=== PATIENT | female | born 1930 | race Caucasian/White ===

== ENCOUNTER 2018-02-10 03:33 | Inpatient (IN) | payer OTHER, MEDICARE ==
[2018-02-10] VITALS (15 sets, daily range): BP systolic 84–152; BP diastolic 40–83; PULSE 65–114; RESP 16–27; TEMP 97.6–99.3; O2SAT 96–100
[~2018-02-10] VITALS: Ht 170.2 cm; Wt 92.0 kg
[2018-02-10] MEDS ORDERED: IOHEXOL 350 MG/ML 10 ML VIAL (for RAD DIAG) IVCONTRAST ONE (03:53)
[2018-02-10 03:57] LABS: AUTOMATED NEUTROPHIL # 25.1 TH/MM3 (1.8-7.7); BASOPHIL % 0.1 % (0.0-2.0); EOSINOPHIL % 0.2 % (0.0-4.0); HEMATOCRIT 38.9 % (35.0-46.0); HEMOGLOBIN 12.9 GM/DL (11.6-15.3); LYMPH % 2.4 % (9.0-44.0); LYMPHOCYTE # 0.7 TH/MM3 (1.0-4.8); MEAN CELL VOLUME 92.6 FL (80.0-100.0); MEAN CORPUSCULAR HEMOGLOBIN 30.7 PG (27.0-34.0); MEAN CORPUSCULAR HGB CONC 33.2 % (32.0-36.0); MEAN PLATELET VOLUME 8.9 FL (7.0-11.0); MONOCYTE # 2.6 TH/MM3 (0-0.9); NEUT % 88.3 % (16.0-70.0); PLATELET COUNT 153 TH/MM3 (150-450); RED CELL DISTRIBUTION WIDTH 15.7 % (11.6-17.2); WHITE BLOOD COUNT 28.4 TH/MM3 (4.0-11.0)
--- NOTE | 2018-02-10 03:58 | PD ---
HPI Chief Complaint: Trauma alert Time Seen by Provider: 03:38 Travel History International Travel<30 days: No Contact w/Intl Traveler<30days: No History of Present Illness HPI The patient is a reportedly 87 year old female who presents to the [facility] emergency department with a history of reportedly falling on the driveway at approximately 9 PM last night. The patient was called and as a transfer from [facility] as a trauma alert to this facility. The patient was accepted in transfer by Dr. Monae. The patient according to the record had multiple right-sided rib fractures with a hemopneumothorax status post chest tube placement and 1200 mL of blood out in the chest tube. The patient's hemoglobin dropped from 11 to7. The patient was transfused 2 units of packed red blood cells. The patient was noted to have bilateral intertrochanteric fractures, a left proximal humerus fracture, and reportedly a T-spine fracture, however no documentation of this was provided when the patient was transferred to this facility. On arrival, the patient is noted to be awake and alert. The patient has no cervical collar in place. The patient denies having any complaints currently. She denies having any chest pain or shortness of breath. The patient only reports having right hip pain with any movement of the right hip. [facility] Past Medical History Narrative Medical The patient's past medical history is significant for hypothyroid disorder, osteoporosis, acid reflux, history of cataracts, history of a compression fracture of the lumbar spine, history of hypertension. Past Surgical History Narrative Surgical The patient's past surgical history is significant for hysterectomy Social History Alcohol Use: No Tobacco Use: No Substance Use: No Allergies-Medications (Allergen,Severity, Reaction): Coded Allergies: No Known Allergies (Unverified , 02/10/18) Review of Systems Except as stated in HPI: all other systems reviewed are Neg General / Constitutional: No: Fever Eyes: No: Visual changes HENT: No: Headaches, Neck Stiffness, Neck Pain Cardiovascular: No: Chest Pain or Discomfort Respiratory: No: Shortness of Breath Gastrointestinal: No: Nausea, Vomiting, Diarrhea, Abdominal Pain Genitourinary: No: Dysuria Musculoskeletal: Positive: Myalgias, Arthralgias, Pain Skin: No Rash Neurologic: No: Weakness, Focal Abnormalities, Change in Mentation, Slurred Speech, Sensory Disturbance Psychiatric: No: Depression Endocrine: No: Polydipsia Hematologic/Lymphatic: No: Easy Bruising Physical Exam Narrative General: The patient is a well-developed well-nourished female in no acute distress, arrives with a blood pressure systolic of 95. The patient is brought in on a back board in full c-spine immobilization by emergency services. Head and Neck exam: Head is normocephalic atraumatic. No facial bone tenderness or increased facial bone mobility noted on palpation. Eyes: EOMI, pupils are equal round and reactive to light. Nose: Midline septum with pink mucous membranes Mouth: Dentition unremarkable. Moist mucus membranes. Posterior oropharynx is not erythematous. No tonsillar hypertrophy. Uvula midline. Airway patent. Neck: The patient is immobilized in a cervical collar. No tracheal deviation. The trachea appears midline. Cardiovascular: Sinus tachycardia in the 1 teens without murmurs, gallops, or rubs. No pulse deficit to the extremities on simultaneous auscultation and palpation of her radial artery. Lungs: Clear to auscultation bilaterally. No wheezes, rhonchi, or rales. The patient has chest wall tenderness on palpation of the right lateral chest wall. No crepitus, step off, or flail segment noted. Abdomen: Soft, without tenderness to palpation in all 4 quadrants of the abdomen. No guarding, rebound, or rigidity. No erythema or ecchymosis noted. Extremities: No instability or pain noted on pelvic rock. No clubbing, cyanosis , or edema. 2+ pulses in all 4 extremities. No extremity tenderness or deformity noted on palpation or passive/ active range of motion, except in the area of interest, proximal left humerus and bilateral hips are tender on palpation or with any attempts at range of motion. Back: No spinous process tenderness to palpation. No stepoff or crepitus noted. No costovertebral angle tenderness to palpation. No erythema or ecchymosis. Neurologic Exam: Cranial nerves 2-12 were intact on exam. Strength is 5/5 in all 4 extremities. No sensory deficits noted. Skin Exam: No rash noted. Intact skin that is warm and dry. Data Data Last Documented VS Vital Signs Date Time Temp Pulse Resp B/P (MAP) Pulse Ox O2 Delivery O2 Flow Rate FiO2 02/10/18 03:33 100 3.00 02/10/18 03:33 Nasal Cannula Orders Orders Admit Order (Ed Use Only) (02/10/18 03:49) I-Stat Profile (02/10/18 03:49) Complete Blood Count With Diff (02/10/18 03:49) Prothrombin Time / Inr (Pt) (02/10/18 03:49) Act Partial Throm Time (Ptt) (02/10/18 03:49) Type And Screen (02/10/18 03:49) Fibrinogen (02/10/18 03:49) Red Blood Cells (Rbc) (02/10/18 03:49) Chest, Single Ap (02/10/18 03:49) Pelvis, Ap Only (Routine) (02/10/18 03:49) Ct Abd/Pel W Iv Contrast(Rout) (02/10/18 03:49) Ct Thorax/ Chest W Iv Contrast (02/10/18 03:49) Ct Thor Spine W Iv Contrast (02/10/18 03:49) Ct Lumb Spine W Iv Contrast (02/10/18 03:49) Iv Access Insert/Monitor (02/10/18 03:49) Ecg Monitoring (02/10/18 03:49) Oximetry (02/10/18 03:49) Oxygen Administration (02/10/18 03:49) Ed Poc Ultrasound (02/10/18 03:49) Labs Laboratory Tests Test 02/10/18 03:40 White Blood Count 28.4 TH/MM3 Red Blood Count 4.20 MIL/MM3 Hemoglobin 12.9 GM/DL Bedside Hemoglobin 12.2 G/DL Hematocrit 38.9 % Bedside Hematocrit 36.0 % Mean Corpuscular Volume 92.6 FL Mean Corpuscular Hemoglobin 30.7 PG Mean Corpuscular Hemoglobin Concent 33.2 % Red Cell Distribution Width 15.7 % Platelet Count 153 TH/MM3 Mean Platelet Volume 8.9 FL Neutrophils (%) (Auto) 88.3 % Lymphocytes (%) (Auto) 2.4 % Monocytes (%) (Auto) 9.0 % Eosinophils (%) (Auto) 0.2 % Basophils (%) (Auto) 0.1 % Neutrophils # (Auto) 25.1 TH/MM3 Lymphocytes # (Auto) 0.7 TH/MM3 Monocytes # (Auto) 2.6 TH/MM3 Eosinophils # (Auto) 0.0 TH/MM3 Basophils # (Auto) 0.0 TH/MM3 CBC Comment AUTO DIFF Prothrombin Time 12.5 SEC Prothromb Time International Ratio 1.2 RATIO Activated Partial Thromboplast Time 21.9 SEC Fibrinogen 165 mg/dL Bedside Sodium 135 MMOL/L Bedside Potassium 4.0 MMOL/L Bedside Chloride 101 MMOL/L Bedside Blood Urea Nitrogen 14 MG/DL Bedside Creatinine 0.7 MG/DL Bedside Glucose 274 MG/DL [facility] Medical Screen Exam Complete: Yes Emergency Medical Condition: Yes Medical Record Reviewed: Yes Interpretation(s) Last Impressions Thoracic Spine CT 02/10/18348 Signed Impressions: Service Date/Time: Saturday, February 10, 2018 03:53 - CONCLUSION: 1. Acute fracture of T11 vertebral body. No retropulsion of posterior fragments or canal stenosis. 2. Old compression deformities at T8, T12 and L1 vertebral bodies. 1. Yrn Khan MD Pelvis X-Ray 02/10/18348 Signed Impressions: Service Date/Time: Saturday, February 10, 2018 03:36 - CONCLUSION: 1. Displaced intertrochanteric fracture left proximal femur. 2. Appears to be intertrochanteric fracture of the right proximal femur as well. Yrn Khan MD Lumbar Spine CT 02/10/18348 Signed Impressions: Service Date/Time: Saturday, February 10, 2018 03:53 - CONCLUSION: 1. Multiple old compression deformities. 2. Disc bulge causes mild canal stenosis at L4-5. 3. Compression fracture at T11 Yrn Khan MD Chest X-Ray 02/10/18348 Signed Impressions: Service Date/Time: Saturday, February 10, 2018 03:36 - CONCLUSION: 1. Right-sided chest tube with side hole external to the chest. 2. Tiny right apical pneumothorax. Yrn Khan MD Chest CT 02/10/18348 Signed Impressions: Service Date/Time: Saturday, February 10, 2018 03:53 - CONCLUSION: 1. Small bilateral pleural effusions. 2. Right-sided chest tube is seen with the side hole external to the chest. Tiny right-sided pneumothorax. 3. Minimal rib fracture right lower lateral rib. 4. Fracture of thoracic vertebral bodies including what appears to be T6 and T10, likely old. Yrn Khan MD Abdomen/Pelvis CT 02/10/18348 Signed Impressions: Service Date/Time: Saturday, February 10, 2018 03:53 - CONCLUSION: 1. Intertrochanteric fractures of each proximal femur. 2. Mild loss of height of several thoracic vertebral bodies including L2-L4. L3 and L4 vertebral bodies contain kyphoplasty cement. Yrn Khan MD Differential Diagnosis T-spine trauma, versus pelvis trauma, versus recurrent pneumothorax Narrative Course During the course of the patient's emergency department visit, the patient's history, examination, and differential diagnosis were reviewed with the patient. The patient was placed on a electronic device monitor with oximetry and frequent blood pressure monitoring. The patient had IV access obtained prior to arrival in bilateral upper extremities. At 2:42 AM I did speak to Dr. Monae regarding this patient's case. He did assist with the patient's care in the trauma bay. The patient's laboratory studies were reviewed and remarkable for an i-STAT with creatinine done at this facility that reveals a creatinine of 0.7, hemoglobin 12.2. This is compared to the blood work done at the other facility which revealed a hemoglobin and that did go down to 7.4, white count of 29.8, platelets at the other facility where 170, PT 15.2, INR 1.2, PTT 27.4. Troponin T was less than 0.01. Radiology studies were reviewed at this facility as well as the other facility and revealed bilateral intertrochanteric fractures, multiple right-sided rib fractures with a chest tube that is nearly dislodged in the right side of the chest, however no obvious pneumothorax, left proximal humerus fracture. Dr. Monae accompanied the patient to CT for additional imaging. He assumed patient of the care and CT. The patient's results were discussed with the patient, including the plan of care. I explained that further testing and/ or monitoring is indicated based on the patient's history, examination, and/ or laboratory findings. Therefore, I recommended admission for additional evaluation. The patient expressed understanding and was agreeable with this plan. The patient was admitted to the hospital in guarded condition and sent to a bed under the care of the trauma service. Procedures Procedure Narrative Emergency department E-FAST was performed with patient consent. The curvilinear probe was used in the right upper quadrant/Morison's pouch, suprapubic, left upper quadrant/spleenorenal space, epigastric, parasternal long axis and anterior bilateral chest wall. There was no evidence of peritoneal free fluid, pericardial effusion, or pneumothorax. Trauma Alert - Level One Trauma Alert Level One: Full trauma team activate, Patient evaluated, Trauma surgeon summoned Time Surgeon Summoned: 02:42 Physician Communication The patient's case including history, pertinent physical examination findings, and laboratory studies were discussed with Dr. Monae. It was agreed that the patient would be admitted to the trauma service. Diagnosis Diagnosis: Primary Impression: Hemopneumothorax on right Additional Impressions: Intertrochanteric fracture of both femurs Proximal humerus fracture Qualified Codes: S42.202A - Unspecified fracture of upper end of left humerus , initial encounter for closed fracture Rib fractures Qualified Codes: S22.41XA - Multiple fractures of ribs, right side, initial encounter for closed fracture T11 vertebral fracture Qualified Codes: S22.089A - Unspecified fracture of t11-T12 vertebra, initial encounter for closed fracture Admitting Physician Requests: Admit Daniela Rodriguez MD Feb 10, 2018 03:58
[2018-02-10 04:03] LABS: INTERNATIONAL NORMALIZED RATIO 1.2 RATIO; PROTHROMBIN TIME - PATIENT 12.5 SEC (9.8-11.6)
--- NOTE | 2018-02-10 04:04 | RADRPT ---
EXAM DATE/TIME: 02/10/2018 03:36 [facility] COMPARISON: No previous studies available for comparison. INDICATIONS : Trauma alert. Transfer. MEDICAL HISTORY : None. SURGICAL HISTORY : None. ENCOUNTER: Subsequent ACUITY: 1 day PAIN SCORE: 0/10 LOCATION: Bilateral chest FINDINGS: A single view of the chest demonstrates tiny right apical pneumothorax. Right-sided chest tube with t he side hole external to the chest. Minimal bibasilar densities. Heart normal in size. The cardiomedi astinal contours are unremarkable. Osseous structures are intact. CONCLUSION: 1. Right-sided chest tube with side hole external to the chest. 2. Tiny right apical pneumothorax. Yrn Khan MD on February 10, 2018 at 4:02 Board Certified Radiologist. This report was verified electronically.
--- NOTE | 2018-02-10 04:06 | RADRPT ---
EXAM DATE/TIME: 02/10/2018 03:36 [facility] COMPARISON: No previous studies available for comparison. INDICATIONS : Trauma alert. Transfer. MEDICAL HISTORY : None. SURGICAL HISTORY : None. ENCOUNTER: Initial ACUITY: 1 day PAIN SCORE: 0/10 LOCATION: Bilateral pelvis FINDINGS: A single frontal view of the pelvis demonstrates intertrochanteric fracture left proximal femur with displacement. There also appears to be a fracture to the right intertrochanteric region right proxima l femur. There is contrast within the bladder. CONCLUSION: 1. Displaced intertrochanteric fracture left proximal femur. 2. Appears to be intertrochanteric fracture of the right proximal femur as well. Yrn Khan MD on February 10, 2018 at 4:03 Board Certified Radiologist. This report was verified electronically.
[2018-02-10] MEDS: SODIUM CHLOR 0.9% 1000 ML INJ 1,000 ML IV SCH ×4 (04:13→23:00)
[2018-02-10] MEDS ORDERED: ACETAMINOPHEN/HYDROcodone 325 MG/5 MG TAB PO PRN ×2 (04:15)
[2018-02-10] MEDS ORDERED: CHLORHEXIDINE GLUCONATE 2 % 1 PACK (2 CLOTHS) TOP PRN (04:15)
[2018-02-10] MEDS ORDERED: ENALAPRILAT 1.25 MG/ML VIAL IV PUSH PRN (04:15)
[2018-02-10] MEDS ORDERED: ONDANSETRON HCL 4 MG/2 ML VIAL IV PUSH PRN (04:15)
[2018-02-10] MEDS ORDERED: MISCELLANEOUS NURSING INFORMATION XX SCH (04:15)
[2018-02-10] MEDS ORDERED: SODIUM CHLORIDE 0.9% FLUSH 10 ML FLUSH IV FLUSH PRN (04:15)
--- NOTE | 2018-02-10 04:21 | RADRPT ---
EXAM DATE/TIME: 02/10/2018 03:53 [facility] COMPARISON: No previous studies available for comparison. INDICATIONS : Trauma alert, fall. IV CONTRAST: 50 cc Omnipaque 350 (iohexol) IV ; Cumulative dose for multiple exams. RADIATION DOSE: 19.31 CTDIvol (mGy) ; Combined studies - Thorax/Abdomen/Pelvis MEDICAL HISTORY : Non-responsive. SURGICAL HISTORY : Non-responsive. ENCOUNTER: Initial ACUITY: 1 day PAIN SCALE: Non-responsive LOCATION: chest TECHNIQUE: Volumetric scanning of the chest was performed. Using automated exposure control and adjustment of t he mA and/or kV according to patient size, radiation dose was kept as low as reasonably achievable to obtain optimal diagnostic quality images. DICOM format image data is available electronically for review and comparison. Follow-up recommendations for detected pulmonary nodules are based at a minimum on nodule size and pa tient risk factors according to Fleischner Society Guidelines. FINDINGS: LUNGS: There is a tiny right sided pneumothorax. A right-sided chest tube is seen with tip in the region of the right middle lobe. The side hole is external to the chest. There is right sided subcutaneous emph ysema. PLEURA: There are small bilateral pleural effusions. MEDIASTINUM: The heart and great vessels demonstrate no acute abnormality. There is no mediastinal or hilar lymph adenopathy. Coronary artery calcifications. AXILLAE: Within normal limits. No lymphadenopathy. SKELETAL: Fracture of a midthoracic vertebral body, likely old appears to be about T6 level and also about T10 level. Minimal fracture of the right lower lateral rib. MISCELLANEOUS: The visualized upper abdominal organs demonstrate no acute abnormality. CONCLUSION: 1. Small bilateral pleural effusions. 2. Right-sided chest tube is seen with the side hole external to the chest. Tiny right-sided pneumoth orax. 3. Minimal rib fracture right lower lateral rib. 4. Fracture of thoracic vertebral bodies including what appears to be T6 and T10, likely old. Yrn Khan MD on February 10, 2018 at 4:12 Board Certified Radiologist. This report was verified electronically.
--- NOTE | 2018-02-10 04:24 | RADRPT ---
EXAM DATE/TIME: 02/10/2018 03:53 [facility] COMPARISON: No previous studies available for comparison. INDICATIONS : Trauma alert, fall. IV CONTRAST: 50 cc Omnipaque 350 (iohexol) IV ; Cumulative dose for multiple exams. ORAL CONTRAST: No oral contrast ingested. RADIATION DOSE: 19.31 CTDIvol (mGy) ; Combined studies - Thorax/Abdomen/Pelvis MEDICAL HISTORY : Non-responsive. SURGICAL HISTORY : Non-responsive. ENCOUNTER: Initial ACUITY: 1 day PAIN SCALE: Non-responsive LOCATION: abdomen TECHNIQUE: Volumetric scanning of the abdomen and pelvis was performed. Using automated exposure control and ad justment of the mA and/or kV according to patient size, radiation dose was kept as low as reasonably achievable to obtain optimal diagnostic quality images. DICOM format image data is available electro nically for review and comparison. FINDINGS: LOWER LUNGS: Discussed on CT chest. LIVER: Homogeneous density without lesion. There is no dilation of the biliary tree. No calcified gallston es. Minimal fluid adjacent to the liver. SPLEEN: Normal size without lesion. PANCREAS: Within normal limits. KIDNEYS: Normal in size and shape. There is no mass, stone or hydronephrosis. ADRENAL GLANDS: Within normal limits. VASCULAR: There is no aortic aneurysm. BOWEL/MESENTERY: The stomach, small bowel, and colon demonstrate no acute abnormality. There is no free intraperitone al air or fluid. ABDOMINAL WALL: Within normal limits. RETROPERITONEUM: There is no lymphadenopathy. BLADDER: No wall thickening or mass. REPRODUCTIVE: Within normal limits. INGUINAL: There is no lymphadenopathy or hernia. MUSCULOSKELETAL: Intertrochanteric fractures of each proximal femur. Mild loss of height of several lumbar vertebral b odies including kyphoplasty cement within L3 and L4. Slight loss of height along the superior plate o f L2. CONCLUSION: 1. Intertrochanteric fractures of each proximal femur. 2. Mild loss of height of several thoracic vertebral bodies including L2-L4. L3 and L4 vertebral bodi es contain kyphoplasty cement. Yrn Khan MD on February 10, 2018 at 4:20 Board Certified Radiologist. This report was verified electronically.
--- NOTE | 2018-02-10 04:31 | RADRPT ---
EXAM DATE/TIME: 02/10/2018 03:53 [facility] COMPARISON: No previous studies available for comparison. INDICATIONS : Trauma alert, fall. IV CONTRAST: 50 cc Omnipaque 350 (iohexol) IV ; Cumulative dose for multiple exams. RADIATION DOSE: ; Reconstructed from previous dataset, no dose MEDICAL HISTORY : Non-responsive. SURGICAL HISTORY : Non-responsive. ENCOUNTER: Initial ACUITY: 1 day PAIN SCALE: Non-responsive LOCATION: t spine TECHNIQUE: Volumetric scanning of the thoracic spine was performed. Multiplanar reconstructions in the sagittal , coronal and oblique axial planes were performed. Using automated exposure control and adjustment o f the mA and/or kV according to patient size, radiation dose was kept as low as reasonably achievable to obtain optimal diagnostic quality images. DICOM format image data is available electronically fo r review and comparison. FINDINGS: The vertebral bodies of the thoracic spine are in normal alignment without evidence of subluxation. M oderate loss of height of T8 vertebral body, likely old. Mild loss of height of T12 and L1 vertebral bodies also likely old. There is a fracture through T11 vertebral body.. T1-T2: Normal. T2-T3: The thecal sac has a normal diameter. No evidence of disc bulge or protrusion. T3-T4: The thecal sac has a normal diameter. No evidence of disc bulge or protrusion. T4-T5: The thecal sac has a normal diameter. No evidence of disc bulge or protrusion. T5-T6: The thecal sac has a normal diameter. No evidence of disc bulge or protrusion. T6-T7: The thecal sac has a normal diameter. No evidence of disc bulge or protrusion. T7-T8: The thecal sac has a normal diameter. No evidence of disc bulge or protrusion. T8-T9: The thecal sac has a normal diameter. No evidence of disc bulge or protrusion. T9-T10: The thecal sac has a normal diameter. No evidence of disc bulge or protrusion. T10-T11: The thecal sac has a normal diameter. No evidence of disc bulge or protrusion. T11-T12: The thecal sac has a normal diameter. No evidence of disc bulge or protrusion. T12-L1: The thecal sac has a normal diameter. No evidence of disc bulge or protrusion. CONCLUSION: 1. Acute fracture of T11 vertebral body. No retropulsion of posterior fragments or canal stenosis. 2. Old compression deformities at T8, T12 and L1 vertebral bodies. 1. Yrn Khan MD on February 10, 2018 at 4:26 Board Certified Radiologist. This report was verified electronically.
--- NOTE | 2018-02-10 04:33 | RADRPT ---
EXAM DATE/TIME: 02/10/2018 03:53 [facility] COMPARISON: No previous studies available for comparison. INDICATIONS : Trauma alert, fall. IV CONTRAST: 50 cc Omnipaque 350 (iohexol) IV ; Cumulative dose for multiple exams. RADIATION DOSE: ; Reconstructed from previous dataset, no dose MEDICAL HISTORY : Non-responsive. SURGICAL HISTORY : Non-responsive. ENCOUNTER: Initial ACUITY: 1 day PAIN SCALE: Non-responsive LOCATION: l spine TECHNIQUE: Volumetric scanning of the lumbar spine was performed. Multiplanar reconstructions in the sagittal, coronal and oblique axial planes were performed. Using automated exposure control and adjustment of the mA and/or kV according to patient size, radiation dose was kept as low as reasonably achievable t o obtain optimal diagnostic quality images. DICOM format image data is available electronically for review and comparison. FINDINGS: Mild loss of height of L1, L2, L3 and L4 vertebral bodies likely old compression deformities. Kyphopl asty cement within L3 and L4. CONUS MEDULLARIS: Normal. PARASPINAL SOFT TISSUES: Normal. LUMBAR CORD: Normal. DURAL SAC: Normal. L1-L2: The disc, uncovertebral joints, central canal, foramina, and facets are normal. L2-. L3-L4: The disc, uncovertebral joints, central canal, foramina, and facets are normal. L4-L5 L5-S1: The disc, uncovertebral joints, central canal, foramina, and facets are normal. CONCLUSION: 1. Multiple old compression deformities. 2. Disc bulge causes mild canal stenosis at L4-5. 3. Compression fracture at T11 Yrn Khan MD on February 10, 2018 at 4:30 Board Certified Radiologist. This report was verified electronically.
[2018-02-10] MEDS ORDERED: HYDROmorphone HCL PF 2 MG/ML VIAL IV PRN (04:45)
[2018-02-10] MEDS: PANTOPRAZOLE SODIUM 40 MG VIAL IVP SCH (04:52)
[2018-02-10] MEDS ORDERED: EPINEPHrine HCL (1:10,000) 1 MG/10 ML SYRINGE IV ONE (05:00)
[2018-02-10] MEDS ORDERED: DOPamine 800 MG/500 ML INJ 500 ML IV ONE (05:00)
[2018-02-10] MEDS ORDERED: CALCIUM CHLORIDE 10% SOLN 1 GRAM/10 ML SYR IV ONE (05:00)
[2018-02-10] MEDS ORDERED: ETOMIDATE 40 MG/20 ML VIAL ONE (05:16)
[2018-02-10] MEDS ORDERED: MIDAZOLAM HCL 5 MG/ML VIAL (1 ML) ONE (05:17)
[2018-02-10] MEDS ORDERED: ROCURONIUM INJ 50 MG/5 ML VIAL ONE (05:17)
[2018-02-10] MEDS ORDERED: PROPOFOL 500 MG/50 ML INJ 50 ML ONE (05:25)
[2018-02-10 05:29] LABS: BANDS 18 % (0-6); LYMPHOCYTES 3 % (9-44); METAMYELOCYTES 1 % (0-1); MONOCYTES 4 % (0-8); MYELOCYTES 1 % (0-0); NEUTROPHIL # MANUAL DIFF 26.4 TH/MM3 (1.8-7.7); POLYS (SEG NEUTROPHILS) 73 % (16-70)
[2018-02-10 05:30] LABS: ACANTHOCYTES OCC (NORMAL)
[2018-02-10 05:31] LABS: TOXIC VACUOLATION PRESENT (NONE SEEN)
[2018-02-10] MEDS ORDERED: SODIUM PHOSPHATE INJ 30 MMOL in SODIUM CHLOR 0.9% 250 ML INJ 240 ML IV PRN ×2 (06:30→09:15)
[2018-02-10] MEDS ORDERED: POTASSIUM CHLOR 40 MEQ PREMIX 100 ML IV PRN ×3 (06:30→09:15)
[2018-02-10] MEDS ORDERED: MAGNESIUM SULFATE INJ 2 GM in SODIUM CHLORIDE 0.9% INJ 96 ML IV PRN ×2 (06:30→09:15)
[2018-02-10] MEDS ORDERED: MAGNESIUM SULFATE INJ 4 GM in SODIUM CHLORIDE 0.9% INJ 92 ML IV PRN ×2 (06:30→09:15)
[2018-02-10] MEDS ORDERED: POTASSIUM PHOSPHATE MONOBASIC 500 MG TAB PO PRN ×2 (06:30→09:15)
[2018-02-10] MEDS ORDERED: POTASSIUM PHOSPHATE MONOBASIC 500 MG TAB PO/TUBE PRN ×2 (06:30→09:15)
[2018-02-10] MEDS ORDERED: POTASSIUM CHLOR 20 MEQ PREMIX 100 ML IV PRN ×3 (06:30→09:15)
[2018-02-10] MEDS ORDERED: POTASSIUM PHOSPHATE INJ 30 MMOL in SODIUM CHLOR 0.9% 250 ML INJ 250 ML IV PRN ×2 (06:30→09:15)
[2018-02-10] MEDS ORDERED: POTASSIUM CHLORIDE 20 MEQ PWD PACKET PO PRN (06:30)
[2018-02-10] MEDS ORDERED: MAGNESIUM OXIDE 400 MG TAB PO PRN ×2 (06:30→09:15)
--- NOTE | 2018-02-10 06:46 | RADRPT ---
EXAM DATE/TIME: 02/10/2018 06:09 [facility] COMPARISON: CHEST SINGLE AP, February 10, 2018, 3:36. INDICATIONS : Post intubation, central line placement, and advancement of chest tube on right side. MEDICAL HISTORY : None. SURGICAL HISTORY : None. ENCOUNTER: Initial ACUITY: 1 day PAIN SCORE: 0/10 LOCATION: Bilateral chest FINDINGS: A single view of the chest demonstrates bibasilar densities. Small right apical pneumothorax. Endotra cheal tube 2 cm above the rosmery. Right subclavian central line with kink in distal catheter with tip in the SVC. Osseous structures are intact. CONCLUSION: 1. Minimal bibasilar densities. 2. Small right apical pneumothorax. 3. Kink in distal subclavian central line. Yrn Khan MD on February 10, 2018 at 6:43 Board Certified Radiologist. This report was verified electronically.
[2018-02-10] MEDS ORDERED: SODIUM BICARBONATE 8.4% INJ 50 MEQ/50 ML SYR ONE (07:05)
[2018-02-10] MEDS ORDERED: PHENYLEPHRINE HCL 10 MG/ML VIAL ONE ×3 (07:18→19:05)
--- NOTE | 2018-02-10 07:38 | PD.CONS ---
[facility] Service Critical Care Medicine Consult Requested By Dr. Monae Reason for Consult Trauma alert with: Right hemopneumothorax, right-sided rib fractures, bilateral intertrochanteric fractures on the femur, acute T11 fracture, acute left humerus fracture Severe shock Acute respiratory failure Ventricular tachycardia Anemia requiring transfusion Primary Care Physician Unknown History of Present Illness The patient is a reportedly 87 year old female who presents to the [facility] [address] emergency department as a transfer/trauma alert from [facility]. Apparently patient sustained a fall on the driveway at approximately 9 PM last night. She sustained right sided rib fractures with a hemopneumothorax status post chest tube placement at outside hospital and 1200 mL of blood out in the chest tube. Was transfused 2 units of packed red blood cells for Hb drop from 11 to 7. The patient was found to have bilateral intertrochanteric fractures, Left proximal humerus fracture, Acute T11 fracture, right-sided rib fractures, and hemopneumothorax as described above. Patient was accepted by Dr. Monae. Today am patient started becoming more hemodynamically unstable, Dr. Monae place a right subclavian central line and Levophed was started which rapidly was increased to 12 mcg/min. Due to increasing hemodynamic instability patient was intubated by Dr. Monae and placed on mechanical ventilation I was emergently called to the bedside today a.m. around 0645 AM as the patient was in severe hemodynamic compromise with rapidly dropping blood pressure. Levophed was titrated up to 30 mcg/min, rapid transfusion of 1 L normal saline started. Patient became bradycardic and further hypotensive and one ampule of epinephrine was pushed emergently. Patient also got 2 ampules of bicarb and 1 g of calcium IV push. Blood pressure started to stabilize. Patient started having frequent arrhythmias, for Levophed to be weaned, Gonzalo-Synephrine was started to support blood pressure. Stat blood work including CBC CMP lactic acid and troponin are pending at this time. Will check 2D echo. EKG did not show any evidence of ischemia. Patient this time is critically ill family was updated by myself Review of Systems ROS Limitations: Intubated, Altered Mental Status Past Family Social History Allergies: Coded Allergies: No Known Allergies (Unverified , 02/10/18) Past Medical History Hypothyroidism Osteoporosis GERD History of lumbar compression fractures Hypertension Past Surgical History Hysterectomy and cataract surgeries per ER notes Reported Medications Unable to obtain at this time Active Ordered Medications Currently on Levophed and Gonzalo-Synephrine infusions Family History Unable to obtain Social History Unable to obtain Physical Exam Vital Signs Vital Signs Date Time Temp Pulse Resp B/P (MAP) Pulse Ox O2 Delivery O2 Flow Rate FiO2 02/10/18 06:00 Mechanical Ventilator 100 02/10/18 05:42 100 02/10/18 05:40 100 100 02/10/18 04:00 97.6 114 24 152/83 (106) 96 02/10/18 03:33 100 3.00 02/10/18 03:33 100 Nasal Cannula 3.00 Physical Exam General: The patient is a well-developed well-nourished female in intubated sedated in severe shock HEENT: Pupils are equal round and reactive to light. No facial asymmetry or crepitus noted. Orotracheally intubated Neck: No tracheal deviation. The trachea appears midline. Cardiovascular: Sinus tachycardia with frequent PVCs, in profound shock on Levophed 30 mcg/min. Getting actively resuscitated Lungs: Clear to auscultation bilaterally, air entry diminished at the bases. Right-sided chest tube in place to -20 suction increased to -40. Right subclavian central line in place Abdomen: Soft, without tenderness to palpation. No guarding, rebound, or rigidity. Extremities: Patient has known proximal left humerus and bilateral intertrochanteric fractures Neurologic Exam: Neuro exam is limited by recent neuromuscular paralysis for intubation. Pupils are reactive Laboratory Laboratory Tests Test 02/10/18 03:40 02/10/18 04:30 02/10/18 07:00 White Blood Count 28.4 Red Blood Count 4.20 Hemoglobin 12.9 Bedside Hemoglobin 12.2 Hematocrit 38.9 Bedside Hematocrit 36.0 Mean Corpuscular Volume 92.6 Mean Corpuscular Hemoglobin 30.7 Mean Corpuscular Hemoglobin Concent 33.2 Red Cell Distribution Width 15.7 Platelet Count 153 Mean Platelet Volume 8.9 Neutrophils (%) (Auto) 88.3 Lymphocytes (%) (Auto) 2.4 Monocytes (%) (Auto) 9.0 Eosinophils (%) (Auto) 0.2 Basophils (%) (Auto) 0.1 Neutrophils # (Auto) 25.1 Lymphocytes # (Auto) 0.7 Monocytes # (Auto) 2.6 Eosinophils # (Auto) 0.0 Basophils # (Auto) 0.0 CBC Comment AUTO DIFF Differential Total Cells Counted 73 Neutrophils % (Manual) 73 Band Neutrophils % 18 Lymphocytes % 3 Monocytes % 4 Neutrophils # (Manual) 26.4 Metamyelocytes 1 Myelocytes 1 Differential Comment FINAL DIFF MANUAL Toxic Vacuolation PRESENT Platelet Estimate NORMAL Platelet Morphology Comment NORMAL Acanthocytes OCC Prothrombin Time 12.5 Prothromb Time International Ratio 1.2 Activated Partial Thromboplast Time 21.9 Fibrinogen 165 Bedside Sodium 135 Bedside Potassium 4.0 Bedside Chloride 101 Bedside Blood Urea Nitrogen 14 Bedside Creatinine 0.7 Bedside Glucose 274 Nasal Screen MRSA (PCR) MRSA NOT DETECTED Blood Gas Puncture Site ART LINE Blood Gas Patient Temperature 98.6 Blood Gas HCO3 30 Blood Gas Base Excess 5.9 Blood Gas Oxygen Saturation 98 Arterial Blood pH 7.44 Arterial Blood Partial Pressure CO2 45 Arterial Blood Partial Pressure O2 447 Arterial Blood Oxygen Content 13.1 Arterial Blood Carboxyhemoglobin 1.2 Arterial Blood Methemoglobin 0.8 Blood Gas Hemoglobin 8.7 Oxygen Delivery Device VENTILATOR Blood Gas Ventilator Setting PRVC/16/500/1.0/+5 Blood Gas Inspired Oxygen 100 Result Diagram: 02/10/18 0340 Imaging All imaging studies reviewed personally Septic Shock Reassessment Septic shock perfusion: reassessment completed Assessment and Plan Assessment and Plan ASSESSMENT Trauma alert with: Right hemopneumothorax right-sided rib fractures bilateral intertrochanteric fractures on the femur acute T11 fracture acute left humerus fracture Severe shock Acute respiratory failure Ventricular tachycardia Anemia requiring transfusion PLAN: NEURO: -Once clinically stable, start propofol for sedation and fentanyl for pain control -No CT of the head is done today, apparently negatuve CT head and C spine at OSH -Neurosurgery consult for acute T11 fracture -Spinal precautions RESP: -Continue PRVC mode of ventilation -Right chest tube placed at outside hospital, increase suction to -40 -Persistent small right-sided pneumothorax without tension -Monitor closely for tension pneumothorax CV: -Normal saline IV fluids 3L bolus, followed by maintenance fluid at 100 mL/h -Levophed rapidly increased to 30 mcg/min due to severe shock -Brief ACLS with epinephrine push, 2 Amps of bicarb 1 g of calcium -Due to ventricular arrhythmias, start Gonzalo-Synephrine and attempt weaning Levophed -Check 2D echo cycle cardiac enzymes -Check lactic acid and trend if high GI: -N.p.o., IV Protonix, OG to intermittent wall suction : -Monitor renal function closely. Crawford catheter. ID: -No evidence of infection at this time -Monitor closely for aspiration pneumonia HEME: -Monitor CBC, CMP, coags -Transfuse 1 unit of PRBC, received 2 units in the outside hospital ENDO: -Electrolyte replacement per protocol, sliding scale insulin if needed PROPH: -Bilateral lower extremity SCDs. No chemical DVT prophylaxis due to hemothorax -IV Protonix LINES: -Right subclavian central line, right radial art line CC time 87 min, including brief period of ACLS Code Status Full Discussed Condition With D/W Dr. Cedillo and patients family DeondreJanelle MD Feb 10, 2018 07:38
--- NOTE | 2018-02-10 07:57 | RADRPT ---
EXAM DATE/TIME: 02/10/2018 07:19 [place] COMPARISON: No previous studies available for comparison. INDICATIONS : Post ET Tube placement. MEDICAL HISTORY : None. SURGICAL HISTORY : None. ENCOUNTER: Subsequent ACUITY: 1 day PAIN SCORE: Non-responsive. LOCATION: Bilateral chest FINDINGS: Cardiomegaly. Endotracheal tube identified in the distal tip terminates 2 cm above the rosmery. A righ t subclavian line catheter is noted and the tip overlies the SVC. There is subcutaneous air right lat eral chest with a chest tube again noted on the right. There is a small right apical pneumothorax. Le ft lung demonstrates atelectatic changes at the bases. CONCLUSION: Right sided pneumothorax again seen. Central venous catheter and endotracheal tube are noted as above . Jeet Rowe MD on February 10, 2018 at 7:55 Board Certified Radiologist. This report was verified electronically.
[2018-02-10] MEDS: CHLORHEXIDINE 0.12% (ORAL KIT) 15 ML CUP MT SCH ×2 (08:00→20:00)
[2018-02-10 08:22] LABS: CALCIUM 8.4 MG/DL (8.5-10.1); PHOSPHORUS 4.7 MG/DL (2.5-4.9)
[2018-02-10 08:29] LABS: HEMATOCRIT 25.1 % (35.0-46.0); HEMOGLOBIN 8.4 GM/DL (11.6-15.3); MEAN CELL VOLUME 90.5 FL (80.0-100.0); MEAN CORPUSCULAR HEMOGLOBIN 30.4 PG (27.0-34.0); MEAN CORPUSCULAR HGB CONC 33.6 % (32.0-36.0); PLATELET COUNT 113 TH/MM3 (150-450); RED BLOOD COUNT 2.77 MIL/MM3 (4.00-5.30); RED CELL DISTRIBUTION WIDTH 15.2 % (11.6-17.2); WHITE BLOOD COUNT 19.1 TH/MM3 (4.0-11.0)
--- NOTE | 2018-02-10 08:45 | MB ---
cc: Jonathan Linares MD DATE: 02/10/2018 REASON FOR CONSULTATION: Bilateral hip fractures and a left proximal humerus fracture. CONSULTING PHYSICIAN: Ryan Monae MD. HISTORY OF PRESENT ILLNESS: Kiah is an 87-year-old female who initially had a fall. She fell at approximately 9 p.m. last night. She fell in her driveway. She was initially taken to [facility] in [place]. She was found to have right-sided rib fractures, a pneumothorax, a left proximal humerus fracture, and bilateral rib fractures. She was subsequently transferred to [facility] as a trauma alert. She is currently intubated and sedated in the Intensive Care Unit. No other history is available. PAST MEDICAL HISTORY: The patient is unable to give any history because she is intubated and sedated, chart was reviewed. ILLNESSES: Hypothyroidism, reflux, osteoporosis, hypertension. PAST SURGICAL HISTORY: Hysterectomy and cataract surgery. HOME MEDICATIONS: Unknown, please see EMR for a complete list of inpatient medications. FAMILY HISTORY: Unobtainable. REVIEW OF SYSTEMS: Unobtainable. SOCIAL HISTORY: Unobtainable. PHYSICAL EXAMINATION: GENERAL: The patient is an 87-year-old female who is intubated and sedated in the Intensive Care Unit. She appears well-developed and well-nourished. VITAL SIGNS: Temperature 97.6, pulse 114, blood pressure is 152/83, O2 saturation 96% on FIO2 100%. HEENT: The patient is normocephalic. Pupils are equal. NECK: Soft and nontender. The trachea is in the midline. ABDOMEN: Soft, nontender, nondistended. CHEST: Chest tube is in place. ABDOMEN: Soft, nontender, nondistended. EXTREMITIES: Examination of the left shoulder reveals some swelling and bruising around the shoulder. She has no obvious deformity around the elbow, wrist or hand. She has good cap refill in her fingers. Motor and sensory exams are not possible. Examination of the right arm reveals no obvious pain or deformity with shoulder, elbow and wrist motion. Skin is intact. Radial pulse is palpable. Examination of bilateral lower extremities reveals thigh and calf compartments are soft. She has no obvious pain or deformity around her knee, tibia or ankle. She has good cap refill in her feet. She does have crepitus with hip motion. Motor and sensory exams are not possible. LABORATORY DATA: Patient has a white blood cell count of 28.4, hematocrit of 38.9, platelet count of 153. INR is 1.2. BUN is 14 and creatinine 0.7. IMAGING: X-rays of bilateral hips reveal bilateral intertrochanteric rib fractures. Chest x-ray was reviewed. There appears to be a mildly displaced left proximal humerus fracture. IMPRESSIONS: 1. Multiple rib fractures with pneumothorax. 2. Respiratory distress. 3. Hypotension. 4. Left proximal humerus fracture. 5. Bilateral intertrochanteric hip fractures. PLAN: At this point, the patient is in critical condition. She is having respiratory distress and is also having significant hypotension. She is being placed on pressors at this time. She is not stable for surgery today. If the patient does stabilize, she will need surgery for bilateral hip reduction, intramedullary nail fixation. I will likely treat her left shoulder nonoperatively. I will continue to follow the patient's progress. I will attempt to contact family to give them an update and obtain consents for surgery. A mid-level provider in my office, nurse practitioner or PA, may see this patient on a follow-up basis and continue to implement the objective of this plan including: Starting or adjusting medications, injections of muscle, tendon, bursa or joints, cast application, orthotic or brace application, physical therapy, further radiographic studies including x-ray, MRI, CT, ultrasounds or bone scan, vascular studies, neurologic studies, or other specialist consultations, and proceeding with surgical management as appropriate. MD OLIVIA Sheffield/SHAN , 08:23 AM , 08:44 AM
[2018-02-10 08:48] LABS: ALBUMIN 1.6 GM/DL (3.4-5.0); ALT (GPT) 12 U/L (10-53); AST (GOT) 17 U/L (15-37); BICARBONATE 20.2 MEQ/L (21.0-32.0); BLOOD UREA NITROGEN 14 MG/DL (7-18); CHLORIDE 110 MEQ/L (98-107); CREATININE 0.99 MG/DL (0.50-1.00); GLOMERULAR FILTRATION RATE 53 ML/MIN (>89); GLUCOSE,RANDOM 227 MG/DL (74-106); MAGNESIUM 1.7 MG/DL (1.5-2.5); SODIUM (NA) 145 MEQ/L (136-145)
[2018-02-10 08:51] LABS: ALKALINE PHOSPHATASE 38 U/L (45-117); TOTAL BILIRUBIN ADULT 0.7 MG/DL (0.2-1.0); TOTAL PROTEIN 3.4 GM/DL (6.4-8.2)
--- NOTE | 2018-02-10 08:56 | PD.CONS ---
[facility] Service neurosurgery Consult Requested By Trauma surgeon Reason for Consult T11 fracture Primary Care Physician Unknown History of Present Illness This is a 87 year old female who presents to the [facility] emergency department as a transfer from [facility] as a trauma alert. Apparently patient sustained a fall on the driveway at approximately 9 PM last night. She sustained right sided rib fractures with a hemopneumothorax status post chest tube placement and 1200 mL of blood out in the chest tube. The patient's hemoglobin dropped from 11 to7, was transfused 2 units of packed red blood cells. The patient was found to have bilateral intertrochanteric fractures, Left proximal humerus fracture, Acute T11 fracture, right-sided rib fractures, and hemopneumothorax as described above. She was accepted by Dr. Monae. Towards a.m. patient started becoming more hemodynamically unstable, Dr. Monae place a right subclavian central line and Levophed was started which rapidly was increased to 12 mcg/min. Due to increasing hemodynamic instability patient was intubated by Dr. Monae and placed on mechanical ventilation Trauma workup reveled a right hemopneumothorax, right-sided rib fractures, bilateral intertrochanteric fractures on the femur, acute T11 fracture, acute left humerus fracture. Neurosurgical consultation was requested Review of Systems Unobtainable due to her condition Past Family Social History Allergies: Coded Allergies: No Known Allergies (Unverified , 02/10/18) Past Medical History Unobtainable due to her condition Past Surgical History Unobtainable due to her condition Reported Medications Unobtainable due to her condition Active Ordered Medications Current Medications Sodium Chloride 1,000 ml @ 100 mls/hr Q10H IV Last administered on 02/10/18at 04 :13; Start 02/10/18 at 04:13 Sodium Chloride (NS Flush) 2 ml UNSCH PRN IV FLUSH FLUSH AFTER USING IV ACCESS ; Start 02/10/18 at 04:15 Hydromorphone HCl (Dilaudid Pf Inj) 0.5 mg Q1H PRN IV BREAKTHROUGH PAIN; Start 02/10/18 at 04:45 Acetaminophen/ Hydrocodone Bitart (Conception 5-325 Mg) 1 tab Q4H PRN PO PAIN SCALE 1 TO 5; Start 02/10/18 at 04:15 Acetaminophen/ Hydrocodone Bitart (Conception 5-325 Mg) 2 tab Q4H PRN PO PAIN SCALE 6 TO 10 Last administered on 02/10/18at 04:52; Start 02/10/18 at 04:15 Enalaprilat (Vasotec Inj) 1.25 mg Q8H PRN IV PUSH SBP>180, DBP>95; Start at 04:15 Ondansetron HCl (Zofran Inj) 4 mg Q6H PRN IV PUSH NAUSEA OR VOMITING; Start 02/10/18 at 04:15 Pantoprazole Sodium (Protonix Inj) 40 mg Q24H IVP Last administered on at 04:52; Start 02/10/18 at 05:00 Docusate Sodium (Colace) 100 mg BID PO ; Start 02/10/18 at 09:00 Miscellaneous Information 1 [id number] Last administered on 02/10/18at 04:15; Start 02/10/18 at 04:15 Chlorhexidine Gluconate (Chlorhexidine 2% Cloth) 3 pack Taper DAILY@04 TOP ; Start 02/11/18 at 04:00; Stop 02/07/19 at 03:59 Chlorhexidine Gluconate (Chlorhexidine 2% Cloth) 3 pack UNSCH PRN TOP HYGIENIC CARE; Start 02/10/18 at 04:15 Etomidate (Amidate Inj) 40 mg STK-MED ONCE .ROUTE Last administered on at 05:16; Start 02/10/18 at 05:16; Stop 02/10/18 at 05:17; Status DC Fentanyl Citrate (fentaNYL INJ) 100 mcg STK-MED ONCE .ROUTE ; Start 02/10/18 at 05:17; Stop 02/10/18 at 05:18; Status DC Midazolam HCl (Versed Inj) 5 mg STK-MED ONCE .ROUTE Last administered on at 05:17; Start 02/10/18 at 05:17; Stop 02/10/18 at 05:18; Status DC Rocuronium Maunie (Zemuron Inj) 50 mg STK-MED ONCE .ROUTE Last administered on 02/10/18at 05:17; Start 02/10/18 at 05:17; Stop 02/10/18 at 05:18; Status DC Propofol 50 ml @ As Directed STK-MED ONCE .ROUTE ; Start 02/10/18 at 05:25; Stop 02/10/18 at 05:26; Status DC Potassium Chloride 100 ml @ 50 mls/hr Q2H PRN IV For Potassium 2.8 - 3.2 mEq/L ; Start 02/10/18 at 06:30 Potassium Chloride 100 ml @ 50 mls/hr Q2H PRN IV For Potassium 2.8 - 3.2 mEq/L ; Start 02/10/18 at 06:30 Potassium Chloride 100 ml @ 25 mls/hr UNSCH PRN IV For Potassium 3.3 - 3.5 mEq /L; Start 02/10/18 at 06:30 Potassium Chloride 100 ml @ 50 mls/hr Q2H PRN IV For Potassium 3.3 - 3.5 mEq/L ; Start 02/10/18 at 06:30 Magnesium Sulfate 4 gm/Sodium Chloride 100 ml @ 50 mls/hr UNSCH PRN IV For Magnesium 0.9 - 1.1 mg/dL; Start 02/10/18 at 06:30 Magnesium Oxide (Mag-Ox) 800 mg UNSCH PRN PO For Magnesium 1.2 - 1.6 mg/dL; Start 02/10/18 at 06:30 Magnesium Sulfate 2 gm/Sodium Chloride 100 ml @ 50 mls/hr UNSCH PRN IV For Magnesium 1.2 - 1.6 mg/dL; Start 02/10/18 at 06:30 Potassium Phosphate (K-Phos) 2,000 mg Q4H PRN PO For Phosphorus < 2.5 mg/dL; Start 02/10/18 at 06:30 Sodium Phosphate 30 mmol/Sodium Chloride 250 ml @ 42 mls/hr UNSCH PRN IV For Phosphorus < 2.5 mg/dL; Start 02/10/18 at 06:30 Potassium Phosphate (K-Phos) 2,000 mg UNSCH PRN PO/TUBE SEE LABEL COMMENTS; Start 02/10/18 at 06:30 Potassium Phosphate 30 mmol/ Sodium Chloride 260 ml @ 42 mls/hr UNSCH PRN IV SEE LABEL COMMENTS; Start 02/10/18 at 06:30 Potassium Chloride (KCl Powder) 40 meq DAILY PRN PO For Potassium 3.3 - 3.5 mEq /L; Start 02/10/18 at 06:30 Chlorhexidine Gluconate (Peridex 0.12% Liq) 15 ml BID@08,20 MT ; Start 02/10/18 at 08:00 Propofol 100 ml @ 2.172 mls/ hr TITRATE PRN IV SEDATION; Start 02/10/18 at 08: 00 Fentanyl Citrate 250 ml @ 5 mls/hr TITRATE PRN IV SEDATION; Start 02/10/18 at 08 :00 Sodium Bicarbonate (Sodium Bicarbonate 8.4% Inj) 100 meq STK-MED ONCE .ROUTE ; Start 02/10/18 at 07:05; Stop 02/10/18 at 07:06; Status DC Phenylephrine HCl (Neosynephrine Inj) 10 mg STK-MED ONCE .ROUTE ; Start 02/10/18 at 07:18; Stop 02/10/18 at 07:19; Status DC Phenylephrine HCl (Neosynephrine Inj) 30 mg STK-MED ONCE .ROUTE ; Start 02/10/18 at 07:20; Stop 02/10/18 at 07:21; Status DC Family History Unobtainable due to her condition Social History Unobtainable due to her condition Physical Exam Vital Signs Vital Signs Date Time Temp Pulse Resp B/P (MAP) Pulse Ox O2 Delivery O2 Flow Rate FiO2 02/10/18 07:37 100 100 02/10/18 06:00 Mechanical Ventilator 100 02/10/18 05:42 100 02/10/18 05:40 100 100 02/10/18 04:00 97.6 114 24 152/83 (106) 96 02/10/18 03:33 100 3.00 02/10/18 03:33 100 Nasal Cannula 3.00 Physical Exam The patient is intubated and sedated. Localizes to painful stimulii with all 4 extremities. Cranial Nerves: Pupils equal, round, reactive to light. Eyes appear conjugated. There was no nystagmus, no papilledema. Face musculature appeared symmetrical at rest. Face sensation, olfaction, visual whittington, and hearing cannot be adequately assessed due to his neurological condition. The patient has a corneal reflex. He has a gag reflex. The sternocleidomastoid and trapezius are symmetrical. Cervical Spine: His neck is soft, supple, without nuchal rigidity. Motor: His muscle tone and bulk are normal. She moves all 4 extremities symmetrically, less on left upper extremity and lower.extremities due to her orthopedic fracture Sensory: On examination there is response to painful stimuli, localizing with both upper and lower extremities. Cerebellar: Examination cannot be adequately assessed due to the patient's neurological condition. Cardiovascular: Sinus tachycardia with frequent PVCs, in profound shock on Levophed 30 mcg/min. Getting actively resuscitated Lungs: Clear to auscultation bilaterally, air entry diminished at the bases. Right-sided chest tube in place to -20 suction increased to -40. Right subclavian central line in place Abdomen: Soft, without tenderness to palpation. No guarding, rebound, Skin warm and dry Laboratory Laboratory Tests Test 02/10/18 03:40 02/10/18 04:30 02/10/18 07:00 02/10/18 07:30 White Blood Count 28.4 19.1 Red Blood Count 4.20 2.77 Hemoglobin 12.9 8.4 Bedside Hemoglobin 12.2 Hematocrit 38.9 25.1 Bedside Hematocrit 36.0 Mean Corpuscular Volume 92.6 90.5 Mean Corpuscular Hemoglobin 30.7 30.4 Mean Corpuscular Hemoglobin Concent 33.2 33.6 Red Cell Distribution Width 15.7 15.2 Platelet Count 153 113 Mean Platelet Volume 8.9 9.0 Neutrophils (%) (Auto) 88.3 Lymphocytes (%) (Auto) 2.4 Monocytes (%) (Auto) 9.0 Eosinophils (%) (Auto) 0.2 Basophils (%) (Auto) 0.1 Neutrophils # (Auto) 25.1 Lymphocytes # (Auto) 0.7 Monocytes # (Auto) 2.6 Eosinophils # (Auto) 0.0 Basophils # (Auto) 0.0 CBC Comment AUTO DIFF Differential Total Cells Counted 73 Neutrophils % (Manual) 73 Band Neutrophils % 18 Lymphocytes % 3 Monocytes % 4 Neutrophils # (Manual) 26.4 Metamyelocytes 1 Myelocytes 1 Differential Comment FINAL DIFF MANUAL Toxic Vacuolation PRESENT Platelet Estimate NORMAL Platelet Morphology Comment NORMAL Acanthocytes OCC Prothrombin Time 12.5 Prothromb Time International Ratio 1.2 Activated Partial Thromboplast Time 21.9 Fibrinogen 165 Bedside Sodium 135 Blood Urea Nitrogen 13 14 Creatinine 1.00 0.99 Random Glucose 278 227 Calcium Level 8.4 9.0 Phosphorus Level 4.7 Magnesium Level 2.0 1.7 Sodium Level 135 145 Potassium Level 4.0 3.2 Chloride Level 104 110 Carbon Dioxide Level 16.0 20.2 Bedside Potassium 4.0 Bedside Chloride 101 Anion Gap 15 15 Bedside Blood Urea Nitrogen 14 Bedside Creatinine 0.7 Estimat Glomerular Filtration Rate 53 53 Bedside Glucose 274 Nasal Screen MRSA (PCR) MRSA NOT DETECTED Blood Gas Puncture Site ART LINE Blood Gas Patient Temperature 98.6 Blood Gas HCO3 30 Blood Gas Base Excess 5.9 Blood Gas Oxygen Saturation 98 Arterial Blood pH 7.44 Arterial Blood Partial Pressure CO2 45 Arterial Blood Partial Pressure O2 447 Arterial Blood Oxygen Content 13.1 Arterial Blood Carboxyhemoglobin 1.2 Arterial Blood Methemoglobin 0.8 Blood Gas Hemoglobin 8.7 Oxygen Delivery Device VENTILATOR Blood Gas Ventilator Setting PRVC/16/500/1.0/+5 Blood Gas Inspired Oxygen 100 Total Protein 3.4 Albumin 1.6 Alkaline Phosphatase 38 Aspartate Amino Transf (AST/SGOT) 17 Alanine Aminotransferase (ALT/SGPT) 12 Total Bilirubin 0.7 Test 02/10/18 08:05 Result Diagram: 02/10/18 0730 02/10/18 0730 Imaging Last 48 hours Impressions Thoracic Spine CT 02/10/18348 Signed Impressions: Service Date/Time: Saturday, February 10, 2018 03:53 - CONCLUSION: 1. Acute fracture of T11 vertebral body. No retropulsion of posterior fragments or canal stenosis. 2. Old compression deformities at T8, T12 and L1 vertebral bodies. 1. Yrn Khan MD Pelvis X-Ray 02/10/18348 Signed Impressions: Service Date/Time: Saturday, February 10, 2018 03:36 - CONCLUSION: 1. Displaced intertrochanteric fracture left proximal femur. 2. Appears to be intertrochanteric fracture of the right proximal femur as well. Yrn Khan MD Lumbar Spine CT 02/10/18348 Signed Impressions: Service Date/Time: Saturday, February 10, 2018 03:53 - CONCLUSION: 1. Multiple old compression deformities. 2. Disc bulge causes mild canal stenosis at L4-5. 3. Compression fracture at T11 Yrn Khan MD Chest X-Ray 02/10/18348 Signed Impressions: Service Date/Time: Saturday, February 10, 2018 03:36 - CONCLUSION: 1. Right-sided chest tube with side hole external to the chest. 2. Tiny right apical pneumothorax. Yrn Khan MD Chest CT 02/10/18348 Signed Impressions: Service Date/Time: Saturday, February 10, 2018 03:53 - CONCLUSION: 1. Small bilateral pleural effusions. 2. Right-sided chest tube is seen with the side hole external to the chest. Tiny right-sided pneumothorax. 3. Minimal rib fracture right lower lateral rib. 4. Fracture of thoracic vertebral bodies including what appears to be T6 and T10, likely old. Yrn Khan MD Abdomen/Pelvis CT 02/10/18348 Signed Impressions: Service Date/Time: Saturday, February 10, 2018 03:53 - CONCLUSION: 1. Intertrochanteric fractures of each proximal femur. 2. Mild loss of height of several thoracic vertebral bodies including L2-L4. L3 and L4 vertebral bodies contain kyphoplasty cement. Yrn Khan MD Chest X-Ray 02/10/18 Signed Impressions: Service Date/Time: Saturday, February 10, 2018 07:19 - CONCLUSION: Right sided pneumothorax again seen. Central venous catheter and endotracheal tube are noted as above. Jeet Rowe MD Chest X-Ray 02/10/18 Signed Impressions: Service Date/Time: Saturday, February 10, 2018 06:09 - CONCLUSION: 1. Minimal bibasilar densities. 2. Small right apical pneumothorax. 3. Kink in distal subclavian central line. Yrn Khan MD Attending Statement I reviewed her radiological studies Thoracic Spine CT 02/10/18348 Signed Impressions: Service Date/Time: Saturday, February 10, 2018 03:53 - CONCLUSION: 1. Acute fracture of T11 vertebral body. No retropulsion of posterior fragments or canal stenosis. 2. Old compression deformities at T8, T12 and L1 vertebral bodies. 1. Yrn Khan MD Pelvis X-Ray 02/10/18348 Signed Impressions: Service Date/Time: Saturday, February 10, 2018 03:36 - CONCLUSION: 1. Displaced intertrochanteric fracture left proximal femur. 2. Appears to be intertrochanteric fracture of the right proximal femur as well. Yrn Khan MD Lumbar Spine CT 02/10/18348 Signed Impressions: Service Date/Time: Saturday, February 10, 2018 03:53 - CONCLUSION: 1. Multiple old compression deformities. 2. Disc bulge causes mild canal stenosis at L4-5. 3. Compression fracture at T11 Yrn Khan MD Chest X-Ray 02/10/18348 Signed Impressions: Service Date/Time: Saturday, February 10, 2018 03:36 - CONCLUSION: 1. Right-sided chest tube with side hole external to the chest. 2. Tiny right apical pneumothorax. Yrn Khan MD Chest CT 02/10/18348 Signed Impressions: Service Date/Time: Saturday, February 10, 2018 03:53 - CONCLUSION: 1. Small bilateral pleural effusions. 2. Right-sided chest tube is seen with the side hole external to the chest. Tiny right-sided pneumothorax. 3. Minimal rib fracture right lower lateral rib. 4. Fracture of thoracic vertebral bodies including what appears to be T6 and T10, likely old. Yrn Khan MD Abdomen/Pelvis CT 02/10/18348 Signed Impressions: Service Date/Time: Saturday, February 10, 2018 03:53 - CONCLUSION: 1. Intertrochanteric fractures of each proximal femur. 2. Mild loss of height of several thoracic vertebral bodies including L2-L4. L3 and L4 vertebral bodies contain kyphoplasty cement. Yrn Khan MD Chest X-Ray 02/10/18 0000 Signed Impressions: Service Date/Time: Saturday, February 10, 2018 07:19 - CONCLUSION: Right sided pneumothorax again seen. Central venous catheter and endotracheal tube are noted as above. Jeet Rowe MD Chest X-Ray 02/10/18 0000 Signed Impressions: Service Date/Time: Saturday, February 10, 2018 06:09 - CONCLUSION: 1. Minimal bibasilar densities. 2. Small right apical pneumothorax. 3. Kink in distal subclavian central line. Yrn Khan MD The patient is in critical condition. She is having respiratory distress and is also having significant hypotension. She is being placed on pressors at this time. She is not stable medically Continue neuro checks in a serial fashion. T11 fracture. Nonoperative treatment with bed rest for now. if her condition improves TLSO brace Bilateral hip fractures. She is not stable for any tyupe of surgery at the present. If her condition improved consult orthopedics for for bilateral hip reduction Left shoulder fracture. nonoperative treatment. Consult orthopedics Multiple rib fractures. narcotic analgesics for pain control hemopneumothorax. Status post chest tube Pulmonary. Mechanical ventilation for acute respiratory failure, aggressive pulmonary toilette, nasotracheal suction, and breathing treatments with nebulizers. PT and OT eval Renal. monitor closely urine output, BUN and creatinine Endocrine. Monitor serial Acu checks and SSI as needed in detail ID monitor for signs of infection Protonix for stress ulcer prophylaxis Farrukh hose and SCD's for DVT prophylaxis Nasir Landers MD Feb 10, 2018 08:56
[2018-02-10 08:57] LABS: TROPONIN I 0.61 NG/ML (0.02-0.05)
[2018-02-10] MEDS: DOCUSATE SODIUM 100 MG CAP PO SCH ×2 (09:00→20:15)
[2018-02-10] MEDS ORDERED: MORPHINE SULFATE 2 MG/ML SYRINGE IV PUSH PRN (09:15)
[2018-02-10] MEDS ORDERED: SODIUM CHLOR 0.9% 1000 ML INJ 1,000 ML IV ONE (09:15)
[2018-02-10] MEDS ORDERED: POTASSIUM CHLORIDE 25 MEQ EFFERVESCENT TAB PO PRN (09:15)
--- NOTE | 2018-02-10 11:28 | MB ---
cc: Fletcher Rodriguez MD DATE: 02/10/2018 REASON FOR CONSULTATION: Evaluation for arrhythmia, suspected atrial fibrillation. HISTORY OF PRESENT ILLNESS: Kiah Cruz is an 87-year-old female transferred from [facility] after trauma apparently on 02/09/2018. She fell in the driveway, sustained bilateral intertrochanteric fractures, left proximal humeral, fracture of the body of T11 and rib fractures. This morning she became hemodynamically unstable. She was rescued with pressor therapy and now has responded to volume and getting a blood transfusion. There is a mention that this patient had atrial fibrillation. There are EKGs in the chart from 02/10/2018 at 07:22 a.m. and from 02/10/2018 at 22:41. Both of these show sinus rhythm. Telemetry strips here all show sinus rhythm. I have looked at those. I cannot therefore confirm that there has been any A-fib diagnosed. Her initial troponin was 0.01 at the other hospital. I see here it is 0.61. I am going to order an EKG to follow that up further. The patient right now is not able to provide any history, is on the ventilator. PAST MEDICAL HISTORY: Includes cataract surgery, gastroesophageal reflux disease, osteoporosis, hypothyroidism, hypertension. There is no cardiac history that I am aware of. PAST SURGICAL HISTORY: Hysterectomy. SOCIAL HISTORY: It is recorded that she was a nonsmoker. FAMILY HISTORY: Unobtainable. PHYSICAL EXAMINATION: GENERAL: An elderly, white female, currently sedated on a ventilator, intubated. VITAL SIGNS: Charted. HEENT: Unremarkable. NECK: Shows no bruits. No obvious JVD. HEART: Shows S1, S2. Mildly tachycardic, regular rhythm. I do not appreciate murmurs, gallops. ABDOMEN: Soft. EXTREMITIES: Reveal strong pedal pulses, intact radial pulses. LABORATORY DATA: Notable for the elevated troponin of 0.61. She has been noted to be profoundly anemic. Yesterday her hematocrit was 23.1 following the trauma. She is being transfused currently. TELEMETRY STRIPS: I have looked at all telemetry strips that she has had since she has been here. These all show sinus rhythm, sometimes frequent PVCs including a run of bigeminy at 7:45 a.m. I do not see confirmation of atrial fibrillation IMPRESSION: This consult was generated because of suspicion that the patient had atrial fibrillation last night. There is absolutely no documentation of atrial fibrillation anywhere in the chart. All I see at this time is sinus rhythm. She does have an elevated troponin. She could have easily sustained a small non-ST elevation myocardial infarction from the stress of shock from her trauma. There were no acute ischemic T-changes on the electrocardiograms from the other hospital. All that was present was left axis deviation and left anterior fascicular block. PLAN: I am going to repeat an EKG here and repeat troponins tomorrow. MD SAMINA Adams/KAMILAH , 10:52 AM , 11:26 AM
[2018-02-10] MEDS: fentaNYL DRIP 250 ML IV PRN ×2 (12:00→18:03)
[2018-02-10] MEDS: PROPOFOL 1000 MG/100 ML INJ 100 ML IV PRN ×2 (12:00→20:16)
[2018-02-10 14:38] LABS: TROPONIN I 3.06 NG/ML (0.02-0.05)
--- NOTE | 2018-02-10 15:00 | EKG ---
Date Performed: 02/10/2018 Time Performed: 07:22:24 PTAGE: 87 years EKG: Sinus rhythm .PVC. Consider left atrial abnormality Left axis deviation Possible anterior infarct - age undetermin ed Lateral T wave changes are nonspecific Low QRS voltages in precordial leads Abnormal ECG NO PREVIOUS TRACING DOCTOR: Oracio Aquino Interpretating Date/Time 02/10/2018 15:00:26
--- NOTE | 2018-02-10 15:56 | HHI.CCPN ---
Subjective Brief History This is a 87 year old female who presents to the [facility] emergency department as a transfer from [facility] as a trauma alert. Apparently patient sustained a fall on the driveway at approximately 9 PM last night. Patient was transferred to [facility] and underwent workup and when it was finally noted that patient had severe injuries we were asked to accept the patient as trauma transfer. Patient arrives around 6 AM and according to Dr. Monae initially patient is hemodynamically stable but then continues to deteriorate including multifocal supraventricular arrhythmias. Patient undergoes repeat CT scan of the chest and abdomen and is transferred to ICU for further care. Final injuries are Right lower rib fractures with a hemopneumothorax / chest tube placement and 1200 mL of blood out in the chest tube. Bilateral intratrochanteric hip fractures Left proximal humerus fracture T11 fracture Multiple old fractures of the thoracic spine and several lumbar spine fractures with kyphoplasties Supraventricular cardiac arrhythmias ischemic cardiomyopathy Hypotensive shock Metabolic acidosis anion gap In the process patient dropped hemoglobin from 12 g/dL initially to 7 g/dL few hours later. She received several units of PRBCs and was resuscitated Required vasopressors including Levophed and Gonzalo-Synephrine 24 Hour Review/Hospital Course 02/09/2018 Patient was initially unstable but now has stabilized hemodynamically Remains intubated ventilated Medical manager six sigma help greatly appreciated Objective Vital Signs Date Time Temp Pulse Resp B/P (MAP) Pulse Ox O2 Delivery O2 Flow Rate FiO2 02/10/18 15:18 99 35 02/10/18 10:40 98.3 83 22 138/67 02/10/18 06:00 Mechanical Ventilator 02/10/18 03:33 3.00 Intake and Output 02/10/18 02/10/18 02/11/18 08:00 16:00 00:00 Intake Total 2800 ml Output Total 500 ml Balance -500 ml 2800 ml Result Diagram: 02/10/18 0730 02/10/18 0730 Other Results Laboratory Tests Test 02/10/18 07:00 Blood Gas Puncture Site ART LINE Blood Gas Patient Temperature 98.6 Blood Gas HCO3 30 mmol/L (22-26) Blood Gas Base Excess 5.9 mmol/L (-2-2) Blood Gas Oxygen Saturation 98 % (90-100) Arterial Blood pH 7.44 (7.380-7.420) Arterial Blood Partial Pressure CO2 45 mmHg (38-42) Arterial Blood Partial Pressure O2 447 mmHg (61-120) Arterial Blood Oxygen Content 13.1 Vol % (12.0-20.0) Arterial Blood Carboxyhemoglobin 1.2 % (0-4) Arterial Blood Methemoglobin 0.8 % (0-2) Blood Gas Hemoglobin 8.7 G/DL (12.0-16.0) Oxygen Delivery Device VENTILATOR Blood Gas Ventilator Setting PRVC/16/500/1.0/+5 Blood Gas Inspired Oxygen 100 % Imaging Last 24 hours Impressions Thoracic Spine CT 02/10/18348 Signed Impressions: Service Date/Time: Saturday, February 10, 2018 03:53 - CONCLUSION: 1. Acute fracture of T11 vertebral body. No retropulsion of posterior fragments or canal stenosis. 2. Old compression deformities at T8, T12 and L1 vertebral bodies. 1. Yrn Khan MD Pelvis X-Ray 02/10/18348 Signed Impressions: Service Date/Time: Saturday, February 10, 2018 03:36 - CONCLUSION: 1. Displaced intertrochanteric fracture left proximal femur. 2. Appears to be intertrochanteric fracture of the right proximal femur as well. Yrn Khan MD Lumbar Spine CT 02/10/18348 Signed Impressions: Service Date/Time: Saturday, February 10, 2018 03:53 - CONCLUSION: 1. Multiple old compression deformities. 2. Disc bulge causes mild canal stenosis at L4-5. 3. Compression fracture at T11 Yrn Khan MD Chest X-Ray 02/10/18348 Signed Impressions: Service Date/Time: Saturday, February 10, 2018 03:36 - CONCLUSION: 1. Right-sided chest tube with side hole external to the chest. 2. Tiny right apical pneumothorax. Yrn Khan MD Chest CT 02/10/18348 Signed Impressions: Service Date/Time: Saturday, February 10, 2018 03:53 - CONCLUSION: 1. Small bilateral pleural effusions. 2. Right-sided chest tube is seen with the side hole external to the chest. Tiny right-sided pneumothorax. 3. Minimal rib fracture right lower lateral rib. 4. Fracture of thoracic vertebral bodies including what appears to be T6 and T10, likely old. Yrn Khan MD Abdomen/Pelvis CT 02/10/18348 Signed Impressions: Service Date/Time: Saturday, February 10, 2018 03:53 - CONCLUSION: 1. Intertrochanteric fractures of each proximal femur. 2. Mild loss of height of several thoracic vertebral bodies including L2-L4. L3 and L4 vertebral bodies contain kyphoplasty cement. Yrn Khan MD Chest X-Ray 02/10/18 0000 Signed Impressions: Service Date/Time: Saturday, February 10, 2018 07:19 - CONCLUSION: Right sided pneumothorax again seen. Central venous catheter and endotracheal tube are noted as above. Jeet Rowe MD Chest X-Ray 02/10/18 0000 Signed Impressions: Service Date/Time: Saturday, February 10, 2018 06:09 - CONCLUSION: 1. Minimal bibasilar densities. 2. Small right apical pneumothorax. 3. Kink in distal subclavian central line. 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 Patient intubated ventilated and initially sedated with propofol but due to hemodynamic issues propofol has been stopped Patient response to verbal and tactile stimulation appropriately States does not have any pain Hemodynamic/Cardiac Hemodynamically patient is slowly stabilizing Initially had supraventricular arrhythmias which have abated since Remains on Levophed and Gonzalo-Synephrine with decreasing dose as she is being volume loaded Cardiac echo pending Enzymes somewhat elevated but I believe this is a result of the initial event hypovolemia anemia and generalized hypoxia rather than any specific cardiac occurrence Pulmonary/Respiratory Bilateral breath sounds remains ventilatory dependent on assist control ventilation with decreasing PO2 down to 40% Excellent PO2 FiO2 gradient Right chest tube repositioned in the right lung fully expanded with evacuation of hemothorax Residual bleeding minimal and patient still producing serosanguineous fluid Abdomen/GI Nutrition Abdomen soft few bowel sounds Patient will be kept n.p.o. till metabolic and hemodynamic issues resolve Renal/I&O Renal function preserved Metabolic/Acid-Base Patient initially had metabolic acidosis with base deficit consistent with hemorrhagic shock and on the resuscitation as well as cardiac rhythm issues This is slowly resolving and patient is hemodynamically stabilizing Hematologic Hemoglobin of 8.4 g/dL will transfuse another unit or 2 of PRBCs considering the patient will have continuous loss into the intertrochanteric fractures as well into the chest Assessment and Plan Attestation Patient status post fall with severe injuries including Right hemopneumothorax with 1200 cc blood loss Bilateral intertrochanteric fractures of the femurs Hemorrhagic shock and unstable hemodynamics on top of cardiac disease COPD and other issues I have discussed this with the family and this patient has very high 30 day mortality and 100% morbidity Family wants everything done and patient remains full code Critical care time 55 minutes Praveen Bennett MD Feb 10, 2018 15:56
[2018-02-10] MEDS: PHENYLEPHRINE 40 MG in D5W 500 ML IV PRN (19:00)
[2018-02-10] MEDS ORDERED: ALBUMIN 5% INJ 250 ML IV ONE (19:55)
[2018-02-10] MEDS: NOREPINEPHRINE 4 MG/D5W 250 ML IV PRN (20:16)
--- NOTE | 2018-02-10 21:27 | MH ---
cc: Ryan Monae MD DATE OF ADMISSION: 02/10/2018 [place] NAME: Sammi CHIEF COMPLAINT: Trauma, alert, status post trip and fall, transfer from [facility]. HISTORY OF PRESENT ILLNESS: The patient is an 87-year-old female who presented status post a trip and fall. The patient was reportedly walking on a steep driveway at around 9 p.m. last night and is status post a fall. She was initially evaluated at [facility] and had further workup including a CT head and C and T spines showing a T11 fracture. CT chest showing a hemopneumothorax, several rib fractures, status post chest tube. The patient with bilateral intertrochanteric femur fractures and a left shoulder proximal humerus fracture. She was also noted to be in hemodynamic shock briefly, but responded to IV fluids and 2 units of PRBCs at the outside facility. Dr. Chaudhari with [facility] called for trauma transfer for [place] for further workup and evaluation. The patient was deemed high acuity and therefore, I initiated a level 1 trauma transfer trauma alert. The patient was taken to our facility. Primary and secondary surveys were complete. The patient was given IV fluids and transferred over to the trauma bay. She was complaining of pelvic pain. She was not intubated at this time. She was intermittently answering questions; however, a somewhat poor historian. Blood pressure was relatively stable; however, there was some lability. The patient was then taken to our CT scanner. Currently, from outside facility, CT head and C-spine along with several x-rays were available for our view and review. We were unable to find full radiologic workup. We obtained a CT chest, abdomen and pelvis along with a repeat T and L-spine, confirming T11 vertebral body fracture, right rib fractures, chest tube noted to be displaced and had partially been withdrawn, tiny pneumothorax present, confirmation of bilateral intertrochanteric femur fractures and a left proximal humerus fracture. The patient was then taken directly to the ICU for again further resuscitation and management. The patient had further lability of blood pressure, systolic in the 60s. Therefore, patient was intubated, appropriate IV access obtained via central line and chest tube was advanced slightly. A-line was also obtained. PAST MEDICAL HISTORY: Per chart, hypothyroid, osteoporosis, reflux, cataract, history of lumbar spine compression fractures, hypertension. PAST SURGICAL HISTORY: Hysterectomy. MEDICATIONS: Unable to obtain. SOCIAL HISTORY: Denies smoking, ETOH or IVDA. ALLERGIES: THE PATIENT HAS NO KNOWN DRUG ALLERGIES. FAMILY HISTORY: Unable to obtain at this time. REVIEW OF SYSTEMS: GENERAL: Per chart, patient had no fever. HEENT: Denied eye pain, ear pain. CARDIOVASCULAR: Denied chest pain. RESPIRATORY: Denied shortness of breath. GASTROINTESTINAL: Denies nausea, vomiting. GENITOURINARY: No dysuria, hematuria. MUSCULOSKELETAL: Positive arthralgias and myalgias. SKIN: No rash. NEUROLOGIC: Unable to fully obtain. PSYCHIATRIC: Unable to obtain. PHYSICAL EXAMINATION: GENERAL: The patient is in moderate distress. INITIAL VITAL SIGNS: Blood pressure 110/72, pulse 123, respiratory 14, 97% saturation on 2 liters, temperature 97.1. HEENT: Pupils equal, round and reactive. NECK: Supple, trachea midline. LUNGS: Bilateral expansion, some decreased breath sounds on right. Chest tube noted with dressing. ABDOMEN: Soft, nontender, nondistended. EXTREMITIES: No pelvic instability. Painful range of motion, pelvic, lower extremities. Difficulty, range of motion with the left upper extremity. Pulses palpable. SKIN: No obvious rashes. BACK: No stepoff, nontender. LABORATORY AND DIAGNOSTIC DATA: WBC is 28.4, hemoglobin 12.9, hematocrit 38.9, platelets 153. Sodium 145, potassium 3.2, chloride is 110, CO2 is 28.2, BUN is 14, creatinine 0.9, glucose 227. CT is reviewed by myself. CT head: No evidence of acute intracranial pathology, scan from [facility]. CT C-spine, no evidence of acute fracture. Reviewed [facility] CT C-spine. CT chest, small bilateral pleural effusions, right side chest tube partially withdrawn, tiny pneumothorax on right, nondisplaced rib fracture, lower ribs, thoracic vertebral body T6, T10 old fracture. CT lumbar spine, multiple compression deformities, disk bulge, L4, 5, 3, compression fracture T11. Pelvic fracture. Displaced intertrochanteric proximal femur fractures bilaterally. Chest x-ray, right-sided chest tube, chest tube partially withdrawn. ASSESSMENT: Patient is an 87-year-old female status post trip and fall, noted to have bilateral intertrochanteric femur fractures, left proximal humerus fracture, 2 nondisplaced rib fractures, right hemopneumothorax, T11 acute vertebral body fracture, traumatic shock, initial response to blood products and fluid, advanced age. PLAN: After full clinical, radiologic and laboratory workup, patient with above main issues. The patient noted to have blood pressure lability, in traumatic shock. She initially responded to blood products; however, her blood pressure continued to trend down while in the ICU. The patient was intubated for airway protection. Appropriate IV access was obtained. Discussed with the manager home healthcare for further treatment and management. In regard to the humerus fracture and bilateral intertrochanteric femur fractures, will discuss with orthopedics for further evaluation, treatment and management. I will defer to orthopedics for further recommendations. In regard to a T11 fracture, we will keep the patient immobilized and flat and discuss with the neurosurgery for further treatment and evaluation. The patient received 2 units, again, for hemodynamic instability at the outside facility. We will type and cross the patient and have blood products available if patient further requires this. Further discussed with family, and children at bedside regarding the acuity and severity of the patient's injuries along with the significance of advanced age and critical state of patient. The patient will be n.p.o., IV fluids, pain control, appropriate vent management, and we will continue to follow closely for ongoing evidence of further injury along with close observation and resuscitation as needed. MD JER Porter/KAMILAH , 08:46 PM , 09:25 PM
[2018-02-10] MEDS: CHLORHEXIDINE GLUCONATE 2 % 1 PACK (2 CLOTHS) TOP SCH (21:36)
[2018-02-10 21:55] LABS: MAGNESIUM 1.5 MG/DL (1.5-2.5); PHOSPHORUS 2.1 MG/DL (2.5-4.9)
[2018-02-10 22:33] LABS: TROPONIN I 2.56 NG/ML (0.02-0.05)
[2018-02-10] MEDS ORDERED: SODIUM CHLORID 0.9% 500 ML INJ 500 ML IV ONE (23:00)
[2018-02-10] MEDS ORDERED: ALBUMIN 5% INJ 500 ML IV ONE (23:00)
[2018-02-11] VITALS (15 sets, daily range): BP systolic 95–135; BP diastolic 42–97; PULSE 64–79; RESP 13–18; TEMP 98.4–100; O2SAT 99–100
[2018-02-11] MEDS: PANTOPRAZOLE SODIUM 40 MG VIAL IVP SCH (03:56)
[2018-02-11] MEDS: PROPOFOL 1000 MG/100 ML INJ 100 ML IV PRN (03:56)
[2018-02-11 04:23] LABS: AUTOMATED NEUTROPHIL # 9.4 TH/MM3 (1.8-7.7); BASOPHIL % 0.1 % (0.0-2.0); HEMATOCRIT 25.3 % (35.0-46.0); HEMOGLOBIN 8.6 GM/DL (11.6-15.3); LYMPH % 10.2 % (9.0-44.0); LYMPHOCYTE # 1.2 TH/MM3 (1.0-4.8); MEAN CELL VOLUME 85.2 FL (80.0-100.0); MEAN PLATELET VOLUME 8.5 FL (7.0-11.0); MONO % 10.4 % (0.0-8.0); MONOCYTE # 1.2 TH/MM3 (0-0.9); NEUT % 79.3 % (16.0-70.0); PLATELET COUNT 78 TH/MM3 (150-450); RED BLOOD COUNT 2.97 MIL/MM3 (4.00-5.30); RED CELL DISTRIBUTION WIDTH 17.9 % (11.6-17.2); WHITE BLOOD COUNT 11.9 TH/MM3 (4.0-11.0)
[2018-02-11 04:49] LABS: BICARBONATE 20.5 MEQ/L (21.0-32.0); CALCIUM 7.5 MG/DL (8.5-10.1); CREATININE 0.39 MG/DL (0.50-1.00)
[2018-02-11 05:09] LABS: TROPONIN I 1.71 NG/ML (0.02-0.05)
[2018-02-11] MEDS: SODIUM CHLOR 0.9% 1000 ML INJ 1,000 ML IV SCH ×2 (05:15→19:00)
[2018-02-11] MEDS: PHENYLEPHRINE 40 MG in D5W 500 ML IV PRN (05:38)
--- NOTE | 2018-02-11 05:50 | RADRPT ---
EXAM DATE/TIME: 02/11/2018 04:39 [place] COMPARISON: CHEST SINGLE AP, February 10, 2018, 7:19. INDICATIONS : Follow up trauma. Short of breath. MEDICAL HISTORY : None. SURGICAL HISTORY : None. ENCOUNTER: Subsequent ACUITY: 2 days PAIN SCORE: Non-responsive. LOCATION: Bilateral chest FINDINGS: A single view of the chest demonstrates bibasilar densities. Small right apical pneumothorax. Endotra cheal tube and right subclavian central line stable in position. Right-sided chest tube. Osseous str uctures are intact. CONCLUSION: Small right apical pneumothorax. Yrn Khan MD on February 11, 2018 at 5:48 Board Certified Radiologist. This report was verified electronically.
[2018-02-11 07:16] LABS: OVALOCYTES 1+ (NORMAL)
--- NOTE | 2018-02-11 07:29 | PD.ORT.PN ---
Subjective Subjective Remarks s/p bilateral intertroch fxs s/p left proximal humerus fx intubated/sedated Objective Vitals Vital Signs Date Time Temp Pulse Resp B/P (MAP) Pulse Ox O2 Delivery O2 Flow Rate FiO2 02/11/18 05:38 68 112/50 02/11/18 04:30 100 35 02/11/18 04:00 99.2 69 16 97/53 (68) 99 02/11/18 04:00 35 02/11/18 00:25 99 35 02/11/18 00:00 35 02/11/18 00:00 100.0 72 16 131/53 (79) 100 02/10/18 23:00 68 02/10/18 20:16 75 96/52 02/10/18 20:00 99.0 85 16 132/58 (82) 99 02/10/18 20:00 35 02/10/18 19:58 98 35 02/10/18 19:10 99 Mechanical Ventilator 35 02/10/18 19:07 75 100/56 02/10/18 19:00 77 106/50 02/10/18 16:00 99.2 66 16 84/40 (55) 98 02/10/18 16:00 35 02/10/18 15:18 99 35 02/10/18 15:00 65 02/10/18 12:00 98.5 82 16 136/82 (100) 100 02/10/18 12:00 35 02/10/18 11:01 100 40 02/10/18 10:40 98.3 83 22 138/67 100 02/10/18 10:05 98.3 83 27 141/68 100 02/10/18 08:00 94 02/10/18 08:00 99.3 94 16 97/59 (72) 100 02/10/18 08:00 40 02/10/18 07:37 100 100 I/O 02/10/18 02/10/18 02/10/18 02/11/18 02/11/18 02/11/18 07:00 15:00 23:00 07:00 15:00 23:00 Intake Total 2800 ml 530 ml 1450 ml Output Total 500 ml 925 ml 650 ml Balance -500 ml 2800 ml -395 ml 800 ml Intake IV Total 1000 ml 530 ml 1450 ml Packed Cells 800 ml Blood Product IV Normal Saline Flush 1000 ml Output Urine Total 500 ml 675 ml 600 ml Chest Tube Drainage Total 250 ml 50 ml # Bowel Movements 0 0 Result Diagram: 02/11/18 0410 02/11/18 0410 Imaging Last 24 hours Impressions Chest X-Ray 02/11/18 0000 Signed Impressions: Service Date/Time: Sunday, February 11, 2018 04:39 - CONCLUSION: Small right apical pneumothorax. Ynr Khan MD Objective Remarks BLE: nvi. good cap refill. lue: bruising and swelling of arm. nvi Assessment & Plan Assessment and Plan 1) Bilateral Intertroch Fxs -possible surgery today pending medical status -consents on chart 2) Left Proximal Humerus Fx -donyop Ramo Almaraz/Taker Down SIOMARA Feb 11, 2018 07:29
--- NOTE | 2018-02-11 07:55 | EKG ---
Date Performed: 02/11/2018 Time Performed: 07:09:28 PTAGE: 87 years EKG: Baseline artifact present PROBABLE Sinus rhythm WITH OCCASIONAL VENTRICULAR PREMATURE COMPLEXES MARKED LEFT AXIS DEVIATION LOW QRS VOLTAGE IN PRECOR DIAL LEADS POSSIBLE ANTERIOR MYOCARDIAL INFARCTION , OF INDETERMINATE AGE ABNORMAL ECG No significant change from prior electrocardiogram. PREVIOUS TRACING : 02/10/2018 07.22 DOCTOR: Oracio Aquino Interpretating Date/Time 02/11/2018 07:54:44
[2018-02-11] MEDS: CHLORHEXIDINE 0.12% (ORAL KIT) 15 ML CUP MT SCH ×2 (08:00→20:00)
[2018-02-11] MEDS: DOCUSATE SODIUM 100 MG CAP PO SCH ×2 (09:00→20:54)
[2018-02-11 09:02] LABS: PHOSPHORUS 2.6 MG/DL (2.5-4.9)
--- NOTE | 2018-02-11 09:11 | MR ---
cc: Ryan Monae MD DATE: 02/10/2018 AKA: Edel [id number]. PREOPERATIVE DIAGNOSIS: Status post fall, multitrauma, multiple orthopedic injuries, airway protection. POSTOPERATIVE DIAGNOSIS: Status post fall, multitrauma, multiple orthopedic injuries, airway protection. PROCEDURE PERFORMED: Bedside endotracheal intubation. SURGEON: Ryan Monae MD RV MECHANIC: None. ANESTHESIA: 20 of etomidate, 50 of rocuronium, 1 of Versed. FINDINGS: Appropriate ET tube placement. Bilateral breath sounds. CO2 exchange. INDICATIONS FOR PROCEDURE: The patient is an 87-year-old female status post trip and fall. Patient with hypotension, trauma shock incident, multiple orthopedic injuries including bilateral intertrochanteric fractures, left proximal humerus fracture, right rib fractures, right hemopneumothorax in need of intubation. DETAILS OF PROCEDURE: The patient was approached at bedside. A brief time-out done stating correct patient, procedure, and surgical site. We were all in agreement with this. Attention was directed to the mouth oropharynx. The patient was bagged mask valved to 100% saturation with 100% FIO2. She was given appropriate sedation including etomidate, rocuronium and Versed. The jaw was extended, scissored open, a Eileen blade was used in order to identify the vallecula and down to cords. Cords were appropriately visualized. A #8 ET tube with cuff was placed and advanced through the cords. The balloon was inflated. The patient was bagged and had bilateral chest expansion. A stethoscope used to confirm clear airway and bilateral breath sounds. The patient also had appropriate oxygen and CO2 exchange and was hooked up to the ventilator. The tube was noted to be at the 22 cm milan from the incisor and again adequately placed. A chest x-ray is pending for confirmation. The patient tolerated the procedure. No complication. Tube was secured. MD JER Porter/SHAN , 08:52 AM , 09:10 AM
--- NOTE | 2018-02-11 09:28 | MP ---
cc: Ryan Monae MD DATE OF OPERATION: 02/10/2018 DATE OF PROCEDURE: 02/10/2018. PREOPERATIVE DIAGNOSIS: Need for central venous access. POSTOPERATIVE DIAGNOSES: 1. Need for central venous access. 2. Multitrauma, fall multi-orthopedic injury. PROCEDURE PERFORMED: Right subclavian vein placement of a triple lumen catheter at bedside. SURGEON: Ryan Monae MD MARINE PIPEFITTER: None. ANESTHESIA: 50 of rocuronium, 20 of etomidate, 1 of Versed in conjunction with the previous procedure. FINDINGS: Good flush, good return on blue and white ports. Red port with some resistance. Adequate nonpulsatile dark blood obtained. INDICATIONS FOR PROCEDURE: This is an 87-year-old female, status post fall. She sustained multitrauma including bilateral hip fractures, left shoulder fracture, right rib fracture, pneumothorax, status post chest tube placement. The patient in need for central venous access. DETAILS OF PROCEDURE: The patient was approached at bedside. She was prepped and draped in the usual sterile fashion. A brief timeout done stating correct patient, procedure, surgical site, and we were all in agreement with this. Attention was directed to the right subclavian/chest area. A towel roll was placed, placed in Trendelenburg placement and sterile dressings were placed as well. The landmarks were palpated. Halsted ligament was palpated and noted distal two-thirds of the clavicle on the right. The introducer needle was aspirated until successfully obtaining a dark venous blood. The syringe was removed, the wire was guided through the needle. This was done in a Seldinger technique method. The needle was removed. A small stab yaima incision was made. A dilator was placed in order to dilate the tract. The pre-flushed triple lumen catheter was then advanced over the wire and went easily. The wire was then removed. The ports were all irrigated and flushed appropriately. The red port did have some resistance. The port was then sutured at the skin with a 3-0 silk suture. Biopatch placed, Tegaderm placed and sterile dressings. The patient tolerated the procedure. No complication. A chest x-ray is pending to confirm placement. MD JER Porter/KAMILAH , 08:57 AM , 09:27 AM
[2018-02-11] MEDS ORDERED: FUROSEMIDE 20 MG/2 ML VIAL IV PUSH ONE (09:30)
[2018-02-11] MEDS ORDERED: PROPOFOL 1000 MG/100 ML INJ 100 ML IV PRN (09:45)
[2018-02-11] MEDS ORDERED: CHLORHEXIDINE GLUCONATE 2 % 1 PACK (2 CLOTHS) TOP SCH (10:00)
[2018-02-11] MEDS ORDERED: MUPIROCIN 2% OINT 1 APPLIC/GM SYR NASAL SCH (10:00)
[2018-02-11] MEDS ORDERED: VANCOMYCIN INJ 1,000 MG in SODIUM CHLOR 0.9% 250 ML INJ 250 ML IV SCH (10:00)
[2018-02-11] MEDS ORDERED: POVIDONE IODINE 5% (ANTISEPSIS KIT) 4 APPLICATIONS EACH NARE SCH (10:00)
--- NOTE | 2018-02-11 10:05 | PD.CARD.PN ---
Subjective Subjective Remarks sedated Objective Medications Current Medications Medications (Trade) Dose Ordered Sig/Mackenzie Route Start Time Stop Time Status Last Admin (NS Flush) 2 ml UNSCH PRN IV FLUSH 02/10/18 04:15 (Dilaudid Pf Inj) 0.5 mg Q1H PRN IV 02/10/18 04:45 (Bowdon 5-325 Mg) 1 tab Q4H PRN PO 02/10/18 04:15 (Bowdon 5-325 Mg) 2 tab Q4H PRN PO 02/10/18 04:15 02/10/18 04:52 (Vasotec Inj) 1.25 mg Q8H PRN IV PUSH 02/10/18 04:15 (Zofran Inj) 4 mg Q6H PRN IV PUSH 02/10/18 04:15 (Protonix Inj) 40 mg Q24H IVP 02/10/18 05:00 02/11/18 03:56 (Colace) 100 mg BID PO 02/10/18 09:00 Miscellaneous Information 1 Q361D XX 02/10/18 04:15 02/10/18 04:15 (Chlorhexidine 2% Cloth) 3 pack Taper DAILY@04 TOP 02/11/18 04:00 02/07/19 03:59 (Chlorhexidine 2% Cloth) 3 pack UNSCH PRN TOP 02/10/18 04:15 Potassium Chloride 100 ml @ 50 mls/hr Q2H PRN IV 02/10/18 06:30 Potassium Chloride 100 ml @ 50 mls/hr Q2H PRN IV 02/10/18 06:30 Potassium Chloride 100 ml @ 25 mls/hr UNSCH PRN IV 02/10/18 06:30 Potassium Chloride 100 ml @ 50 mls/hr Q2H PRN IV 02/10/18 06:30 Magnesium Sulfate 4 gm/Sodium Chloride 100 ml @ 50 mls/hr UNSCH PRN IV 02/10/18 06:30 (Mag-Ox) 800 mg UNSCH PRN PO 02/10/18 06:30 Magnesium Sulfate 2 gm/Sodium Chloride 100 ml @ 50 mls/hr UNSCH PRN IV 02/10/18 06:30 02/10/18 22:57 (K-Phos) 2,000 mg Q4H PRN PO 02/10/18 06:30 Sodium Phosphate 30 mmol/Sodium Chloride 250 ml @ 42 mls/hr UNSCH PRN IV 02/10/18 06:30 (K-Phos) 2,000 mg UNSCH PRN PO/TUBE 02/10/18 06:30 Potassium Phosphate 30 mmol/ Sodium Chloride 260 ml @ 42 mls/hr UNSCH PRN IV 02/10/18 06:30 02/10/18 22:56 (KCl Powder) 40 meq DAILY PRN PO 02/10/18 06:30 (Peridex 0.12% Liq) 15 ml BID@08,20 MT 02/10/18 08:00 02/11/18 08:00 Fentanyl Citrate 250 ml @ 5 mls/hr TITRATE PRN IV 02/10/18 08:00 02/10/18 18:03 Potassium Chloride 100 ml @ 50 mls/hr Q2H PRN IV 02/10/18 09:15 Potassium Chloride 100 ml @ 50 mls/hr Q2H PRN IV 02/10/18 09:15 (K-Lyte Cl Eff) 50 meq UNSCH PRN PO 02/10/18 09:15 Potassium Chloride 100 ml @ 25 mls/hr UNSCH PRN IV 02/10/18 09:15 Potassium Chloride 100 ml @ 50 mls/hr Q2H PRN IV 02/10/18 09:15 Magnesium Sulfate 4 gm/Sodium Chloride 100 ml @ 50 mls/hr UNSCH PRN IV 02/10/18 09:15 (Mag-Ox) 800 mg UNSCH PRN PO 02/10/18 09:15 Magnesium Sulfate 2 gm/Sodium Chloride 100 ml @ 50 mls/hr UNSCH PRN IV 02/10/18 09:15 (K-Phos) 2,000 mg Q4H PRN PO 02/10/18 09:15 Sodium Phosphate 30 mmol/Sodium Chloride 250 ml @ 42 mls/hr UNSCH PRN IV 02/10/18 09:15 (K-Phos) 2,000 mg UNSCH PRN PO/TUBE 02/10/18 09:15 Potassium Phosphate 30 mmol/ Sodium Chloride 260 ml @ 42 mls/hr UNSCH PRN IV 02/10/18 09:15 (Morphine Inj) 2 mg Q3H PRN IV PUSH 02/10/18 09:15 02/10/18 11:29 Norepinephrine Bitartrate 250 ml @ 7.5 mls/hr TITRATE PRN IV 02/10/18 19:45 02/10/18 20:16 Phenylephrine HCl 40 mg/Dextrose 500 ml @ 30 mls/hr TITRATE PRN IV 02/10/18 19:45 02/11/18 05:38 Sodium Chloride 1,000 ml @ 100 mls/hr Q10H IV 02/10/18 23:00 02/11/18 05:15 Midazolam HCl 100 ml @ 2 mls/hr TITRATE PRN IV 02/11/18 09:30 Propofol 100 ml @ 2.391 mls/ hr TITRATE PRN IV 02/11/18 09:45 Vital Signs / I&O Vital Signs Date Time Temp Pulse Resp B/P (MAP) Pulse Ox O2 Delivery O2 Flow Rate FiO2 02/11/18 07:34 99 35 02/11/18 05:38 68 112/50 02/11/18 04:30 100 35 02/11/18 04:00 99.2 69 16 97/53 (68) 99 02/11/18 04:00 35 02/11/18 00:25 99 35 02/11/18 00:00 35 02/11/18 00:00 100.0 72 16 131/53 (79) 100 02/10/18 23:00 68 02/10/18 20:16 75 96/52 02/10/18 20:00 99.0 85 16 132/58 (82) 99 02/10/18 20:00 35 02/10/18 19:58 98 35 02/10/18 19:10 99 Mechanical Ventilator 35 02/10/18 19:07 75 100/56 02/10/18 19:00 77 106/50 02/10/18 16:00 99.2 66 16 84/40 (55) 98 02/10/18 16:00 35 02/10/18 15:18 99 35 02/10/18 15:00 65 02/10/18 12:00 98.5 82 16 136/82 (100) 100 02/10/18 12:00 35 02/10/18 11:01 100 40 02/10/18 10:40 98.3 83 22 138/67 100 02/10/18 10:05 98.3 83 27 141/68 100 I/O 4/9/18 402/10/18 02/11/18 02/11/18 02/11/18 07:00 15:00 23:00 07:00 15:00 23:00 Intake Total 2800 ml 530 ml 1450 ml 50 ml Output Total 500 ml 925 ml 650 ml Balance -500 ml 2800 ml -395 ml 800 ml 50 ml Intake IV Total 1000 ml 530 ml 1450 ml 50 ml Packed Cells 800 ml Blood Product IV Normal Saline Flush 1000 ml Output Urine Total 500 ml 675 ml 600 ml Chest Tube Drainage Total 250 ml 50 ml # Bowel Movements 0 0 Physical Exam sedated Chest: no wheezes/rales CV S1S2 RRR with 1-2/6 MORELIA Abd soft No edema Tele: SR with PAC's and PVC's. Had a 3.2 second sinus pause yest héctor. 2.9 second pause this AM. Laboratory Laboratory Tests Test 02/10/18 12:38 02/10/18 13:56 02/10/18 20:35 02/11/18 00:41 Lactic Acid Level 5.4 mmol/L Total Creatine Kinase 340 U/L 237 U/L Creatine Kinase MB 20.7 NG/ML 13.1 NG/ML Creatine Kinase MB % 6.1 % 5.5 % Troponin I 3.06 NG/ML 2.56 NG/ML Phosphorus Level 2.1 MG/DL 2.6 MG/DL Magnesium Level 1.5 MG/DL 2.0 MG/DL Test 02/11/18 04:10 02/11/18 04:35 White Blood Count 11.9 TH/MM3 Red Blood Count 2.97 MIL/MM3 Hemoglobin 8.6 GM/DL Hematocrit 25.3 % Mean Corpuscular Volume 85.2 FL Mean Corpuscular Hemoglobin 29.0 PG Mean Corpuscular Hemoglobin Concent 34.0 % Red Cell Distribution Width 17.9 % Platelet Count 78 TH/MM3 Mean Platelet Volume 8.5 FL Neutrophils (%) (Auto) 79.3 % Lymphocytes (%) (Auto) 10.2 % Monocytes (%) (Auto) 10.4 % Eosinophils (%) (Auto) 0.0 % Basophils (%) (Auto) 0.1 % Neutrophils # (Auto) 9.4 TH/MM3 Lymphocytes # (Auto) 1.2 TH/MM3 Monocytes # (Auto) 1.2 TH/MM3 Eosinophils # (Auto) 0.0 TH/MM3 Basophils # (Auto) 0.0 TH/MM3 CBC Comment AUTO DIFF Differential Comment AUTO DIFF CONFIRMED Platelet Estimate LOW Platelet Morphology Comment NORMAL Ovalocytes 1+ Blood Urea Nitrogen 12 MG/DL Creatinine 0.39 MG/DL Random Glucose 122 MG/DL Calcium Level 7.5 MG/DL Sodium Level 143 MEQ/L Potassium Level 3.7 MEQ/L Chloride Level 116 MEQ/L Carbon Dioxide Level 20.5 MEQ/L Anion Gap 7 MEQ/L Estimat Glomerular Filtration Rate 156 ML/MIN Troponin I 1.71 NG/ML Blood Gas Puncture Site ART LINE Blood Gas Patient Temperature 98.6 Blood Gas HCO3 20 mmol/L Blood Gas Base Excess -3.5 mmol/L Blood Gas Oxygen Saturation 97 % Arterial Blood pH 7.47 Arterial Blood Partial Pressure CO2 28 mmHg Arterial Blood Partial Pressure O2 115 mmHg Arterial Blood Oxygen Content 11.5 Vol % Arterial Blood Carboxyhemoglobin 1.5 % Arterial Blood Methemoglobin 0.8 % Blood Gas Hemoglobin 8.3 G/DL Oxygen Delivery Device VENTILATOR Blood Gas Ventilator Setting 16/500/IT1.0/5PEEP Blood Gas Inspired Oxygen 35 % Imaging Last 24 hours Impressions Chest X-Ray 02/11/18 0000 Signed Impressions: Service Date/Time: Sunday, February 11, 2018 04:39 - CONCLUSION: Small right apical pneumothorax. Yrn Khan MD Assessment and Plan Problem List: (1) Trauma ICD Codes: T14.90XA - Injury, unspecified, initial encounter (2) Syncope ICD Codes: R55 - Syncope and collapse Plan: ? if she had syncope in her driveway. (3) Sinus pause ICD Codes: I45.5 - Other specified heart block Plan: Spoke to son, daughter, . Informed consent for DDD pacemaker tomorrow 7:30 AM. Fletcher Rodriguez MD Feb 11, 2018 10:05
--- NOTE | 2018-02-11 10:36 | ECHRPT ---
Indication: HYPOTENSION, TRAUMA CONCLUSIONS Normal left ventricular size. Wall thickness is measured at the upper limits of normal. The left ventricular systolic function is hyperdynamic with an estimated ejection fraction in the ra nge of 65- 70%. No regional wall motion abnormalities are present. Trace aortic valve regurgitation. There is mild tricuspid valve regurgitation. The estimated pulmonary arterial pressure is 65 mmHg. BP: 112 / 50 HR: 68 Rhythm: Sinus MEASUREMENTS (Male / Female) Normal Values Technical Quality:Fair 2D ECHO LVOT Diameter 2.3 cm Aortic Root Diameter 3.3 cm M-MODE AV Cusp Separation MM 1.8 cm DOPPLER AV Peak Velocity 207.0 cm/s AV Peak Gradient 17.1 mmHg AV Mean Gradient 8.0 mmHg AV Velocity Time Integral 36.3 cm LVOT Peak Velocity 97.8 cm/s LVOT Peak Gradient 3.8 mmHg LVOT Velocity Time Integral 19.9 cm AV Area Cont Eq vti 2.3 cm AV Area Cont Eq pk 2.0 cm Mitral E Point Velocity 59.7 cm/s Mitral A Point Velocity 75.5 cm/s Mitral E to A Ratio 0.8 LV E' Lateral Velocity 8.0 cm/s Mitral E to LV E' Lateral Ratio 7.5 LV E' Septal Velocity 5.6 cm/s Mitral E to LV E' Septal Ratio 10.7 TR Peak Velocity 371.0 cm/s TR Peak Gradient 55.1 mmHg Right Atrial Pressure 10.0 mmHg Pulmonary Artery Systolic Pressu 65.1 mmHg Right Ventricular Systolic Press 65.1 mmHg PV Peak Velocity 66.2 cm/s PV Peak Gradient 1.8 mmHg FINDINGS LEFT VENTRICLE Normal left ventricular size. Wall thickness is measured at the upper limits of normal. The left ventricular systolic function is hyperdynamic with an estimated ejection fraction in the ra nge of 65- 70%. No regional wall motion abnormalities are present. RIGHT VENTRICLE Normal right ventricular size and systolic function. LEFT ATRIUM The left atrial size is normal. RIGHT ATRIUM The right atrial size is normal. ATRIAL SEPTUM The interatrial septum not well visualized. AORTA The aortic root and proximal ascending aorta are not well visualized. MITRAL VALVE Trace mitral valve regurgitation. AORTIC VALVE Trileaflet aortic valve. Aortic valve sclerosis is present. Trace aortic valve regurgitation. TRICUSPID VALVE There is mild tricuspid valve regurgitation. The estimated pulmonary arterial pressure is 65 mmHg. PULMONARY VALVE Trivial pulmonary valve regurgitation. VESSELS The inferior vena cava is normal in size. PERICARDIUM A prominent epicardial fat pad is present. Waldo Crenshaw MD (Electronically Signed) Final Date:11 February 2018 10:35
[2018-02-11] MEDS ORDERED: ceFAZolin 2 GM PREMIX 50 ML IV SCH (11:00)
--- NOTE | 2018-02-11 14:01 | HHI.CCPN ---
Subjective Brief History This is a 87 year old female who presents to the [facility] emergency department as a transfer from [facility] as a trauma alert. Apparently patient sustained a fall on the driveway at approximately 9 PM last night. Patient was transferred to [facility] and underwent workup and when it was finally noted that patient had severe injuries we were asked to accept the patient as trauma transfer. Patient arrives around [address] and according to Dr. Monae initially patient is hemodynamically stable but then continues to deteriorate including multifocal supraventricular arrhythmias. Patient undergoes repeat CT scan of the chest and abdomen and is transferred to ICU for further care. Final injuries are Right lower rib fractures with a hemopneumothorax / chest tube placement and 1200 mL of blood out in the chest tube. Bilateral intratrochanteric hip fractures Left proximal humerus fracture T11 fracture Multiple old fractures of the thoracic spine and several lumbar spine fractures with kyphoplasties Supraventricular cardiac arrhythmias ischemic cardiomyopathy Hypotensive shock Metabolic acidosis anion gap In the process patient dropped hemoglobin from 12 g/dL initially to 7 g/dL few hours later. She received several units of PRBCs and was resuscitated Required vasopressors including Levophed and Gonzalo-Synephrine 24 Hour Review/Hospital Course 02/10/2018 Patient was initially unstable but now has stabilized hemodynamically Remains intubated ventilated Medical intensive care nurse help greatly appreciated 02/11/2018 Patient with a devastating traumatic injuries post fall She has been slowly stabilizing overnight with hemodynamic improvement and decreasing vasopressors Remains mildly sedated on propofol however we will switch this to Versed in face of cardio depressant effect of propofol Evaluated by cardiology for periods of bradycardia It is my opinion that patient had a myocardial infarction process as a result of combination of the trauma hypoxia on the scene anemia and hemorrhagic shock Troponins elevated Objective Vital Signs Date Time Temp Pulse Resp B/P (MAP) Pulse Ox O2 Delivery O2 Flow Rate FiO2 02/11/18 11:15 100 35 02/11/18 10:50 98.4 66 14 109/42 02/10/18 19:10 Mechanical Ventilator 02/10/18 03:33 3.00 Intake and Output 02/11/18 02/11/18 02/12/18 08:00 16:00 00:00 Intake Total 1450 ml 950 ml Output Total 650 ml Balance 800 ml 950 ml Result Diagram: 02/11/18 0410 02/11/18 0410 Other Results Laboratory Tests Test 02/11/18 04:35 Blood Gas Puncture Site ART LINE Blood Gas Patient Temperature 98.6 Blood Gas HCO3 20 mmol/L (22-26) Blood Gas Base Excess -3.5 mmol/L (-2-2) Blood Gas Oxygen Saturation 97 % (90-100) Arterial Blood pH 7.47 (7.380-7.420) Arterial Blood Partial Pressure CO2 28 mmHg (38-42) Arterial Blood Partial Pressure O2 115 mmHg (61-120) Arterial Blood Oxygen Content 11.5 Vol % (12.0-20.0) Arterial Blood Carboxyhemoglobin 1.5 % (0-4) Arterial Blood Methemoglobin 0.8 % (0-2) Blood Gas Hemoglobin 8.3 G/DL (12.0-16.0) Oxygen Delivery Device VENTILATOR Blood Gas Ventilator Setting 16/500/IT1.0/5PEEP Blood Gas Inspired Oxygen 35 % Imaging Last 24 hours Impressions Chest X-Ray 02/11/18 0000 Signed Impressions: Service Date/Time: Sunday, February 11, 2018 04:39 - CONCLUSION: Small right apical pneumothorax. Yrn Khan MD Exam HOST AND HOSTESS Patient sedated on propofol will switch to Versed in face of cardio depressant effect of the other one Neurologically patient is fully intact wakes up easily and moves all 4 extremities Hemodynamic/Cardiac Hemodynamically patient was very unstable on arrival due to hemorrhagic shock and cardiac arrhythmias Since, both have been addressed appropriately and patient is now euvolemic if not somewhat hypervolemic and cardiac function is being addressed as well Chest tube drainage has turned to serosanguineous and is minimal. Patient clearly had a myocardial infarction and several episodes of bradycardia Patient will need a pacemaker placement at this time and this is been discussed with family and project intern has also approached the same subject Still requiring vasopressors Levophed and Gonzalo-Synephrine. Will wean Gonzalo- Synephrine down first Pulmonary/Respiratory Bilateral breath sounds good PO2 FiO2 gradient Chest tube drainage decreased Patient remains on assist control ventilation and will remain so until pacemaker is placed and patient undergoes bilateral hip pinning Abdomen/GI Nutrition Abdomen soft Renal/I&O Renal function preserved with good urine output Patient is now volume loaded and actually will probably require some Lasix Hematologic Transfuse 1 unit PRBC today Assessment and Plan Attestation Critical care time 40 minutes I discussed with family at length the prospect of this patient's care and quality of life issues considering the severity of her injury. I have explained that patient will not be back where she was before the injury as far as her activity or functionality and they have to take that in account when deciding how far we want to go Family understands and will discuss all the options No palliative care consult for the time being required but we will see how it goes Praveen Bennett MD Feb 11, 2018 14:01
--- NOTE | 2018-02-11 15:43 | HHI.NSPN ---
Note Status Status: Progress Note Interval History Diagnosis politrauma Interval History This is a 87 year old female who presents to the [facility] emergency department as a transfer from [facility] as a trauma alert. Apparently patient sustained a fall on the driveway at approximately 9 PM last night. She sustained right sided rib fractures with a hemopneumothorax status post chest tube placement and 1200 mL of blood out in the chest tube. The patient's hemoglobin dropped from 11 to7, was transfused 2 units of packed red blood cells. The patient was found to have bilateral intertrochanteric fractures, Left proximal humerus fracture, Acute T11 fracture, right-sided rib fractures, and hemopneumothorax as described above. She was accepted by Dr. Monae. Towards a.m. patient started becoming more hemodynamically unstable, Dr. Monae place a right subclavian central line and Levophed was started which rapidly was increased to 12 mcg/min. Due to increasing hemodynamic instability patient was intubated by Dr. Monae and placed on mechanical ventilation Trauma workup reveled a right hemopneumothorax, right-sided rib fractures, bilateral intertrochanteric fractures on the femur, acute T11 fracture, acute left humerus fracture. Neurosurgical consultation was requested 02/11. She has been slowly stabilized overnight with hemodynamic improvement and decreased need for vasopressors. She remains mildly sedated on propofol. She has been evaluated by cardiology for periods of bradycardia. Troponins elevated. Suspected that she had a myocardial infarction on the scene anemia and hemorrhagic shock Labs, Micro, & Vital Signs Results Date Time Temp Pulse Resp B/P (MAP) Pulse Ox O2 Delivery O2 Flow Rate FiO2 02/11/18 11:15 100 35 02/11/18 10:50 98.4 66 14 109/42 100 02/11/18 10:35 99.7 76 13 123/55 99 02/11/18 07:34 99 35 02/11/18 05:38 68 112/50 02/11/18 04:30 100 35 02/11/18 04:00 99.2 69 16 97/53 (68) 99 02/11/18 04:00 35 02/11/18 00:25 99 35 02/11/18 00:00 35 02/11/18 00:00 100.0 72 16 131/53 (79) 100 02/10/18 23:00 68 02/10/18 20:16 75 96/52 02/10/18 20:00 99.0 85 16 132/58 (82) 99 02/10/18 20:00 35 02/10/18 19:58 98 35 02/10/18 19:10 99 Mechanical Ventilator 35 02/10/18 19:07 75 100/56 02/10/18 19:00 77 106/50 02/10/18 16:00 99.2 66 16 84/40 (55) 98 02/10/18 16:00 35 02/12/18 07:00 Intake Total 950 ml Balance 950 ml Constitutional Vital Signs Date Time Temp Pulse Resp B/P (MAP) Pulse Ox O2 Delivery O2 Flow Rate FiO2 02/11/18 11:15 100 35 02/11/18 10:50 98.4 66 14 109/42 100 02/11/18 10:35 99.7 76 13 123/55 99 02/11/18 07:34 99 35 02/11/18 05:38 68 112/50 02/11/18 04:30 100 35 02/11/18 04:00 99.2 69 16 97/53 (68) 99 02/11/18 04:00 35 02/11/18 00:25 99 35 02/11/18 00:00 35 02/11/18 00:00 100.0 72 16 131/53 (79) 100 02/10/18 23:00 68 02/10/18 20:16 75 96/52 02/10/18 20:00 99.0 85 16 132/58 (82) 99 02/10/18 20:00 35 02/10/18 19:58 98 35 02/10/18 19:10 99 Mechanical Ventilator 35 02/10/18 19:07 75 100/56 02/10/18 19:00 77 106/50 02/10/18 16:00 99.2 66 16 84/40 (55) 98 02/10/18 16:00 35 02/12/18 07:00 Intake Total 950 ml Balance 950 ml Review of Systems Unobtainable due to her condition Physical Exam Ms Cruz is intubated and sedated. Localizes to painful stimulii with all 4 extremities. Cranial Nerves: Pupils equal, round, reactive to light. Eyes appear conjugated. There was no nystagmus, no papilledema. Face musculature appeared symmetrical at rest. Face sensation, olfaction, visual [place], and hearing cannot be adequately assessed due to his neurological condition. The patient has a corneal reflex. He has a gag reflex. The sternocleidomastoid and trapezius are symmetrical. Cervical Spine: His neck is soft, supple, without nuchal rigidity. Motor: His muscle tone and bulk are normal. She moves all 4 extremities symmetrically, less on left upper extremity and lower.extremities due to her orthopedic fracture Sensory: On examination there is response to painful stimuli, localizing with both upper and lower extremities. Cerebellar: Examination cannot be adequately assessed due to the patient's neurological condition. Cardiovascular: Sinus tachycardia with frequent PVCs, in profound shock on Levophed 30 mcg/min. Getting actively resuscitated Lungs: Clear to auscultation bilaterally, air entry diminished at the bases. Right-sided chest tube in place to -20 suction increased to -40. Right subclavian central line in place Abdomen: Soft, without tenderness to palpation. No guarding, rebound, Skin warm and dry Medications Current Medications Current Medications Sodium Chloride 1,000 ml @ 100 mls/hr Q10H IV Last administered on 02/10/18at 20 :15; Start 02/10/18 at 04:13; Stop 02/10/18 at 22:57; Status DC Sodium Chloride (NS Flush) 2 ml UNSCH PRN IV FLUSH FLUSH AFTER USING IV ACCESS ; Start 02/10/18 at 04:15 Hydromorphone HCl (Dilaudid Pf Inj) 0.5 mg Q1H PRN IV BREAKTHROUGH PAIN; Start 02/10/18 at 04:45 Acetaminophen/ Hydrocodone Bitart (Gunpowder 5-325 Mg) 1 tab Q4H PRN PO PAIN SCALE 1 TO 5; Start 02/10/18 at 04:15 Acetaminophen/ Hydrocodone Bitart (Gunpowder 5-325 Mg) 2 tab Q4H PRN PO PAIN SCALE 6 TO 10 Last administered on 02/10/18at 04:52; Start 02/10/18 at 04:15 Enalaprilat (Vasotec Inj) 1.25 mg Q8H PRN IV PUSH SBP>180, DBP>95; Start at 04:15 Ondansetron HCl (Zofran Inj) 4 mg Q6H PRN IV PUSH NAUSEA OR VOMITING; Start 02/10/18 at 04:15 Pantoprazole Sodium (Protonix Inj) 40 mg Q24H IVP Last administered on at 03:56; Start 02/10/18 at 05:00 Docusate Sodium (Colace) 100 mg BID PO ; Start 02/10/18 at 09:00 Miscellaneous Information 1 [id number] Last administered on 02/10/18at 04:15; Start 02/10/18 at 04:15 Chlorhexidine Gluconate (Chlorhexidine 2% Cloth) 3 pack Taper DAILY@04 TOP ; Start 02/11/18 at 04:00; Stop 02/07/19 at 03:59 Chlorhexidine Gluconate (Chlorhexidine 2% Cloth) 3 pack UNSCH PRN TOP HYGIENIC CARE; Start 02/10/18 at 04:15 Etomidate (Amidate Inj) 40 mg STK-MED ONCE .ROUTE Last administered on at 05:16; Start 02/10/18 at 05:16; Stop 02/10/18 at 05:17; Status DC Fentanyl Citrate (fentaNYL INJ) 100 mcg STK-MED ONCE .ROUTE ; Start 02/10/18 at 05:17; Stop 02/10/18 at 05:18; Status DC Midazolam HCl (Versed Inj) 5 mg STK-MED ONCE .ROUTE Last administered on at 05:17; Start 02/10/18 at 05:17; Stop 02/10/18 at 05:18; Status DC Rocuronium [place] (Zemuron Inj) 50 mg STK-MED ONCE .ROUTE Last administered on 02/10/18at 05:17; Start 02/10/18 at 05:17; Stop 02/10/18 at 05:18; Status DC Propofol 50 ml @ As Directed STK-MED ONCE .ROUTE Last administered on 02/10/18at 07:30; Start 02/10/18 at 05:25; Stop 02/10/18 at 05:26; Status DC Potassium Chloride 100 ml @ 50 mls/hr Q2H PRN IV For Potassium 2.8 - 3.2 mEq/L ; Start 02/10/18 at 06:30 Potassium Chloride 100 ml @ 50 mls/hr Q2H PRN IV For Potassium 2.8 - 3.2 mEq/L ; Start 02/10/18 at 06:30 Potassium Chloride 100 ml @ 25 mls/hr UNSCH PRN IV For Potassium 3.3 - 3.5 mEq /L; Start 02/10/18 at 06:30 Potassium Chloride 100 ml @ 50 mls/hr Q2H PRN IV For Potassium 3.3 - 3.5 mEq/L ; Start 02/10/18 at 06:30 Magnesium Sulfate 4 gm/Sodium Chloride 100 ml @ 50 mls/hr UNSCH PRN IV For Magnesium 0.9 - 1.1 mg/dL; Start 02/10/18 at 06:30 Magnesium Oxide (Mag-Ox) 800 mg UNSCH PRN PO For Magnesium 1.2 - 1.6 mg/dL; Start 02/10/18 at 06:30 Magnesium Sulfate 2 gm/Sodium Chloride 100 ml @ 50 mls/hr UNSCH PRN IV For Magnesium 1.2 - 1.6 mg/dL Last administered on 02/10/18at 22:57; Start 02/10/18 at 06:30 Potassium Phosphate (K-Phos) 2,000 mg Q4H PRN PO For Phosphorus < 2.5 mg/dL; Start 02/10/18 at 06:30 Sodium Phosphate 30 mmol/Sodium Chloride 250 ml @ 42 mls/hr UNSCH PRN IV For Phosphorus < 2.5 mg/dL; Start 02/10/18 at 06:30 Potassium Phosphate (K-Phos) 2,000 mg UNSCH PRN PO/TUBE SEE LABEL COMMENTS; Start 02/10/18 at 06:30 Potassium Phosphate 30 mmol/ Sodium Chloride 260 ml @ 42 mls/hr UNSCH PRN IV SEE LABEL COMMENTS Last administered on 02/10/18at 22:56; Start 02/10/18 at 06:30 Potassium Chloride (KCl Powder) 40 meq DAILY PRN PO For Potassium 3.3 - 3.5 mEq /L; Start 02/10/18 at 06:30 Chlorhexidine Gluconate (Peridex 0.12% Liq) 15 ml BID@08,20 MT Last administered on 02/11/18at 08:00; Start 02/10/18 at 08:00 Propofol 100 ml @ 2.172 mls/ hr TITRATE PRN IV SEDATION Last administered on at 03:56; Start 02/10/18 at 08:00; Stop 02/11/18 at 09:26; Status DC Fentanyl Citrate 250 ml @ 5 mls/hr TITRATE PRN IV SEDATION Last administered on 02/10/18at 18:03; Start 02/10/18 at 08:00 Sodium Bicarbonate (Sodium Bicarbonate 8.4% Inj) 100 meq STK-MED ONCE .ROUTE Last administered on 02/10/18at 07:05; Start 02/10/18 at 07:05; Stop 02/10/18 at 07: 06; Status DC Phenylephrine HCl (Neosynephrine Inj) 10 mg STK-MED ONCE .ROUTE Last administered on 02/10/18at 07:20; Start 02/10/18 at 07:18; Stop 02/10/18 at 07:19; Status DC Phenylephrine HCl (Neosynephrine Inj) 30 mg STK-MED ONCE .ROUTE Last administered on 02/10/18at 07:20; Start 02/10/18 at 07:20; Stop 02/10/18 at 07:21; Status DC Sodium Chloride 1,000 ml @ 999 mls/hr BOLUS ONCE IV Last administered on at 09:15; Start 02/10/18 at 09:15; Stop 02/10/18 at 10:15; Status DC Potassium Chloride 100 ml @ 50 mls/hr Q2H PRN IV For Potassium 2.8 - 3.2 mEq/L ; Start 02/10/18 at 09:15 Potassium Chloride 100 ml @ 50 mls/hr Q2H PRN IV For Potassium 2.8 - 3.2 mEq/L ; Start 02/10/18 at 09:15 Potassium Bicarb/ Potassium Chloride (K-Lyte Cl Eff) 50 meq UNSCH PRN PO For Potassium 3.3 - 3.5 mEq/L; Start 02/10/18 at 09:15 Potassium Chloride 100 ml @ 25 mls/hr UNSCH PRN IV For Potassium 3.3 - 3.5 mEq /L; Start 02/10/18 at 09:15 Potassium Chloride 100 ml @ 50 mls/hr Q2H PRN IV For Potassium 3.3 - 3.5 mEq/L ; Start 02/10/18 at 09:15 Magnesium Sulfate 4 gm/Sodium Chloride 100 ml @ 50 mls/hr UNSCH PRN IV For Magnesium 0.9 - 1.1 mg/dL; Start 02/10/18 at 09:15 Magnesium Oxide (Mag-Ox) 800 mg UNSCH PRN PO For Magnesium 1.2 - 1.6 mg/dL; Start 02/10/18 at 09:15 Magnesium Sulfate 2 gm/Sodium Chloride 100 ml @ 50 mls/hr UNSCH PRN IV For Magnesium 1.2 - 1.6 mg/dL; Start 02/10/18 at 09:15 Potassium Phosphate (K-Phos) 2,000 mg Q4H PRN PO For Phosphorus < 2.5 mg/dL; Start 02/10/18 at 09:15 Sodium Phosphate 30 mmol/Sodium Chloride 250 ml @ 42 mls/hr UNSCH PRN IV For Phosphorus < 2.5 mg/dL; Start 02/10/18 at 09:15 Potassium Phosphate (K-Phos) 2,000 mg UNSCH PRN PO/TUBE SEE LABEL COMMENTS; Start 02/10/18 at 09:15 Potassium Phosphate 30 mmol/ Sodium Chloride 260 ml @ 42 mls/hr UNSCH PRN IV SEE LABEL COMMENTS; Start 02/10/18 at 09:15 Morphine Sulfate (Morphine Inj) 2 mg Q3H PRN IV PUSH Pain Last administered on 02/10/18at 11:29; Start 02/10/18 at 09:15 Phenylephrine HCl (Neosynephrine Inj) 10 mg STK-MED ONCE .ROUTE Last administered on 02/10/18at 19:07; Start 02/10/18 at 19:05; Stop 02/10/18 at 19:06; Status DC Norepinephrine Bitartrate 250 ml @ 7.5 mls/hr TITRATE PRN IV Maintain MAP > 65 mmHg Last administered on 02/10/18at 20:16; Start 02/10/18 at 19:45 Phenylephrine HCl 40 mg/Dextrose 500 ml @ 30 mls/hr TITRATE PRN IV Blood Pressure Management Last administered on 02/11/18at 05:38; Start 02/10/18 at 19:45 Albumin Human 250 ml @ As Directed STK-MED ONCE IV Last administered on at 19:56; Start 02/10/18 at 19:55; Stop 02/10/18 at 19:56; Status DC Sodium Chloride 1,000 ml @ 100 mls/hr Q10H IV Last administered on 02/11/18at 05:15; Start 02/10/18 at 23:00 Albumin Human 500 ml @ 250 mls/hr NOW ONCE IV Last administered on 02/10/18at 23:00; Start 02/10/18 at 23:00; Stop 02/11/18 at 00:59; Status DC Sodium Chloride 500 ml @ 500 mls/hr Q1H ONCE IV Last administered on 02/10/18at 23:00; Start 02/10/18 at 23:00; Stop 02/10/18 at 23:59; Status DC Midazolam HCl 100 ml @ 2 mls/hr TITRATE PRN IV SEDATION; Start 02/11/18 at 09: 30 Furosemide (Lasix Inj) 20 mg ONCE ONCE IV PUSH Last administered on 02/11/18at 09:30; Start 02/11/18 at 09:30; Stop 02/11/18 at 09:38; Status DC Propofol 100 ml @ 2.391 mls/ hr TITRATE PRN IV SEDATION; Start 02/11/18 at 09: 45 Cefazolin Sodium/ Dextrose 50 ml @ 100 mls/hr SURFACE GRINDING MACHINE HAND IV ; Start 02/11/18 at 11:00; Stop 02/11/18 at 11:00; Status DC Vancomycin HCl 1000 mg/Sodium Chloride 250 ml @ 250 mls/hr SURFACE GRINDING MACHINE HAND IV ; Start 02/11/18 at 10:00; Stop 02/15/18 at 09:59 Povidone Iodine (Betadine 5% Antisepsis Kit) 1 applic SURFACE GRINDING MACHINE HAND EACH NARE ; Start 02/11/18 at 10:00; Stop 02/15/18 at 09:59 Mupirocin (Bactroban Nasal 2% Oint) 1 applic SURFACE GRINDING MACHINE HAND NASAL ; Start 02/11/18 at 10:00; Stop 02/15/18 at 09:59 Chlorhexidine Gluconate (Chlorhexidine 2% Cloth) 3 pack SURFACE GRINDING MACHINE HAND TOP ; Start 08/21 at 10:00; Stop 02/15/18 at 09:59 Cefazolin Sodium 2000 mg/Sodium Chloride 100 ml @ 100 mls/hr SURFACE GRINDING MACHINE HAND IV ; Start 02/11/18 at 11:00; Stop 4/13/18 at 10:59 Attending Statement Ms Cruz remains in critical condition. She has been evaluated by cardiology for periods of bradycardia. Troponins elevated. Suspected that she had a myocardial infarction on the scene anemia and hemorrhagic s Continue neuro checks T11 fracture. Nonoperative treatment with bed rest for now. if her condition improves TLSO brace Bilateral hip fractures. She is not stable for any tyupe of surgery at the present. If her condition improved consult orthopedics for for bilateral hip reduction Left shoulder fracture.Continue nonoperative treatment. Consult orthopedics Multiple rib fractures. .Continuenarcotic analgesics for pain control hemopneumothorax. Status post chest tube Pulmonary. .Continue mechanical ventilation for acute respiratory failure, aggressive pulmonary toilette, nasotracheal suction, and breathing treatments with nebulizers. PT and OT eval Renal. .Continue to monitor closely urine output, BUN and creatinine Endocrine. .Continue to Monitor serial Acu checks and SSI as needed in detail ID .Continue to monitor for signs of infection .Continue Protonix for stress ulcer prophylaxis .Continue Farrukh carmelae and SCD's for DVT prophylaxis Discussed with trauma surgeon Nasir Landers MD Feb 11, 2018 15:43
[2018-02-11] MEDS: MIDAZOLAM 100 MG/100 ML INJ 100 ML IV PRN (19:00)
[2018-02-11] MEDS ORDERED: PHENYLEPHRINE HCL 10 MG/ML VIAL ONE (19:20)
[2018-02-11] MEDS ORDERED: RESP: ALBUTEROL 2.5 MG/IPRATROPIUM 0.5 MG NEB (PRN) NEB (19:45)
[2018-02-11] MEDS: MAGNESIUM HYDROXIDE SUSP 30 ML CUP PO SCH (20:54)
[2018-02-11] MEDS: RESP: ALBUTEROL 2.5 MG/IPRATROPIUM 0.5 MG NEB (SCH) NEB (21:17)
[2018-02-12] VITALS (17 sets, daily range): BP systolic 95–127; BP diastolic 45–60; PULSE 65–98; RESP 12–14; TEMP 98.3–100.4; O2SAT 96–100
[2018-02-12] MEDS: RESP: ALBUTEROL 2.5 MG/IPRATROPIUM 0.5 MG NEB (SCH) NEB ×4 (03:01→21:28)
[2018-02-12] MEDS ORDERED: AMIODARONE 150 MG/D5W 97 ML BOLUS 10 MINUTES IV ONE ×2 (03:15)
[2018-02-12 03:37] LABS: AUTOMATED NEUTROPHIL # 9.6 TH/MM3 (1.8-7.7); BASOPHIL % 0.3 % (0.0-2.0); EOSINOPHIL % 0.1 % (0.0-4.0); HEMATOCRIT 29.5 % (35.0-46.0); LYMPH % 8.7 % (9.0-44.0); MEAN CELL VOLUME 86.6 FL (80.0-100.0); MEAN CORPUSCULAR HEMOGLOBIN 29.4 PG (27.0-34.0); MEAN CORPUSCULAR HGB CONC 33.9 % (32.0-36.0); MEAN PLATELET VOLUME 8.8 FL (7.0-11.0); MONO % 8.3 % (0.0-8.0); NEUT % 82.6 % (16.0-70.0); PLATELET COUNT 69 TH/MM3 (150-450); RED BLOOD COUNT 3.41 MIL/MM3 (4.00-5.30); RED CELL DISTRIBUTION WIDTH 17.2 % (11.6-17.2); WHITE BLOOD COUNT 11.6 TH/MM3 (4.0-11.0)
[2018-02-12] MEDS: CHLORHEXIDINE GLUCONATE 2 % 1 PACK (2 CLOTHS) TOP SCH (03:42)
[2018-02-12] MEDS: fentaNYL DRIP 250 ML IV PRN ×2 (03:43→23:32)
[2018-02-12] MEDS: NOREPINEPHRINE 4 MG/D5W 250 ML IV PRN ×2 (03:44→12:59)
[2018-02-12] MEDS: AMIODARONE INJ 450 MG in SODIUM CHLOR 0.9% (EXCEL) INJ 241 ML IV PRN ×2 (03:47→10:28)
[2018-02-12 03:54] LABS: ALBUMIN 2.1 GM/DL (3.4-5.0); ALT (GPT) 15 U/L (10-53); AST (GOT) 22 U/L (15-37); BICARBONATE 23.9 MEQ/L (21.0-32.0); BLOOD UREA NITROGEN 9 MG/DL (7-18); CALCIUM 7.8 MG/DL (8.5-10.1); CHLORIDE 110 MEQ/L (98-107); CREATININE 0.28 MG/DL (0.50-1.00); GLOMERULAR FILTRATION RATE 228 ML/MIN (>89); GLUCOSE,RANDOM 126 MG/DL (74-106); MAGNESIUM 1.9 MG/DL (1.5-2.5); SODIUM (NA) 141 MEQ/L (136-145)
[2018-02-12 03:57] LABS: ALKALINE PHOSPHATASE 54 U/L (45-117); TOTAL BILIRUBIN ADULT 1.5 MG/DL (0.2-1.0); TOTAL PROTEIN 4.4 GM/DL (6.4-8.2)
[2018-02-12 04:00] LABS: INTERNATIONAL NORMALIZED RATIO 1.2 RATIO; PROTHROMBIN TIME - PATIENT 11.9 SEC (9.8-11.6)
[2018-02-12] MEDS: SODIUM CHLOR 0.9% 1000 ML INJ 1,000 ML IV SCH ×2 (04:15→14:40)
[2018-02-12] MEDS: PANTOPRAZOLE SODIUM 40 MG VIAL IVP SCH (04:15)
--- NOTE | 2018-02-12 05:27 | RADRPT ---
EXAM DATE/TIME: 02/12/2018 04:42 [facility] COMPARISON: CHEST SINGLE AP, February 11, 2018, 4:39. INDICATIONS : Shortness of breath. MEDICAL HISTORY : Non-responsive SURGICAL HISTORY : Non-responsive ENCOUNTER: Initial ACUITY: 3 days PAIN SCORE: Non-responsive. LOCATION: Bilateral chest FINDINGS: A single view of the chest demonstrates bibasilar densities. Right-sided chest tube and small right a pical pneumothorax. Cardiomegaly. Endotracheal tube and right subclavian central line in stable posit ion. Osseous structures are intact. CONCLUSION: Small right apical pneumothorax. Bibasilar densities. Yrn Khan MD on February 12, 2018 at 5:25 Board Certified Radiologist. This report was verified electronically.
[2018-02-12] MEDS: POTASSIUM CHLOR 40 MEQ PREMIX 100 ML IV PRN ×2 (05:53→06:19)
[2018-02-12] MEDS ORDERED: VANCOMYCIN 500 MG VIAL ONE (07:55)
[2018-02-12] MEDS ORDERED: LIDOCAINE HCL 1% PF 30 ML VIAL ONE (07:56)
[2018-02-12] MEDS ORDERED: ceFAZolin INJ 1,000 MG VIAL ONE (07:56)
[2018-02-12] MEDS ORDERED: VANCOMYCIN HCL 1000 MG VIAL ONE (07:56)
[2018-02-12] MEDS ORDERED: LIDOCAINE HCL 2% 50 ML VIAL ONE (08:00)
[2018-02-12] MEDS: MAGNESIUM HYDROXIDE SUSP 30 ML CUP PO SCH ×2 (09:00→20:30)
[2018-02-12] MEDS: DOCUSATE SODIUM 100 MG CAP PO SCH ×2 (09:00→20:30)
[2018-02-12] MEDS ORDERED: BACITRACIN OINT 0.9 GM PKT TOP PRN (09:30)
[2018-02-12] MEDS ORDERED: SODIUM CHLORIDE 0.9% FLUSH 10 ML FLUSH IV FLUSH PRN (09:30)
--- NOTE | 2018-02-12 09:49 | CATHPROC ---
Patient Name: MARYCARMEN LARES Study #: [id number] Initial MD: Fletcher Rodriguez Date of : 1930 Study Date: 02/12/2018 Cardiac Catheterization Report 02/12/2018 9:48:57 AM Financial #: [id number] 1 of 10 Patient Name: MARYCARMEN LARES Study #: [id number] Initial MD: Fletcher Rodriguez Date of : 1930 Study Date: 02/12/2018 Entire Case Report Patient Information Patient Name MARYCARMEN LARES Date of 1930 Age 87 years Financial # [id number] Gender F AlternateID Lab Number 6 Room Number 1301 Height (in) 67.0 Height (cm) 170.2 BSA 1.91 Weight (lbs) 175.3 Weight (kg) 79.7 Patient Address/Phone Number Home Address [facility] Home Phone Number [phone] [facility] [id number] Study Information Study Number Admission Scheduled Start Study Start [id number] Feb 10 2018 3:51AM 02/12/2018 Feb 12 2018 8:08AM [facility] Cardiac Pacer/ICD Admit Source Facility Department Emergency department [facility] - Resource Efficiency Manager Physician and Clinical Staff Initial Fletcher Hale Podiatric Surgeon Catrachita Moore,RN Podiatric Surgeon Jeannie Alcazar,ROC Recorder Debbi Valdovinos RCIS TECH2 Scrub Nubia Dillon,SKATESMAN TECH2 Procedures Performed Procedure Lead Insertion 02/12/2018 9:48:57 AM Financial #: [id number] 2 of 10 Patient Name: MARYCARMEN LARES Study #: [id number] Initial MD: Fletcher Rodriguez Date of : 1930 Study Date: 02/12/2018 Equipment Time Stockroom Associate Description Size Mfg Part Number Used/Scraped [id number] 08:16 ishBowl [employer]ES SUTURE, STRIP PLUS 1/2" * Used *[id number] 08:16 MEDLINE PACER ADHESIVE, MASTISOL 2/3CC 2/3CC 0523-48 Used 08:16 MEDLINE PACER PADRON, LIMB * 2530 *[id number] Used [id number] 08:16 MEDLINE PACER PACK, PACER CUSTOM * Used *[id number] 08:16 MEDLINE PACER PEN, SKIN DUAL W/ RULER * Used *[id number] 08:39 [employer]raft MEDICAL PACER SAFE SHEATH, FR7, 13CM FR 7 [id number] Used 08:44 [employer] MEDICAL PACER SAFE SHEATH, FR7, 13CM FR 7 CLS-1007 Used 09:04 Needle Sponge Count 2 22 Used 09:04 Needle Sponge Count 3 3 Used 09:04 Needle Sponge Count 30 1 Used [id number] *[id number] SUTURE, 2-0 VICRYL [SH] ([id number]) SUTURE, 3-0 VICRYL [SH] (VTB500P) SUTURE, 4-0 MONOCRYL [PS2] (Y496G) [id number] 08:16 [place] [facility],WARM AIR CCL * Used *[id number] [facility] PAD, ELECTROSURGICAL 08:16 * [id number] *[id number] Used SURGICAL GROUNDING ORANGE LEAD, CAPSURE FIX NOVUS, 4076-45CM 08:44 VITATRON MEDTRONIC 45CM Used 45CM *[id number] LEAD, CAPSURE FIX NOVUS, 4076-52CM 08:40 VITATRON MEDTRONIC 52CM Used 52CM *[id number] PACEMAKER, NASIR MCNULTY MRI 08:48 VITATRON MEDTRONIC OEA-DDDR A2DR01 Used SURESCAN [id number] 08:16 [employer]er MEDICAL JOVANNI. / * Used *19492 Equipment Model, Serial, Lot Number and Expiration Data Description Model Number Serial Number Lot Number Expiration Date LEAD, CAPSURE FIX NOVUS, 45CM 4076-45CM [id number] 11-23-2019 LEAD, CAPSURE FIX NOVUS, 52CM 4076-52cm [id number] 10-19-2019 PACEMAKER, NASIR MCNULTY MRI [id number] 04-17-2019 SURESCAN 02/12/2018 9:48:57 AM Financial #: [id number] Patient Name: MARYCARMEN LARES Study #: [id number] Initial MD: Fletcher Rodriguez Date of : 1930 Study Date: 02/12/2018 Insurance Information Insurance Payor Medicare, Private Health Insurance Third Libertarian Third Libertarian Number [facility] [place] [place] [facility] History: Allergies Allergy Reaction No Known Allergies History: Risk Factors Hypertension Yes History: Symptoms/Diagnosis Selection Items Syncope History: Other Disease Selection Items Gerd Labs Hgb (g/dl) Hct (%) WBC (l/cumm) Platelets (thousands) 11.60-17.00 35.00-51.00 4.00-11.00 150.00-450.00 10.0 29.5 11.6 69 Glucose (mg/dl) BUN (mg/dl) Creatinine (mg/dl) BUN:Creatinine (1:x) 74.00-106.00 7.00-18.00 0.50-1.30 10.00-20.00 126 9 0.2 45 Na (meq/l) K (meq/l) Cl (meq/l) CO2 (mmol/L) Ca (mg/dl) 136.00-145.00 3.50-5.10 98.00-107.00 21.00-32.00 8.50-10.10 141 3 110 23.9 7.8 PT (sec) PTT (sec) INR (PTT:PT) 9.80-11.60 24.30-30.10 0.90-1.10 11.9 32.3 1.2 Troponin I (ng/ml) CPK (u/l) CPK-MB (ng/ML) 0.02-0.05 26.00-308.00 0.50-3.60 1.7 237 13.1 Medication 02/12/2018 9:48:57 AM Financial #: [id number] Patient Name: MARYCARMEN LARES Study #: [id number] Initial MD: Fletcher Rodriguez Date of : 1930 Study Date: 02/13/20 18 Medication Total Dose (Bolus/Oral) Medication Total Dosage/Unit 2% XYLOCAINE 50 mL FENTANYL 25 mcg FENTANYL 325 mcg/hr VERSED 1 mg VERSED 7 mg/hr Medications (Bolus/Oral) Medication Time Given Dosage/Unit Administered By Reason FENTANYL 02/12/2018 7:54:41 AM 100 mcg/hr Patient arrived on 100 mcg/hr FENTANYL in Right shoulder via Central IV. Pump/Drip Flow = 0 ml/hr usi ng [Solution Name]. VERSED 02/12/2018 7:55:44 AM 2 mg/hr Patient arrived on 2 mg/hr VERSED in Right shoulder via Central IV. Pump/Drip Flow = 0 ml/hr using [S olution Name]. VERSED 02/12/2018 8:15:30 AM 1 mg Jeannie Alcazar 1 mg VERSED given in lab by Jeannie Alcazar RN in Right shoulder via Central IV. VERSED 02/12/2018 8:15:36 AM 3 mg/hr Jeannie Alcazar 3 mg/hr VERSED titrated in lab by Jeannie Alcazar RN in Right shoulder via Central IV. Pump/Drip Alan w = 0 ml/hr using [Solution Name]. Drip increased. FENTANYL 02/12/2018 8:16:32 AM 25 mcg Jeannie Alcazar 25 mcg FENTANYL given in lab by Jeannie Alcazar RN via Peripheral IV. FENTANYL 02/12/2018 8:16:53 AM 125 mcg/hr Jeannie Alcazar 125 mcg/hr FENTANYL titrated in lab by Jeannie Alcazar RN in Right shoulder via Central IV. Pump/Dri p Flow = 0 ml/hr using [Solution Name]. Drip increased. 2% XYLOCAINE 02/12/2018 8:24:02 AM 50 mL Fletcher Rodriguez 50 mL 2% XYLOCAINE given in lab by Fletcher Rodriguez via Subcutaneous to left upper chest. VERSED 02/12/2018 8:46:30 AM 2 mg/hr Jeannie Alcazar 2 mg/hr VERSED titrated in lab by Jeannie Alcazar RN in Right shoulder via Central IV. Pump/Drip Alan w = 0 ml/hr using [Solution Name]. Drip decreased. FENTANYL 02/12/2018 8:47:52 AM 100 mcg/hr Jeannie Alcazar 100 mcg/hr FENTANYL titrated in lab by Jeannie Alcazar RN in Right shoulder via Central IV. Pump/Dri p Flow = 0 ml/hr using [Solution Name]. Drip decreased 02/12/2018 9:48:57 AM Financial #: [id number] of 10 Patient Name: MARYCARMEN LARES Study #: [id number] Initial MD: Fletcher Rodriguez Date of : 1930 Study Date: 018 Medication (Drip) Medication Time Given Dosage/Unit Concentration/Unit Diluent (ml) Solution Amiodarone Drip 02/12/2018 7:50:59 AM 1 mg/min 450 mg 250 D5W Patient arrived on 1 mg/min Amiodarone Drip given by Jeannie Alcazar, RN in Left Hand via Peripheral IV. Pump/Drip Flow = 33.33 ml/hr using D5W with a concentration of 450 mg in 250 ml. ANCEF 02/12/2018 8:03:43 AM 2 g 2 g ANCEF given in lab by Jeannie Alcazar, ROC via Peripheral IV. Ordered by Fletcher Rodriguez. IV Solutions 02/12/2018 7:50:50 AM 0 mL (IV) 1000 LR Patient arrived on IV Solutions in Left Hand via Peripheral IV. Pump/Drip Flow = 20 ml/hr using LR. IV Solutions 02/12/2018 7:52:12 AM 0 mL (IV) 1000 NaCl .9 Patient arrived on IV Solutions in Right shoulder via Central IV. Pump/Drip Flow = 100 ml/hr using Na Cl .9. LEVOPHED 02/12/2018 7:53:16 AM 8 mcg/min 4 mg 250 D5W Patient arrived on 8 mcg/min LEVOPHED in Right shoulder via Central IV. Pump/Drip Flow = 30 ml/hr usi ng D5W with a concentration of 4 mg in 250 ml. LEVOPHED 02/12/2018 8:28:29 AM 4 mcg/min 4 mg 250 D5W 4 mcg/min LEVOPHED titrated in lab by Jeannie Alcazar, ROC in Right shoulder via Central IV. Pump/Drip Flow = 15 ml/hr using D5W with a concentration of 4 mg in 250 ml. Drip decreased. LEVOPHED 02/12/2018 8:59:43 AM 5 mcg/min 4 mg 250 D5W 5 mcg/min LEVOPHED titrated in lab by Jeannie Alcazar, ROC in Right shoulder via Central IV. Pump/Drip Flow = 18.75 ml/hr using D5W with a concentration of 4 mg in 250 ml. Drip increased POTASSIUM DRIP 02/12/2018 7:50:53 AM 20 meq/hr 40 meq 100 D5W .9 NaCl Patient arrived on 20 meq/hr POTASSIUM DRIP given by Jeannie Alcazar RN in Left Hand via Peripheral IV. Pump/Drip Flow = 50 ml/hr using D5W .9 NaCl with a concentration of 40 meq in 100 ml. POTASSIUM DRIP 02/12/2018 8:17:14 AM 20 meq/hr 40 meq 100 D5W .9 NaCl 20 meq/hr POTASSIUM DRIP given in lab by Jeannie Alcazar RN in Left Hand via Peripheral IV. Pump/Dri p Flow = 50 ml/hr using D5W .9 NaCl with a concentration of 40 meq in 100 ml. 1st infusion complete, 2nd bag hung VANCOMYCIN DRIP 02/12/2018 8:14:14 AM 1 g 1 g VANCOMYCIN DRIP given in lab by Jeannie Alcazar RN via Peripheral IV. Ordered by Fletcher Rodriguez. 02/12/2018 9:48:57 AM Financial #: [id number] Patient Name: MARYCARMEN LARES Study #: [id number] Initial MD: Fletcher Rodriguez Date of : 1930 Study Date: 02/12/2018 Initial Case Assessment Cardiovascular HR Rhythm NIBP 99 afib 155/83 Neurological State Drowsy Comment: Pt intubated Final Case Assessment Cardiovascular HR Rhythm NIBP 77 paced 96/53 Neurological State Drowsy Comment: Pt intubated on vent Respiration - General Respiration Rate SpO2 (%) (B/min) 15 100 Comment: Patient intubated on vent Respiration - Ventilator Type Intubation Type ET(oral) Chronological Log Time Study Chronological Log 7:40:50 Patient arrived via Bed. 7:40:59 Patient Name, D.O.B, / Armband Verified By R.N. 7:41:35 2% CHLORHEXIDINE GLUCONATE WASH AND NASAL SWIPE DONE PRIOR TO PROCEDURE. 7:42:34 Presedation assessment performed by Resource Efficiency Manager RN. 7:42:39 Wilmer Prominences Protected 7:44:36 Skin Breakdown-bruising noted from fall, pt arrived intubated with chest tube and vincent cat heter in place. 7:49:25 Verbal Stimulation=1 Physical Stimulation=1 Airway=2 Respiration=2 TOTAL=6. (0=absent, 1=li mited, 2=present) 7:50:11 Pre-op and post- op instructions given; patient acknowledges understanding of instructions. 7:50:49 A # 22 IV was noted in the Hand (left). Grade = PATENT 7:50:50 Patient arrived on IV Solutions in Left Hand via Peripheral IV. Pump/Drip Flow = 20 ml/hr u sing LR. Patient arrived on 20 meq/hr POTASSIUM DRIP given by Jeannie Alcazar RN in Left Hand via Perip heral IV. Pump/Drip 7:50:53 Flow = 50 ml/hr using D5W .9 NaCl with a concentration of 40 meq in 100 ml. 02/12/2018 9:48:57 AM Financial #: [id number] Patient Name: MARYCARMEN LARES Study #: [id number] Initial MD: Fletcher Rodriguez Date of : 1930 Study Date: 02/12/2018 Patient arrived on 1 mg/min Amiodarone Drip given by Jeannie Alcazar RN in Left Hand via Perip heral IV. Pump/Drip 7:50:59 Flow = 33.33 ml/hr using D5W with a concentration of 450 mg in 250 ml. 7:51:26 A Triple Lumen Central IV was noted in the Jugular Vein (right). Grade = 0 7:52:12 Patient arrived on IV Solutions in Right shoulder via Central IV. Pump/Drip Flow = 100 ml/h r using NaCl .9. Patient arrived on 8 mcg/min LEVOPHED in Right shoulder via Central IV. Pump/Drip Flow = 30 ml/ hr using D5W with a 7:53:16 concentration of 4 mg in 250 ml. Patient arrived on 100 mcg/hr FENTANYL in Right shoulder via Central IV. Pump/Drip Flow = 0 ml/ hr using [Solution 7:54:41 Name]. 7:55:44 Patient arrived on 2 mg/hr VERSED in Right shoulder via Central IV. Pump/Drip Flow = 0 ml/h r using [Solution Name]. 8:03:43 2 g ANCEF given in lab by Jeannie Alcazar, ROC via Peripheral IV. Ordered by Fletcher Rodriguez. 8:05:00 Left Upper Chest Prepped Times Two. 8:09:35 Patient has been NPO for More than 6Hrs. 8:09:38 Disposable Defibrillator Pads Placed On Patient. First Sponge And Instrument Count Done by Nubia Dillon, SKATESMAN TECH2. 8:10:55 Hypo's: 3, Sponges: 30, Bovie/scratch: 2 Sutures: 5, Blades: 2, Instruments: 26, Syveck Patches: 0 Verified by Sheree Moore RN 8:13:52 History and physical on the chart or being dictated. Assessment: Initial Case, HR=99 BPM, Rhythm=afib, DLDF=115/83 mmhg 8:13:58 Neurological: State=Drowsy, Comment=Pt intubated 8:14:14 1 g VANCOMYCIN DRIP given in lab by Jeannie Alcazar RN via Peripheral IV. Ordered by Fletcher Gonzáles. 8:15:30 1 mg VERSED given in lab by Jeannie Alcazar RN in Right shoulder via Central IV. 3 mg/hr VERSED titrated in lab by Jeannie Alcazar RN in Right shoulder via Central IV. Pump/Dr ip Flow = 0 ml/hr 8:15:36 using [Solution Name]. Drip increased. 8:16:32 25 mcg FENTANYL given in lab by Jeannie Alcazar RN via Peripheral IV. 125 mcg/hr FENTANYL titrated in lab by Jeannie Alcazar RN in Right shoulder via Central IV. Pu mp/Drip Flow = 0 ml/hr 8:16:53 using [Solution Name]. Drip increased. 20 meq/hr POTASSIUM DRIP given in lab by Jeannie Alcazar RN in Left Hand via Peripheral IV. Pu mp/Drip Flow = 50 8:17:14 ml/hr using D5W .9 NaCl with a concentration of 40 meq in 100 ml. 1st infusion complete, 2nd ba papa casarez 8:19:20 MD arrived. 8:20:17 Consent signed by the physician and the patient and verified by the Resource Efficiency Manager staff. 8:22:59 Reference ECG taken Time Out. Correct patient, procedure, procedure equipment, site and side verified with physicia n present. Time 8:23:09 concurred by MD, individual staff and APERTURE MASK ETCHER. Time Out #2 - Consents verified, patient in correct position, all results are labled and displa yed, safety precautions 8:23:12 taken, antibiotics administered. Time out concurred by MD, individual staff and APERTURE MASK ETCHER in procedu re 8:24:00 Case Start 8:24:02 50 mL 2% XYLOCAINE given in lab by Fletcher Rodriguez via Subcutaneous to left upper chest. 8:26:55 Surgical Incision Made. 8:28:03 A pocket was created at the L Upper Chest. 4 mcg/min LEVOPHED titrated in lab by Jeannie Alcazar, ROC in Right shoulder via Central IV. Pum p/Drip Flow = 15 8:28:29 ml/hr using D5W with a concentration of 4 mg in 250 ml. Drip decreased. 8:34:23 Vascular access was obtained in the Subclav. Vein (Lft. 8:34:28 Wire inserted 8:35:54 Vascular access was obtained in the Subclav. Vein (Lft. 02/12/2018 9:48:57 AM Financial #: [id number] Patient Name: MARYCARMEN LARES Study #: [id number] Initial MD: Fletcher Rodriguez Date of : 1930 Study Date: 02/12/2018 8:35:59 Wire inserted 8:38:01 A SAFE SHEATH, FR7, 13CM FR 7 was advanced into the Subclav. Vein (Lft using the Percutaneo us technique. 8:39:26 A LEAD, CAPSURE FIX NOVUS, 52CM 52CM was inserted and positioned in the RV. 8:40:27 Lead placement verified under fluoroscopy 8:40:30 The RV lead impedance and threshold being tested. 8:42:27 A SAFE SHEATH, FR7, 13CM FR 7 was advanced into the Subclav. Vein (Lft using the Percutaneo us technique. 8:43:16 A LEAD, CAPSURE FIX NOVUS, 45CM 45CM was inserted and positioned in the RA. 8:44:09 Lead placement verified under fluoroscopy 8:44:11 The Atrial lead impedance and threshold is being tested. 2 mg/hr VERSED titrated in lab by Jeannie Alcazar RN in Right shoulder via Central IV. Pump/Dr ip Flow = 0 ml/hr 8:46:30 using [Solution Name]. Drip decreased. 8:47:32 A PACEMAKER, ADVISA DR CISNEROS SURESCAN OEA-DDDR was connected. 100 mcg/hr FENTANYL titrated in lab by Jeannie Alcazar, ROC in Right shoulder via Central IV. Pu mp/Drip Flow = 0 ml/hr 8:47:52 using [Solution Name]. Drip decreased 8:48:23 The Atrial lead was sutured to the fascia. 8:49:27 The RV lead was sutured to the fascia. 5 mcg/min LEVOPHED titrated in lab by Jeannie Alcazar, ROC in Right shoulder via Central IV. Pum p/Drip Flow = 18.75 8:59:43 ml/hr using D5W with a concentration of 4 mg in 250 ml. Drip increased 9:01:04 Pocket flushed with antibiotic solution 9:02:26 The device was placed in the pocket 9:03:16 The device was sutured to the fascia 9:05:35 Closing the pocket Second Sponge And Instrument Count Done by Nubia Dillon SKATESMAN TECH2. 9:08:54 Hypo's: 3, Sponges: 30, Bovie/scratch: 2 Sutures: ~SUTURE~, Blades: 2, Instruments: ~INSTRU~, Syveck Patches: 0 Verified by Sheree Moore RN 9:17:14 The pocket was closed. 9:17:25 Case End 9:18:42 Steri-strips and a sterile dressing applied to site. The Final Sponge And Instrument Count Done by Nubia Dillon, SKATESMAN TECH2. 9:20:12 Hypo's: 3, Sponges: 30, Bovie/scratch: 2 Sutures: 5, Blades: 2, Instruments: 26, Syveck Patches: 0 Verified by Sheree Moore RN 9:30:13 Implantable Device card placed in patient's chart. Assessment: Final Case, HR=77 BPM, Rhythm=paced, NIBP=96/53 mmhg 9:30:30 Neurological: State=Drowsy, Comment=Pt intubated on vent Respiration: Resp=15 B/min, XjZ3=727 %, Type=ET(Oral), Comment=Patient intubated on vent 9:30:35 No case complications noted. 9:30:37 Cine recording checked. 9:30:42 Patient moved to bed 9:30:53 Bedside Report will be given. 9:34:57 A sling was placed on the affected arm. 9:35:[address] [facility] 9:38:13 Implant Procedure was performed. 02/12/2018 9:48:57 AM Financial #: [id number] Patient Name: MARYCARMEN LARES Study #: [id number] Initial MD: Fletcher Rodriguez Date of : 1930 Study Date: 02/12/2018 9:38:24 A PPM Implant . (Dual) End Study - Contrast Media Used In Study Contrast Total Opened (mL) Total Used (mL) Total Wasted (mL) Unspecified 0 0 0 End Study - Maximum Contrast Load Max Contrast Load (mL) 1992.0 End Study - Radiation Exposure Fluoro Time (minutes) 2.7 End Study - Patient Fluids IV Intake (mL) Total Output (mL) 750 End Study - Patient Disposition Complications Transferred To Interventional Outcome No Critical Care Bed successful 02/12/2018 9:48:57 AM Financial #: [id number]
--- NOTE | 2018-02-12 09:58 | MP ---
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 POSTOPERATIVE DIAGNOSIS: Suspected syncope due to of bradycardia with greater than 3 second pauses documented on telemetry and evidence of tachybrady syndrome with rapid atrial fibrillation. PROCEDURE PERFORMED: Insertion of dual-chamber rate responsive pacemaker via the left subclavian vein. DESCRIPTION OF PROCEDURE: The patient was brought to the cardiac catheterization lab in the fasting state. She was already intubated on a ventilator and on sedation with Versed and fentanyl drips. Using 1% lidocaine for local anesthesia, an incision was made parallel to and below the left clavicle. Using blunt and sharp dissection with Bovie for hemostasis, a pocket was fashioned above the pectoralis muscle. The left subclavian vein was easily punctured twice with 2 guidewires placed into the SVC. Over the 1st guidewire, a 7-Bruneian peel-away sheath was introduced and through this the ventricular lead was inserted and screwed into the low ventricular septum with good sensing and pacing threshold. The peel-away sheath was removed over the second guidewire. A 7-Bruneian peel-away sheath was introduced and through this the atrial lead was screwed into the right atrial appendage with good thresholds. 10 volts on both leads lead to no diaphragmatic pacing. Both leads were then secured to the underlying fascia using three 2-0 silk sutures for each Silastic cuff. The leads were then connected to the pacemaker generator, which was then positioned on the floor of the pocket with the leads behind it. The generator was secured to the floor of the pocket using a single 2-0 silk suture. The wound was irrigated with antibiotic solution and then closed in layers using interrupted 2-0 Vicryl sutures for the deep fascial layers and interrupted 3-0 Vicryl sutures for the subcutaneous layers, followed by running 4-0 Monocryl stitch and then Steri-Strips and a 4 x 4 dressing. Estimated blood loss was about 30 mL. There were no complications. FINDINGS: The pacemaker is a Medtronic A2DR01, serial number [id number]. Programmed AAIRT at a rate of 60-130. The atrial lead is a Medtronic 4076, length 45 cm, serial number [id number] with a P-wave of 1.6 millivolts, a slough of 0.3 volts per second, resistance of 552 ohms and a threshold of 0.8 volts and a current of 1.9 milliamps. The ventricular lead is a Medtronic model 4076, length 52 cm, serial number [id number] with an R-wave of 4.6 millivolts, a slough rate of 0.6 volts per second, resistance of 1114 ohms and a threshold of 0.8 volts with a current of 1.1 milliamps. A chest x-ray is pending. NOTE: The patient was in atrial fibrillation when the procedure started, but she converted on her own to sinus rhythm and now a paced rhythm at the time of completion of the procedure. MD SAMINA Adams/KAMILAH , 09:22 AM , 09:56 AM
[2018-02-12] MEDS: CHLORHEXIDINE 0.12% (ORAL KIT) 15 ML CUP MT SCH ×2 (09:59→20:30)
--- NOTE | 2018-02-12 11:01 | RADRPT ---
EXAM DATE/TIME: 02/12/2018 10:08 [place] COMPARISON: CHEST SINGLE AP, February 12, 2018, 4:42. INDICATIONS : Post pacemaker placement. MEDICAL HISTORY : Unobtainable. SURGICAL HISTORY : Unobtainable. ENCOUNTER: Subsequent ACUITY: 1 day PAIN SCORE: Non-responsive. LOCATION: Bilateral chest FINDINGS: ET tube and central venous catheter in good position. Cardiomegaly with mild interstitial edema. Mi nimal bibasilar clinical changes. Pacer on the left. Right chest tube without pneumothorax. Old fr acture left humeral head. CONCLUSION: No pneumothorax. Stable chest. Pacer in good position on the left. Cuauhtemoc Murray MD FACR on February 12, 2018 at 10:57 Board Certified Radiologist. This report was verified electronically.
--- NOTE | 2018-02-12 12:32 | HHI.CCPN ---
Subjective Brief History This is a 87 year old female who presents to the [facility] emergency department as a transfer from [facility] as a trauma alert. Apparently patient sustained a fall on the driveway at approximately 9 PM last night. Patient was transferred to [facility] and underwent workup and when it was finally noted that patient had severe injuries we were asked to accept the patient as trauma transfer. Patient arrives around [address] and according to Dr. Monae initially patient is hemodynamically stable but then continues to deteriorate including multifocal supraventricular arrhythmias. Patient undergoes repeat CT scan of the chest and abdomen and is transferred to ICU for further care. Final injuries are Right lower rib fractures with a hemopneumothorax / chest tube placement and 1200 mL of blood out in the chest tube. Bilateral intratrochanteric hip fractures Left proximal humerus fracture T11 fracture Multiple old fractures of the thoracic spine and several lumbar spine fractures with kyphoplasties Supraventricular cardiac arrhythmias ischemic cardiomyopathy Hypotensive shock Metabolic acidosis anion gap In the process patient dropped hemoglobin from 12 g/dL initially to 7 g/dL few hours later. She received several units of PRBCs and was resuscitated Required vasopressors including Levophed and Gonzalo-Synephrine 24 Hour Review/Hospital Course 02/10/2018 Patient was initially unstable but now has stabilized hemodynamically Remains intubated ventilated Medical intelligence research specialist help greatly appreciated 02/11/2018 Patient with a devastating traumatic injuries post fall She has been slowly stabilizing overnight with hemodynamic improvement and decreasing vasopressors Remains mildly sedated on propofol however we will switch this to Versed in face of cardio depressant effect of propofol Evaluated by cardiology for periods of bradycardia It is my opinion that patient had a myocardial infarction process as a result of combination of the trauma hypoxia on the scene anemia and hemorrhagic shock Troponins elevated 02/12 Patient underwent pacemaker insertion today by cardiology-she spontaneously converted to sinus rhythm the cardiac lab She is got thrombocytopenia- believe is likely related to blood loss/SIRS She remains on low-dose Levophed-I believe she is euvolemic-obtain Flowtrack for more exact measurement She had an UT versus blunt cardiac injury She has multitrauma with this overall poor prognosis secondary to her age with low reserve Objective Vital Signs Date Time Temp Pulse Resp B/P (MAP) Pulse Ox O2 Delivery O2 Flow Rate FiO2 02/12/18 10:34 100 35 02/12/18 10:28 73 113/59 4/11/18 10:00 99.0 14 02/12/18 10:00 Mechanical Ventilator 02/10/18 03:33 3.00 Intake and Output 02/12/18 02/12/18 02/13/18 08:00 16:00 00:00 Intake Total 1300 ml Output Total 570 ml Balance 730 ml Result Diagram: 02/12/18 0234 02/12/18 0234 Other Results Microbiology Date/Time Source Procedure Growth Status 02/10/18 10:45 Sputum Endotracheal Gram Stain - Final Complete 02/10/18 10:45 Sputum Culture - Final Klebsiella Pneumoniae Complete Laboratory Tests Test 02/12/18 03:31 Blood Gas Puncture Site ART LINE Blood Gas Patient Temperature 98.6 Blood Gas HCO3 21 mmol/L (22-26) Blood Gas Base Excess -3.1 mmol/L (-2-2) Blood Gas Oxygen Saturation 96 % (90-100) Arterial Blood pH 7.41 (7.380-7.420) Arterial Blood Partial Pressure CO2 34 mmHg (38-42) Arterial Blood Partial Pressure O2 106 mmHg (61-120) Arterial Blood Oxygen Content 12.6 Vol % (12.0-20.0) Arterial Blood Carboxyhemoglobin 1.6 % (0-4) Arterial Blood Methemoglobin 0.9 % (0-2) Blood Gas Hemoglobin 9.2 G/DL (12.0-16.0) Oxygen Delivery Device VENT Blood Gas Ventilator Setting SEE COMMENTS Blood Gas Inspired Oxygen 35 % Imaging Last 24 hours Impressions Chest X-Ray 02/12/18 0600 Signed Impressions: Service Date/Time: Monday, February 12, 2018 04:42 - CONCLUSION: Small right apical pneumothorax. Bibasilar densities. Yrn Khan MD Chest X-Ray 02/12/18 0000 Signed Impressions: Service Date/Time: Monday, February 12, 2018 10:08 - CONCLUSION: No pneumothorax. Stable chest. Pacer in good position on the left. Cuauhtemoc Murray MD FACR Exam FLASH WELDER GCS 5 T sedated Hemodynamic/Cardiac Stable Pulmonary/Respiratory Mechanical ventilation Abdomen/GI Nutrition Soft Urinary Catheter Assessment Urinary Catheter: Yes Vascular Central Line Catheter Vascular Central Line Catheter: Yes Assessment and Plan Plan Patient is preop by orthopedic surgery for bilateral femur IM nailing Transfuse 2 units of platelets prior to the OR Continue patient on Versed and fentanyl drip N.p.o. after midnight Follow Flowtrack measurements Opal Heard MD Feb 12, 2018 12:32
[2018-02-12] MEDS: MIDAZOLAM 100 MG/100 ML INJ 100 ML IV PRN ×2 (12:59→22:18)
--- NOTE | 2018-02-12 15:11 | PD.CONS ---
Consult Service Palliative Care Consult Requested By JUANJO Benitez Primary Care Physician Unknown Reason for Consultation a. To assist with evaluation and management of symptoms including: Dyspnea, pain b. To assist medical decision maker(s) with: better understanding of current medical conditions; weighing benefits/burdens of medical treatment options; making medical treatment decisions. HPI History of Present Illness This is an 87-year-old female who suffered a fall in her driveway from an unknown cause, syncope versus [place] is suspected, who was transported to [facility] initially for evaluation then called as a trauma alert to [facility] emergency department and admitted to Dr. Monae as a level 1 trauma. Report from the facility showed multiple right-sided rib fractures, hemopneumothorax, status post chest tube placement with return of 1200 mL of sanguinous fluid into the chest tube, bilateral intro trochanteric fractures, left proximal humerus fracture and T-spine compression fracture. After chest tube insertion hemoglobin was reported to have dropped from 11 to 7 and the patient was emergently transfused with 2 units of packed red blood cells at [facility] prior to transfer. On arrival to the emergency room she was awake and alert complaining only of right hip pain with movement. Radiology: * CT the abdomen pelvis done on admission showed bilateral intraoral trochanteric fractures, mild loss of height of several thoracic vertebral bodies including L2-L4. L3 and 4 vertebral bodies contain kyphoplasty cement. Chest CT shows small bilateral pleural effusions, right-sided chest tube with sidehole external to the chest, tiny right sided pneumothorax, minimal rib fracture right lower lateral rib, fracture of thoracic vertebral bodies including T6 and T10, likely old. CT of the lumbar spine shows multiple old compression deformities, disc bulge causing mild canal stenosis at L4-5 and compression fracture at T11. Pelvis x-ray shows displaced intertrochanteric fracture left proximal femur as well as intertrochanteric fracture of the right proximal femur. Thoracic spine shows acute fracture of T11 vertebral body with no retropulsion of posterior fragments or canal stenosis with old compression deformities at T8, T12 and L1 vertebral bodies. Laboratory: * Presenting labs show WBC 28.4, hemoglobin 12.9, hematocrit 38.9, platelets 153 , prothrombin time 12.5, INR 1.2, sodium 135, potassium 4.0, chloride 101, BUN 14, creatinine 0.7, glucose 274. She was admitted to the trauma service and critical care medicine was consulted for management. Shortly after admission she became hemodynamically unstable and was emergently transfused of 1 L of normal saline with the initiation of Levophed at 12 mcg/min but due to continued instability required up titration to 30 mcg a minute. Due to her increasing instability she required placement of a right subclavian triple-lumen central line for infusion of the Levophed and intubation by the trauma surgeon. Patient became bradycardic and progressively more hypotensive requiring 1 ampule of epinephrine pushed emergently and 2 ampules of bicarbonate and 1 g of calcium IV push. With those interventions blood pressure began to stabilize but then patient began having frequent arrhythmias. In order to be able to wean the Levophed, Gonzalo-Synephrine was initiated. Labs, EKG and 2D echo were requested. Consultations were requested from orthopedic, neurosurgery and cardiology. 2D echocardiogram showed normal left ventricular size with normal wall thickness , left ventricular systolic function hyperdynamic with an estimated EF of 65-70 % with trace aortic valve regurgitation, mild tricuspid valve regurgitation and estimated pulmonary artery pressure of 65 mmHg. Cardiology evaluation revealed a 3.2 second pause followed by a 2.9 second pause meeting criteria for the need for permanent pacemaker implantation. Dual-chamber Medtronic pacemaker was implanted today. Serial troponins showed 0.61, 3.06, 2.56, 1.71. It was opined by the trauma surgeon, Dr. Guadarrama, that she has had a myocardial infarction as a result of the combination of the trauma hypoxia, anemia and hemorrhagic shock. It was the initial opinion of the orthopedic surgeon that she was too unstable, hemodynamically, to undergo bilateral hip surgical repair. Surgical repair is planned for tomorrow morning. Her left humerus fracture will be treated nonoperatively. Neurosurgery does not plan any surgical repair of her T11 fracture, recommending treatment with bedrest for now and if clinically improving provide a TLSO brace. Palliative care has been consulted to assist the family with information dissemination and goals of care. . Function/Cognitive Trajectory Walks with a cane or a walker. Past Family Social History Coded Allergies: No Known Allergies (Unverified , 02/10/18) Past Medical History Hypothyroid Severe osteoporosis Gastroesophageal reflux Cataracts Lumbar spine compression fractures Hypertension . Past Surgical History Hysterectomy Kyphoplasty L3 and L4 Cataract surgery . Reported Medications No list available. . Current Medications Medications (Trade) Dose Ordered Sig/Mackenzie Route Start Time Stop Time Status Last Admin (NS Flush) 2 ml UNSCH PRN IV FLUSH 02/10/18 04:15 (Vasotec Inj) 1.25 mg Q8H PRN IV PUSH 02/10/18 04:15 (Zofran Inj) 4 mg Q6H PRN IV PUSH 02/10/18 04:15 (Protonix Inj) 40 mg Q24H IVP 02/10/18 05:00 02/12/18 04:15 (Colace) 100 mg BID PO 02/10/18 09:00 Miscellaneous Information 1 Q361D XX 02/10/18 04:15 02/10/18 04:15 (Chlorhexidine 2% Cloth) 3 pack Taper DAILY@04 TOP 02/11/18 04:00 02/07/19 03:59 (Chlorhexidine 2% Cloth) 3 pack UNSCH PRN TOP 02/10/18 04:15 Potassium Chloride 100 ml @ 50 mls/hr Q2H PRN IV 02/10/18 06:30 Potassium Chloride 100 ml @ 50 mls/hr Q2H PRN IV 02/10/18 06:30 Potassium Chloride 100 ml @ 25 mls/hr UNSCH PRN IV 02/10/18 06:30 Potassium Chloride 100 ml @ 50 mls/hr Q2H PRN IV 02/10/18 06:30 Magnesium Sulfate 4 gm/Sodium Chloride 100 ml @ 50 mls/hr UNSCH PRN IV 02/10/18 06:30 (Mag-Ox) 800 mg UNSCH PRN PO 02/10/18 06:30 Magnesium Sulfate 2 gm/Sodium Chloride 100 ml @ 50 mls/hr UNSCH PRN IV 02/10/18 06:30 02/10/18 22:57 (K-Phos) 2,000 mg Q4H PRN PO 02/10/18 06:30 Sodium Phosphate 30 mmol/Sodium Chloride 250 ml @ 42 mls/hr UNSCH PRN IV 02/10/18 06:30 (K-Phos) 2,000 mg UNSCH PRN PO/TUBE 02/10/18 06:30 Potassium Phosphate 30 mmol/ Sodium Chloride 260 ml @ 42 mls/hr UNSCH PRN IV 02/10/18 06:30 02/10/18 22:56 (KCl Powder) 40 meq DAILY PRN PO 02/10/18 06:30 (Peridex 0.12% Liq) 15 ml BID@08,20 MT 02/10/18 08:00 02/12/18 09:59 Fentanyl Citrate 250 ml @ 5 mls/hr TITRATE PRN IV 02/10/18 08:00 02/12/18 03:43 Potassium Chloride 100 ml @ 50 mls/hr Q2H PRN IV 02/10/18 09:15 02/12/18 06:19 Potassium Chloride 100 ml @ 50 mls/hr Q2H PRN IV 02/10/18 09:15 (K-Lyte Cl Eff) 50 meq UNSCH PRN PO 02/10/18 09:15 Potassium Chloride 100 ml @ 25 mls/hr UNSCH PRN IV 02/10/18 09:15 Potassium Chloride 100 ml @ 50 mls/hr Q2H PRN IV 02/10/18 09:15 Magnesium Sulfate 4 gm/Sodium Chloride 100 ml @ 50 mls/hr UNSCH PRN IV 02/10/18 09:15 (Mag-Ox) 800 mg UNSCH PRN PO 02/10/18 09:15 Magnesium Sulfate 2 gm/Sodium Chloride 100 ml @ 50 mls/hr UNSCH PRN IV 02/10/18 09:15 (K-Phos) 2,000 mg Q4H PRN PO 02/10/18 09:15 Sodium Phosphate 30 mmol/Sodium Chloride 250 ml @ 42 mls/hr UNSCH PRN IV 02/10/18 09:15 (K-Phos) 2,000 mg UNSCH PRN PO/TUBE 02/10/18 09:15 Potassium Phosphate 30 mmol/ Sodium Chloride 260 ml @ 42 mls/hr UNSCH PRN IV 02/10/18 09:15 Norepinephrine Bitartrate 250 ml @ 7.5 mls/hr TITRATE PRN IV 02/10/18 19:45 02/12/18 12:59 Phenylephrine HCl 40 mg/Dextrose 500 ml @ 30 mls/hr TITRATE PRN IV 02/10/18 19:45 02/11/18 05:38 Sodium Chloride 1,000 ml @ 100 mls/hr Q10H IV 02/10/18 23:00 02/12/18 04:15 Midazolam HCl 100 ml @ 2 mls/hr TITRATE PRN IV 02/11/18 09:30 02/12/18 12:59 Propofol 100 ml @ 2.391 mls/ hr TITRATE PRN IV 02/11/18 09:45 Vancomycin HCl 1000 mg/Sodium Chloride 250 ml @ 250 mls/hr CONTOUR BAND SAW OPERATOR VERTICAL IV 02/11/18 10:00 02/15/18 09:59 (Betadine 5% Antisepsis Kit) 1 applic CONTOUR BAND SAW OPERATOR VERTICAL EACH NARE 02/11/18 10:00 02/15/18 09:59 (Bactroban Nasal 2% Oint) 1 applic CONTOUR BAND SAW OPERATOR VERTICAL NASAL 02/11/18 10:00 02/15/18 09:59 (Chlorhexidine 2% Cloth) 3 pack CONTOUR BAND SAW OPERATOR VERTICAL TOP 02/11/18 10:00 02/15/18 09:59 Cefazolin Sodium 2000 mg/Sodium Chloride 100 ml @ 100 mls/hr CONTOUR BAND SAW OPERATOR VERTICAL IV 02/11/18 11:00 02/14/18 10:59 (Milk Of Magnnitish Liq) 30 ml BID PO 02/11/18 21:00 (Duoneb Neb) 1 ampule Q6HR NEB NEB 02/11/18 22:00 02/12/18 10:00 (Duoneb Neb) 1 ampule Q2HR NEB PRN NEB 02/11/18 19:45 Amiodarone HCl 450 mg/Sodium Chloride 250 ml @ 33.33 mls/ hr TITRATE PRN IV 02/12/18 03:15 02/12/18 10:28 (Bacitracin Oint Packet) 0.9 gm UNSCH PRN TOP 02/12/18 09:30 (NS Flush) 2 ml BID IV FLUSH 02/12/18 21:00 (NS Flush) 2 ml UNSCH PRN IV FLUSH 02/12/18 09:30 . Family History Grandmother at age 79 of natural causes, but did have a permanent pacemaker. Grandfather late 60s with history of heavy tobacco use and blindness. . Substance Use Tobacco: Never a smoker. Alcohol: No use of alcohol. Prescription med abuse: No prescription drug abuse. Illicits: No illicit drug use. . Psychosocial History She was born in [place] where she raised 3 children. 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 She has been to her for over 60 years. . Spiritual/Cultural Factors She would appreciate visits from the discovery guide. . Living Will: Completed, but not made available Health Care Surrogate: Completed, but not made available Durable Power of Assembly Lead Person: Never completed Health Care Surrogate(s): My discussion with her daughter, patient's is the primary healthcare surrogate followed by her 3 children serving as joint alternate surrogates. . Documented care wishes: Living will completed, not available at this time. Today's verbally stated goals: Patient intubated and unable to state her goals. . Family/friends goals: Family has been discussing goals and is concerned about the potential damage CPR could cause given her severe osteoporosis, rib fracture, pneumothorax and compression fractures. They wished to discuss that with their father prior to making a decision. . Ethical and Legal Issues None identified. . Physical Exam Vital Signs Date Time Temp Pulse Resp B/P (MAP) Pulse Ox O2 Delivery O2 Flow Rate FiO2 02/12/18 12:59 66 111/53 02/12/18 12:00 35 02/12/18 12:00 98.3 65 12 111/53 (72) 100 123/51 (75) 02/12/18 10:34 100 35 02/12/18 10:28 73 113/59 02/12/18 10:00 99.0 78 14 114/55 (74) 99 95/45 (62) 02/12/18 10:00 35 02/12/18 10:00 99 Mechanical Ventilator 35 02/12/18 10:00 78 02/12/18 09:00 100 100 02/12/18 07:51 97 35 02/12/18 04:49 99 35 02/12/18 04:00 35 02/12/18 04:00 99.4 98 12 96/45 (62) 99 02/12/18 03:47 121 84/41 02/12/18 03:44 138 92/46 02/12/18 03:42 145 85/41 02/12/18 02:16 99 35 02/12/18 01:04 76 106/48 02/12/18 00:38 81 100/40 02/12/18 00:00 99.0 73 13 113/45 (67) 99 02/12/18 00:00 35 02/11/18 23:25 99 35 02/11/18 23:00 79 02/11/18 20:35 107/45 02/11/18 20:02 100 35 02/11/18 20:00 35 02/11/18 20:00 99.0 73 18 95/58 (70) 99 02/11/18 19:50 96/60 02/11/18 19:00 99 Mechanical Ventilator 35 02/11/18 16:00 78 18 135/70 (91) 100 . Exam CONSTITUTIONAL/GENERAL: This is an adequately nourished patient, intubated, sedated in no apparent distress. TUBES/LINES/DRAINS: Right radial arterial line, left hand PIV, right ACF PIV, ET tube, right chest tube, right subclavian triple-lumen, Crawford catheter SKIN: No jaundice, rashes, or lesions. Ecchymoses on upper extremities. No wounds seen anteriorly. Skin temperature appropriate. Not diaphoretic. HEAD: Atraumatic. Normocephalic. EYES: Pupils pinpoint, equal and round and sluggishly reactive. No scleral icterus. No injection or drainage. Fundi not examined. ENT: Nose without bleeding or purulent drainage. NECK: Trachea midline. Supple without palpable thyroid enlargement or nodularity. CARDIOVASCULAR: Regular rate and rhythm without gallops, or rubs. 1/6 MORELIA. No JVD. Peripheral pulses symmetric. RESPIRATORY/CHEST: Mechanically ventilated, breath sounds coarse with scattered rhonchi, diminished right greater than left. Chest tube intact to right chest wall without air leak. Some crepitus noted. GASTROINTESTINAL: Abdomen soft, nondistended. No hepato-splenomegaly, or palpable masses. Bowel sounds present. GENITOURINARY: Without palpable bladder distension. Crawford catheter in place. MUSCULOSKELETAL: Extremities without clubbing, cyanosis. 1-2+ edema. No mottling or clubbing. LYMPHATICS: No palpable cervical or supraclavicular adenopathy. NEUROLOGICAL: Intubated, sedated. PSYCHIATRIC: Sedated. . Diagnostic Tests Laboratory Laboratory Tests Test 02/10/18 03:40 02/10/18 04:30 02/10/18 07:00 02/10/18 07:30 White Blood Count 28.4 TH/MM3 (4.0-11.0) 19.1 TH/MM3 (4.0-11.0) Red Blood Count 4.20 MIL/MM3 (4.00-5.30) 2.77 MIL/MM3 (4.00-5.30) Hemoglobin 12.9 GM/DL (11.6-15.3) 8.4 GM/DL (11.6-15.3) Bedside Hemoglobin 12.2 G/DL (11.6-15.3) Hematocrit 38.9 % (35.0-46.0) 25.1 % (35.0-46.0) Bedside Hematocrit 36.0 % (35.0-46.0) Mean Corpuscular Volume 92.6 FL (80.0-100.0) 90.5 FL (80.0-100.0) Mean Corpuscular Hemoglobin 30.7 PG (27.0-34.0) 30.4 PG (27.0-34.0) Mean Corpuscular Hemoglobin Concent 33.2 % (32.0-36.0) 33.6 % (32.0-36.0) Red Cell Distribution Width 15.7 % (11.6-17.2) 15.2 % (11.6-17.2) Platelet Count 153 TH/MM3 (150-450) 113 TH/MM3 (150-450) Mean Platelet Volume 8.9 FL (7.0-11.0) 9.0 FL (7.0-11.0) Neutrophils (%) (Auto) 88.3 % (16.0-70.0) Lymphocytes (%) (Auto) 2.4 % (9.0-44.0) Monocytes (%) (Auto) 9.0 % (0.0-8.0) Eosinophils (%) (Auto) 0.2 % (0.0-4.0) Basophils (%) (Auto) 0.1 % (0.0-2.0) Neutrophils # (Auto) 25.1 TH/MM3 (1.8-7.7) Lymphocytes # (Auto) 0.7 TH/MM3 (1.0-4.8) Monocytes # (Auto) 2.6 TH/MM3 (0-0.9) Eosinophils # (Auto) 0.0 TH/MM3 (0-0.4) Basophils # (Auto) 0.0 TH/MM3 (0-0.2) CBC Comment AUTO DIFF Differential Total Cells Counted 73 Neutrophils % (Manual) 73 % (16-70) Band Neutrophils % 18 % (0-6) Lymphocytes % 3 % (9-44) Monocytes % 4 % (0-8) Neutrophils # (Manual) 26.4 TH/MM3 (1.8-7.7) Metamyelocytes 1 % (0-1) Myelocytes 1 % (0-0) Differential Comment FINAL DIFF MANUAL Toxic Vacuolation PRESENT (NONE SEEN) Platelet Estimate NORMAL (NORMAL) Platelet Morphology Comment NORMAL (NORMAL) Acanthocytes OCC (NORMAL) Prothrombin Time 12.5 SEC (9.8-11.6) Prothromb Time International Ratio 1.2 RATIO Activated Partial Thromboplast Time 21.9 SEC (24.3-30.1) Fibrinogen 165 mg/dL (227-377) Bedside Sodium 135 MMOL/L (137-144) Blood Urea Nitrogen 13 MG/DL (7-18) 14 MG/DL (7-18) Creatinine 1.00 MG/DL (0.50-1.00) 0.99 MG/DL (0.50-1.00) Random Glucose 278 MG/DL (74-106) 227 MG/DL (74-106) Calcium Level 8.4 MG/DL (8.5-10.1) 9.0 MG/DL (8.5-10.1) Phosphorus Level 4.7 MG/DL (2.5-4.9) Magnesium Level 2.0 MG/DL (1.5-2.5) 1.7 MG/DL (1.5-2.5) Sodium Level 135 MEQ/L (136-145) 145 MEQ/L (136-145) Potassium Level 4.0 MEQ/L (3.5-5.1) 3.2 MEQ/L (3.5-5.1) Chloride Level 104 MEQ/L (98-107) 110 MEQ/L (98-107) Carbon Dioxide Level 16.0 MEQ/L (21.0-32.0) 20.2 MEQ/L (21.0-32.0) Bedside Potassium 4.0 MMOL/L (3.6-5.0) Bedside Chloride 101 MMOL/L (102-111) Anion Gap 15 MEQ/L (5-15) 15 MEQ/L (5-15) Bedside Blood Urea Nitrogen 14 MG/DL (5-21) Bedside Creatinine 0.7 MG/DL (0.6-1.3) Estimat Glomerular Filtration Rate 53 ML/MIN (>89) 53 ML/MIN (>89) Bedside Glucose 274 MG/DL (68-110) Nasal Screen MRSA (PCR) MRSA NOT DETECTED (NOT Blood Gas Puncture Site ART LINE Blood Gas Patient Temperature 98.6 Blood Gas HCO3 30 mmol/L (22-26) Blood Gas Base Excess 5.9 mmol/L (-2-2) Blood Gas Oxygen Saturation 98 % (90-100) Arterial Blood pH 7.44 (7.380-7.420) Arterial Blood Partial Pressure CO2 45 mmHg (38-42) Arterial Blood Partial Pressure O2 447 mmHg (61-120) Arterial Blood Oxygen Content 13.1 Vol % (12.0-20.0) Arterial Blood Carboxyhemoglobin 1.2 % (0-4) Arterial Blood Methemoglobin 0.8 % (0-2) Blood Gas Hemoglobin 8.7 G/DL (12.0-16.0) Oxygen Delivery Device VENTILATOR Blood Gas Ventilator Setting [facility]/16/500/1.0/+5 Blood Gas Inspired Oxygen 100 % Total Protein 3.4 GM/DL (6.4-8.2) Albumin 1.6 GM/DL (3.4-5.0) Alkaline Phosphatase 38 U/L (45-117) Aspartate Amino Transf (AST/SGOT) 17 U/L (15-37) Alanine Aminotransferase (ALT/SGPT) 12 U/L (10-53) Total Bilirubin 0.7 MG/DL (0.2-1.0) Total Creatine Kinase 195 U/L (26-192) Creatine Kinase MB 7.1 NG/ML (0.5-3.6) Creatine Kinase MB % 3.6 % (0.0-4.0) Troponin I 0.61 NG/ML (0.02-0.05) Test 02/10/18 08:05 02/10/18 12:38 02/10/18 13:56 02/10/18 20:35 Lactic Acid Level 7.6 mmol/L (0.4-2.0) 5.4 mmol/L (0.4-2.0) Total Creatine Kinase 340 U/L (26-192) 237 U/L (26-192) Creatine Kinase MB 20.7 NG/ML (0.5-3.6) 13.1 NG/ML (0.5-3.6) Creatine Kinase MB % 6.1 % (0.0-4.0) 5.5 % (0.0-4.0) Troponin I 3.06 NG/ML (0.02-0.05) 2.56 NG/ML (0.02-0.05) Phosphorus Level 2.1 MG/DL (2.5-4.9) Magnesium Level 1.5 MG/DL (1.5-2.5) Test 02/11/18 00:41 02/11/18 04:10 02/11/18 04:35 02/12/18 02:34 Phosphorus Level 2.6 MG/DL (2.5-4.9) Magnesium Level 2.0 MG/DL (1.5-2.5) 1.9 MG/DL (1.5-2.5) White Blood Count 11.9 TH/MM3 (4.0-11.0) 11.6 TH/MM3 (4.0-11.0) Red Blood Count 2.97 MIL/MM3 (4.00-5.30) 3.41 MIL/MM3 (4.00-5.30) Hemoglobin 8.6 GM/DL (11.6-15.3) 10.0 GM/DL (11.6-15.3) Hematocrit 25.3 % (35.0-46.0) 29.5 % (35.0-46.0) Mean Corpuscular Volume 85.2 FL (80.0-100.0) 86.6 FL (80.0-100.0) Mean Corpuscular Hemoglobin 29.0 PG (27.0-34.0) 29.4 PG (27.0-34.0) Mean Corpuscular Hemoglobin Concent 34.0 % (32.0-36.0) 33.9 % (32.0-36.0) Red Cell Distribution Width 17.9 % (11.6-17.2) 17.2 % (11.6-17.2) Platelet Count 78 TH/MM3 (150-450) 69 TH/MM3 (150-450) Mean Platelet Volume 8.5 FL (7.0-11.0) 8.8 FL (7.0-11.0) Neutrophils (%) (Auto) 79.3 % (16.0-70.0) 82.6 % (16.0-70.0) Lymphocytes (%) (Auto) 10.2 % (9.0-44.0) 8.7 % (9.0-44.0) Monocytes (%) (Auto) 10.4 % (0.0-8.0) 8.3 % (0.0-8.0) Eosinophils (%) (Auto) 0.0 % (0.0-4.0) 0.1 % (0.0-4.0) Basophils (%) (Auto) 0.1 % (0.0-2.0) 0.3 % (0.0-2.0) Neutrophils # (Auto) 9.4 TH/MM3 (1.8-7.7) 9.6 TH/MM3 (1.8-7.7) Lymphocytes # (Auto) 1.2 TH/MM3 (1.0-4.8) 1.0 TH/MM3 (1.0-4.8) Monocytes # (Auto) 1.2 TH/MM3 (0-0.9) 1.0 TH/MM3 (0-0.9) Eosinophils # (Auto) 0.0 TH/MM3 (0-0.4) 0.0 TH/MM3 (0-0.4) Basophils # (Auto) 0.0 TH/MM3 (0-0.2) 0.0 TH/MM3 (0-0.2) CBC Comment AUTO DIFF AUTO DIFF Differential Comment AUTO DIFF CONFIRMED AUTO DIFF CONFIRMED Platelet Estimate LOW (NORMAL) LOW (NORMAL) Platelet Morphology Comment NORMAL (NORMAL) NORMAL (NORMAL) Ovalocytes 1+ (NORMAL) Blood Urea Nitrogen 12 MG/DL (7-18) 9 MG/DL (7-18) Creatinine 0.39 MG/DL (0.50-1.00) 0.28 MG/DL (0.50-1.00) Random Glucose 122 MG/DL (74-106) 126 MG/DL (74-106) Calcium Level 7.5 MG/DL (8.5-10.1) 7.8 MG/DL (8.5-10.1) Sodium Level 143 MEQ/L (136-145) 141 MEQ/L (136-145) Potassium Level 3.7 MEQ/L (3.5-5.1) 3.0 MEQ/L (3.5-5.1) Chloride Level 116 MEQ/L (98-107) 110 MEQ/L (98-107) Carbon Dioxide Level 20.5 MEQ/L (21.0-32.0) 23.9 MEQ/L (21.0-32.0) Anion Gap 7 MEQ/L (5-15) 7 MEQ/L (5-15) Estimat Glomerular Filtration Rate 156 ML/MIN (>89) 228 ML/MIN (>89) Troponin I 1.71 NG/ML (0.02-0.05) Blood Gas Puncture Site ART LINE Blood Gas Patient Temperature 98.6 Blood Gas HCO3 20 mmol/L (22-26) Blood Gas Base Excess -3.5 mmol/L (-2-2) Blood Gas Oxygen Saturation 97 % (90-100) Arterial Blood pH 7.47 (7.380-7.420) Arterial Blood Partial Pressure CO2 28 mmHg (38-42) Arterial Blood Partial Pressure O2 115 mmHg (61-120) Arterial Blood Oxygen Content 11.5 Vol % (12.0-20.0) Arterial Blood Carboxyhemoglobin 1.5 % (0-4) Arterial Blood Methemoglobin 0.8 % (0-2) Blood Gas Hemoglobin 8.3 G/DL (12.0-16.0) Oxygen Delivery Device VENTILATOR Blood Gas Ventilator Setting 16/500/IT1.0/5PEEP Blood Gas Inspired Oxygen 35 % Total Protein 4.4 GM/DL (6.4-8.2) Albumin 2.1 GM/DL (3.4-5.0) Alkaline Phosphatase 54 U/L (45-117) Aspartate Amino Transf (AST/SGOT) 22 U/L (15-37) Alanine Aminotransferase (ALT/SGPT) 15 U/L (10-53) Total Bilirubin 1.5 MG/DL (0.2-1.0) Test 02/12/18 03:10 02/12/18 03:31 Prothrombin Time 11.9 SEC (9.8-11.6) Prothromb Time International Ratio 1.2 RATIO Activated Partial Thromboplast Time 32.3 SEC (24.3-30.1) Blood Gas Puncture Site ART LINE Blood Gas Patient Temperature 98.6 Blood Gas HCO3 21 mmol/L (22-26) Blood Gas Base Excess -3.1 mmol/L (-2-2) Blood Gas Oxygen Saturation 96 % (90-100) Arterial Blood pH 7.41 (7.380-7.420) Arterial Blood Partial Pressure CO2 34 mmHg (38-42) Arterial Blood Partial Pressure O2 106 mmHg (61-120) Arterial Blood Oxygen Content 12.6 Vol % (12.0-20.0) Arterial Blood Carboxyhemoglobin 1.6 % (0-4) Arterial Blood Methemoglobin 0.9 % (0-2) Blood Gas Hemoglobin 9.2 G/DL (12.0-16.0) Oxygen Delivery Device VENT Blood Gas Ventilator Setting SEE COMMENTS Blood Gas Inspired Oxygen 35 % . Result Diagram: 02/12/184 02/12/18233 Microbiology Microbiology Date/Time Source Procedure Growth Status 02/10/18 10:45 Sputum Endotracheal Gram Stain - Final Complete 02/10/18 10:45 Sputum Culture - Final Klebsiella Pneumoniae Complete Imaging Last Impressions Chest X-Ray 02/12/18 0600 Signed Impressions: Service Date/Time: Monday, February 12, 2018 04:42 - CONCLUSION: Small right apical pneumothorax. Bibasilar densities. Yrn Khan MD Thoracic Spine CT 02/10/18348 Signed Impressions: Service Date/Time: Saturday, February 10, 2018 03:53 - CONCLUSION: 1. Acute fracture of T11 vertebral body. No retropulsion of posterior fragments or canal stenosis. 2. Old compression deformities at T8, T12 and L1 vertebral bodies. 1. Yrn Khan MD Pelvis X-Ray 02/10/18348 Signed Impressions: Service Date/Time: Saturday, February 10, 2018 03:36 - CONCLUSION: 1. Displaced intertrochanteric fracture left proximal femur. 2. Appears to be intertrochanteric fracture of the right proximal femur as well. Yrn Khan MD Lumbar Spine CT 02/10/18348 Signed Impressions: Service Date/Time: Saturday, February 10, 2018 03:53 - CONCLUSION: 1. Multiple old compression deformities. 2. Disc bulge causes mild canal stenosis at L4-5. 3. Compression fracture at T11 Yrn Khan MD Chest CT 02/10/18 2140 Signed Impressions: Service Date/Time: Saturday, February 10, 2018 03:53 - CONCLUSION: 1. Small bilateral pleural effusions. 2. Right-sided chest tube is seen with the side hole external to the chest. Tiny right-sided pneumothorax. 3. Minimal rib fracture right lower lateral rib. 4. Fracture of thoracic vertebral bodies including what appears to be T6 and T10, likely old. Yrn Khan MD Abdomen/Pelvis CT 02/10/18 0349 Signed Impressions: Service Date/Time: Saturday, February 10, 2018 03:53 - CONCLUSION: 1. Intertrochanteric fractures of each proximal femur. 2. Mild loss of height of several thoracic vertebral bodies including L2-L4. L3 and L4 vertebral bodies contain kyphoplasty cement. Yrn Khan MD . Procedures 02/10: Right subclavian triple-lumen catheter placement 02/11: Intubation 02/12: Implantation of a dual-chamber Medtronic pacemaker . Patient/Family Conference Present at Family Conference: Spoke with daughter, Rachel Ricardo via telephone who included her brother, Silverio, in the conversation. Reviewed patient's social, psychosocial and functional history. Reviewed palliative care purpose and focus. Reviewed the below listed items and inquired as to CODE STATUS. Family is still discussing this, considering patient's fragile physical state, severe osteoporosis and current trauma. Plan for family meeting tomorrow at 10 AM to continue discussion. . Family Conference Location: Telephone Issues Discussed: * Palliative care role, purpose, approach * Additional medical, psychosocial, and spiritual history * Patients general health, functional status, and cognitive changes in the months leading up to the current hospitalization * Patient/family understanding of the current medical problems * Patient/family understanding of prognosis * Patients goals of care as best understood from advance directives and/or conversations and/or values * Current medical treatment options and benefits/burdens of those options * Likely scenarios comparing ongoing aggressive care with a transition to comfort measures only * Questions answered to the best of my ability * Palliative care contact information provided Assessment and Plan Disease Oriented Problem List: (1) Rib fractures (2) Proximal humerus fracture (3) Hemopneumothorax on right (4) T11 vertebral fracture (5) Intertrochanteric fracture of both femurs (6) Syncope (7) Sinus pause Symptom Scale: (1) Pain, generalized 0-10 Scale: Unable to quantify (Patient intubated, sedated.) (2) Dyspnea and respiratory abnormalities 0-10 Scale: Unable to quantify (Patient intubated, sedated.) Pertinent Non-Medical Issues Psychosocial:She was born in [place] where she raised 3 children. 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 She has been to her for over 60 years. Spiritual: She would appreciate discovery guide visits. Legal: No legal issues identified. Ethical issues impacting care: No ethical issues identified. . Important Contacts Spouse: Gregory Cruz Daughter: Rachel Ricardo . Prognosis Her prognosis is guarded. She has suffered a traumatic fall with subsequent rib fracture, hemopneumothorax, bilateral entero-trochanteric fractures, left humerus fracture and subsequent traumatic shock. She is currently intubated, sedated and requiring vasopressor support. She has required transfusion of 3 units of packed red blood cells and 2 units of platelets are on hold. She is pending repair of bilateral intertrochanteric fractures which will be held until her overall condition stabilizes. Complicating her hospital course was the finding of a 3.2 and subsequent 2.9 second pause which it is opined, may have been responsible for her initial fall. Given her recent chest trauma, severe osteoporosis with a number of compression fractures and previous kyphoplasty, CPR is likely to cause further damage to the thoracic cage with the potential of harm from that. Family is considering the option of no CPR and will render their decision tomorrow at the meeting. Given her fragile state she is likely to suffer further compromise, complications and decline. . Code Status: Full Code Plan PLAN: Legal decision maker: Patient's , Gregory Cruz would be the legal proxy by [place] statutes and family states that they also have possession of a healthcare surrogate naming him as the surrogate. The 3 adult children are listed jointly as the alternate surrogate. Goals: Aggressive CODE STATUS: FULL CODE pending family discussion. SYMPTOMS: * Pain: Multifactorial to include invasive lines, bedbound status, fractured ribs, bilateral hip fractures, fractured humerus, recently implanted pacemaker. She is currently on fentanyl for both sedation and pain management. As she is sedated no evaluation of patient's pain experience can be assessed at this time. * Dyspnea: Multifactorial to include right hemopneumothorax, fractured ribs and chest tube. She is currently intubated and these conditions may impair her ability to extubate, due to the difficult balance of sedation and pain control. SUMMARY This is an 87-year-old female who suffered a traumatic fall with multiple broken bones, hemopneumothorax, chest tube placement subsequent traumatic shock requiring fluid resuscitation, blood transfusion, intubation and vasopressor support. She was subsequently found to be having sinus pauses, suspected as a factor in her fall and trauma and is now status post implantation of a dual-chamber pacemaker. She is still pending surgical repair of bilateral hip fractures in is at risk for further complications and decline. Family is currently in discussion of goals of care. Palliative care will continue to follow the patient during hospital course as condition evolves, to assist patient/decision-maker with understanding of their medical conditions, weighing benefits/burdens of treatment options, for clarification of goals of treatment. Additionally will assist with any symptoms of palliative concern. . Thank you for the opportunity to participate in the care of Ms. Cruz. Attestation To help prompt me to consider important information that might be impacting today's encounter and assessment, information from prior notes written by myself or my colleagues may have been "brought forward" into today's note. My signature on this note, however, is an attestation that I personally performed the exam, history, and/or decision-making noted today, and, unless otherwise indicated, the interactions with patient, family, and staff as well as the review of records all occurred today. I also attest that the listed assessment and stated plan reflect my best clinical judgment today based on the combination of historical information, prior notes, and today's exam/ interactions. When time spent is documented, it refers only to time spent today by the signer, or if indicated, combined time spent today by collaborating physician/nurse practitioner. . Aliya Ac Feb 12, 2018 14:15
[2018-02-12] MEDS: SODIUM CHLORIDE 0.9% FLUSH 10 ML FLUSH IV FLUSH SCH (20:31)
--- NOTE | 2018-02-12 21:07 | EKG ---
Date Performed: 02/12/2018 Time Performed: 07:12:34 PTAGE: 87 years EKG: Sinus Bradycardia Possible anterior infarct - age undetermined Low QRS voltages in precordi al leads Abnormal ECG PREVIOUS TRACING : 02/12/2018 02.55 Compared to previous tracing, Afib with RVR is no longer p resent DOCTOR: Kevon Farr Interpretating Date/Time 02/12/2018 21:07:02
--- NOTE | 2018-02-12 21:17 | EKG ---
Date Performed: 02/12/2018 Time Performed: 02:55:14 PTAGE: 87 years EKG: Atrial fibrillation with uncontrolled ventricular response Left axis deviation Lateral ST-T changes are nonspecific Low QRS voltages in precordial leads Abnormal ECG PREVIOUS TRACING : 02/11/2018 07.09 Compared to previous tracing, AFIB WITH RVR IS NEW DOCTOR: Kevon Farr Interpretating Date/Time 02/12/2018 21:16:16
[2018-02-13] VITALS (24 sets, daily range): BP systolic 97–123; BP diastolic 46–82; PULSE 71–120; RESP 12–14; TEMP 98–100.4; O2SAT 94–100
[2018-02-13] MEDS: CHLORHEXIDINE GLUCONATE 2 % 1 PACK (2 CLOTHS) TOP SCH (00:12)
[2018-02-13] MEDS: SODIUM CHLOR 0.9% 1000 ML INJ 1,000 ML IV SCH ×3 (00:31→17:24)
[2018-02-13] MEDS: RESP: ALBUTEROL 2.5 MG/IPRATROPIUM 0.5 MG NEB (SCH) NEB ×4 (03:18→21:18)
[2018-02-13] MEDS: PANTOPRAZOLE SODIUM 40 MG VIAL IVP SCH (04:07)
[2018-02-13 05:31] LABS: AUTOMATED NEUTROPHIL # 4.9 TH/MM3 (1.8-7.7); BASOPHIL % 0.3 % (0.0-2.0); HEMATOCRIT 25.8 % (35.0-46.0); HEMOGLOBIN 8.9 GM/DL (11.6-15.3); LYMPH % 10.4 % (9.0-44.0); LYMPHOCYTE # 0.7 TH/MM3 (1.0-4.8); MEAN CELL VOLUME 88.2 FL (80.0-100.0); MEAN CORPUSCULAR HEMOGLOBIN 30.5 PG (27.0-34.0); MEAN CORPUSCULAR HGB CONC 34.6 % (32.0-36.0); MEAN PLATELET VOLUME 8.2 FL (7.0-11.0); MONO % 12.1 % (0.0-8.0); MONOCYTE # 0.8 TH/MM3 (0-0.9); NEUT % 77.2 % (16.0-70.0); PLATELET COUNT 76 TH/MM3 (150-450); RED BLOOD COUNT 2.92 MIL/MM3 (4.00-5.30); WHITE BLOOD COUNT 6.4 TH/MM3 (4.0-11.0)
[2018-02-13 05:59] LABS: ALBUMIN 1.9 GM/DL (3.4-5.0); AST (GOT) 20 U/L (15-37); BICARBONATE 24.8 MEQ/L (21.0-32.0); BLOOD UREA NITROGEN 7 MG/DL (7-18); CALCIUM 8.2 MG/DL (8.5-10.1); CHLORIDE 112 MEQ/L (98-107); CREATININE 0.35 MG/DL (0.50-1.00); GLOMERULAR FILTRATION RATE 177 ML/MIN (>89); GLUCOSE,RANDOM 95 MG/DL (74-106); MAGNESIUM 1.9 MG/DL (1.5-2.5); SODIUM (NA) 143 MEQ/L (136-145)
[2018-02-13 06:03] LABS: ALKALINE PHOSPHATASE 59 U/L (45-117); ALT (GPT) 12 U/L (10-53); TOTAL BILIRUBIN ADULT 1.9 MG/DL (0.2-1.0); TOTAL PROTEIN 4.4 GM/DL (6.4-8.2)
--- NOTE | 2018-02-13 06:07 | RADRPT ---
EXAM DATE/TIME: 02/13/2018 04:08 [facility] COMPARISON: CHEST SINGLE AP, February 12, 2018, 4:42. CHEST SINGLE AP, February 12, 2018, 10:08. INDICATIONS : Shortness of breath MEDICAL HISTORY : Non-responsive SURGICAL HISTORY : Non-responsive ENCOUNTER: Subsequent ACUITY: 4 - 6 days PAIN SCORE: Non-responsive. LOCATION: Bilateral chest FINDINGS: A single view of the chest demonstrates a minimal bibasilar densities. Right-sided chest tube without pneumothorax. Endotracheal tube and right subclavian central line in stable position. Appears to be nasogastric tube with tip below the inferior margin of the image. Left-sided pacemaker unchanged. Os seous structures are intact. CONCLUSION: Minimal bibasilar densities. Yrn Khan MD on February 13, 2018 at 6:04 Board Certified Radiologist. This report was verified electronically.
--- NOTE | 2018-02-13 07:28 | PD.ORT.PN ---
Subjective Subjective Remarks Patient is stable status post pacemaker placement yesterday. Objective Vitals Vital Signs Date Time Temp Pulse Resp B/P (MAP) Pulse Ox O2 Delivery O2 Flow Rate FiO2 02/13/18 06:07 72 87/42 02/13/18 06:00 85 02/13/18 05:52 83 88/45 02/13/18 04:00 35 02/13/18 04:00 100.2 81 12 117/46 (69) 98 02/13/18 04:00 85 02/13/18 03:55 79 111/58 02/13/18 03:21 100 35 02/13/18 02:16 77 86/39 02/13/18 02:00 85 02/13/18 00:51 89 89/43 02/13/18 00:00 35 02/13/18 00:00 100.4 81 14 117/46 (69) 97 02/13/18 00:00 85 02/12/18 23:31 96 35 02/12/18 21:26 82 121/40 02/12/18 20:00 35 02/12/18 20:00 100.4 81 14 117/46 (69) 97 Automatic Cuff 02/12/18 19:31 98 35 02/12/18 16:00 100.3 79 14 117/60 (79) 98 125/56 (79) 02/12/18 16:00 35 02/12/18 15:00 85 02/12/18 14:53 97 35 02/12/18 14:24 99.4 02/12/18 14:23 73 12 127/55 100 02/12/18 12:59 66 111/53 02/12/18 12:00 35 02/12/18 12:00 98.3 65 12 111/53 (72) 100 123/51 (75) 02/12/18 10:34 100 35 02/12/18 10:28 73 113/59 02/12/18 10:00 99.0 78 14 114/55 (74) 99 95/45 (62) 02/12/18 10:00 35 02/12/18 10:00 99 Mechanical Ventilator 35 02/12/18 10:00 78 02/12/18 09:00 100 100 02/12/18 07:51 97 35 I/O 4/11/18 402/12/18 02/13/18 02/13/18 02/13/18 07:00 15:00 23:00 07:00 15:00 23:00 Intake Total 1300 ml 285 ml Output Total 570 ml 700 ml 720 ml Balance 730 ml -415 ml -720 ml Intake IV Total 1300 ml Platelets 285 ml Output Urine Total 550 ml 675 ml 600 ml Gastric Drainage Total 50 ml Chest Tube Drainage Total 20 ml 25 ml 70 ml # Bowel Movements 0 0 0 Result Diagram: 02/13/18 0517 02/13/18 0517 Imaging Last 24 hours Impressions Chest X-Ray 02/11/18 0000 Signed Impressions: Service Date/Time: Sunday, February 11, 2018 04:39 - CONCLUSION: Small right apical pneumothorax. Yrn Khan MD Objective Remarks Bilateral lower extremities: No laxity of knee or ankle. Intact distal pulses. Bruising and skin is intact over bilateral hips Left upper extremity: Ecchymosis over shoulder and distally down the humerus. Skin is intact. Distally intact distal pulses and good capillary refills Assessment & Plan Assessment and Plan 1) Bilateral intertrochanteric fractures -possible surgery today pending medical and cardiac clearance -consents on chart 2) Left Proximal Humerus fracture Due to alignment of fracture we will continue to treat this nonoperatively in a sling and swath Nonweightbearing left upper extremity No range of motion Blood products are being given today due to low H&H and low platelet count Jan Otero Jr. Feb 13, 2018 07:28
[2018-02-13] MEDS: CHLORHEXIDINE 0.12% (ORAL KIT) 15 ML CUP MT SCH ×2 (07:36→20:00)
[2018-02-13] MEDS: SODIUM CHLORIDE 0.9% FLUSH 10 ML FLUSH IV FLUSH SCH ×2 (07:36→21:00)
[2018-02-13] MEDS: MAGNESIUM HYDROXIDE SUSP 30 ML CUP PO SCH ×2 (08:55→20:17)
[2018-02-13] MEDS: DOCUSATE SODIUM 100 MG CAP PO SCH ×2 (08:55→20:17)
[2018-02-13] MEDS ORDERED: fentaNYL CITRATE 250 MCG/5 ML AMP ONE (09:54)
[2018-02-13] MEDS ORDERED: ceFAZolin INJ 1,000 MG VIAL ONE (09:57)
[2018-02-13] MEDS ORDERED: GENTAMICIN SULFATE 80 MG/2 ML VIAL ONE (09:58)
--- NOTE | 2018-02-13 11:28 | HHI.NSPN ---
(Raven Ku) Note Status Status: Progress Note (Raven Ku) Interval History Interval History This is a 87 year old female who presents to the [facility] emergency department as a transfer from [facility] as a trauma alert. Apparently patient sustained a fall on the driveway at approximately 9 PM last night. She sustained right sided rib fractures with a hemopneumothorax status post chest tube placement and 1200 mL of blood out in the chest tube. The patient's hemoglobin dropped from 11 to7, was transfused 2 units of packed red blood cells. The patient was found to have bilateral intertrochanteric fractures, Left proximal humerus fracture, Acute T11 fracture, right-sided rib fractures, and hemopneumothorax as described above. She was accepted by Dr. Monae. Towards a.m. patient started becoming more hemodynamically unstable, Dr. Monae place a right subclavian central line and Levophed was started which rapidly was increased to 12 mcg/min. Due to increasing hemodynamic instability patient was intubated by Dr. Monae and placed on mechanical ventilation Trauma workup reveled a right hemopneumothorax, right-sided rib fractures, bilateral intertrochanteric fractures on the femur, acute T11 fracture, acute left humerus fracture. Neurosurgical consultation was requested 02/11. She has been slowly stabilized overnight with hemodynamic improvement and decreased need for vasopressors. She remains mildly sedated on propofol. She has been evaluated by cardiology for periods of bradycardia. Troponins elevated. Suspected that she had a myocardial infarction on the scene anemia and hemorrhagic shock 02/13: pt underwent pacemaker placement yesterday. currently intubated. ortho plans on b/l hip fixation today. (Raven Ku) Labs, Micro, & Vital Signs Results Date Time Temp Pulse Resp B/P (MAP) Pulse Ox O2 Delivery O2 Flow Rate FiO2 02/13/18 10:14 98.3 96 12 110/59 99 02/13/18 10:10 98 100 02/13/18 10:00 98 35 02/13/18 09:52 98.2 72 12 103/53 99 02/13/18 08:00 74 02/13/18 08:00 98.3 81 12 109/57 (74) 100 02/13/18 08:00 35 02/13/18 07:54 98.3 81 12 123/62 100 02/13/18 07:37 99 35 02/13/18 07:00 98.5 71 12 97/54 99 02/13/18 06:07 72 87/42 02/13/18 06:00 85 02/13/18 05:52 83 88/45 02/13/18 04:00 35 02/13/18 04:00 100.2 81 12 117/46 (69) 98 02/13/18 04:00 85 02/13/18 03:55 79 111/58 02/13/18 03:21 100 35 02/13/18 02:16 77 86/39 02/13/18 02:00 85 02/13/18 00:51 89 89/43 02/13/18 00:00 35 02/13/18 00:00 100.4 81 14 117/46 (69) 97 02/13/18 00:00 85 02/12/18 23:31 96 35 02/12/18 21:26 82 121/40 02/12/18 20:00 35 02/12/18 20:00 100.4 81 14 117/46 (69) 97 Automatic Cuff 02/12/18 19:31 98 35 02/12/18 16:00 100.3 79 14 117/60 (79) 98 125/56 (79) 02/12/18 16:00 35 02/12/18 15:00 85 02/12/18 14:53 97 35 02/12/18 14:24 99.4 02/12/18 14:23 73 12 127/55 100 02/12/18 12:59 66 111/53 02/12/18 12:00 35 02/12/18 12:00 98.3 65 12 111/53 (72) 100 123/51 (75) 02/14/18 06:59 Intake Total 1063 ml Balance 1063 ml Constitutional Vital Signs Date Time Temp Pulse Resp B/P (MAP) Pulse Ox O2 Delivery O2 Flow Rate FiO2 02/13/18 10:14 98.3 96 12 110/59 99 02/13/18 10:10 98 100 4/12/18 10:00 98 35 02/13/18 09:52 98.2 72 12 103/53 99 02/13/18 08:00 74 02/13/18 08:00 98.3 81 12 109/57 (74) 100 02/13/18 08:00 35 02/13/18 07:54 98.3 81 12 123/62 100 02/13/18 07:37 99 35 02/13/18 07:00 98.5 71 12 97/54 99 02/13/18 06:07 72 87/42 02/13/18 06:00 85 02/13/18 05:52 83 88/45 02/13/18 04:00 35 02/13/18 04:00 100.2 81 12 117/46 (69) 98 02/13/18 04:00 85 02/13/18 03:55 79 111/58 02/13/18 03:21 100 35 02/13/18 02:16 77 86/39 02/13/18 02:00 85 02/13/18 00:51 89 89/43 02/13/18 00:00 35 02/13/18 00:00 100.4 81 14 117/46 (69) 97 02/13/18 00:00 85 02/12/18 23:31 96 35 02/12/18 21:26 82 121/40 02/12/18 20:00 35 02/12/18 20:00 100.4 81 14 117/46 (69) 97 Automatic Cuff 02/12/18 19:31 98 35 02/12/18 16:00 100.3 79 14 117/60 (79) 98 125/56 (79) 02/12/18 16:00 35 02/12/18 15:00 85 02/12/18 14:53 97 35 02/12/18 14:24 99.4 02/12/18 14:23 73 12 127/55 100 02/12/18 12:59 66 111/53 02/12/18 12:00 35 02/12/18 12:00 98.3 65 12 111/53 (72) 100 123/51 (75) 02/14/18 06:59 Intake Total 1063 ml Balance 1063 ml (Raven Ku) Review of Systems ROS Limitations: Intubated (Raven Ku) Physical Exam (Raven Ku) Ms Cruz is intubated and sedated. Localizes to pain Cranial Nerves: Pupils equal, round, reactive to light. Eyes appear conjugated. There was no nystagmus, no papilledema. Face musculature appeared symmetrical at rest. Face sensation, olfaction, visual whittington, and hearing cannot be adequately assessed due to his neurological condition. The patient has a corneal reflex. He has a gag reflex. The sternocleidomastoid and trapezius are symmetrical. Cervical Spine: His neck is soft, supple, without nuchal rigidity. Motor: His muscle tone and bulk are normal. She moves all 4 extremities symmetrically, less on left upper extremity and lower.extremities due to her orthopedic fracture Sensory: On examination there is response to painful stimuli, localizing with both upper and lower extremities. Cerebellar: Examination cannot be adequately assessed due to the patient's neurological condition. Cardiovascular: Sinus tachycardia with frequent PVCs, in profound shock on Levophed 30 mcg/min. Getting actively resuscitated Lungs: Clear to auscultation bilaterally, air entry diminished at the bases. Right-sided chest tube in place to -20 suction increased to -40. Right subclavian central line in place Abdomen: Soft, without tenderness to palpation. No guarding, rebound, Skin warm and dry (Nasir Landers MD) Medications Current Medications Current Medications Medications (Trade) Dose Ordered Sig/Mackenzie Route PRN Reason Start Time Stop Time Status Last Admin Dose Admin Sodium Chloride (NS Flush) 2 ml UNSCH PRN IV FLUSH FLUSH AFTER USING IV ACCESS 02/10/18 04:15 Enalaprilat (Vasotec Inj) 1.25 mg Q8H PRN IV PUSH SBP>180, DBP>95 02/10/18 04:15 Ondansetron HCl (Zofran Inj) 4 mg Q6H PRN IV PUSH NAUSEA OR VOMITING 02/10/18 04:15 Pantoprazole Sodium (Protonix Inj) 40 mg Q24H IVP 02/10/18 05:00 02/13/18 04:07 Docusate Sodium (Colace) 100 mg BID PO 02/10/18 09:00 02/13/18 08:55 Miscellaneous Information 1 [id number] XX 02/10/18 04:15 02/10/18 04:15 Chlorhexidine Gluconate (Chlorhexidine 2% Cloth) 3 pack Taper DAILY@04 TOP 02/11/18 04:00 02/07/19 03:59 Chlorhexidine Gluconate (Chlorhexidine 2% Cloth) 3 pack UNSCH PRN TOP HYGIENIC CARE 02/10/18 04:15 Potassium Chloride 100 ml @ 50 mls/hr Q2H PRN IV For Potassium 2.8 - 3.2 mEq/L 02/10/18 06:30 Potassium Chloride 100 ml @ 50 mls/hr Q2H PRN IV For Potassium 2.8 - 3.2 mEq/L 02/10/18 06:30 Potassium Chloride 100 ml @ 25 mls/hr UNSCH PRN IV For Potassium 3.3 - 3.5 mEq/L 02/10/18 06:30 02/13/18 07:36 Potassium Chloride 100 ml @ 50 mls/hr Q2H PRN IV For Potassium 3.3 - 3.5 mEq/L 02/10/18 06:30 Magnesium Sulfate 4 gm/Sodium Chloride 100 ml @ 50 mls/hr UNSCH PRN IV For Magnesium 0.9 - 1.1 mg/dL 02/10/18 06:30 Magnesium Oxide (Mag-Ox) 800 mg UNSCH PRN PO For Magnesium 1.2 - 1.6 mg/dL 02/10/18 06:30 Magnesium Sulfate 2 gm/Sodium Chloride 100 ml @ 50 mls/hr UNSCH PRN IV For Magnesium 1.2 - 1.6 mg/dL 02/10/18 06:30 02/10/18 22:57 Potassium Phosphate (K-Phos) 2,000 mg Q4H PRN PO For Phosphorus < 2.5 mg/dL 02/10/18 06:30 Sodium Phosphate 30 mmol/Sodium Chloride 250 ml @ 42 mls/hr UNSCH PRN IV For Phosphorus < 2.5 mg/dL 02/10/18 06:30 Potassium Phosphate (K-Phos) 2,000 mg UNSCH PRN PO/TUBE SEE LABEL COMMENTS 02/10/18 06:30 Potassium Phosphate 30 mmol/ Sodium Chloride 260 ml @ 42 mls/hr UNSCH PRN IV SEE LABEL COMMENTS 02/10/18 06:30 02/10/18 22:56 Potassium Chloride (KCl Powder) 40 meq DAILY PRN PO For Potassium 3.3 - 3.5 mEq/L 02/10/18 06:30 Chlorhexidine Gluconate (Peridex 0.12% Liq) 15 ml BID@08,20 MT 02/10/18 08:00 02/13/18 07:36 Fentanyl Citrate 250 ml @ 5 mls/hr TITRATE PRN IV SEDATION 02/10/18 08:00 02/12/18 23:32 Potassium Chloride 100 ml @ 50 mls/hr Q2H PRN IV For Potassium 2.8 - 3.2 mEq/L 02/10/18 09:15 02/12/18 06:19 Potassium Chloride 100 ml @ 50 mls/hr Q2H PRN IV For Potassium 2.8 - 3.2 mEq/L 02/10/18 09:15 Potassium Bicarb/ Potassium Chloride (K-Lyte Cl Eff) 50 meq UNSCH PRN PO For Potassium 3.3 - 3.5 mEq/L 02/10/18 09:15 Potassium Chloride 100 ml @ 25 mls/hr UNSCH PRN IV For Potassium 3.3 - 3.5 mEq/L 02/10/18 09:15 Potassium Chloride 100 ml @ 50 mls/hr Q2H PRN IV For Potassium 3.3 - 3.5 mEq/L 02/10/18 09:15 Magnesium Sulfate 4 gm/Sodium Chloride 100 ml @ 50 mls/hr UNSCH PRN IV For Magnesium 0.9 - 1.1 mg/dL 02/10/18 09:15 Magnesium Oxide (Mag-Ox) 800 mg UNSCH PRN PO For Magnesium 1.2 - 1.6 mg/dL 02/10/18 09:15 Magnesium Sulfate 2 gm/Sodium Chloride 100 ml @ 50 mls/hr UNSCH PRN IV For Magnesium 1.2 - 1.6 mg/dL 02/10/18 09:15 Potassium Phosphate (K-Phos) 2,000 mg Q4H PRN PO For Phosphorus < 2.5 mg/dL 02/10/18 09:15 Sodium Phosphate 30 mmol/Sodium Chloride 250 ml @ 42 mls/hr UNSCH PRN IV For Phosphorus < 2.5 mg/dL 02/10/18 09:15 Potassium Phosphate (K-Phos) 2,000 mg UNSCH PRN PO/TUBE SEE LABEL COMMENTS 02/10/18 09:15 Potassium Phosphate 30 mmol/ Sodium Chloride 260 ml @ 42 mls/hr UNSCH PRN IV SEE LABEL COMMENTS 02/10/18 09:15 Norepinephrine Bitartrate 250 ml @ 7.5 mls/hr TITRATE PRN IV Maintain MAP > 65 mmHg 02/10/18 19:45 02/12/18 12:59 Phenylephrine HCl 40 mg/Dextrose 500 ml @ 30 mls/hr TITRATE PRN IV Blood Pressure Management 02/10/18 19:45 02/11/18 05:38 Sodium Chloride 1,000 ml @ 100 mls/hr Q10H IV 02/10/18 23:00 02/12/18 14:40 Midazolam HCl 100 ml @ 2 mls/hr TITRATE PRN IV SEDATION 02/11/18 09:30 02/12/18 22:18 Propofol 100 ml @ 2.391 mls/ hr TITRATE PRN IV SEDATION 02/11/18 09:45 Vancomycin HCl 1000 mg/Sodium Chloride 250 ml @ 250 mls/hr GEOGRAPHIC INFORMATION SYSTEMS DIRECTOR IV 02/11/18 10:00 02/15/18 09:59 02/13/18 11:07 Povidone Iodine (Betadine 5% Antisepsis Kit) 1 applic GEOGRAPHIC INFORMATION SYSTEMS DIRECTOR EACH NARE 02/11/18 10:00 02/15/18 09:59 Mupirocin (Bactroban Nasal 2% Oint) 1 applic GEOGRAPHIC INFORMATION SYSTEMS DIRECTOR NASAL 02/11/18 10:00 02/15/18 09:59 Chlorhexidine Gluconate (Chlorhexidine 2% Cloth) 3 pack GEOGRAPHIC INFORMATION SYSTEMS DIRECTOR TOP 02/11/18 10:00 02/15/18 09:59 Cefazolin Sodium 2000 mg/Sodium Chloride 100 ml @ 100 mls/hr GEOGRAPHIC INFORMATION SYSTEMS DIRECTOR IV 02/11/18 11:00 02/14/18 10:59 Magnesium Hydroxide (Milk Of Magnnitish Liq) 30 ml BID PO 02/11/18 21:00 02/13/18 08:55 Albuterol/ Ipratropium (Duoneb Neb) 1 ampule Q6HR NEB NEB 02/11/18 22:00 02/13/18 07:42 Albuterol/ Ipratropium (Duoneb Neb) 1 ampule Q2HR NEB PRN NEB wheezing 02/11/18 19:45 Amiodarone HCl 450 mg/Sodium Chloride 250 ml @ 33.33 mls/ hr TITRATE PRN IV Per Protocol 02/12/18 03:15 02/12/18 10:28 Bacitracin (Bacitracin Oint Packet) 0.9 gm UNSCH PRN TOP SEE LABEL COMMENTS 02/12/18 09:30 Sodium Chloride (NS Flush) 2 ml BID IV FLUSH 02/12/18 21:00 02/13/18 07:36 Sodium Chloride (NS Flush) 2 ml UNSCH PRN IV FLUSH FLUSH AFTER USING IV ACCESS 02/12/18 09:30 (Raven Ku) Medical Decision Making MDM Remarks 87 y/o female trauma alert, sustained a fall on the driveway acute T11 fracture right hemopneumothorax right-sided rib fractures bilateral intertrochanteric fractures on the femur acute left humerus fracture s/p pacemaker placement (Raven Ku) Plan Plan Remarks cont trauma management nonoperative treatment of thoracic fracture at this time (Raven Ku) Attending Statement Ms Cruz is status post placement of a pacemaker yesterday by 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 Nonoperative treatment with bed rest for now. if her condition improves TLSO brace Left shoulder fracture.Continue nonoperative treatment per orthopedics Multiple rib fractures. .Continue narcotic analgesics for pain control hemopneumothorax. Status post chest tube Pulmonary. .Continue mechanical ventilation for acute respiratory failure, aggressive pulmonary toilette, nasotracheal suction, and breathing treatments with nebulizers. PT and OT eval Renal. .Continue to monitor closely urine output, BUN and creatinine Endocrine. .Continue to Monitor serial Acu checks and SSI as needed in detail ID .Continue to monitor for signs of infection .Continue Protonix for stress ulcer prophylaxis Continue Farrukh hose and SCD's for DVT prophylaxisMs Cruz remains in critical condition. She has persistent periods of bradicardia. She is going today for placement of a pacemaker today by a bullet slug casting machine operator Continue neuro checks T11 fracture. Nonoperative treatment with bed rest for now. if her condition improves TLSO brace Bilateral hip fractures. She is not stable today, if her condition improves, she will undergo nail fixation for her hip fractures for bilateral hip reduction Left shoulder fracture.Continue nonoperative treatment per orthopedics Multiple rib fractures. .Continue narcotic analgesics for pain control hemopneumothorax. Status post chest tube Pulmonary. .Continue mechanical ventilation for acute respiratory failure, aggressive pulmonary toilette, nasotracheal suction, and breathing treatments with nebulizers. PT and OT eval Renal. .Continue to monitor closely urine output, BUN and creatinine Endocrine. .Continue to Monitor serial Acu checks and SSI as needed in detail ID .Continue to monitor for signs of infection .Continue Protonix for stress ulcer prophylaxis Continue Farrukh hose and SCD's for DVT prophylaxisMs Cruz remains in critical condition. She has persistent periods of bradicardia. She is going today for placement of a pacemaker today by a bullet slug casting machine operator Continue neuro checks T11 fracture. Nonoperative treatment with bed rest for now. if her condition improves TLSO brace Bilateral hip fractures. She is not stable today, if her condition improves, she will undergo nail fixation for her hip fractures for bilateral hip reduction Left shoulder fracture.Continue nonoperative treatment per orthopedics Multiple rib fractures. .Continue narcotic analgesics for pain control hemopneumothorax. Status post chest tube Pulmonary. .Continue mechanical ventilation for acute respiratory failure, aggressive pulmonary toilette, nasotracheal suction, and breathing treatments with nebulizers. PT and OT eval Renal. .Continue to monitor closely urine output, BUN and creatinine Endocrine. .Continue to Monitor serial Acu checks and SSI as needed in detail ID .Continue to monitor for signs of infection .Continue Protonix for stress ulcer prophylaxis Continue Farrukh hose and SCD's for DVT prophylaxisMs Cruz remains in critical condition. She has persistent periods of bradicardia. She is going today for placement of a pacemaker today by a bullet slug casting machine operator Continue neuro checks T11 fracture. Nonoperative treatment with bed rest for now. if her condition improves TLSO brace Bilateral hip fractures. She is not stable today, if her condition improves, she will undergo nail fixation for her hip fractures for bilateral hip reduction Left shoulder fracture.Continue nonoperative treatment per orthopedics Multiple rib fractures. .Continue narcotic analgesics for pain control hemopneumothorax. Status post chest tube Pulmonary. .Continue mechanical ventilation for acute respiratory failure, aggressive pulmonary toilette, nasotracheal suction, and breathing treatments with nebulizers. PT and OT eval Renal. .Continue to monitor closely urine output, BUN and creatinine Endocrine. .Continue to Monitor serial Acu checks and SSI as needed in detail ID .Continue to monitor for signs of infection .Continue Protonix for stress ulcer prophylaxis Continue Farrukh hose and SCD's for DVT prophylaxis The exam, history, and the medical decision-making described in the above note were completed with the assistance of the mid-level provider. I reviewed and agree with the findings presented. I attest that I had a [id number] encounter with the patient on the same day, and personally performed and documented my assessment and findings in the medical record. (Nasir Landers MD) Raven Ku Feb 13, 2018 11:28 Nasir Landers MD Feb 14, 2018 06:31
[2018-02-13 11:45] LABS: AUTOMATED NEUTROPHIL # 5.3 TH/MM3 (1.8-7.7); BASOPHIL % 0.2 % (0.0-2.0); EOSINOPHIL % 0.5 % (0.0-4.0); HEMATOCRIT 25.3 % (35.0-46.0); HEMOGLOBIN 8.7 GM/DL (11.6-15.3); LYMPH % 9.9 % (9.0-44.0); LYMPHOCYTE # 0.7 TH/MM3 (1.0-4.8); MEAN CELL VOLUME 88.2 FL (80.0-100.0); MEAN CORPUSCULAR HEMOGLOBIN 30.3 PG (27.0-34.0); MEAN CORPUSCULAR HGB CONC 34.4 % (32.0-36.0); MEAN PLATELET VOLUME 7.6 FL (7.0-11.0); MONO % 12.7 % (0.0-8.0); MONOCYTE # 0.9 TH/MM3 (0-0.9); NEUT % 76.7 % (16.0-70.0); PLATELET COUNT 137 TH/MM3 (150-450); RED BLOOD COUNT 2.87 MIL/MM3 (4.00-5.30); RED CELL DISTRIBUTION WIDTH 17.3 % (11.6-17.2); WHITE BLOOD COUNT 6.9 TH/MM3 (4.0-11.0)
[2018-02-13] MEDS ORDERED: ACETAMINOPHEN/HYDROcodone 325 MG/7.5 MG TAB PO PRN (12:00)
[2018-02-13] MEDS ORDERED: ERGOCALCIFEROL (VIT D2) 50,000 UNIT CAP PO ONE (12:00)
--- NOTE | 2018-02-13 12:04 | PD.OP ---
cc: Jonathan Juarez MD Operative Report Date of Surgery: Feb 13, 2018 Preoperative Diagnosis: Bilateral intertrochanteric hip fracture Postoperative Diagnosis: Procedure: Left hip reduction intramedullary nail fixation, right hip reduction intramedullary fixation Surgeon: Jonathan Juarez Asbestos Coverer(s): MAGDY Barnard PA-C The surgical procedure was assisted by my physician assistant coach. My P.A. presence was necessary throughout this case for the manipulation and positioning of the surgical extremity. My P.A. was assisting me throughout the duration of this procedure. The skill set of a physician assistant coach was medically necessary to complete this procedure. During the surgical case the surgical dental assistant was working at the back table and the physician assistant coach was directly assisting me. Operation and Findings: Implants used: [11 mm]mm x [360]mm Biomet troch nail x2 Plan of activity: Weight-bear as tolerated Patient was seen and evaluated preoperatively. The patient has bilateral proximal femur fractures. She has been intubated and sedated in intensive care unit for medical problems. Informed consent was obtained from patient's family after detailed discussion of the risks and benefits of surgery. The risk and benefits of surgery were discussed in depth with the patient to include bleeding , infection, nonunion, malunion, need for hip replacement, painful hardware, as well as medical competitions including blood clots, stroke, heart attack, and . Informed consent was obtained. Operative site was marked. Patient was brought to the operating room and placed on fracture table. IV sedation was administered by anesthesiologist. Timeout procedure was performed. Procedure began with the left hip. Left hip and leg were prepped with alcohol followed by DuraPrep and draped in the usual sterile fashion. IV antibiotics were given prior to incision. Procedure began with reduction of fracture. Traction was applied. The leg was manipulated to achieve reduction. Excellent reduction was achieved. Fluoroscopy was used to confirm reduction. A 2 inch incision was made proximal to the trochanter. Subcutaneous tissue was dissected bluntly. Guidepin was placed at the tip of the trochanter and advanced into the femoral canal. Fluoroscopy confirmed appropriate guidepin placement. A opening reamer was placed over the guidepin. A long ball tipped guide pin was now placed down the femoral canal into the center of the distal femur. The nail length was now measured. Fluoroscopy confirmed appropriate guidepin placement. Flexible reamers were now passed over the guidepin to ream the intramedullary canal. The nail was attached to the insertion handle. Nail was now placed over the guidepin into the femoral canal. Fluoroscopy confirmed appropriate nail placement. A second incision was made over the lateral thigh. Cannulas were placed through the insertion handle down to the femur. Guidepin was now placed through the femoral nail into the center of the femoral head. Fluoroscopy confirmed appropriate guidepin placement. Screw length was measured. Cannulated drill was placed over the guidepin. Appropriate length lag screw was now placed. Traction was released and compression was applied. The set screw was now tightened in dynamic mode. Next, using perfect [place] technique two distal interlocking screws were placed. Screw holes were predrilled and screw lengths were measured. Final fluoroscopy revealed well aligned fracture with well-placed hardware. Incision was closed with 3-0 Vicryl and tj. Sterile dressings were applied. Next attention was turned towards the right leg. Patient was repositioned. The right hip and leg were prepped with alcohol followed by DuraPrep and draped in the usual sterile fashion. IV antibiotics were given prior to incision. Procedure began with reduction of fracture. Traction was applied. The leg was manipulated to achieve reduction. Excellent reduction was achieved. Fluoroscopy was used to confirm reduction. A 2 inch incision was made proximal to the trochanter. Subcutaneous tissue was dissected bluntly. Guidepin was placed at the tip of the trochanter and advanced into the femoral canal. Fluoroscopy confirmed appropriate guidepin placement. A opening reamer was placed over the guidepin. A long ball tipped guide pin was now placed down the femoral canal into the center of the distal femur. The nail length was now measured. Fluoroscopy confirmed appropriate guidepin placement. Flexible reamers were now passed over the guidepin to ream the intramedullary canal. The nail was attached to the insertion handle. Nail was now placed over the guidepin into the femoral canal. Fluoroscopy confirmed appropriate nail placement. A second incision was made over the lateral thigh. Cannulas were placed through the insertion handle down to the femur. Guidepin was now placed through the femoral nail into the center of the femoral head. Fluoroscopy confirmed appropriate guidepin placement. Screw length was measured. Cannulated drill was placed over the guidepin. Appropriate length lag screw was now placed. Traction was released and compression was applied. The set screw was now tightened in dynamic mode. Next, using perfect [place] technique two distal interlocking screws were placed. Screw holes were predrilled and screw lengths were measured. Final fluoroscopy revealed well aligned fracture with well-placed hardware. Incision was closed with 3-0 Vicryl and tj. Sterile dressings were applied. Patient was transferred back to intensive care. Jonathan Juarez MD Feb 13, 2018 12:04
--- NOTE | 2018-02-13 12:27 | HHI.CCPN ---
Subjective Brief History This is a 87 year old female who presents to the [facility] emergency department as a transfer from [facility] as a trauma alert. Apparently patient sustained a fall on the driveway at approximately 9 PM last night. Patient was transferred to [facility] and underwent workup and when it was finally noted that patient had severe injuries we were asked to accept the patient as trauma transfer. Patient arrives around 6 AM and according to Dr. Monae initially patient is hemodynamically stable but then continues to deteriorate including multifocal supraventricular arrhythmias. Patient undergoes repeat CT scan of the chest and abdomen and is transferred to ICU for further care. Final injuries are Right lower rib fractures with a hemopneumothorax / chest tube placement and 1200 mL of blood out in the chest tube. Bilateral intratrochanteric hip fractures Left proximal humerus fracture T11 fracture Multiple old fractures of the thoracic spine and several lumbar spine fractures with kyphoplasties Supraventricular cardiac arrhythmias ischemic cardiomyopathy Hypotensive shock Metabolic acidosis anion gap In the process patient dropped hemoglobin from 12 g/dL initially to 7 g/dL few hours later. She received several units of PRBCs and was resuscitated Required vasopressors including Levophed and Gonzalo-Synephrine 24 Hour Review/Hospital Course 02/10/2018 Patient was initially unstable but now has stabilized hemodynamically Remains intubated ventilated Medical hyperion analyst help greatly appreciated 02/11/2018 Patient with a devastating traumatic injuries post fall She has been slowly stabilizing overnight with hemodynamic improvement and decreasing vasopressors Remains mildly sedated on propofol however we will switch this to Versed in face of cardio depressant effect of propofol Evaluated by cardiology for periods of bradycardia It is my opinion that patient had a myocardial infarction process as a result of combination of the trauma hypoxia on the scene anemia and hemorrhagic shock Troponins elevated 02/12 Patient underwent pacemaker insertion today by cardiology-she spontaneously converted to sinus rhythm the cardiac lab She is got thrombocytopenia- believe is likely related to blood loss/SIRS She remains on low-dose Levophed-I believe she is euvolemic-obtain Flowtrack for more exact measurement She had an NM versus blunt cardiac injury She has multitrauma with this overall poor prognosis secondary to her age with low reserve 02/13 OR today-IM nailing x2 transfuse 1U PRBC,1U plt low dose levophed off amiodarone uo adequate partial DNR as per family remains SR Objective Vital Signs Date Time Temp Pulse Resp B/P (MAP) Pulse Ox O2 Delivery O2 Flow Rate FiO2 02/13/18 10:14 98.3 96 12 110/59 99 02/13/18 10:10 100 02/12/18 10:00 Mechanical Ventilator 02/10/18 03:33 3.00 Intake and Output 02/13/18 02/13/18 02/14/18 08:00 16:00 00:00 Intake Total 285 ml 1078 ml Output Total 720 ml 350 ml Balance -435 ml 728 ml Result Diagram: 02/13/18 1118 02/13/18 0517 Other Results Laboratory Tests Test 02/13/18 03:29 Blood Gas Puncture Site ART LINE Blood Gas Patient Temperature 98.6 Blood Gas HCO3 23 mmol/L (22-26) Blood Gas Base Excess -1.0 mmol/L (-2-2) Blood Gas Oxygen Saturation 97 % (90-100) Arterial Blood pH 7.44 (7.380-7.420) Arterial Blood Partial Pressure CO2 33 mmHg (38-42) Arterial Blood Partial Pressure O2 139 mmHg (61-120) Arterial Blood Oxygen Content 10.2 Vol % (12.0-20.0) Arterial Blood Carboxyhemoglobin 1.9 % (0-4) Arterial Blood Methemoglobin 0.7 % (0-2) Blood Gas Hemoglobin 7.2 G/DL (12.0-16.0) Oxygen Delivery Device VENTILATOR Blood Gas Ventilator Setting PRVC/AC Blood Gas Inspired Oxygen 35 % Imaging Last 24 hours Impressions Chest X-Ray 02/13/18 0600 Signed Impressions: Service Date/Time: February 04:08 - CONCLUSION: Minimal bibasilar densities. Yrn Khan MD Exam SUPERVISOR PATCHING GCS 9 T Hemodynamic/Cardiac Low-dose levophed Pulmonary/Respiratory mechl ventilation Abdomen/GI Nutrition Soft Urinary Catheter Assessment Urinary Catheter: Yes Vascular Central Line Catheter Vascular Central Line Catheter: No Assessment and Plan Plan Patient overall stable Hope to wean off Levophed after transfusion of RBC and platelet Patient has been cleared by cardiology to go to the OR for IM nailing- I had a long discussion with the family today regarding patient's overall poor prognosis secondary to low reserves on trauma patient , who are elderly I doubt that patient will be weanable postop Opal Heard MD Feb 13, 2018 12:27
--- NOTE | 2018-02-13 12:42 | PD.CARD.PN ---
Subjective Subjective Remarks sedated. Note patient was rounded on 3 hours ago Objective Medications Current Medications Medications (Trade) Dose Ordered Sig/Mackenzie Route Start Time Stop Time Status Last Admin (NS Flush) 2 ml UNSCH PRN IV FLUSH 02/10/18 04:15 (Vasotec Inj) 1.25 mg Q8H PRN IV PUSH 02/10/18 04:15 (Zofran Inj) 4 mg Q6H PRN IV PUSH 02/10/18 04:15 (Protonix Inj) 40 mg Q24H IVP 02/10/18 05:00 02/13/18 04:07 (Colace) 100 mg BID PO 02/10/18 09:00 02/13/18 08:55 Miscellaneous Information 1 Q361D XX 02/10/18 04:15 02/10/18 04:15 (Chlorhexidine 2% Cloth) 3 pack Taper DAILY@04 TOP 02/11/18 04:00 02/07/19 03:59 (Chlorhexidine 2% Cloth) 3 pack UNSCH PRN TOP 02/10/18 04:15 Potassium Chloride 100 ml @ 50 mls/hr Q2H PRN IV 02/10/18 06:30 Potassium Chloride 100 ml @ 50 mls/hr Q2H PRN IV 02/10/18 06:30 Potassium Chloride 100 ml @ 25 mls/hr UNSCH PRN IV 02/10/18 06:30 02/13/18 07:36 Potassium Chloride 100 ml @ 50 mls/hr Q2H PRN IV 02/10/18 06:30 Magnesium Sulfate 4 gm/Sodium Chloride 100 ml @ 50 mls/hr UNSCH PRN IV 02/10/18 06:30 (Mag-Ox) 800 mg UNSCH PRN PO 02/10/18 06:30 Magnesium Sulfate 2 gm/Sodium Chloride 100 ml @ 50 mls/hr UNSCH PRN IV 02/10/18 06:30 02/10/18 22:57 (K-Phos) 2,000 mg Q4H PRN PO 02/10/18 06:30 Sodium Phosphate 30 mmol/Sodium Chloride 250 ml @ 42 mls/hr UNSCH PRN IV 02/10/18 06:30 (K-Phos) 2,000 mg UNSCH PRN PO/TUBE 02/10/18 06:30 Potassium Phosphate 30 mmol/ Sodium Chloride 260 ml @ 42 mls/hr UNSCH PRN IV 02/10/18 06:30 02/10/18 22:56 (KCl Powder) 40 meq DAILY PRN PO 02/10/18 06:30 (Peridex 0.12% Liq) 15 ml BID@08,20 MT 02/10/18 08:00 02/13/18 07:36 Fentanyl Citrate 250 ml @ 5 mls/hr TITRATE PRN IV 02/10/18 08:00 02/12/18 23:32 Potassium Chloride 100 ml @ 50 mls/hr Q2H PRN IV 02/10/18 09:15 02/12/18 06:19 Potassium Chloride 100 ml @ 50 mls/hr Q2H PRN IV 02/10/18 09:15 (K-Lyte Cl Eff) 50 meq UNSCH PRN PO 02/10/18 09:15 Potassium Chloride 100 ml @ 25 mls/hr UNSCH PRN IV 02/10/18 09:15 Potassium Chloride 100 ml @ 50 mls/hr Q2H PRN IV 02/10/18 09:15 Magnesium Sulfate 4 gm/Sodium Chloride 100 ml @ 50 mls/hr UNSCH PRN IV 02/10/18 09:15 (Mag-Ox) 800 mg UNSCH PRN PO 02/10/18 09:15 Magnesium Sulfate 2 gm/Sodium Chloride 100 ml @ 50 mls/hr UNSCH PRN IV 02/10/18 09:15 (K-Phos) 2,000 mg Q4H PRN PO 02/10/18 09:15 Sodium Phosphate 30 mmol/Sodium Chloride 250 ml @ 42 mls/hr UNSCH PRN IV 02/10/18 09:15 (K-Phos) 2,000 mg UNSCH PRN PO/TUBE 02/10/18 09:15 Potassium Phosphate 30 mmol/ Sodium Chloride 260 ml @ 42 mls/hr UNSCH PRN IV 02/10/18 09:15 Norepinephrine Bitartrate 250 ml @ 7.5 mls/hr TITRATE PRN IV 02/10/18 19:45 02/12/18 12:59 Phenylephrine HCl 40 mg/Dextrose 500 ml @ 30 mls/hr TITRATE PRN IV 02/10/18 19:45 02/11/18 05:38 Sodium Chloride 1,000 ml @ 100 mls/hr Q10H IV 02/10/18 23:00 02/12/18 14:40 Midazolam HCl 100 ml @ 2 mls/hr TITRATE PRN IV 02/11/18 09:30 02/12/18 22:18 Propofol 100 ml @ 2.391 mls/ hr TITRATE PRN IV 02/11/18 09:45 Vancomycin HCl 1000 mg/Sodium Chloride 250 ml @ 250 mls/hr CASTING INSPECTOR IV 02/11/18 10:00 02/15/18 09:59 02/13/18 11:07 (Betadine 5% Antisepsis Kit) 1 applic CASTING INSPECTOR EACH NARE 02/11/18 10:00 02/15/18 09:59 (Bactroban Nasal 2% Oint) 1 applic CASTING INSPECTOR NASAL 02/11/18 10:00 02/15/18 09:59 (Chlorhexidine 2% Cloth) 3 pack CASTING INSPECTOR TOP 02/11/18 10:00 02/15/18 09:59 Cefazolin Sodium 2000 mg/Sodium Chloride 100 ml @ 100 mls/hr CASTING INSPECTOR IV 02/11/18 11:00 02/14/18 10:59 (Milk Of Quinten Liq) 30 ml BID PO 02/11/18 21:00 02/13/18 08:55 (Duoneb Neb) 1 ampule Q6HR NEB NEB 02/11/18 22:00 02/13/18 07:42 (Duoneb Neb) 1 ampule Q2HR NEB PRN NEB 02/11/18 19:45 Amiodarone HCl 450 mg/Sodium Chloride 250 ml @ 33.33 mls/ hr TITRATE PRN IV 02/12/18 03:15 02/12/18 10:28 (Bacitracin Oint Packet) 0.9 gm UNSCH PRN TOP 02/12/18 09:30 (NS Flush) 2 ml BID IV FLUSH 02/12/18 21:00 02/13/18 07:36 (NS Flush) 2 ml UNSCH PRN IV FLUSH 02/12/18 09:30 (Lovenox Inj) 30 mg Q24H SQ 02/14/18 11:00 Cefazolin Sodium 1000 mg/Sodium Chloride 100 ml @ 200 mls/hr Q8H IV 02/13/18 19:00 02/14/18 11:29 ([place] 7.5-325 Mg) 1 tab Q3H PRN PO 02/13/18 12:00 (Vitamin D3) 5,000 units DAILY PO 02/14/18 09:00 Vital Signs / I&O Vital Signs Date Time Temp Pulse Resp B/P (MAP) Pulse Ox O2 Delivery O2 Flow Rate FiO2 02/13/18 10:14 98.3 96 12 110/59 99 02/13/18 10:10 98 100 02/13/18 10:00 98 35 02/13/18 09:52 98.2 72 12 103/53 99 02/13/18 08:00 74 02/13/18 08:00 98.3 81 12 109/57 (74) 100 02/13/18 08:00 35 02/13/18 07:54 98.3 81 12 123/62 100 02/13/18 07:37 99 35 02/13/18 07:00 98.5 71 12 97/54 99 02/13/18 06:07 72 87/42 02/13/18 06:00 85 02/13/18 05:52 83 88/45 02/13/18 04:00 35 02/13/18 04:00 100.2 81 12 117/46 (69) 98 02/13/18 04:00 85 02/13/18 03:55 79 111/58 02/13/18 03:21 100 35 02/13/18 02:16 77 86/39 02/13/18 02:00 85 02/13/18 00:51 89 89/43 02/13/18 00:00 35 02/13/18 00:00 100.4 81 14 117/46 (69) 97 02/13/18 00:00 85 02/12/18 23:31 96 35 02/12/18 21:26 82 121/40 02/12/18 20:00 35 02/12/18 20:00 100.4 81 14 117/46 (69) 97 Automatic Cuff 02/12/18 19:31 98 35 02/12/18 16:00 100.3 79 14 117/60 (79) 98 125/56 (79) 02/12/18 16:00 35 02/12/18 15:00 85 02/12/18 14:53 97 35 02/12/18 14:24 99.4 02/12/18 14:23 73 12 127/55 100 02/12/18 12:59 66 111/53 I/O 02/12/18 02/12/18 02/12/18 02/13/18 02/13/18 02/13/18 07:00 15:00 23:00 07:00 15:00 23:00 Intake Total 1300 ml 285 ml 1363 ml Output Total 570 ml 700 ml 720 ml 350 ml Balance 730 ml -415 ml -720 ml 1013 ml Intake IV Total 1300 ml Packed Cells 400 ml Platelets 285 ml 663 ml Other 300 ml Output Urine Total 550 ml 675 ml 600 ml 300 ml Gastric Drainage Total 50 ml Chest Tube Drainage Total 20 ml 25 ml 70 ml Estimated Blood Loss 50 ml # Bowel Movements 0 0 0 Physical Exam sedated Chest: no wheezes/rales CV S1S2 RRR with 1-2/6 MORELIA Abd soft No edema Tele: converted out of afib. Pacemaker nl function. Pacer check OK Laboratory Laboratory Tests Test 02/13/18 03:29 02/13/18 05:17 02/13/18 11:18 Blood Gas Puncture Site ART LINE Blood Gas Patient Temperature 98.6 Blood Gas HCO3 23 mmol/L Blood Gas Base Excess -1.0 mmol/L Blood Gas Oxygen Saturation 97 % Arterial Blood pH 7.44 Arterial Blood Partial Pressure CO2 33 mmHg Arterial Blood Partial Pressure O2 139 mmHg Arterial Blood Oxygen Content 10.2 Vol % Arterial Blood Carboxyhemoglobin 1.9 % Arterial Blood Methemoglobin 0.7 % Blood Gas Hemoglobin 7.2 G/DL Oxygen Delivery Device VENTILATOR Blood Gas Ventilator Setting PRVC/AC Blood Gas Inspired Oxygen 35 % White Blood Count 6.4 TH/MM3 6.9 TH/MM3 Red Blood Count 2.92 MIL/MM3 2.87 MIL/MM3 Hemoglobin 8.9 GM/DL 8.7 GM/DL Hematocrit 25.8 % 25.3 % Mean Corpuscular Volume 88.2 FL 88.2 FL Mean Corpuscular Hemoglobin 30.5 PG 30.3 PG Mean Corpuscular Hemoglobin Concent 34.6 % 34.4 % Red Cell Distribution Width 17.0 % 17.3 % Platelet Count 76 TH/MM3 137 TH/MM3 Mean Platelet Volume 8.2 FL 7.6 FL Neutrophils (%) (Auto) 77.2 % 76.7 % Lymphocytes (%) (Auto) 10.4 % 9.9 % Monocytes (%) (Auto) 12.1 % 12.7 % Eosinophils (%) (Auto) 0.0 % 0.5 % Basophils (%) (Auto) 0.3 % 0.2 % Neutrophils # (Auto) 4.9 TH/MM3 5.3 TH/MM3 Lymphocytes # (Auto) 0.7 TH/MM3 0.7 TH/MM3 Monocytes # (Auto) 0.8 TH/MM3 0.9 TH/MM3 Eosinophils # (Auto) 0.0 TH/MM3 0.0 TH/MM3 Basophils # (Auto) 0.0 TH/MM3 0.0 TH/MM3 CBC Comment AUTO DIFF DIFF FINAL Differential Comment AUTO DIFF CONFIRMED Platelet Estimate LOW Platelet Morphology Comment NORMAL Blood Urea Nitrogen 7 MG/DL Creatinine 0.35 MG/DL Random Glucose 95 MG/DL Total Protein 4.4 GM/DL Albumin 1.9 GM/DL Calcium Level 8.2 MG/DL Magnesium Level 1.9 MG/DL Alkaline Phosphatase 59 U/L Aspartate Amino Transf (AST/SGOT) 20 U/L Alanine Aminotransferase (ALT/SGPT) 12 U/L Total Bilirubin 1.9 MG/DL Sodium Level 143 MEQ/L Potassium Level 3.4 MEQ/L Chloride Level 112 MEQ/L Carbon Dioxide Level 24.8 MEQ/L Anion Gap 6 MEQ/L Estimat Glomerular Filtration Rate 177 ML/MIN Imaging Last 24 hours Impressions Chest X-Ray 02/13/18 0600 Signed Impressions: Service Date/Time: February 04:08 - CONCLUSION: Minimal bibasilar densities. Yrn Khan MD Assessment and Plan Problem List: (1) Trauma ICD Codes: T14.90XA - Injury, unspecified, initial encounter (2) Syncope ICD Codes: R55 - Syncope and collapse (3) Sinus pause ICD Codes: I45.5 - Other specified heart block (4) Pacemaker ICD Codes: Z95.0 - Presence of cardiac pacemaker Plan: Nl function (5) Elevated troponin ICD Codes: R74.8 - Abnormal levels of other serum enzymes Plan: Suspect NSTEMI - can't tell if it was before her fall or after when she required pressors Assessment and Plan Patient cleared for hip pinning - risk is high but surgery is palliative Fletcher Rodriguez MD Feb 13, 2018 12:42
--- NOTE | 2018-02-13 14:30 | HHI.HCPN ---
Reason for visit a. To assist with evaluation and management of symptoms including: Dyspnea, pain b. To assist medical decision maker(s) with: better understanding of current medical conditions; weighing benefits/burdens of medical treatment options; making medical treatment decisions. Subjective/Interval History Patient seen to follow-up on goals of care and symptom management. She underwent orthopedic surgery this morning with bilateral hip fracture reduction and intramedullary nailing. She remains on a ventilator and vasopressor support with norepinephrine. Continue weaning attempts on vasopressor and ventilator support. She received 1 unit of packed red blood cells and 2 units of platelets today prior to surgery. Laboratory values today show WBC 6.9, hemoglobin 8.7, hematocrit 25.3 and platelets 137 post transfusion. Chemistry panel shows sodium 143, potassium 3.4, BUN 7, creatinine 0.35, calcium 8.2, total bilirubin 1.9, total protein 4.4, albumin 1.9. ABG pH 7.44, PCO2 33, PaO2 139, saturation 97, HCO3 23, base excess -1.0 on PRVC/AC 12/500/5/35%. Sputum specimen is positive for pansensitive Klebsiella pneumoniae. Chest x-ray shows minimal bibasilar densities. This is an elderly frail female intubated, sedated in no acute distress. Left arm in sling, left pacemaker insertion site dressed clean dry and intact. . Family/friend interactions Met with the family at 8 AM to include her , her daughter p.m. with her and son, son Silverio, with his , and son Adryan with his . Advanced directive paperwork was brought in by the family, copied and the original returned to them. We reviewed clinical status, various scenarios and CODE STATUS. Family has determined that this time that they do not wish her to undergo chest compressions due to the fragility of her bones and the potential for further harm. They are undecided about shock but would be okay with ACLS drugs. They wish to continue to consider their options of shock so at this time that will remain part of her CODE STATUS. We briefly reviewed respiratory status to include ventilator weaning, potential for tracheostomy and PEG tube placement if she fails to wean and her performance status after surgery. They state that they were told that she will never walk again, but this is not seen in any of the orthopedic or trauma team's notes. Will continue to discuss and update as clinical course evolves. Palliative care contact information was provided to all family members. . Advance Directives Living Will: Copy in medical record Health Care Surrogate: Copy in medical record Durable Power of Field Hand: Never completed Advance Directive Specifics Health Care Surrogate(s): My discussion with her daughter, patient's is the primary healthcare surrogate followed by her 3 children serving as joint alternate surrogates. . Documented care wishes: Living will completed, not available at this time. Objective Vital Signs Date Time Temp Pulse Resp B/P (MAP) Pulse Ox O2 Delivery O2 Flow Rate FiO2 02/13/18 12:00 35 02/13/18 12:00 98.0 82 13 120/62 (81) 100 02/13/18 12:00 77 02/13/18 10:14 98.3 96 12 110/59 99 02/13/18 10:10 98 100 02/13/18 10:00 98 35 02/13/18 09:52 98.2 72 12 103/53 99 02/13/18 08:00 74 02/13/18 08:00 98.3 81 12 109/57 (74) 100 02/13/18 08:00 35 02/13/18 07:54 98.3 81 12 123/62 100 02/13/18 07:37 99 35 02/13/18 07:00 98.5 71 12 97/54 99 02/13/18 06:07 72 87/42 02/13/18 06:00 85 02/13/18 05:52 83 88/45 02/13/18 04:00 35 02/13/18 04:00 100.2 81 12 117/46 (69) 98 02/13/18 04:00 85 02/13/18 03:55 79 111/58 02/13/18 03:21 100 35 02/13/18 02:16 77 86/39 02/13/18 02:00 85 02/13/18 00:51 89 89/43 02/13/18 00:00 35 02/13/18 00:00 100.4 81 14 117/46 (69) 97 02/13/18 00:00 85 02/12/18 23:31 96 35 02/12/18 21:26 82 121/40 02/12/18 20:00 35 02/12/18 20:00 100.4 81 14 117/46 (69) 97 Automatic Cuff 02/12/18 19:31 98 35 02/12/18 16:00 100.3 79 14 117/60 (79) 98 125/56 (79) 02/12/18 16:00 35 02/12/18 15:00 85 02/12/18 14:53 97 35 02/12/18 14:24 99.4 02/12/18 14:23 73 12 127/55 100 Intake & Output 02/13/18 02/13/18 06:59 18:59 Intake Total 1363 ml Output Total 720 ml 350 ml Balance -720 ml 1013 ml Packed Cells 400 ml Platelets 663 ml Other 300 ml Output Urine Total 600 ml 300 ml Gastric Drainage Total 50 ml Chest Tube Drainage Total 70 ml Estimated Blood Loss 50 ml # Bowel Movements 0 Physical Exam CONSTITUTIONAL/GENERAL: This is an adequately nourished patient, intubated, sedated in no apparent distress. TUBES/LINES/DRAINS: Right radial arterial line, left hand PIV, right ACF PIV, ET tube, right chest tube, right subclavian triple-lumen, Crawford catheter NECK: Trachea midline. Supple without palpable thyroid enlargement or nodularity. CARDIOVASCULAR: Regular rate and rhythm without gallops, or rubs. 1/6 MORELIA. No JVD. Peripheral pulses symmetric. RESPIRATORY/CHEST: Mechanically ventilated, breath sounds coarse, diminished right greater than left. Chest tube intact to right chest wall without air leak. Some crepitus noted. GASTROINTESTINAL: Abdomen soft, nondistended. No hepato-splenomegaly, or palpable masses. Bowel sounds present. GENITOURINARY: Without palpable bladder distension. Crawford catheter in place. MUSCULOSKELETAL: Extremities without clubbing, cyanosis. 1-2+ edema. No mottling or clubbing. NEUROLOGICAL: Intubated, sedated. PSYCHIATRIC: Sedated. . Diagnostic Tests Laboratory Laboratory Tests Test 02/10/18 13:56 02/10/18 20:35 02/11/18 00:41 02/11/18 04:10 Total Creatine Kinase 340 U/L (26-192) 237 U/L (26-192) Creatine Kinase MB 20.7 NG/ML (0.5-3.6) 13.1 NG/ML (0.5-3.6) Creatine Kinase MB % 6.1 % (0.0-4.0) 5.5 % (0.0-4.0) Troponin I 3.06 NG/ML (0.02-0.05) 2.56 NG/ML (0.02-0.05) 1.71 NG/ML (0.02-0.05) Phosphorus Level 2.1 MG/DL (2.5-4.9) 2.6 MG/DL (2.5-4.9) Magnesium Level 1.5 MG/DL (1.5-2.5) 2.0 MG/DL (1.5-2.5) White Blood Count 11.9 TH/MM3 (4.0-11.0) Red Blood Count 2.97 MIL/MM3 (4.00-5.30) Hemoglobin 8.6 GM/DL (11.6-15.3) Hematocrit 25.3 % (35.0-46.0) Mean Corpuscular Volume 85.2 FL (80.0-100.0) Mean Corpuscular Hemoglobin 29.0 PG (27.0-34.0) Mean Corpuscular Hemoglobin Concent 34.0 % (32.0-36.0) Red Cell Distribution Width 17.9 % (11.6-17.2) Platelet Count 78 TH/MM3 (150-450) Mean Platelet Volume 8.5 FL (7.0-11.0) Neutrophils (%) (Auto) 79.3 % (16.0-70.0) Lymphocytes (%) (Auto) 10.2 % (9.0-44.0) Monocytes (%) (Auto) 10.4 % (0.0-8.0) Eosinophils (%) (Auto) 0.0 % (0.0-4.0) Basophils (%) (Auto) 0.1 % (0.0-2.0) Neutrophils # (Auto) 9.4 TH/MM3 (1.8-7.7) Lymphocytes # (Auto) 1.2 TH/MM3 (1.0-4.8) Monocytes # (Auto) 1.2 TH/MM3 (0-0.9) Eosinophils # (Auto) 0.0 TH/MM3 (0-0.4) Basophils # (Auto) 0.0 TH/MM3 (0-0.2) CBC Comment AUTO DIFF Differential Comment AUTO DIFF CONFIRMED Platelet Estimate LOW (NORMAL) Platelet Morphology Comment NORMAL (NORMAL) Ovalocytes 1+ (NORMAL) Blood Urea Nitrogen 12 MG/DL (7-18) Creatinine 0.39 MG/DL (0.50-1.00) Random Glucose 122 MG/DL (74-106) Calcium Level 7.5 MG/DL (8.5-10.1) Sodium Level 143 MEQ/L (136-145) Potassium Level 3.7 MEQ/L (3.5-5.1) Chloride Level 116 MEQ/L (98-107) Carbon Dioxide Level 20.5 MEQ/L (21.0-32.0) Anion Gap 7 MEQ/L (5-15) Estimat Glomerular Filtration Rate 156 ML/MIN (>89) Test 02/11/18 04:35 02/12/18 02:34 02/12/18 03:10 02/12/18 03:31 Blood Gas Puncture Site ART LINE ART LINE Blood Gas Patient Temperature 98.6 98.6 Blood Gas HCO3 20 mmol/L (22-26) 21 mmol/L (22-26) Blood Gas Base Excess -3.5 mmol/L (-2-2) -3.1 mmol/L (-2-2) Blood Gas Oxygen Saturation 97 % (90-100) 96 % (90-100) Arterial Blood pH 7.47 (7.380-7.420) 7.41 (7.380-7.420) Arterial Blood Partial Pressure CO2 28 mmHg (38-42) 34 mmHg (38-42) Arterial Blood Partial Pressure O2 115 mmHg (61-120) 106 mmHg (61-120) Arterial Blood Oxygen Content 11.5 Vol % (12.0-20.0) 12.6 Vol % (12.0-20.0) Arterial Blood Carboxyhemoglobin 1.5 % (0-4) 1.6 % (0-4) Arterial Blood Methemoglobin 0.8 % (0-2) 0.9 % (0-2) Blood Gas Hemoglobin 8.3 G/DL (12.0-16.0) 9.2 G/DL (12.0-16.0) Oxygen Delivery Device VENTILATOR VENT Blood Gas Ventilator Setting 16/500/IT1.0/5PEEP SEE COMMENTS Blood Gas Inspired Oxygen 35 % 35 % White Blood Count 11.6 TH/MM3 (4.0-11.0) Red Blood Count 3.41 MIL/MM3 (4.00-5.30) Hemoglobin 10.0 GM/DL (11.6-15.3) Hematocrit 29.5 % (35.0-46.0) Mean Corpuscular Volume 86.6 FL (80.0-100.0) Mean Corpuscular Hemoglobin 29.4 PG (27.0-34.0) Mean Corpuscular Hemoglobin Concent 33.9 % (32.0-36.0) Red Cell Distribution Width 17.2 % (11.6-17.2) Platelet Count 69 TH/MM3 (150-450) Mean Platelet Volume 8.8 FL (7.0-11.0) Neutrophils (%) (Auto) 82.6 % (16.0-70.0) Lymphocytes (%) (Auto) 8.7 % (9.0-44.0) Monocytes (%) (Auto) 8.3 % (0.0-8.0) Eosinophils (%) (Auto) 0.1 % (0.0-4.0) Basophils (%) (Auto) 0.3 % (0.0-2.0) Neutrophils # (Auto) 9.6 TH/MM3 (1.8-7.7) Lymphocytes # (Auto) 1.0 TH/MM3 (1.0-4.8) Monocytes # (Auto) 1.0 TH/MM3 (0-0.9) Eosinophils # (Auto) 0.0 TH/MM3 (0-0.4) Basophils # (Auto) 0.0 TH/MM3 (0-0.2) CBC Comment AUTO DIFF Differential Comment AUTO DIFF CONFIRMED Platelet Estimate LOW (NORMAL) Platelet Morphology Comment NORMAL (NORMAL) Blood Urea Nitrogen 9 MG/DL (7-18) Creatinine 0.28 MG/DL (0.50-1.00) Random Glucose 126 MG/DL (74-106) Total Protein 4.4 GM/DL (6.4-8.2) Albumin 2.1 GM/DL (3.4-5.0) Calcium Level 7.8 MG/DL (8.5-10.1) Magnesium Level 1.9 MG/DL (1.5-2.5) Alkaline Phosphatase 54 U/L (45-117) Aspartate Amino Transf (AST/SGOT) 22 U/L (15-37) Alanine Aminotransferase (ALT/SGPT) 15 U/L (10-53) Total Bilirubin 1.5 MG/DL (0.2-1.0) Sodium Level 141 MEQ/L (136-145) Potassium Level 3.0 MEQ/L (3.5-5.1) Chloride Level 110 MEQ/L (98-107) Carbon Dioxide Level 23.9 MEQ/L (21.0-32.0) Anion Gap 7 MEQ/L (5-15) Estimat Glomerular Filtration Rate 228 ML/MIN (>89) Prothrombin Time 11.9 SEC (9.8-11.6) Prothromb Time International Ratio 1.2 RATIO Activated Partial Thromboplast Time 32.3 SEC (24.3-30.1) Test 02/13/18 03:29 02/13/18 05:17 02/13/18 11:18 Blood Gas Puncture Site ART LINE Blood Gas Patient Temperature 98.6 Blood Gas HCO3 23 mmol/L (22-26) Blood Gas Base Excess -1.0 mmol/L (-2-2) Blood Gas Oxygen Saturation 97 % (90-100) Arterial Blood pH 7.44 (7.380-7.420) Arterial Blood Partial Pressure CO2 33 mmHg (38-42) Arterial Blood Partial Pressure O2 139 mmHg (61-120) Arterial Blood Oxygen Content 10.2 Vol % (12.0-20.0) Arterial Blood Carboxyhemoglobin 1.9 % (0-4) Arterial Blood Methemoglobin 0.7 % (0-2) Blood Gas Hemoglobin 7.2 G/DL (12.0-16.0) Oxygen Delivery Device VENTILATOR Blood Gas Ventilator Setting PRV/AC Blood Gas Inspired Oxygen 35 % White Blood Count 6.4 TH/MM3 (4.0-11.0) 6.9 TH/MM3 (4.0-11.0) Red Blood Count 2.92 MIL/MM3 (4.00-5.30) 2.87 MIL/MM3 (4.00-5.30) Hemoglobin 8.9 GM/DL (11.6-15.3) 8.7 GM/DL (11.6-15.3) Hematocrit 25.8 % (35.0-46.0) 25.3 % (35.0-46.0) Mean Corpuscular Volume 88.2 FL (80.0-100.0) 88.2 FL (80.0-100.0) Mean Corpuscular Hemoglobin 30.5 PG (27.0-34.0) 30.3 PG (27.0-34.0) Mean Corpuscular Hemoglobin Concent 34.6 % (32.0-36.0) 34.4 % (32.0-36.0) Red Cell Distribution Width 17.0 % (11.6-17.2) 17.3 % (11.6-17.2) Platelet Count 76 TH/MM3 (150-450) 137 TH/MM3 (150-450) Mean Platelet Volume 8.2 FL (7.0-11.0) 7.6 FL (7.0-11.0) Neutrophils (%) (Auto) 77.2 % (16.0-70.0) 76.7 % (16.0-70.0) Lymphocytes (%) (Auto) 10.4 % (9.0-44.0) 9.9 % (9.0-44.0) Monocytes (%) (Auto) 12.1 % (0.0-8.0) 12.7 % (0.0-8.0) Eosinophils (%) (Auto) 0.0 % (0.0-4.0) 0.5 % (0.0-4.0) Basophils (%) (Auto) 0.3 % (0.0-2.0) 0.2 % (0.0-2.0) Neutrophils # (Auto) 4.9 TH/MM3 (1.8-7.7) 5.3 TH/MM3 (1.8-7.7) Lymphocytes # (Auto) 0.7 TH/MM3 (1.0-4.8) 0.7 TH/MM3 (1.0-4.8) Monocytes # (Auto) 0.8 TH/MM3 (0-0.9) 0.9 TH/MM3 (0-0.9) Eosinophils # (Auto) 0.0 TH/MM3 (0-0.4) 0.0 TH/MM3 (0-0.4) Basophils # (Auto) 0.0 TH/MM3 (0-0.2) 0.0 TH/MM3 (0-0.2) CBC Comment AUTO DIFF DIFF FINAL Differential Comment AUTO DIFF CONFIRMED Platelet Estimate LOW (NORMAL) Platelet Morphology Comment NORMAL (NORMAL) Blood Urea Nitrogen 7 MG/DL (7-18) Creatinine 0.35 MG/DL (0.50-1.00) Random Glucose 95 MG/DL (74-106) Total Protein 4.4 GM/DL (6.4-8.2) Albumin 1.9 GM/DL (3.4-5.0) Calcium Level 8.2 MG/DL (8.5-10.1) Magnesium Level 1.9 MG/DL (1.5-2.5) Alkaline Phosphatase 59 U/L (45-117) Aspartate Amino Transf (AST/SGOT) 20 U/L (15-37) Alanine Aminotransferase (ALT/SGPT) 12 U/L (10-53) Total Bilirubin 1.9 MG/DL (0.2-1.0) Sodium Level 143 MEQ/L (136-145) Potassium Level 3.4 MEQ/L (3.5-5.1) Chloride Level 112 MEQ/L (98-107) Carbon Dioxide Level 24.8 MEQ/L (21.0-32.0) Anion Gap 6 MEQ/L (5-15) Estimat Glomerular Filtration Rate 177 ML/MIN (>89) Result Diagram: 02/13/18 1118 02/13/18 0517 Microbiology Microbiology Date/Time Source Procedure Growth Status 02/10/18 10:45 Sputum Endotracheal Gram Stain - Final Complete 02/10/18 10:45 Sputum Culture - Final Klebsiella Pneumoniae Complete . Imaging Last Impressions Chest X-Ray 02/13/18 0600 Signed Impressions: Service Date/Time: February 04:08 - CONCLUSION: Minimal bibasilar densities. Yrn Khan MD Thoracic Spine CT 02/10/18348 Signed Impressions: Service Date/Time: Saturday, February 10, 2018 03:53 - CONCLUSION: 1. Acute fracture of T11 vertebral body. No retropulsion of posterior fragments or canal stenosis. 2. Old compression deformities at T8, T12 and L1 vertebral bodies. 1. Yrn Khan MD Pelvis X-Ray 02/10/18348 Signed Impressions: Service Date/Time: Saturday, February 10, 2018 03:36 - CONCLUSION: 1. Displaced intertrochanteric fracture left proximal femur. 2. Appears to be intertrochanteric fracture of the right proximal femur as well. Yrn Khan MD Lumbar Spine CT 02/10/18348 Signed Impressions: Service Date/Time: Saturday, February 10, 2018 03:53 - CONCLUSION: 1. Multiple old compression deformities. 2. Disc bulge causes mild canal stenosis at L4-5. 3. Compression fracture at T11 Yrn Khan MD Chest CT 02/10/18348 Signed Impressions: Service Date/Time: Saturday, February 10, 2018 03:53 - CONCLUSION: 1. Small bilateral pleural effusions. 2. Right-sided chest tube is seen with the side hole external to the chest. Tiny right-sided pneumothorax. 3. Minimal rib fracture right lower lateral rib. 4. Fracture of thoracic vertebral bodies including what appears to be T6 and T10, likely old. Yrn Khan MD Abdomen/Pelvis CT 02/10/18348 Signed Impressions: Service Date/Time: Saturday, February 10, 2018 03:53 - CONCLUSION: 1. Intertrochanteric fractures of each proximal femur. 2. Mild loss of height of several thoracic vertebral bodies including L2-L4. L3 and L4 vertebral bodies contain kyphoplasty cement. Yrn Khan MD Procedures 02/10: Right subclavian triple-lumen catheter placement 02/11: Intubation 02/12: Implantation of a dual-chamber [employer] pacemaker 02/13: Bilateral hip reduction and intramedullary nailing . Assessment and Plan Disease Oriented Problem List: (1) Rib fractures (2) Proximal humerus fracture (3) Hemopneumothorax on right (4) T11 vertebral fracture (5) Intertrochanteric fracture of both femurs (6) Syncope (7) Sinus pause Symptom Scale: (1) Pain, generalized 0-10 Scale: Unable to quantify (Patient intubated, sedated.) (2) Dyspnea and respiratory abnormalities 0-10 Scale: Unable to quantify (Patient intubated, sedated.) Pertinent Non-Medical Issues Psychosocial:She was born in [place] where she raised 3 children. 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 She has been to her for over 60 years. Spiritual: She would appreciate sap abap programmer visits. Legal: No legal issues identified. Ethical issues impacting care: No ethical issues identified. . Important Contacts Spouse: Gregory Cruz Daughter: Rachel Ricardo . Prognosis Her prognosis is guarded. She has suffered a traumatic fall with subsequent rib fracture, hemopneumothorax, bilateral entero-trochanteric fractures, left humerus fracture and subsequent traumatic shock. She is currently intubated, sedated and requiring vasopressor support. She has required transfusion of 3 units of packed red blood cells and 2 units of platelets are on hold. She is pending repair of bilateral intertrochanteric fractures which will be held until her overall condition stabilizes. Complicating her hospital course was the finding of a 3.2 and subsequent 2.9 second pause which it is opined, may have been responsible for her initial fall. Given her recent chest trauma, severe osteoporosis with a number of compression fractures and previous kyphoplasty, CPR is likely to cause further damage to the thoracic cage with the potential of harm from that. Family is considering the option of no CPR and will render their decision tomorrow at the meeting. Given her fragile state she is likely to suffer further compromise, complications and decline. . Code Status: Full Code Plan PLAN: Legal decision maker: Patient's , Gregory Cruz would be the legal proxy by [place] statutes and family states that they also have possession of a healthcare surrogate naming him as the surrogate. The 3 adult children are listed jointly as the alternate surrogate. Goals: Aggressive short of chest compressions. CODE STATUS: Alternative code. No chest compressions, okay with shock and drugs. Currently on ventilator. SYMPTOMS: * Pain: Multifactorial to include invasive lines, bedbound status, fractured ribs, bilateral hip fractures, fractured humerus, recently implanted pacemaker. She is currently on fentanyl for both sedation and pain management. As she is sedated no evaluation of patient's pain experience can be assessed at this time. * Dyspnea: Multifactorial to include right hemopneumothorax, fractured ribs and chest tube. She is currently intubated and these conditions may impair her ability to extubate, due to the difficult balance of sedation and pain control. Palliative care will continue to follow the patient during hospital course as condition evolves, to assist patient/decision-maker with understanding of their medical conditions, weighing benefits/burdens of treatment options, for clarification of goals of treatment. Additionally will assist with any symptoms of palliative concern. . Time Spent Time Periods: 8: 00-8: 4 5 Total Floor Time (mins): 75 Face to Face Time (mins): 45 >50% Counseling/Coord of Care: Yes Attestation To help prompt me to consider important information that might be impacting today's encounter and assessment, information from prior notes written by myself or my colleagues may have been "brought forward" into today's note. My signature on this note, however, is an attestation that I personally performed the exam, history, and/or decision-making noted today, and, unless otherwise indicated, the interactions with patient, family, and staff as well as the review of records all occurred today. I also attest that the listed assessment and stated plan reflect my best clinical judgment today based on the combination of historical information, prior notes, and today's exam/ interactions. When time spent is documented, it refers only to time spent today by the signer, or if indicated, combined time spent today by collaborating physician/nurse practitioner. . Aliya Ac Feb 13, 2018 14:30
--- NOTE | 2018-02-13 16:21 | RADRPT ---
EXAM DATE/TIME: 02/13/2018 11:16 [facility] COMPARISON: No previous studies available for comparison. INDICATIONS : Troch nail right hip. MEDICAL HISTORY : None. SURGICAL HISTORY : None. ENCOUNTER: Subsequent ACUITY: 1 week PAIN SCORE: Non-responsive. LOCATION: Right Hip. FINDINGS: The patient is status post ORIF of right femur fracture with hardware in good position. CONCLUSION: Status post ORIF of right femur fracture with hardware in good position Bib Cooper MD on February 13, 2018 at 16:18 Board Certified Radiologist. This report was verified electronically.
--- NOTE | 2018-02-13 16:21 | RADRPT ---
EXAM DATE/TIME: 02/13/2018 11:16 [facility] COMPARISON: No previous studies available for comparison. INDICATIONS : Troch nail left hip. MEDICAL HISTORY : None. SURGICAL HISTORY : None. ENCOUNTER: Subsequent ACUITY: 1 week PAIN SCORE: Non-responsive. LOCATION: Left Hip. FINDINGS: Hardware is noted within the left femur status post ORIF. The femur is well aligned. CONCLUSION: Status post ORIF of left femur fracture which is adequately aligned. Bib Cooper MD on February 13, 2018 at 16:17 Board Certified Radiologist. This report was verified electronically.
[2018-02-13 16:55] LABS: HEMATOCRIT 26.5 % (35.0-46.0); MEAN CELL VOLUME 88.3 FL (80.0-100.0); MEAN CORPUSCULAR HEMOGLOBIN 29.9 PG (27.0-34.0); MEAN CORPUSCULAR HGB CONC 33.9 % (32.0-36.0); MEAN PLATELET VOLUME 7.9 FL (7.0-11.0); PLATELET COUNT 130 TH/MM3 (150-450); RED CELL DISTRIBUTION WIDTH 16.7 % (11.6-17.2); WHITE BLOOD COUNT 6.3 TH/MM3 (4.0-11.0)
[2018-02-13 17:23] LABS: BICARBONATE 27.9 MEQ/L (21.0-32.0); CALCIUM 8.3 MG/DL (8.5-10.1); CREATININE 0.29 MG/DL (0.50-1.00)
[2018-02-13] MEDS ORDERED: AMIODARONE HCL 150 MG/3 ML VIAL ONE (18:12)
[2018-02-13] MEDS ORDERED: LACTATED RINGER'S 1000 ML INJ 500 ML IV ONE (18:45)
[2018-02-13] MEDS: AMIODARONE INJ 450 MG in SODIUM CHLOR 0.9% (EXCEL) INJ 241 ML IV PRN (18:52)
[2018-02-13] MEDS ORDERED: AMIODARONE 150 MG/D5W 97 ML BOLUS 10 MINUTES IV ONE ×2 (19:00)
[2018-02-14] VITALS (18 sets, daily range): BP systolic 106–128; BP diastolic 55–68; PULSE 64–87; RESP 12–16; TEMP 98.1–100.7; O2SAT 97–100
[2018-02-14] MEDS: RESP: ALBUTEROL 2.5 MG/IPRATROPIUM 0.5 MG NEB (SCH) NEB ×4 (03:25→21:45)
[2018-02-14] MEDS: CHLORHEXIDINE GLUCONATE 2 % 1 PACK (2 CLOTHS) TOP SCH (04:00)
--- NOTE | 2018-02-14 04:23 | RADRPT ---
EXAM DATE/TIME: 02/14/2018 03:02 [facility] COMPARISON: CHEST SINGLE AP, February 13, 2018, 4:08. CHEST SINGLE AP, February 12, 2018, 10:08. INDICATIONS : Shortness of breath. MEDICAL HISTORY : None. SURGICAL HISTORY : None. ENCOUNTER: Initial ACUITY: 1 day PAIN SCORE: Non-responsive. LOCATION: chest FINDINGS: Endotracheal tube, nasogastric tube and right subclavian central line are stable in good position. Pa cemaker device is noted with control pack over the left chest. There has been slight interval worseni ng in aeration with increase in hazy perihilar and bilateral basilar parenchymal opacities. CONCLUSION: Slight interval worsening in aeration Deondre Barcenas MD on February 14, 2018 at 4:19 Board Certified Radiologist. This report was verified electronically.
[2018-02-14] MEDS: SODIUM CHLOR 0.9% 1000 ML INJ 1,000 ML IV SCH ×2 (04:53→17:00)
[2018-02-14] MEDS: AMIODARONE INJ 450 MG in SODIUM CHLOR 0.9% (EXCEL) INJ 241 ML IV PRN (04:54)
[2018-02-14] MEDS: PANTOPRAZOLE SODIUM 40 MG VIAL IVP SCH (05:04)
[2018-02-14] MEDS: NOREPINEPHRINE 4 MG/D5W 250 ML IV PRN ×2 (05:08→16:15)
[2018-02-14] MEDS: fentaNYL DRIP 250 ML IV PRN (05:30)
[2018-02-14 06:01] LABS: AUTOMATED NEUTROPHIL # 5.8 TH/MM3 (1.8-7.7); BASOPHIL % 0.4 % (0.0-2.0); EOSINOPHIL # 0.1 TH/MM3 (0-0.4); EOSINOPHIL % 0.9 % (0.0-4.0); HEMATOCRIT 27.6 % (35.0-46.0); HEMOGLOBIN 9.5 GM/DL (11.6-15.3); LYMPH % 7.1 % (9.0-44.0); LYMPHOCYTE # 0.6 TH/MM3 (1.0-4.8); MEAN CELL VOLUME 88.1 FL (80.0-100.0); MEAN CORPUSCULAR HEMOGLOBIN 30.4 PG (27.0-34.0); MEAN CORPUSCULAR HGB CONC 34.5 % (32.0-36.0); MEAN PLATELET VOLUME 8.1 FL (7.0-11.0); MONO % 16.4 % (0.0-8.0); MONOCYTE # 1.3 TH/MM3 (0-0.9); NEUT % 75.2 % (16.0-70.0); PLATELET COUNT 137 TH/MM3 (150-450); RED BLOOD COUNT 3.13 MIL/MM3 (4.00-5.30); RED CELL DISTRIBUTION WIDTH 16.7 % (11.6-17.2); WHITE BLOOD COUNT 7.8 TH/MM3 (4.0-11.0)
[2018-02-14 06:13] LABS: ALBUMIN 1.6 GM/DL (3.4-5.0); AST (GOT) 20 U/L (15-37); BICARBONATE 26.1 MEQ/L (21.0-32.0); BLOOD UREA NITROGEN 9 MG/DL (7-18); CALCIUM 8.2 MG/DL (8.5-10.1); CHLORIDE 112 MEQ/L (98-107); GLOMERULAR FILTRATION RATE 211 ML/MIN (>89); GLUCOSE,RANDOM 147 MG/DL (74-106); SODIUM (NA) 143 MEQ/L (136-145)
[2018-02-14 06:15] LABS: ALT (GPT) 13 U/L (10-53)
[2018-02-14 06:18] LABS: ALKALINE PHOSPHATASE 66 U/L (45-117); TOTAL BILIRUBIN ADULT 1.9 MG/DL (0.2-1.0); TOTAL PROTEIN 4.3 GM/DL (6.4-8.2)
--- NOTE | 2018-02-14 06:28 | HHI.NSPN ---
Note Status Status: Progress Note Interval History Diagnosis THIS NOTE REPRESENTS MY ENCOUNTER ON 02/12/2018 DURING ROUNDS politrauma Interval History THIS NOTE REPRESENTS MY ENCOUNTER ON 02/12/2018 DURING ROUNDS This is a 87 year old female who presents to the [facility] emergency department as a transfer from [facility] as a trauma alert. Apparently patient sustained a fall on the driveway at approximately 9 PM last night. She sustained right sided rib fractures with a hemopneumothorax status post chest tube placement and 1200 mL of blood out in the chest tube. The patient's hemoglobin dropped from 11 to7, was transfused 2 units of packed red blood cells. The patient was found to have bilateral intertrochanteric fractures, Left proximal humerus fracture, Acute T11 fracture, right-sided rib fractures, and hemopneumothorax as described above. She was accepted by Dr. Monae. Towards a.m. patient started becoming more hemodynamically unstable, Dr. Monae place a right subclavian central line and Levophed was started which rapidly was increased to 12 mcg/min. Due to increasing hemodynamic instability patient was intubated by Dr. Monae and placed on mechanical ventilation Trauma workup reveled a right hemopneumothorax, right-sided rib fractures, bilateral intertrochanteric fractures on the femur, acute T11 fracture, acute left humerus fracture. Neurosurgical consultation was requested 02/11. She has been slowly stabilized overnight with hemodynamic improvement and decreased need for vasopressors. She remains mildly sedated on propofol. She has been evaluated by cardiology for periods of bradycardia. Troponins elevated. Suspected that she had a myocardial infarction on the scene anemia and hemorrhagic shock 02/12. She is intubated and sedated. She has persistent arrythmias. She is going to the rn cardiac cath for placement of a pacemaker today Labs, Micro, & Vital Signs Results THIS NOTE REPRESENTS MY ENCOUNTER ON 02/12/2018 DURING ROUNDS Date Time Temp Pulse Resp B/P (MAP) Pulse Ox O2 Delivery O2 Flow Rate FiO2 02/14/18 06:00 64 02/14/18 05:08 71 100/53 02/14/18 04:54 69 105/52 02/14/18 04:00 35 02/14/18 04:00 68 02/14/18 04:00 98.2 80 12 112/57 (75) 99 02/14/18 03:22 98 35 02/14/18 02:00 74 02/14/18 00:08 98 35 02/14/18 00:00 99.1 78 12 125/65 (85) 98 02/14/18 00:00 77 02/14/18 00:00 35 02/13/18 22:00 72 02/13/18 20:27 97 35 02/13/18 20:00 99.6 81 12 112/82 (92) 96 02/13/18 20:00 84 02/13/18 20:00 35 02/13/18 19:38 99.6 83 12 100/51 95 02/13/18 18:52 127 135/71 02/13/18 18:45 98.4 114 12 121/70 94 02/13/18 18:31 99.6 120 12 100/52 97 02/13/18 18:00 114 02/13/18 16:39 100 35 02/13/18 16:00 89 02/13/18 16:00 35 02/13/18 16:00 98.7 107 12 115/54 (74) 98 02/13/18 14:00 78 02/13/18 12:00 35 02/13/18 12:00 98.0 82 13 120/62 (81) 100 02/13/18 12:00 77 02/13/18 10:14 98.3 96 12 110/59 99 02/13/18 10:10 98 100 02/13/18 10:00 98 35 02/13/18 09:52 98.2 72 12 103/53 99 02/13/18 08:00 74 02/13/18 08:00 98.3 81 12 109/57 (74) 100 02/13/18 08:00 35 02/13/18 07:54 98.3 81 12 123/62 100 02/13/18 07:37 99 35 02/13/18 07:00 98.5 71 12 97/54 99 Constitutional THIS NOTE REPRESENTS MY ENCOUNTER ON 02/12/2018 DURING ROUNDS Vital Signs Date Time Temp Pulse Resp B/P (MAP) Pulse Ox O2 Delivery O2 Flow Rate FiO2 4/13/18 06:00 64 02/14/18 05:08 71 100/53 02/14/18 04:54 69 105/52 02/14/18 04:00 35 02/14/18 04:00 68 02/14/18 04:00 98.2 80 12 112/57 (75) 99 02/14/18 03:22 98 35 02/14/18 02:00 74 02/14/18 00:08 98 35 02/14/18 00:00 99.1 78 12 125/65 (85) 98 02/14/18 00:00 77 02/14/18 00:00 35 02/13/18 22:00 72 02/13/18 20:27 97 35 02/13/18 20:00 99.6 81 12 112/82 (92) 96 02/13/18 20:00 84 02/13/18 20:00 35 02/13/18 19:38 99.6 83 12 100/51 95 02/13/18 18:52 127 135/71 02/13/18 18:45 98.4 114 12 121/70 94 02/13/18 18:31 99.6 120 12 100/52 97 02/13/18 18:00 114 02/13/18 16:39 100 35 02/13/18 16:00 89 02/13/18 16:00 35 02/13/18 16:00 98.7 107 12 115/54 (74) 98 02/13/18 14:00 78 02/13/18 12:00 35 02/13/18 12:00 98.0 82 13 120/62 (81) 100 02/13/18 12:00 77 02/13/18 10:14 98.3 96 12 110/59 99 02/13/18 10:10 98 100 02/13/18 10:00 98 35 02/13/18 09:52 98.2 72 12 103/53 99 02/13/18 08:00 74 02/13/18 08:00 98.3 81 12 109/57 (74) 100 02/13/18 08:00 35 02/13/18 07:54 98.3 81 12 123/62 100 02/13/18 07:37 99 35 02/13/18 07:00 98.5 71 12 97/54 99 Physical Exam THIS NOTE REPRESENTS MY ENCOUNTER ON 02/12/2018 DURING ROUNDS Ms [place] is intubated and sedated. Localizes to pain Cranial Nerves: Pupils equal, round, reactive to light. Eyes appear conjugated. There was no nystagmus, no papilledema. Face musculature appeared symmetrical at rest. Face sensation, olfaction, visual whittington, and hearing cannot be adequately assessed due to his neurological condition. The patient has a corneal reflex. He has a gag reflex. The sternocleidomastoid and trapezius are symmetrical. Cervical Spine: His neck is soft, supple, without nuchal rigidity. Motor: His muscle tone and bulk are normal. She moves all 4 extremities symmetrically, less on left upper extremity and lower.extremities due to her orthopedic fracture Sensory: On examination there is response to painful stimuli, localizing with both upper and lower extremities. Cerebellar: Examination cannot be adequately assessed due to the patient's neurological condition. Cardiovascular: Sinus tachycardia with frequent PVCs, in profound shock on Levophed 30 mcg/min. Getting actively resuscitated Lungs: Clear to auscultation bilaterally, air entry diminished at the bases. Right-sided chest tube in place to -20 suction increased to -40. Right subclavian central line in place Abdomen: Soft, without tenderness to palpation. No guarding, rebound, Skin warm and dry Ms Cruz is intubated and sedated. Localizes to pain Cranial Nerves: Pupils equal, round, reactive to light. Eyes appear conjugated. There was no nystagmus, no papilledema. Face musculature appeared symmetrical at rest. Face sensation, olfaction, visual whittington, and hearing cannot be adequately assessed due to his neurological condition. The patient has a corneal reflex. He has a gag reflex. The sternocleidomastoid and trapezius are symmetrical. Cervical Spine: His neck is soft, supple, without nuchal rigidity. Motor: His muscle tone and bulk are normal. She moves all 4 extremities symmetrically, less on left upper extremity and lower.extremities due to her orthopedic fracture Sensory: On examination there is response to painful stimuli, localizing with both upper and lower extremities. Cerebellar: Examination cannot be adequately assessed due to the patient's neurological condition. Cardiovascular: Sinus tachycardia with frequent PVCs, in profound shock on Levophed 30 mcg/min. Getting actively resuscitated Lungs: Clear to auscultation bilaterally, air entry diminished at the bases. Right-sided chest tube in place to -20 suction increased to -40. Right subclavian central line in place Abdomen: Soft, without tenderness to palpation. No guarding, rebound, Skin warm and dry Ms Cruz is intubated and sedated. Localizes to pain Cranial Nerves: Pupils equal, round, reactive to light. Eyes appear conjugated. There was no nystagmus, no papilledema. Face musculature appeared symmetrical at rest. Face sensation, olfaction, visual whittington, and hearing cannot be adequately assessed due to his neurological condition. The patient has a corneal reflex. He has a gag reflex. The sternocleidomastoid and trapezius are symmetrical. Cervical Spine: His neck is soft, supple, without nuchal rigidity. Motor: His muscle tone and bulk are normal. She moves all 4 extremities symmetrically, less on left upper extremity and lower.extremities due to her orthopedic fracture Sensory: On examination there is response to painful stimuli, localizing with both upper and lower extremities. Cerebellar: Examination cannot be adequately assessed due to the patient's neurological condition. Cardiovascular: Sinus tachycardia with frequent PVCs, in profound shock on Levophed 30 mcg/min. Getting actively resuscitated Lungs: Clear to auscultation bilaterally, air entry diminished at the bases. Right-sided chest tube in place to -20 suction increased to -40. Right subclavian central line in place Abdomen: Soft, without tenderness to palpation. No guarding, rebound, Skin warm and dry Ms Cruz is intubated and sedated. Localizes to pain Cranial Nerves: Pupils equal, round, reactive to light. Eyes appear conjugated. There was no nystagmus, no papilledema. Face musculature appeared symmetrical at rest. Face sensation, olfaction, visual whittington, and hearing cannot be adequately assessed due to his neurological condition. The patient has a corneal reflex. He has a gag reflex. The sternocleidomastoid and trapezius are symmetrical. Cervical Spine: His neck is soft, supple, without nuchal rigidity. Motor: His muscle tone and bulk are normal. She moves all 4 extremities symmetrically, less on left upper extremity and lower.extremities due to her orthopedic fracture Sensory: On examination there is response to painful stimuli, localizing with both upper and lower extremities. Cerebellar: Examination cannot be adequately assessed due to the patient's neurological condition. Cardiovascular: Sinus tachycardia with frequent PVCs, in profound shock on Levophed 30 mcg/min. Getting actively resuscitated Lungs: Clear to auscultation bilaterally, air entry diminished at the bases. Right-sided chest tube in place to -20 suction increased to -40. Right subclavian central line in place Abdomen: Soft, without tenderness to palpation. No guarding, rebound, Skin warm and dry Medications Current Medications THIS NOTE REPRESENTS MY ENCOUNTER ON 02/12/2018 DURING ROUNDS Current Medications Sodium Chloride 1,000 ml @ 100 mls/hr Q10H IV Last administered on 02/10/18at 20 :15; Start 02/10/18 at 04:13; Stop 02/10/18 at 22:57; Status DC Sodium Chloride (NS Flush) 2 ml UNSCH PRN IV FLUSH FLUSH AFTER USING IV ACCESS ; Start 02/10/18 at 04:15 Hydromorphone HCl (Dilaudid Pf Inj) 0.5 mg Q1H PRN IV BREAKTHROUGH PAIN; Start 02/10/18 at 04:45; Stop 02/11/18 at 19:37; Status DC Acetaminophen/ Hydrocodone Bitart ([place] 5-325 Mg) 1 tab Q4H PRN PO PAIN SCALE 1 TO 5; Start 02/10/18 at 04:15; Stop 02/11/18 at 19:37; Status DC Acetaminophen/ Hydrocodone Bitart ([place] 5-325 Mg) 2 tab Q4H PRN PO PAIN SCALE 6 TO 10 Last administered on 02/10/18at 04:52; Start 02/10/18 at 04:15; Stop 02/11/18 at 19:37; Status DC Enalaprilat (Vasotec Inj) 1.25 mg Q8H PRN IV PUSH SBP>180, DBP>95; Start at 04:15 Ondansetron HCl (Zofran Inj) 4 mg Q6H PRN IV PUSH NAUSEA OR VOMITING; Start 02/10/18 at 04:15 Pantoprazole Sodium (Protonix Inj) 40 mg Q24H IVP Last administered on at 05:04; Start 02/10/18 at 05:00 Docusate Sodium (Colace) 100 mg BID PO Last administered on 02/13/18at 20:17; Start 02/10/18 at 09:00 Miscellaneous Information 1 [id number] Last administered on 02/10/18at 04:15; Start 02/10/18 at 04:15 Chlorhexidine Gluconate (Chlorhexidine 2% Cloth) 3 pack Taper DAILY@04 TOP ; Start 02/11/18 at 04:00; Stop 02/07/19 at 03:59 Chlorhexidine Gluconate (Chlorhexidine 2% Cloth) 3 pack UNSCH PRN TOP HYGIENIC CARE; Start 02/10/18 at 04:15 Etomidate (Amidate Inj) 40 mg STK-MED ONCE .ROUTE Last administered on at 05:16; Start 02/10/18 at 05:16; Stop 02/10/18 at 05:17; Status DC Fentanyl Citrate (fentaNYL INJ) 100 mcg STK-MED ONCE .ROUTE ; Start 02/10/18 at 05:17; Stop 02/10/18 at 05:18; Status DC Midazolam HCl (Versed Inj) 5 mg STK-MED ONCE .ROUTE Last administered on at 05:17; Start 02/10/18 at 05:17; Stop 02/10/18 at 05:18; Status DC Rocuronium [place] (Zemuron Inj) 50 mg STK-MED ONCE .ROUTE Last administered on 02/10/18at 05:17; Start 02/10/18 at 05:17; Stop 02/10/18 at 05:18; Status DC Propofol 50 ml @ As Directed STK-MED ONCE .ROUTE Last administered on 02/10/18at 07:30; Start 02/10/18 at 05:25; Stop 02/10/18 at 05:26; Status DC Potassium Chloride 100 ml @ 50 mls/hr Q2H PRN IV For Potassium 2.8 - 3.2 mEq/L ; Start 02/10/18 at 06:30 Potassium Chloride 100 ml @ 50 mls/hr Q2H PRN IV For Potassium 2.8 - 3.2 mEq/L ; Start 02/10/18 at 06:30 Potassium Chloride 100 ml @ 25 mls/hr UNSCH PRN IV For Potassium 3.3 - 3.5 mEq /L Last administered on 02/13/18at 07:36; Start 02/10/18 at 06:30 Potassium Chloride 100 ml @ 50 mls/hr Q2H PRN IV For Potassium 3.3 - 3.5 mEq/L ; Start 02/10/18 at 06:30 Magnesium Sulfate 4 gm/Sodium Chloride 100 ml @ 50 mls/hr UNSCH PRN IV For Magnesium 0.9 - 1.1 mg/dL; Start 02/10/18 at 06:30 Magnesium Oxide (Mag-Ox) 800 mg UNSCH PRN PO For Magnesium 1.2 - 1.6 mg/dL; Start 02/10/18 at 06:30 Magnesium Sulfate 2 gm/Sodium Chloride 100 ml @ 50 mls/hr UNSCH PRN IV For Magnesium 1.2 - 1.6 mg/dL Last administered on 02/10/18at 22:57; Start 02/10/18 at 06:30 Potassium Phosphate (K-Phos) 2,000 mg Q4H PRN PO For Phosphorus < 2.5 mg/dL; Start 02/10/18 at 06:30 Sodium Phosphate 30 mmol/Sodium Chloride 250 ml @ 42 mls/hr UNSCH PRN IV For Phosphorus < 2.5 mg/dL; Start 02/10/18 at 06:30 Potassium Phosphate (K-Phos) 2,000 mg UNSCH PRN PO/TUBE SEE LABEL COMMENTS; Start 02/10/18 at 06:30 Potassium Phosphate 30 mmol/ Sodium Chloride 260 ml @ 42 mls/hr UNSCH PRN IV SEE LABEL COMMENTS Last administered on 02/10/18at 22:56; Start 02/10/18 at 06:30 Potassium Chloride (KCl Powder) 40 meq DAILY PRN PO For Potassium 3.3 - 3.5 mEq /L; Start 02/10/18 at 06:30 Chlorhexidine Gluconate (Peridex 0.12% Liq) 15 ml BID@08,20 MT Last administered on 02/13/18at 20:00; Start 02/10/18 at 08:00 Propofol 100 ml @ 2.172 mls/ hr TITRATE PRN IV SEDATION Last administered on at 03:56; Start 02/10/18 at 08:00; Stop 02/11/18 at 09:26; Status DC Fentanyl Citrate 250 ml @ 5 mls/hr TITRATE PRN IV SEDATION Last administered on 02/14/18at 05:30; Start 02/10/18 at 08:00 Sodium Bicarbonate (Sodium Bicarbonate 8.4% Inj) 100 meq STK-MED ONCE .ROUTE Last administered on 02/10/18at 07:05; Start 02/10/18 at 07:05; Stop 02/10/18 at 07: 06; Status DC Phenylephrine HCl (Neosynephrine Inj) 10 mg STK-MED ONCE .ROUTE Last administered on 02/10/18at 07:20; Start 02/10/18 at 07:18; Stop 02/10/18 at 07:19; Status DC Phenylephrine HCl (Neosynephrine Inj) 30 mg STK-MED ONCE .ROUTE Last administered on 02/10/18at 07:20; Start 02/10/18 at 07:20; Stop 02/10/18 at 07:21; Status DC Sodium Chloride 1,000 ml @ 999 mls/hr BOLUS ONCE IV Last administered on at 09:15; Start 02/10/18 at 09:15; Stop 02/10/18 at 10:15; Status DC Potassium Chloride 100 ml @ 50 mls/hr Q2H PRN IV For Potassium 2.8 - 3.2 mEq/ L Last administered on 02/12/18at 06:19; Start 02/10/18 at 09:15 Potassium Chloride 100 ml @ 50 mls/hr Q2H PRN IV For Potassium 2.8 - 3.2 mEq/L ; Start 02/10/18 at 09:15 Potassium Bicarb/ Potassium Chloride (K-Lyte Cl Eff) 50 meq UNSCH PRN PO For Potassium 3.3 - 3.5 mEq/L; Start 02/10/18 at 09:15 Potassium Chloride 100 ml @ 25 mls/hr UNSCH PRN IV For Potassium 3.3 - 3.5 mEq /L; Start 02/10/18 at 09:15 Potassium Chloride 100 ml @ 50 mls/hr Q2H PRN IV For Potassium 3.3 - 3.5 mEq/L ; Start 02/10/18 at 09:15 Magnesium Sulfate 4 gm/Sodium Chloride 100 ml @ 50 mls/hr UNSCH PRN IV For Magnesium 0.9 - 1.1 mg/dL; Start 02/10/18 at 09:15 Magnesium Oxide (Mag-Ox) 800 mg UNSCH PRN PO For Magnesium 1.2 - 1.6 mg/dL; Start 02/10/18 at 09:15 Magnesium Sulfate 2 gm/Sodium Chloride 100 ml @ 50 mls/hr UNSCH PRN IV For Magnesium 1.2 - 1.6 mg/dL; Start 02/10/18 at 09:15 Potassium Phosphate (K-Phos) 2,000 mg Q4H PRN PO For Phosphorus < 2.5 mg/dL; Start 02/10/18 at 09:15 Sodium Phosphate 30 mmol/Sodium Chloride 250 ml @ 42 mls/hr UNSCH PRN IV For Phosphorus < 2.5 mg/dL; Start 02/10/18 at 09:15 Potassium Phosphate (K-Phos) 2,000 mg UNSCH PRN PO/TUBE SEE LABEL COMMENTS; Start 02/10/18 at 09:15 Potassium Phosphate 30 mmol/ Sodium Chloride 260 ml @ 42 mls/hr UNSCH PRN IV SEE LABEL COMMENTS; Start 02/10/18 at 09:15 Morphine Sulfate (Morphine Inj) 2 mg Q3H PRN IV PUSH Pain Last administered on 02/10/18at 11:29; Start 02/10/18 at 09:15; Stop 02/11/18 at 19:37; Status DC Phenylephrine HCl (Neosynephrine Inj) 10 mg STK-MED ONCE .ROUTE Last administered on 02/10/18at 19:07; Start 02/10/18 at 19:05; Stop 02/10/18 at 19:06; Status DC Norepinephrine Bitartrate 250 ml @ 7.5 mls/hr TITRATE PRN IV Maintain MAP > 65 mmHg Last administered on 02/14/18at 05:08; Start 02/10/18 at 19:45 Phenylephrine HCl 40 mg/Dextrose 500 ml @ 30 mls/hr TITRATE PRN IV Blood Pressure Management Last administered on 02/11/18at 05:38; Start 02/10/18 at 19:45 Albumin Human 250 ml @ As Directed STK-MED ONCE IV Last administered on at 19:56; Start 02/10/18 at 19:55; Stop 02/10/18 at 19:56; Status DC Sodium Chloride 1,000 ml @ 100 mls/hr Q10H IV Last administered on 02/14/18at 04:53; Start 02/10/18 at 23:00 Albumin Human 500 ml @ 250 mls/hr NOW ONCE IV Last administered on 02/10/18at 23:00; Start 02/10/18 at 23:00; Stop 02/11/18 at 00:59; Status DC Sodium Chloride 500 ml @ 500 mls/hr Q1H ONCE IV Last administered on 02/10/18at 23:00; Start 02/10/18 at 23:00; Stop 02/10/18 at 23:59; Status DC Midazolam HCl 100 ml @ 2 mls/hr TITRATE PRN IV SEDATION Last administered on 09/21at 22:18; Start 02/11/18 at 09:30 Furosemide (Lasix Inj) 20 mg ONCE ONCE IV PUSH Last administered on 02/11/18at 09:30; Start 02/11/18 at 09:30; Stop 02/11/18 at 09:38; Status DC Propofol 100 ml @ 2.391 mls/ hr TITRATE PRN IV SEDATION; Start 02/11/18 at 09: 45 Cefazolin Sodium/ Dextrose 50 ml @ 100 mls/hr OCCUPATIONAL THERAPY AIDE IV ; Start 02/11/18 at 11:00; Stop 02/11/18 at 11:00; Status DC Vancomycin HCl 1000 mg/Sodium Chloride 250 ml @ 250 mls/hr OCCUPATIONAL THERAPY AIDE IV Last administered on 02/13/18at 11:07; Start 02/11/18 at 10:00; Stop 02/15/18 at 09:59 Povidone Iodine (Betadine 5% Antisepsis Kit) 1 applic OCCUPATIONAL THERAPY AIDE EACH NARE ; Start 02/11/18 at 10:00; Stop 02/15/18 at 09:59 Mupirocin (Bactroban Nasal 2% Oint) 1 applic OCCUPATIONAL THERAPY AIDE NASAL ; Start 02/11/18 at 10:00; Stop 02/15/18 at 09:59 Chlorhexidine Gluconate (Chlorhexidine 2% Cloth) 3 pack OCCUPATIONAL THERAPY AIDE TOP ; Start 08/21 at 10:00; Stop 02/15/18 at 09:59 Cefazolin Sodium 2000 mg/Sodium Chloride 100 ml @ 100 mls/hr OCCUPATIONAL THERAPY AIDE IV ; Start 02/11/18 at 11:00; Stop 02/14/18 at 10:59 Phenylephrine HCl (Neosynephrine Inj) 40 mg STK-MED ONCE .ROUTE ; Start at 19:20; Stop 02/11/18 at 19:21; Status DC Magnesium Hydroxide (Milk Of Magnesia Liq) 30 ml BID PO Last administered on 10/21at 20:17; Start 02/11/18 at 21:00 Albuterol/ Ipratropium (Duoneb Neb) 1 ampule Q6HR NEB NEB Last administered on 02/14/18at 03:25; Start 02/11/18 at 22:00 Albuterol/ Ipratropium (Duoneb Neb) 1 ampule Q2HR NEB PRN NEB wheezing; Start 02/11/18 at 19:45 Amiodarone HCl 150 mg/Dextrose 100 ml @ 600 mls/hr NOW ONCE IV Last administered on 02/12/18at 03:42; Start 02/12/18 at 03:15; Stop 02/12/18 at 03:24 ; Status DC Amiodarone HCl 450 mg/Sodium Chloride 250 ml @ 33.33 mls/ hr TITRATE PRN IV Per Protocol Last administered on 02/14/18at 04:54; Start 02/12/18 at 03:15 Vancomycin HCl (Vancomycin Inj) 500 mg STK-MED ONCE .ROUTE Last administered on 02/12/18at 07:55; Start 02/12/18 at 07:55; Stop 02/12/18 at 07:56; Status DC Vancomycin HCl (Vancomycin Inj) 1,000 mg STK-MED ONCE .ROUTE Last administered on 02/12/18at 08:14; Start 02/12/18 at 07:56; Stop 02/12/18 at 07:57; Status DC Lidocaine HCl (Xylocaine-Mpf 1% Inj) 30 ml STK-MED ONCE .ROUTE ; Start 02/12/18 at 07:56; Stop 02/12/18 at 07:57; Status DC Cefazolin Sodium (Ancef Inj) 2,000 mg STK-MED ONCE .ROUTE Last administered on 02/12/18at 08:03; Start 02/12/18 at 07:56; Stop 02/12/18 at 07:57; Status DC Lidocaine HCl (Xylocaine 2% Inj) 50 ml STK-MED ONCE .ROUTE Last administered on 02/12/18at 08:00; Start 02/12/18 at 08:00; Stop 02/12/18 at 08:01; Status DC Bacitracin (Bacitracin Oint Packet) 0.9 gm UNSCH PRN TOP SEE LABEL COMMENTS; Start 02/12/18 at 09:30 Sodium Chloride (NS Flush) 2 ml BID IV FLUSH Last administered on 02/13/18at 07: 36; Start 02/12/18 at 21:00 Sodium Chloride (NS Flush) 2 ml UNSCH PRN IV FLUSH FLUSH AFTER USING IV ACCESS ; Start 02/12/18 at 09:30 Iohexol (Omnipaque 350 Inj) 50 ml STK-MED ONCE IVCONTRAST Last administered on 02/10/18at 03:53; Start 02/10/18 at 03:53; Stop 02/12/18 at 13:49; Status DC Fentanyl Citrate (fentaNYL INJ) 250 mcg STK-MED ONCE .ROUTE ; Start 02/13/18 at 09:54; Stop 02/13/18 at 09:55; Status DC Cefazolin Sodium (Ancef Inj) 2,000 mg STK-MED ONCE .ROUTE Last administered on 02/13/18at 10:45; Start 02/13/18 at 09:57; Stop 02/13/18 at 09:58; Status DC Gentamicin Sulfate (Gentamicin Inj) 240 mg STK-MED ONCE .ROUTE Last administered on 02/13/18at 09:58; Start 02/13/18 at 09:58; Stop 02/13/18 at 09:59 ; Status DC Enoxaparin Sodium (Lovenox Inj) 30 mg Q24H SQ ; Start 02/14/18 at 11:00 Cefazolin Sodium 1000 mg/Sodium Chloride 100 ml @ 200 mls/hr Q8H IV Last administered on 02/14/18at 02:30; Start 02/13/18 at 19:00; Stop 02/14/18 at 11:29 Acetaminophen/ Hydrocodone Bitart ([place] 7.5-325 Mg) 1 tab Q3H PRN PO pain 3< 10; Start 02/13/18 at 12:00 Cholecalciferol (Vitamin D3) 5,000 units DAILY PO ; Start 02/14/18 at 09:00 Ergocalciferol (Drisdol) 50,000 units ONCE ONCE PO Last administered on at 16:01; Start 02/13/18 at 12:00; Stop 02/13/18 at 12:10; Status DC Amiodarone HCl (Cordarone Inj) 150 mg STK-MED ONCE .ROUTE ; Start 02/13/18 at 18 :12; Stop 02/13/18 at 18:13; Status DC Amiodarone HCl 150 mg/Dextrose 100 ml @ 600 mls/hr NOW ONCE IV ; Start at 19:00; Stop 02/13/18 at 19:09; Status DC Lactated Ringer's 500 ml @ 0 mls/hr BOLUS ONCE IV ; Start 02/13/18 at 18:45; Stop 02/13/18 at 18:46; Status DC Attending Statement THIS NOTE REPRESENTS MY ENCOUNTER ON 02/12/2018 DURING ROUNDS Ms Cruz remains in critical condition. She has persistent periods of bradicardia. 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 Nonoperative treatment with bed rest for now. if her condition improves TLSO brace Bilateral hip fractures. She is not stable today, if her condition improves, she will undergo nail fixation for her hip fractures for bilateral hip reduction Left shoulder fracture.Continue nonoperative treatment per orthopedics Multiple rib fractures. .Continue narcotic analgesics for pain control hemopneumothorax. Status post chest tube Pulmonary. .Continue mechanical ventilation for acute respiratory failure, aggressive pulmonary toilette, nasotracheal suction, and breathing treatments with nebulizers. PT and OT eval Renal. .Continue to monitor closely urine output, BUN and creatinine Endocrine. .Continue to Monitor serial Acu checks and SSI as needed in detail ID .Continue to monitor for signs of infection .Continue Protonix for stress ulcer prophylaxis Continue Farrukh torrez and SCD's for DVT prophylaxis Nasir Landers MD Feb 14, 2018 06:28
[2018-02-14] MEDS: POTASSIUM CHLOR 20 MEQ PREMIX 100 ML IV PRN ×2 (06:30→09:30)
[2018-02-14 06:52] LABS: BANDS 18 % (0-6); LYMPHOCYTES 6 % (9-44); MONOCYTES 9 % (0-8); NEUTROPHIL # MANUAL DIFF 6.3 TH/MM3 (1.8-7.7); POLYS (SEG NEUTROPHILS) 63 % (16-70)
[2018-02-14 07:05] LABS: DOHLE BODIES PRESENT (NONE SEEN)
--- NOTE | 2018-02-14 07:44 | PD.ORT.PN ---
Subjective Subjective Remarks POD 1 s/p bilateral troch nails s/p left proximal humerus fx intubated/sedated. no changes Objective Vitals Vital Signs Date Time Temp Pulse Resp B/P (MAP) Pulse Ox O2 Delivery O2 Flow Rate FiO2 02/14/18 06:00 64 02/14/18 05:08 71 100/53 02/14/18 04:54 69 105/52 02/14/18 04:00 35 02/14/18 04:00 68 02/14/18 04:00 98.2 80 12 112/57 (75) 99 02/14/18 03:22 98 35 02/14/18 02:00 74 02/14/18 00:08 98 35 02/14/18 00:00 99.1 78 12 125/65 (85) 98 02/14/18 00:00 77 02/14/18 00:00 35 02/13/18 22:00 72 02/13/18 20:27 97 35 02/13/18 20:00 99.6 81 12 112/82 (92) 96 02/13/18 20:00 84 02/13/18 20:00 35 02/13/18 19:38 99.6 83 12 100/51 95 02/13/18 18:52 127 135/71 02/13/18 18:45 98.4 114 12 121/70 94 02/13/18 18:31 99.6 120 12 100/52 97 02/13/18 18:00 114 02/13/18 16:39 100 35 02/13/18 16:00 89 02/13/18 16:00 35 02/13/18 16:00 98.7 107 12 115/54 (74) 98 02/13/18 14:00 78 02/13/18 12:00 35 02/13/18 12:00 98.0 82 13 120/62 (81) 100 02/13/18 12:00 77 02/13/18 10:14 98.3 96 12 110/59 99 02/13/18 10:10 98 100 02/13/18 10:00 98 35 02/13/18 09:52 98.2 72 12 103/53 99 02/13/18 08:00 74 02/13/18 08:00 98.3 81 12 109/57 (74) 100 02/13/18 08:00 35 02/13/18 07:54 98.3 81 12 123/62 100 I/O 02/13/18 02/13/18 02/13/18 02/14/18 02/14/18 02/14/18 07:00 15:00 23:00 07:00 15:00 23:00 Intake Total 1363 ml 456 ml 2130 ml Output Total 720 ml 350 ml 875 ml 800 ml Balance -720 ml 1013 ml -419 ml 1330 ml Intake IV Total 1750 ml Tube Feeding 56 ml 320 ml Packed Cells 400 ml 400 ml Platelets 663 ml Tube Irrigant 60 ml Other 300 ml Output Urine Total 600 ml 300 ml 725 ml 650 ml Gastric Drainage Total 50 ml Chest Tube Drainage Total 70 ml 150 ml 150 ml Estimated Blood Loss 50 ml # Bowel Movements 0 0 0 Result Diagram: 02/14/18 0536 02/14/18 0536 Imaging Last 24 hours Impressions Chest X-Ray 02/11/18 0000 Signed Impressions: Service Date/Time: Sunday, February 11, 2018 04:39 - CONCLUSION: Small right apical pneumothorax. Yrn Khan MD Objective Remarks BLE: dressings clean and dry .intact. +cap refill distally LUE: +bruising of shoulder. +sling. good cap refill Assessment & Plan Assessment and Plan 1) Bilateral intertrochanteric fractures s/p IMN - POD 1 -WBAT -daily dressing changes POD 2 2) Left Proximal Humerus fracture - nonop Due to alignment of fracture we will continue to treat this nonoperatively in a sling and swath Nonweightbearing left upper extremity No range of motion -ortho surgeries complete at this time -continue medical mgmt Ramo Almaraz/Roller Staker SIOMARA Feb 14, 2018 07:44
[2018-02-14] MEDS: CHLORHEXIDINE 0.12% (ORAL KIT) 15 ML CUP MT SCH ×2 (08:00→20:19)
[2018-02-14] MEDS: LACTULOSE SYRUP 20 GM/30 ML CUP PO SCH (09:00)
[2018-02-14] MEDS: SODIUM CHLORIDE 0.9% FLUSH 10 ML FLUSH IV FLUSH SCH ×2 (09:00→20:20)
[2018-02-14] MEDS: MAGNESIUM HYDROXIDE SUSP 30 ML CUP PO SCH ×2 (09:30→20:20)
[2018-02-14] MEDS: DOCUSATE SODIUM 100 MG CAP PO SCH ×2 (09:30→20:20)
[2018-02-14] MEDS: CHOLECALCIFEROL (VIT D3) 5000 UNIT CAP PO SCH (09:30)
--- NOTE | 2018-02-14 09:43 | HHI.NSPN ---
(Raven Ku) Note Status Status: Progress Note (Raven Ku) Interval History Interval History This is a 87 year old female who presents to the [facility] emergency department as a transfer from [facility] as a trauma alert. Apparently patient sustained a fall on the driveway at approximately 9 PM last night. She sustained right sided rib fractures with a hemopneumothorax status post chest tube placement and 1200 mL of blood out in the chest tube. The patient's hemoglobin dropped from 11 to7, was transfused 2 units of packed red blood cells. The patient was found to have bilateral intertrochanteric fractures, Left proximal humerus fracture, Acute T11 fracture, right-sided rib fractures, and hemopneumothorax as described above. She was accepted by Dr. Monae. Towards a.m. patient started becoming more hemodynamically unstable, Dr. Monae place a right subclavian central line and Levophed was started which rapidly was increased to 12 mcg/min. Due to increasing hemodynamic instability patient was intubated by Dr. Monae and placed on mechanical ventilation Trauma workup reveled a right hemopneumothorax, right-sided rib fractures, bilateral intertrochanteric fractures on the femur, acute T11 fracture, acute left humerus fracture. Neurosurgical consultation was requested 02/11. She has been slowly stabilized overnight with hemodynamic improvement and decreased need for vasopressors. She remains mildly sedated on propofol. She has been evaluated by cardiology for periods of bradycardia. Troponins elevated. Suspected that she had a myocardial infarction on the scene anemia and hemorrhagic shock 02/13: pt underwent pacemaker placement yesterday. currently intubated. ortho plans on b/l hip fixation today. 02/14: intubated, does not open eyes. (Raven Ku) Labs, Micro, & Vital Signs Results Date Time Temp Pulse Resp B/P (MAP) Pulse Ox O2 Delivery O2 Flow Rate FiO2 02/14/18 08:02 98 35 02/14/18 08:00 84 02/14/18 08:00 35 02/14/18 08:00 98.1 79 12 106/55 (72) 98 02/14/18 06:00 64 4/13/18 05:08 71 100/53 02/14/18 04:54 69 105/52 02/14/18 04:00 35 02/14/18 04:00 68 02/14/18 04:00 98.2 80 12 112/57 (75) 99 02/14/18 03:22 98 35 02/14/18 02:00 74 02/14/18 00:08 98 35 02/14/18 00:00 99.1 78 12 125/65 (85) 98 02/14/18 00:00 77 02/14/18 00:00 35 02/13/18 22:00 72 02/13/18 20:27 97 35 02/13/18 20:00 99.6 81 12 112/82 (92) 96 02/13/18 20:00 84 02/13/18 20:00 35 02/13/18 19:38 99.6 83 12 100/51 95 02/13/18 18:52 127 135/71 02/13/18 18:45 98.4 114 12 121/70 94 02/13/18 18:31 99.6 120 12 100/52 97 02/13/18 18:25 92 94/57 02/13/18 18:00 114 02/13/18 16:39 100 35 02/13/18 16:00 89 02/13/18 16:00 35 02/13/18 16:00 98.7 107 12 115/54 (74) 98 02/13/18 14:00 78 02/13/18 12:00 35 02/13/18 12:00 98.0 82 13 120/62 (81) 100 02/13/18 12:00 77 02/13/18 10:14 98.3 96 12 110/59 99 02/13/18 10:10 98 100 02/13/18 10:00 98 35 02/13/18 09:52 98.2 72 12 103/53 99 Constitutional Vital Signs Date Time Temp Pulse Resp B/P (MAP) Pulse Ox O2 Delivery O2 Flow Rate FiO2 02/14/18 08:02 98 35 02/14/18 08:00 84 02/14/18 08:00 35 02/14/18 08:00 98.1 79 12 106/55 (72) 98 02/14/18 06:00 64 4/13/18 05:08 71 100/53 02/14/18 04:54 69 105/52 02/14/18 04:00 35 02/14/18 04:00 68 02/14/18 04:00 98.2 80 12 112/57 (75) 99 02/14/18 03:22 98 35 02/14/18 02:00 74 02/14/18 00:08 98 35 02/14/18 00:00 99.1 78 12 125/65 (85) 98 02/14/18 00:00 77 02/14/18 00:00 35 02/13/18 22:00 72 02/13/18 20:27 97 35 02/13/18 20:00 99.6 81 12 112/82 (92) 96 02/13/18 20:00 84 02/13/18 20:00 35 02/13/18 19:38 99.6 83 12 100/51 95 02/13/18 18:52 127 135/71 02/13/18 18:45 98.4 114 12 121/70 94 02/13/18 18:31 99.6 120 12 100/52 97 02/13/18 18:25 92 94/57 02/13/18 18:00 114 02/13/18 16:39 100 35 02/13/18 16:00 89 02/13/18 16:00 35 02/13/18 16:00 98.7 107 12 115/54 (74) 98 02/13/18 14:00 78 02/13/18 12:00 35 02/13/18 12:00 98.0 82 13 120/62 (81) 100 02/13/18 12:00 77 02/13/18 10:14 98.3 96 12 110/59 99 02/13/18 10:10 98 100 02/13/18 10:00 98 35 02/13/18 09:52 98.2 72 12 103/53 99 (Raven Ku) Review of Systems ROS Limitations: Intubated (Raven Ku) Physical Exam General: elderly female in no acute distress, intubated and sedated. HEENT: normocephalic, nonicteric sclera Neuro: sedated, does not open eyes or follow commands. Cranial Nerves: Pupils 2 -3 mm equal. Eyes appear conjugated. Otherwise exam limited due to clinical condition. Minimal response to pain to lower extremities. Plantars equivocal b /l Cervical Spine: soft, supple Cerebellar: cannot assess Heart: regular rate rhythm Lungs: clear Skin warm and dry Abdomen: soft (Raven Ku) General: elderly female in no acute distress, intubated and sedated. HEENT: normocephalic, nonicteric sclera Neuro: sedated, does not open eyes or follow commands. Cranial Nerves: Pupils 2 -3 mm equal. Eyes appear conjugated. Otherwise exam limited due to clinical condition. Minimal response to pain to lower extremities. Plantars equivocal b /l Cervical Spine: soft, supple Cerebellar: cannot assess Heart: regular rate rhythm Lungs: clear Skin warm and dry Abdomen: soft Skin warm and dry (Nasir Landers MD) Medications Current Medications Current Medications Medications (Trade) Dose Ordered Sig/Mackenzie Route PRN Reason Start Time Stop Time Status Last Admin Dose Admin Sodium Chloride (NS Flush) 2 ml UNSCH PRN IV FLUSH FLUSH AFTER USING IV ACCESS 02/10/18 04:15 Enalaprilat (Vasotec Inj) 1.25 mg Q8H PRN IV PUSH SBP>180, DBP>95 02/10/18 04:15 Ondansetron HCl (Zofran Inj) 4 mg Q6H PRN IV PUSH NAUSEA OR VOMITING 02/10/18 04:15 Pantoprazole Sodium (Protonix Inj) 40 mg Q24H IVP 02/10/18 05:00 02/14/18 05:04 Docusate Sodium (Colace) 100 mg BID PO 02/10/18 09:00 02/14/18 09:30 Miscellaneous Information 1 Q361D XX 02/10/18 04:15 02/10/18 04:15 Chlorhexidine Gluconate (Chlorhexidine 2% Cloth) 3 pack Taper DAILY@04 TOP 02/11/18 04:00 02/07/19 03:59 Chlorhexidine Gluconate (Chlorhexidine 2% Cloth) 3 pack UNSCH PRN TOP HYGIENIC CARE 02/10/18 04:15 Potassium Chloride 100 ml @ 50 mls/hr Q2H PRN IV For Potassium 2.8 - 3.2 mEq/L 02/10/18 06:30 Potassium Chloride 100 ml @ 50 mls/hr Q2H PRN IV For Potassium 2.8 - 3.2 mEq/L 02/10/18 06:30 02/14/18 09:30 Potassium Chloride 100 ml @ 25 mls/hr UNSCH PRN IV For Potassium 3.3 - 3.5 mEq/L 02/10/18 06:30 02/13/18 07:36 Potassium Chloride 100 ml @ 50 mls/hr Q2H PRN IV For Potassium 3.3 - 3.5 mEq/L 02/10/18 06:30 Magnesium Sulfate 4 gm/Sodium Chloride 100 ml @ 50 mls/hr UNSCH PRN IV For Magnesium 0.9 - 1.1 mg/dL 02/10/18 06:30 Magnesium Oxide (Mag-Ox) 800 mg UNSCH PRN PO For Magnesium 1.2 - 1.6 mg/dL 02/10/18 06:30 Magnesium Sulfate 2 gm/Sodium Chloride 100 ml @ 50 mls/hr UNSCH PRN IV For Magnesium 1.2 - 1.6 mg/dL 02/10/18 06:30 02/10/18 22:57 Potassium Phosphate (K-Phos) 2,000 mg Q4H PRN PO For Phosphorus < 2.5 mg/dL 02/10/18 06:30 Sodium Phosphate 30 mmol/Sodium Chloride 250 ml @ 42 mls/hr UNSCH PRN IV For Phosphorus < 2.5 mg/dL 02/10/18 06:30 Potassium Phosphate (K-Phos) 2,000 mg UNSCH PRN PO/TUBE SEE LABEL COMMENTS 02/10/18 06:30 Potassium Phosphate 30 mmol/ Sodium Chloride 260 ml @ 42 mls/hr UNSCH PRN IV SEE LABEL COMMENTS 02/10/18 06:30 02/10/18 22:56 Potassium Chloride (KCl Powder) 40 meq DAILY PRN PO For Potassium 3.3 - 3.5 mEq/L 02/10/18 06:30 Chlorhexidine Gluconate (Peridex 0.12% Liq) 15 ml BID@08,20 MT 02/10/18 08:00 02/14/18 08:00 Fentanyl Citrate 250 ml @ 5 mls/hr TITRATE PRN IV SEDATION 02/10/18 08:00 02/14/18 05:30 Potassium Chloride 100 ml @ 50 mls/hr Q2H PRN IV For Potassium 2.8 - 3.2 mEq/L 02/10/18 09:15 02/12/18 06:19 Potassium Chloride 100 ml @ 50 mls/hr Q2H PRN IV For Potassium 2.8 - 3.2 mEq/L 02/10/18 09:15 Potassium Bicarb/ Potassium Chloride (K-Lyte Cl Eff) 50 meq UNSCH PRN PO For Potassium 3.3 - 3.5 mEq/L 02/10/18 09:15 Potassium Chloride 100 ml @ 25 mls/hr UNSCH PRN IV For Potassium 3.3 - 3.5 mEq/L 02/10/18 09:15 Potassium Chloride 100 ml @ 50 mls/hr Q2H PRN IV For Potassium 3.3 - 3.5 mEq/L 02/10/18 09:15 Magnesium Sulfate 4 gm/Sodium Chloride 100 ml @ 50 mls/hr UNSCH PRN IV For Magnesium 0.9 - 1.1 mg/dL 02/10/18 09:15 Magnesium Oxide (Mag-Ox) 800 mg UNSCH PRN PO For Magnesium 1.2 - 1.6 mg/dL 02/10/18 09:15 Magnesium Sulfate 2 gm/Sodium Chloride 100 ml @ 50 mls/hr UNSCH PRN IV For Magnesium 1.2 - 1.6 mg/dL 02/10/18 09:15 Potassium Phosphate (K-Phos) 2,000 mg Q4H PRN PO For Phosphorus < 2.5 mg/dL 02/10/18 09:15 Sodium Phosphate 30 mmol/Sodium Chloride 250 ml @ 42 mls/hr UNSCH PRN IV For Phosphorus < 2.5 mg/dL 02/10/18 09:15 Potassium Phosphate (K-Phos) 2,000 mg UNSCH PRN PO/TUBE SEE LABEL COMMENTS 02/10/18 09:15 Potassium Phosphate 30 mmol/ Sodium Chloride 260 ml @ 42 mls/hr UNSCH PRN IV SEE LABEL COMMENTS 02/10/18 09:15 Norepinephrine Bitartrate 250 ml @ 7.5 mls/hr TITRATE PRN IV Maintain MAP > 65 mmHg 02/10/18 19:45 02/14/18 05:08 Phenylephrine HCl 40 mg/Dextrose 500 ml @ 30 mls/hr TITRATE PRN IV Blood Pressure Management 02/10/18 19:45 02/11/18 05:38 Sodium Chloride 1,000 ml @ 100 mls/hr Q10H IV 02/10/18 23:00 02/14/18 04:53 Midazolam HCl 100 ml @ 2 mls/hr TITRATE PRN IV SEDATION 02/11/18 09:30 02/12/18 22:18 Propofol 100 ml @ 2.391 mls/ hr TITRATE PRN IV SEDATION 02/11/18 09:45 Vancomycin HCl 1000 mg/Sodium Chloride 250 ml @ 250 mls/hr [employer] IV 02/11/18 10:00 02/15/18 09:59 02/13/18 11:07 Povidone Iodine (Betadine 5% Antisepsis Kit) 1 applic [employer] EACH NARE 02/11/18 10:00 02/15/18 09:59 Mupirocin (Bactroban Nasal 2% Oint) 1 applic [employer] NASAL 02/11/18 10:00 02/15/18 09:59 Chlorhexidine Gluconate (Chlorhexidine 2% Cloth) 3 pack [employer] TOP 02/11/18 10:00 02/15/18 09:59 Cefazolin Sodium 2000 mg/Sodium Chloride 100 ml @ 100 mls/hr [employer] IV 02/11/18 11:00 02/14/18 10:59 Magnesium Hydroxide (Milk Of Magnnitish Liq) 30 ml BID PO 02/11/18 21:00 02/14/18 09:30 Albuterol/ Ipratropium (Duoneb Neb) 1 ampule Q6HR NEB NEB 02/11/18 22:00 02/14/18 08:01 Albuterol/ Ipratropium (Duoneb Neb) 1 ampule Q2HR NEB PRN NEB wheezing 02/11/18 19:45 Amiodarone HCl 450 mg/Sodium Chloride 250 ml @ 33.33 mls/ hr TITRATE PRN IV Per Protocol 02/12/18 03:15 02/14/18 04:54 Bacitracin (Bacitracin Oint Packet) 0.9 gm UNSCH PRN TOP SEE LABEL COMMENTS 02/12/18 09:30 Sodium Chloride (NS Flush) 2 ml BID IV FLUSH 02/12/18 21:00 02/13/18 07:36 Sodium Chloride (NS Flush) 2 ml UNSCH PRN IV FLUSH FLUSH AFTER USING IV ACCESS 02/12/18 09:30 Enoxaparin Sodium (Lovenox Inj) 30 mg Q24H SQ 02/14/18 11:00 Cefazolin Sodium 1000 mg/Sodium Chloride 100 ml @ 200 mls/hr Q8H IV 02/13/18 19:00 02/14/18 11:29 02/14/18 02:30 Acetaminophen/ Hydrocodone Bitart ([place] 7.5-325 Mg) 1 tab Q3H PRN PO pain 3<10 02/13/18 12:00 Cholecalciferol (Vitamin D3) 5,000 units DAILY PO 02/14/18 09:00 02/14/18 09:30 Lactulose (Lactulose Liq) 30 ml DAILY PO 02/14/18 09:00 (Raven Ku) Current Medications Current Medications Sodium Chloride 1,000 ml @ 100 mls/hr Q10H IV Last administered on 02/10/18at 20 :15; Start 02/10/18 at 04:13; Stop 02/10/18 at 22:57; Status DC Sodium Chloride (NS Flush) 2 ml UNSCH PRN IV FLUSH FLUSH AFTER USING IV ACCESS ; Start 02/10/18 at 04:15 Hydromorphone HCl (Dilaudid Pf Inj) 0.5 mg Q1H PRN IV BREAKTHROUGH PAIN; Start 02/10/18 at 04:45; Stop 02/11/18 at 19:37; Status DC Acetaminophen/ Hydrocodone Bitart (Sebec 5-325 Mg) 1 tab Q4H PRN PO PAIN SCALE 1 TO 5; Start 02/10/18 at 04:15; Stop 02/11/18 at 19:37; Status DC Acetaminophen/ Hydrocodone Bitart (Sebec 5-325 Mg) 2 tab Q4H PRN PO PAIN SCALE 6 TO 10 Last administered on 02/10/18at 04:52; Start 02/10/18 at 04:15; Stop 02/11/18 at 19:37; Status DC Enalaprilat (Vasotec Inj) 1.25 mg Q8H PRN IV PUSH SBP>180, DBP>95; Start at 04:15 Ondansetron HCl (Zofran Inj) 4 mg Q6H PRN IV PUSH NAUSEA OR VOMITING; Start 02/10/18 at 04:15 Pantoprazole Sodium (Protonix Inj) 40 mg Q24H IVP Last administered on at 03:09; Start 02/10/18 at 05:00 Docusate Sodium (Colace) 100 mg BID PO Last administered on 02/14/18at 20:20; Start 02/10/18 at 09:00 Miscellaneous Information 1 Q361D XX Last administered on 02/10/18at 04:15; Start 02/10/18 at 04:15 Chlorhexidine Gluconate (Chlorhexidine 2% Cloth) 3 pack Taper DAILY@04 TOP ; Start 02/11/18 at 04:00; Stop 02/07/19 at 03:59 Chlorhexidine Gluconate (Chlorhexidine 2% Cloth) 3 pack UNSCH PRN TOP HYGIENIC CARE; Start 02/10/18 at 04:15 Etomidate (Amidate Inj) 40 mg STK-MED ONCE .ROUTE Last administered on at 05:16; Start 02/10/18 at 05:16; Stop 02/10/18 at 05:17; Status DC Fentanyl Citrate (fentaNYL INJ) 100 mcg STK-MED ONCE .ROUTE ; Start 02/10/18 at 05:17; Stop 02/10/18 at 05:18; Status DC Midazolam HCl (Versed Inj) 5 mg STK-MED ONCE .ROUTE Last administered on at 05:17; Start 02/10/18 at 05:17; Stop 02/10/18 at 05:18; Status DC Rocuronium [place] (Zemuron Inj) 50 mg STK-MED ONCE .ROUTE Last administered on 02/10/18at 05:17; Start 02/10/18 at 05:17; Stop 02/10/18 at 05:18; Status DC Propofol 50 ml @ As Directed STK-MED ONCE .ROUTE Last administered on 02/10/18at 07:30; Start 02/10/18 at 05:25; Stop 02/10/18 at 05:26; Status DC Potassium Chloride 100 ml @ 50 mls/hr Q2H PRN IV For Potassium 2.8 - 3.2 mEq/ L Last administered on 02/14/18at 11:40; Start 02/10/18 at 06:30 Potassium Chloride 100 ml @ 50 mls/hr Q2H PRN IV For Potassium 2.8 - 3.2 mEq/ L Last administered on 02/14/18at 09:30; Start 02/10/18 at 06:30 Potassium Chloride 100 ml @ 25 mls/hr UNSCH PRN IV For Potassium 3.3 - 3.5 mEq /L Last administered on 02/13/18at 07:36; Start 02/10/18 at 06:30 Potassium Chloride 100 ml @ 50 mls/hr Q2H PRN IV For Potassium 3.3 - 3.5 mEq/L ; Start 02/10/18 at 06:30 Magnesium Sulfate 4 gm/Sodium Chloride 100 ml @ 50 mls/hr UNSCH PRN IV For Magnesium 0.9 - 1.1 mg/dL; Start 02/10/18 at 06:30 Magnesium Oxide (Mag-Ox) 800 mg UNSCH PRN PO For Magnesium 1.2 - 1.6 mg/dL; Start 02/10/18 at 06:30 Magnesium Sulfate 2 gm/Sodium Chloride 100 ml @ 50 mls/hr UNSCH PRN IV For Magnesium 1.2 - 1.6 mg/dL Last administered on 02/10/18at 22:57; Start 02/10/18 at 06:30 Potassium Phosphate (K-Phos) 2,000 mg Q4H PRN PO For Phosphorus < 2.5 mg/dL; Start 02/10/18 at 06:30 Sodium Phosphate 30 mmol/Sodium Chloride 250 ml @ 42 mls/hr UNSCH PRN IV For Phosphorus < 2.5 mg/dL; Start 02/10/18 at 06:30 Potassium Phosphate (K-Phos) 2,000 mg UNSCH PRN PO/TUBE SEE LABEL COMMENTS; Start 02/10/18 at 06:30 Potassium Phosphate 30 mmol/ Sodium Chloride 260 ml @ 42 mls/hr UNSCH PRN IV SEE LABEL COMMENTS Last administered on 02/10/18at 22:56; Start 02/10/18 at 06:30 Potassium Chloride (KCl Powder) 40 meq DAILY PRN PO For Potassium 3.3 - 3.5 mEq /L; Start 02/10/18 at 06:30 Chlorhexidine Gluconate (Peridex 0.12% Liq) 15 ml BID@08,20 MT Last administered on 02/15/18at 08:15; Start 02/10/18 at 08:00 Propofol 100 ml @ 2.172 mls/ hr TITRATE PRN IV SEDATION Last administered on at 03:56; Start 02/10/18 at 08:00; Stop 02/11/18 at 09:26; Status DC Fentanyl Citrate 250 ml @ 5 mls/hr TITRATE PRN IV SEDATION Last administered on 02/14/18at 05:30; Start 02/10/18 at 08:00 Sodium Bicarbonate (Sodium Bicarbonate 8.4% Inj) 100 meq STK-MED ONCE .ROUTE Last administered on 02/10/18at 07:05; Start 02/10/18 at 07:05; Stop 02/10/18 at 07: 06; Status DC Phenylephrine HCl (Neosynephrine Inj) 10 mg STK-MED ONCE .ROUTE Last administered on 02/10/18at 07:20; Start 02/10/18 at 07:18; Stop 02/10/18 at 07:19; Status DC Phenylephrine HCl (Neosynephrine Inj) 30 mg STK-MED ONCE .ROUTE Last administered on 02/10/18at 07:20; Start 02/10/18 at 07:20; Stop 02/10/18 at 07:21; Status DC Sodium Chloride 1,000 ml @ 999 mls/hr BOLUS ONCE IV Last administered on at 09:15; Start 02/10/18 at 09:15; Stop 02/10/18 at 10:15; Status DC Potassium Chloride 100 ml @ 50 mls/hr Q2H PRN IV For Potassium 2.8 - 3.2 mEq/ L Last administered on 02/12/18at 06:19; Start 02/10/18 at 09:15 Potassium Chloride 100 ml @ 50 mls/hr Q2H PRN IV For Potassium 2.8 - 3.2 mEq/L ; Start 02/10/18 at 09:15 Potassium Bicarb/ Potassium Chloride (K-Lyte Cl Eff) 50 meq UNSCH PRN PO For Potassium 3.3 - 3.5 mEq/L; Start 02/10/18 at 09:15 Potassium Chloride 100 ml @ 25 mls/hr UNSCH PRN IV For Potassium 3.3 - 3.5 mEq /L; Start 02/10/18 at 09:15 Potassium Chloride 100 ml @ 50 mls/hr Q2H PRN IV For Potassium 3.3 - 3.5 mEq/L ; Start 02/10/18 at 09:15 Magnesium Sulfate 4 gm/Sodium Chloride 100 ml @ 50 mls/hr UNSCH PRN IV For Magnesium 0.9 - 1.1 mg/dL; Start 02/10/18 at 09:15 Magnesium Oxide (Mag-Ox) 800 mg UNSCH PRN PO For Magnesium 1.2 - 1.6 mg/dL; Start 02/10/18 at 09:15 Magnesium Sulfate 2 gm/Sodium Chloride 100 ml @ 50 mls/hr UNSCH PRN IV For Magnesium 1.2 - 1.6 mg/dL; Start 02/10/18 at 09:15 Potassium Phosphate (K-Phos) 2,000 mg Q4H PRN PO For Phosphorus < 2.5 mg/dL; Start 02/10/18 at 09:15 Sodium Phosphate 30 mmol/Sodium Chloride 250 ml @ 42 mls/hr UNSCH PRN IV For Phosphorus < 2.5 mg/dL; Start 02/10/18 at 09:15 Potassium Phosphate (K-Phos) 2,000 mg UNSCH PRN PO/TUBE SEE LABEL COMMENTS; Start 02/10/18 at 09:15 Potassium Phosphate 30 mmol/ Sodium Chloride 260 ml @ 42 mls/hr UNSCH PRN IV SEE LABEL COMMENTS; Start 02/10/18 at 09:15 Morphine Sulfate (Morphine Inj) 2 mg Q3H PRN IV PUSH Pain Last administered on 02/10/18at 11:29; Start 02/10/18 at 09:15; Stop 02/11/18 at 19:37; Status DC Phenylephrine HCl (Neosynephrine Inj) 10 mg STK-MED ONCE .ROUTE Last administered on 02/10/18at 19:07; Start 02/10/18 at 19:05; Stop 02/10/18 at 19:06; Status DC Norepinephrine Bitartrate 250 ml @ 7.5 mls/hr TITRATE PRN IV Maintain MAP > 65 mmHg Last administered on 02/15/18at 01:12; Start 02/10/18 at 19:45 Phenylephrine HCl 40 mg/Dextrose 500 ml @ 30 mls/hr TITRATE PRN IV Blood Pressure Management Last administered on 02/11/18at 05:38; Start 02/10/18 at 19:45 Albumin Human 250 ml @ As Directed STK-MED ONCE IV Last administered on at 19:56; Start 02/10/18 at 19:55; Stop 02/10/18 at 19:56; Status DC Sodium Chloride 1,000 ml @ 100 mls/hr Q10H IV Last administered on 02/15/18at 03:09; Start 02/10/18 at 23:00 Albumin Human 500 ml @ 250 mls/hr NOW ONCE IV Last administered on 02/10/18at 23:00; Start 02/10/18 at 23:00; Stop 02/11/18 at 00:59; Status DC Sodium Chloride 500 ml @ 500 mls/hr Q1H ONCE IV Last administered on 02/10/18at 23:00; Start 02/10/18 at 23:00; Stop 02/10/18 at 23:59; Status DC Midazolam HCl 100 ml @ 2 mls/hr TITRATE PRN IV SEDATION Last administered on 09/21at 22:18; Start 02/11/18 at 09:30 Furosemide (Lasix Inj) 20 mg ONCE ONCE IV PUSH Last administered on 02/11/18at 09:30; Start 02/11/18 at 09:30; Stop 02/11/18 at 09:38; Status DC Propofol 100 ml @ 2.391 mls/ hr TITRATE PRN IV SEDATION; Start 02/11/18 at 09: 45 Cefazolin Sodium/ Dextrose 50 ml @ 100 mls/hr [employer] IV ; Start 02/11/18 at 11:00; Stop 02/11/18 at 11:00; Status DC Vancomycin HCl 1000 mg/Sodium Chloride 250 ml @ 250 mls/hr [employer] IV Last administered on 02/13/18at 11:07; Start 02/11/18 at 10:00; Stop 02/15/18 at 09:59 ; Status DC Povidone Iodine (Betadine 5% Antisepsis Kit) 1 applic [employer] EACH NARE ; Start 02/11/18 at 10:00; Stop 02/15/18 at 09:59; Status DC Mupirocin (Bactroban Nasal 2% Oint) 1 applic [employer] NASAL ; Start 02/11/18 at 10:00; Stop 02/15/18 at 09:59; Status DC Chlorhexidine Gluconate (Chlorhexidine 2% Cloth) 3 pack [employer] TOP ; Start 08/21 at 10:00; Stop 02/15/18 at 09:59; Status DC Cefazolin Sodium 2000 mg/Sodium Chloride 100 ml @ 100 mls/hr [employer] IV ; Start 02/11/18 at 11:00; Stop 02/14/18 at 10:59; Status DC Phenylephrine HCl (Neosynephrine Inj) 40 mg STK-MED ONCE .ROUTE ; Start at 19:20; Stop 02/11/18 at 19:21; Status DC Magnesium Hydroxide (Milk Of Magnesia Liq) 30 ml BID PO Last administered on at 08:16; Start 02/11/18 at 21:00 Albuterol/ Ipratropium (Duoneb Neb) 1 ampule Q6HR NEB NEB Last administered on 02/15/18at 09:08; Start 02/11/18 at 22:00 Albuterol/ Ipratropium (Duoneb Neb) 1 ampule Q2HR NEB PRN NEB wheezing; Start 02/11/18 at 19:45 Amiodarone HCl 150 mg/Dextrose 100 ml @ 600 mls/hr NOW ONCE IV Last administered on 02/12/18at 03:42; Start 02/12/18 at 03:15; Stop 02/12/18 at 03:24 ; Status DC Amiodarone HCl 450 mg/Sodium Chloride 250 ml @ 33.33 mls/ hr TITRATE PRN IV Per Protocol Last administered on 02/14/18at 04:54; Start 02/12/18 at 03:15 Vancomycin HCl (Vancomycin Inj) 500 mg STK-MED ONCE .ROUTE Last administered on 02/12/18at 07:55; Start 02/12/18 at 07:55; Stop 02/12/18 at 07:56; Status DC Vancomycin HCl (Vancomycin Inj) 1,000 mg STK-MED ONCE .ROUTE Last administered on 02/12/18at 08:14; Start 02/12/18 at 07:56; Stop 02/12/18 at 07:57; Status DC Lidocaine HCl (Xylocaine-Mpf 1% Inj) 30 ml STK-MED ONCE .ROUTE ; Start 02/12/18 at 07:56; Stop 02/12/18 at 07:57; Status DC Cefazolin Sodium (Ancef Inj) 2,000 mg STK-MED ONCE .ROUTE Last administered on 02/12/18at 08:03; Start 02/12/18 at 07:56; Stop 02/12/18 at 07:57; Status DC Lidocaine HCl (Xylocaine 2% Inj) 50 ml STK-MED ONCE .ROUTE Last administered on 02/12/18at 08:00; Start 02/12/18 at 08:00; Stop 02/12/18 at 08:01; Status DC Bacitracin (Bacitracin Oint Packet) 0.9 gm UNSCH PRN TOP SEE LABEL COMMENTS; Start 02/12/18 at 09:30 Sodium Chloride (NS Flush) 2 ml BID IV FLUSH Last administered on 02/15/18at 08: 15; Start 02/12/18 at 21:00 Sodium Chloride (NS Flush) 2 ml UNSCH PRN IV FLUSH FLUSH AFTER USING IV ACCESS ; Start 02/12/18 at 09:30 Iohexol (Omnipaque 350 Inj) 50 ml STK-MED ONCE IVCONTRAST Last administered on 02/10/18at 03:53; Start 02/10/18 at 03:53; Stop 02/12/18 at 13:49; Status DC Fentanyl Citrate (fentaNYL INJ) 250 mcg STK-MED ONCE .ROUTE ; Start 02/13/18 at 09:54; Stop 02/13/18 at 09:55; Status DC Cefazolin Sodium (Ancef Inj) 2,000 mg STK-MED ONCE .ROUTE Last administered on 02/13/18at 10:45; Start 02/13/18 at 09:57; Stop 02/13/18 at 09:58; Status DC Gentamicin Sulfate (Gentamicin Inj) 240 mg STK-MED ONCE .ROUTE Last administered on 02/13/18at 09:58; Start 02/13/18 at 09:58; Stop 02/13/18 at 09:59 ; Status DC Enoxaparin Sodium (Lovenox Inj) 30 mg Q24H SQ Last administered on 02/15/18at 10 :08; Start 02/14/18 at 11:00 Cefazolin Sodium 1000 mg/Sodium Chloride 100 ml @ 200 mls/hr Q8H IV Last administered on 02/14/18at 10:34; Start 02/13/18 at 19:00; Stop 02/14/18 at 11:29 ; Status DC Acetaminophen/ Hydrocodone Bitart ([place] 7.5-325 Mg) 1 tab Q3H PRN PO pain 3< 10; Start 02/13/18 at 12:00 Cholecalciferol (Vitamin D3) 5,000 units DAILY PO Last administered on at 08:16; Start 02/14/18 at 09:00 Ergocalciferol (Drisdol) 50,000 units ONCE ONCE PO Last administered on at 16:01; Start 02/13/18 at 12:00; Stop 02/13/18 at 12:10; Status DC Amiodarone HCl (Cordarone Inj) 150 mg STK-MED ONCE .ROUTE ; Start 02/13/18 at 18 :12; Stop 02/13/18 at 18:13; Status DC Amiodarone HCl 150 mg/Dextrose 100 ml @ 600 mls/hr NOW ONCE IV Last administered on 02/13/18at 18:25; Start 02/13/18 at 19:00; Stop 02/13/18 at 19:09 ; Status DC Lactated Ringer's 500 ml @ 0 mls/hr BOLUS ONCE IV Last administered on at 18:45; Start 02/13/18 at 18:45; Stop 02/13/18 at 18:46; Status DC Lactulose (Lactulose Liq) 30 ml DAILY PO Last administered on 02/15/18at 08:16; Start 02/14/18 at 09:00 Amiodarone HCl (Cordarone) 400 mg Q12HR PO Last administered on 02/15/18at 08:16 ; Start 02/14/18 at 13:30 Furosemide (Lasix Inj) 20 mg DAILY IV PUSH Last administered on 02/15/18at 10:08 ; Start 02/15/18 at 09:15; Stop 02/20/18 at 08:59 (Nasir Landers MD) Medical Decision Making MDM Remarks 87 y/o female trauma alert, sustained a fall on the driveway acute T11 fracture right hemopneumothorax right-sided rib fractures bilateral intertrochanteric fractures on the femur acute left humerus fracture s/p pacemaker placement s/p fixation of b/l intertrochanteric fractures (Raven Ku) Plan Plan Remarks cont trauma management nonoperative treatment of thoracic fracture at this time (Raven Ku) Attending Statement Ms Cruz is status post placement of a pacemaker today by a bowling ball patcher Continue neuro checks T11 fracture. Nonoperative treatment with bed rest for now. if her condition improves TLSO brace Bilateral hip fractures. Status post nail internal fixation Left shoulder fracture.Continue nonoperative treatment per orthopedics Multiple rib fractures. .Continue narcotic analgesics for pain control hemopneumothorax. Status post chest tube Pulmonary. .Continue mechanical ventilation for acute respiratory failure, aggressive pulmonary toilette, nasotracheal suction, and breathing treatments with nebulizers. PT and OT eval Renal. .Continue to monitor closely urine output, BUN and creatinine Endocrine. .Continue to Monitor serial Acu checks and SSI as needed in detail ID .Continue to monitor for signs of infection .Continue Protonix for stress ulcer prophylaxis Continue Farrukh hose and SCD's for DVT prophylaxis The exam, history, and the medical decision-making described in the above note were completed with the assistance of the mid-level provider. I reviewed and agree with the findings presented. I attest that I had a [id number] encounter with the patient on the same day, and personally performed and documented my assessment and findings in the medical record. (Nasir Landers MD) Raven Ku Feb 14, 2018 09:43 Nasir Landers MD Feb 14, 2018 16:37
[2018-02-14] MEDS: ENOXAPARIN SODIUM 30 MG/0.3 ML SYRINGE SQ SCH (10:34)
--- NOTE | 2018-02-14 12:52 | PD.CARD.PN ---
Subjective Subjective Remarks Sedated Objective Medications Current Medications Medications (Trade) Dose Ordered Sig/Mackenzie Route Start Time Stop Time Status Last Admin (NS Flush) 2 ml UNSCH PRN IV FLUSH 02/10/18 04:15 (Vasotec Inj) 1.25 mg Q8H PRN IV PUSH 02/10/18 04:15 (Zofran Inj) 4 mg Q6H PRN IV PUSH 02/10/18 04:15 (Protonix Inj) 40 mg Q24H IVP 02/10/18 05:00 02/14/18 05:04 (Colace) 100 mg BID PO 02/10/18 09:00 02/14/18 09:30 Miscellaneous Information 1 Q361D XX 02/10/18 04:15 02/10/18 04:15 (Chlorhexidine 2% Cloth) 3 pack Taper DAILY@04 TOP 02/11/18 04:00 02/07/19 03:59 (Chlorhexidine 2% Cloth) 3 pack UNSCH PRN TOP 02/10/18 04:15 Potassium Chloride 100 ml @ 50 mls/hr Q2H PRN IV 02/10/18 06:30 Potassium Chloride 100 ml @ 50 mls/hr Q2H PRN IV 02/10/18 06:30 02/14/18 09:30 Potassium Chloride 100 ml @ 25 mls/hr UNSCH PRN IV 02/10/18 06:30 02/13/18 07:36 Potassium Chloride 100 ml @ 50 mls/hr Q2H PRN IV 02/10/18 06:30 Magnesium Sulfate 4 gm/Sodium Chloride 100 ml @ 50 mls/hr UNSCH PRN IV 02/10/18 06:30 (Mag-Ox) 800 mg UNSCH PRN PO 02/10/18 06:30 Magnesium Sulfate 2 gm/Sodium Chloride 100 ml @ 50 mls/hr UNSCH PRN IV 02/10/18 06:30 02/10/18 22:57 (K-Phos) 2,000 mg Q4H PRN PO 02/10/18 06:30 Sodium Phosphate 30 mmol/Sodium Chloride 250 ml @ 42 mls/hr UNSCH PRN IV 02/10/18 06:30 (K-Phos) 2,000 mg UNSCH PRN PO/TUBE 02/10/18 06:30 Potassium Phosphate 30 mmol/ Sodium Chloride 260 ml @ 42 mls/hr UNSCH PRN IV 02/10/18 06:30 02/10/18 22:56 (KCl Powder) 40 meq DAILY PRN PO 02/10/18 06:30 (Peridex 0.12% Liq) 15 ml BID@08,20 MT 02/10/18 08:00 02/14/18 08:00 Fentanyl Citrate 250 ml @ 5 mls/hr TITRATE PRN IV 02/10/18 08:00 02/14/18 05:30 Potassium Chloride 100 ml @ 50 mls/hr Q2H PRN IV 02/10/18 09:15 02/12/18 06:19 Potassium Chloride 100 ml @ 50 mls/hr Q2H PRN IV 02/10/18 09:15 (K-Lyte Cl Eff) 50 meq UNSCH PRN PO 02/10/18 09:15 Potassium Chloride 100 ml @ 25 mls/hr UNSCH PRN IV 02/10/18 09:15 Potassium Chloride 100 ml @ 50 mls/hr Q2H PRN IV 02/10/18 09:15 Magnesium Sulfate 4 gm/Sodium Chloride 100 ml @ 50 mls/hr UNSCH PRN IV 02/10/18 09:15 (Mag-Ox) 800 mg UNSCH PRN PO 02/10/18 09:15 Magnesium Sulfate 2 gm/Sodium Chloride 100 ml @ 50 mls/hr UNSCH PRN IV 02/10/18 09:15 (K-Phos) 2,000 mg Q4H PRN PO 02/10/18 09:15 Sodium Phosphate 30 mmol/Sodium Chloride 250 ml @ 42 mls/hr UNSCH PRN IV 02/10/18 09:15 (K-Phos) 2,000 mg UNSCH PRN PO/TUBE 02/10/18 09:15 Potassium Phosphate 30 mmol/ Sodium Chloride 260 ml @ 42 mls/hr UNSCH PRN IV 02/10/18 09:15 Norepinephrine Bitartrate 250 ml @ 7.5 mls/hr TITRATE PRN IV 02/10/18 19:45 02/14/18 05:08 Phenylephrine HCl 40 mg/Dextrose 500 ml @ 30 mls/hr TITRATE PRN IV 02/10/18 19:45 02/11/18 05:38 Sodium Chloride 1,000 ml @ 100 mls/hr Q10H IV 02/10/18 23:00 02/14/18 04:53 Midazolam HCl 100 ml @ 2 mls/hr TITRATE PRN IV 02/11/18 09:30 02/12/18 22:18 Propofol 100 ml @ 2.391 mls/ hr TITRATE PRN IV 02/11/18 09:45 Vancomycin HCl 1000 mg/Sodium Chloride 250 ml @ 250 mls/hr AIRPLANE PILOT CROP DUSTING IV 02/11/18 10:00 02/15/18 09:59 02/13/18 11:07 (Betadine 5% Antisepsis Kit) 1 applic AIRPLANE PILOT CROP DUSTING EACH NARE 02/11/18 10:00 02/15/18 09:59 (Bactroban Nasal 2% Oint) 1 applic AIRPLANE PILOT CROP DUSTING NASAL 02/11/18 10:00 02/15/18 09:59 (Chlorhexidine 2% Cloth) 3 pack AIRPLANE PILOT CROP DUSTING TOP 02/11/18 10:00 02/15/18 09:59 (Milk Of Magnesia Liq) 30 ml BID PO 02/11/18 21:00 02/14/18 09:30 (Duoneb Neb) 1 ampule Q6HR NEB NEB 02/11/18 22:00 02/14/18 08:01 (Duoneb Neb) 1 ampule Q2HR NEB PRN NEB 02/11/18 19:45 Amiodarone HCl 450 mg/Sodium Chloride 250 ml @ 33.33 mls/ hr TITRATE PRN IV 02/12/18 03:15 02/14/18 04:54 (Bacitracin Oint Packet) 0.9 gm UNSCH PRN TOP 02/12/18 09:30 (NS Flush) 2 ml BID IV FLUSH 02/12/18 21:00 02/13/18 07:36 (NS Flush) 2 ml UNSCH PRN IV FLUSH 02/12/18 09:30 (Lovenox Inj) 30 mg Q24H SQ 02/14/18 11:00 02/14/18 10:34 ([place] 7.5-325 Mg) 1 tab Q3H PRN PO 02/13/18 12:00 (Vitamin D3) 5,000 units DAILY PO 02/14/18 09:00 02/14/18 09:30 (Lactulose Liq) 30 ml DAILY PO 02/14/18 09:00 02/14/18 09:00 Vital Signs / I&O Vital Signs Date Time Temp Pulse Resp B/P (MAP) Pulse Ox O2 Delivery O2 Flow Rate FiO2 02/14/18 12:00 79 02/14/18 12:00 99.2 75 12 111/58 (75) 98 02/14/18 12:00 35 02/14/18 11:16 98 35 02/14/18 10:00 71 02/14/18 08:02 98 35 02/14/18 08:00 84 02/14/18 08:00 35 02/14/18 08:00 98.1 79 12 106/55 (72) 98 02/14/18 06:00 64 02/14/18 05:08 71 100/53 02/14/18 04:54 69 105/52 02/14/18 04:00 35 02/14/18 04:00 68 02/14/18 04:00 98.2 80 12 112/57 (75) 99 02/14/18 03:22 98 35 02/14/18 02:00 74 02/14/18 00:08 98 35 02/14/18 00:00 99.1 78 12 125/65 (85) 98 02/14/18 00:00 77 02/14/18 00:00 35 02/13/18 22:00 72 02/13/18 20:27 97 35 02/13/18 20:00 99.6 81 12 112/82 (92) 96 02/13/18 20:00 84 02/13/18 20:00 35 02/13/18 19:38 99.6 83 12 100/51 95 02/13/18 18:52 127 135/71 02/13/18 18:45 98.4 114 12 121/70 94 02/13/18 18:31 99.6 120 12 100/52 97 02/13/18 18:25 92 94/57 02/13/18 18:00 114 02/13/18 16:39 100 35 02/13/18 16:00 89 02/13/18 16:00 35 02/13/18 16:00 98.7 107 12 115/54 (74) 98 02/13/18 14:00 78 I/O 02/13/18 02/13/18 02/13/18 02/14/1818 4/13/18 07:00 15:00 23:00 07:00 15:00 23:00 Intake Total 1363 ml 456 ml 2130 ml Output Total 720 ml 350 ml 875 ml 800 ml Balance -720 ml 1013 ml -419 ml 1330 ml Intake IV Total 1750 ml Tube Feeding 56 ml 320 ml Packed Cells 400 ml 400 ml Platelets 663 ml Tube Irrigant 60 ml Other 300 ml Output Urine Total 600 ml 300 ml 725 ml 650 ml Gastric Drainage Total 50 ml Chest Tube Drainage Total 70 ml 150 ml 150 ml Estimated Blood Loss 50 ml # Bowel Movements 0 0 0 Physical Exam sedated Chest: no wheezes/rales CV S1S2 RRR with 1-2/6 MORELIA Abd soft No edema Tele: converted out of afib Troponin down Laboratory Laboratory Tests Test 02/13/18 16:30 02/14/18 03:28 02/14/18 05:36 White Blood Count 6.3 TH/MM3 7.8 TH/MM3 Red Blood Count 3.00 MIL/MM3 3.13 MIL/MM3 Hemoglobin 9.0 GM/DL 9.5 GM/DL Hematocrit 26.5 % 27.6 % Mean Corpuscular Volume 88.3 FL 88.1 FL Mean Corpuscular Hemoglobin 29.9 PG 30.4 PG Mean Corpuscular Hemoglobin Concent 33.9 % 34.5 % Red Cell Distribution Width 16.7 % 16.7 % Platelet Count 130 TH/MM3 137 TH/MM3 Mean Platelet Volume 7.9 FL 8.1 FL Blood Urea Nitrogen 8 MG/DL 9 MG/DL Creatinine 0.29 MG/DL 0.30 MG/DL Random Glucose 95 MG/DL 147 MG/DL Calcium Level 8.3 MG/DL 8.2 MG/DL Sodium Level 143 MEQ/L 143 MEQ/L Potassium Level 3.6 MEQ/L 3.2 MEQ/L Chloride Level 112 MEQ/L 112 MEQ/L Carbon Dioxide Level 27.9 MEQ/L 26.1 MEQ/L Anion Gap 3 MEQ/L 5 MEQ/L Estimat Glomerular Filtration Rate 219 ML/MIN 211 ML/MIN Blood Gas Puncture Site ART LINE Blood Gas Patient Temperature 98.6 Blood Gas HCO3 24 mmol/L Blood Gas Base Excess 0.4 mmol/L Blood Gas Oxygen Saturation 96 % Arterial Blood pH 7.42 Arterial Blood Partial Pressure CO2 38 mmHg Arterial Blood Partial Pressure O2 119 mmHg Arterial Blood Oxygen Content 12.5 Vol % Arterial Blood Carboxyhemoglobin 2.3 % Arterial Blood Methemoglobin 0.9 % Blood Gas Hemoglobin 9.1 G/DL Oxygen Delivery Device VENTILATOR Blood Gas Ventilator Setting PRVC/AC Blood Gas Inspired Oxygen 35 % Neutrophils (%) (Auto) 75.2 % Lymphocytes (%) (Auto) 7.1 % Monocytes (%) (Auto) 16.4 % Eosinophils (%) (Auto) 0.9 % Basophils (%) (Auto) 0.4 % Neutrophils # (Auto) 5.8 TH/MM3 Lymphocytes # (Auto) 0.6 TH/MM3 Monocytes # (Auto) 1.3 TH/MM3 Eosinophils # (Auto) 0.1 TH/MM3 Basophils # (Auto) 0.0 TH/MM3 CBC Comment AUTO DIFF Differential Total Cells Counted 100 Neutrophils % (Manual) 63 % Band Neutrophils % 18 % Lymphocytes % 6 % Monocytes % 9 % Eosinophils % 4 % Neutrophils # (Manual) 6.3 TH/MM3 Differential Comment FINAL DIFF MANUAL Dohle Bodies PRESENT Platelet Estimate NORMAL Platelet Morphology Comment NORMAL Polychromasia 2.0 % Total Protein 4.3 GM/DL Albumin 1.6 GM/DL Magnesium Level 2.0 MG/DL Alkaline Phosphatase 66 U/L Aspartate Amino Transf (AST/SGOT) 20 U/L Alanine Aminotransferase (ALT/SGPT) 13 U/L Total Bilirubin 1.9 MG/DL Troponin I 0.20 NG/ML Imaging Last 24 hours Impressions Chest X-Ray 02/14/18 0600 Signed Impressions: Service Date/Time: Wednesday, February 14, 2018 03:02 - CONCLUSION: Slight interval worsening in aeration Deondre Barcenas MD Assessment and Plan Problem List: (1) Trauma ICD Codes: T14.90XA - Injury, unspecified, initial encounter (2) Syncope ICD Codes: R55 - Syncope and collapse (3) Sinus pause ICD Codes: I45.5 - Other specified heart block (4) Pacemaker ICD Codes: Z95.0 - Presence of cardiac pacemaker (5) Elevated troponin ICD Codes: R74.8 - Abnormal levels of other serum enzymes (6) Paroxysmal atrial fibrillation ICD Codes: I48.0 - Paroxysmal atrial fibrillation Plan: Fletcher Pelayo MD Feb 14, 2018 12:52
--- NOTE | 2018-02-14 13:02 | HHI.CCPN ---
Subjective Brief History This is a 87 year old female who presents to the [facility] emergency department as a transfer from [facility] as a trauma alert. Apparently patient sustained a fall on the driveway at approximately 9 PM last night. Patient was transferred to [facility] and underwent workup and when it was finally noted that patient had severe injuries we were asked to accept the patient as trauma transfer. Patient arrives around 6 AM and according to Dr. oMnae initially patient is hemodynamically stable but then continues to deteriorate including multifocal supraventricular arrhythmias. Patient undergoes repeat CT scan of the chest and abdomen and is transferred to ICU for further care. Final injuries are Right lower rib fractures with a hemopneumothorax / chest tube placement and 1200 mL of blood out in the chest tube. Bilateral intratrochanteric hip fractures Left proximal humerus fracture T11 fracture Multiple old fractures of the thoracic spine and several lumbar spine fractures with kyphoplasties Supraventricular cardiac arrhythmias ischemic cardiomyopathy Hypotensive shock Metabolic acidosis anion gap In the process patient dropped hemoglobin from 12 g/dL initially to 7 g/dL few hours later. She received several units of PRBCs and was resuscitated Required vasopressors including Levophed and Gonzalo-Synephrine 24 Hour Review/Hospital Course 02/10/2018 Patient was initially unstable but now has stabilized hemodynamically Remains intubated ventilated Medical range master help greatly appreciated 02/11/2018 Patient with a devastating traumatic injuries post fall She has been slowly stabilizing overnight with hemodynamic improvement and decreasing vasopressors Remains mildly sedated on propofol however we will switch this to Versed in face of cardio depressant effect of propofol Evaluated by cardiology for periods of bradycardia It is my opinion that patient had a myocardial infarction process as a result of combination of the trauma hypoxia on the scene anemia and hemorrhagic shock Troponins elevated 02/12 Patient underwent pacemaker insertion today by cardiology-she spontaneously converted to sinus rhythm the cardiac lab She is got thrombocytopenia- believe is likely related to blood loss/SIRS She remains on low-dose Levophed-I believe she is euvolemic-obtain Flowtrack for more exact measurement She had an NV versus blunt cardiac injury She has multitrauma with this overall poor prognosis secondary to her age with low reserve 02/13 OR today-IM nailing x2 transfuse 1U PRBC,1U plt low dose levophed off amiodarone uo adequate partial DNR as per family remains SR 02/14/2018 Patient remains intubated and ventilated Successful bilateral intratrochanteric fracture nailing yesterday Patient sedated on fentanyl Versed but minimal amounts with very low Rishi Coma Scale Hemodynamically stable although requiring small dose Levophed Pacemaker maintaining paced rhythm but patient developed A. fib on top of it so amiodarone has been restarted Gradually switch antiarrhythmics to p.o. form Aamir - cardiac output remains around 4-5 L which is quite admirable and SVR around 1100 Bilateral breath signs remains ventilatory dependent in face of pulmonary contusion and a severe chest trauma not ready to come off the respirator Abdomen soft Renal function preserved Extensive discussions with family and it is clear that this patient will be here long-term and will be difficult to extubate Hopefully she will not require tracheostomy however patient at this point does not have either the lung function or the level of consciousness sufficient to extubate In the face of age and extensive injuries prognosis remains very poor and 30 day mortality is extremely high Objective Vital Signs Date Time Temp Pulse Resp B/P (MAP) Pulse Ox O2 Delivery O2 Flow Rate FiO2 02/14/18 12:00 79 02/14/18 12:00 99.2 12 111/58 (75) 98 02/14/18 12:00 35 02/12/18 10:00 Mechanical Ventilator Intake and Output 02/14/18 02/14/18 02/15/18 08:00 16:00 00:00 Intake Total 2130 ml Output Total 800 ml Balance 1330 ml Result Diagram: 02/14/18 0536 02/14/18 0536 Other Results Laboratory Tests Test 02/14/18 03:28 Blood Gas Puncture Site ART LINE Blood Gas Patient Temperature 98.6 Blood Gas HCO3 24 mmol/L (22-26) Blood Gas Base Excess 0.4 mmol/L (-2-2) Blood Gas Oxygen Saturation 96 % (90-100) Arterial Blood pH 7.42 (7.380-7.420) Arterial Blood Partial Pressure CO2 38 mmHg (38-42) Arterial Blood Partial Pressure O2 119 mmHg (61-120) Arterial Blood Oxygen Content 12.5 Vol % (12.0-20.0) Arterial Blood Carboxyhemoglobin 2.3 % (0-4) Arterial Blood Methemoglobin 0.9 % (0-2) Blood Gas Hemoglobin 9.1 G/DL (12.0-16.0) Oxygen Delivery Device VENTILATOR Blood Gas Ventilator Setting PRVC/AC Blood Gas Inspired Oxygen 35 % Imaging Last 24 hours Impressions Chest X-Ray 02/14/18 0600 Signed Impressions: Service Date/Time: Wednesday, February 14, 2018 03:02 - CONCLUSION: Slight interval worsening in aeration Deondre Barcenas MD Exam [employer] Patient remains intubated and ventilated Successful bilateral intratrochanteric fracture nailing yesterday Patient sedated on fentanyl Versed but minimal amounts with very low Rishi Coma Scale Hemodynamic/Cardiac Hemodynamically stable although requiring small dose Levophed Pacemaker maintaining paced rhythm but patient developed A. fib on top of it so amiodarone has been restarted Gradually switch antiarrhythmics to p.o. form Aamir - cardiac output remains around 4-5 L which is quite admirable and SVR around 1100 Pulmonary/Respiratory Bilateral breath signs remains ventilatory dependent in face of pulmonary contusion and a severe chest trauma not ready to come off the respirator Chest tube drainage decreased and serous in nature Remains on assist control ventilation 35% FiO2 with good PO2 FiO2 gradient Abdomen/GI Nutrition Abdomen soft Renal/I&O Patient isRenal function preserved Assessment and Plan Plan Patient overall stable Hope to wean off Levophed after transfusion of RBC and platelet Patient has been cleared by cardiology to go to the OR for IM nailing- I had a long discussion with the family today regarding patient's overall poor prognosis secondary to low reserves on trauma patient , who are elderly I doubt that patient will be weanable postop Attestation Extensive discussions with family and it is clear that this patient will be here long-term and will be difficult to extubate Hopefully she will not require tracheostomy however patient at this point does not have either the lung function or the level of consciousness sufficient to extubate In the face of age and extensive injuries prognosis remains very poor and 30 day mortality is extremely high Critical care time 32 minutes Praveen Bennett MD Feb 14, 2018 13:02
[2018-02-14] MEDS: AMIODARONE 200 MG TAB PO SCH ×2 (13:44→20:20)
--- NOTE | 2018-02-14 17:10 | HHI.HCPN ---
Reason for visit a. To assist with evaluation and management of symptoms including: Dyspnea, pain b. To assist medical decision maker(s) with: better understanding of current medical conditions; weighing benefits/burdens of medical treatment options; making medical treatment decisions. Subjective/Interval History Patient seen to follow-up on goals of care and symptom management. Patient seen and surgical ICU. She remains endotracheally intubated on mechanical ventilation. Sedation has been discontinued, currently on fentanyl for pain management. Patient status 1 day post bilateral hip reduction and intramedullary nailing. Clinical course complicated by atrial fibrillation with RVR, she was placed on amiodarone drip. Remains on levo fed for hypertension. Currently 35% FiO2, chest x-ray today revealing slight interval worsening in aeration. Plan is to start CPAP trials tomorrow as tolerated by patient. Laboratory workup revealing WBC 7.8, Hgb stable at 9.5 status post transfusion of 1 PRBC, platelet 137 status post transfusion of 2 packs. Case discussed with bedside RN. . Family/friend interactions Met with patient's Gregory and sons Silverio and Adryan and daughter Rachel. Medical update provided. Family would a very good understanding of patient's clinical condition, current clinical management and plan. Family reports that they had a very good conversation with Dr. Pascual earlier today. Family verbalized understanding that patient's clinical course will be long, likely difficult to medically extubate. Reviewed that patient remains at a very high risk for further complications, continued decline and . Family wishing to revise code status to exclude defibrillation and chest compressions. Overall prognosis remains very poor. . Advance Directives Living Will: Copy in medical record Health Care Surrogate: Copy in medical record Durable Power of Executive Coordinator: Never completed Advance Directive Specifics Health Care Surrogate(s): My discussion with her daughter, patient's is the primary healthcare surrogate followed by her 3 children serving as joint alternate surrogates. . Documented care wishes: Living will completed, not available at this time. Significant change in goals: Aggressive management short of no chest compressions and defibrillation. . Objective Vital Signs Date Time Temp Pulse Resp B/P (MAP) Pulse Ox O2 Delivery O2 Flow Rate FiO2 02/14/18 16:23 99 35 02/14/18 16:15 77 108/53 02/14/18 16:00 79 02/14/18 14:00 78 02/14/18 12:00 79 02/14/18 12:00 99.2 75 12 111/58 (75) 98 02/14/18 12:00 35 02/14/18 11:16 98 35 02/14/18 10:00 71 02/14/18 08:02 98 35 02/14/18 08:00 84 02/14/18 08:00 35 02/14/18 08:00 98.1 79 12 106/55 (72) 98 02/14/18 06:00 64 02/14/18 05:08 71 100/53 02/14/18 04:54 69 105/52 02/14/18 04:00 35 02/14/18 04:00 68 02/14/18 04:00 98.2 80 12 112/57 (75) 99 02/14/18 03:22 98 35 02/14/18 02:00 74 02/14/18 00:08 98 35 02/14/18 00:00 99.1 78 12 125/65 (85) 98 02/14/18 00:00 77 02/14/18 00:00 35 02/13/18 22:00 72 02/13/18 20:27 97 35 02/13/18 20:00 99.6 81 12 112/82 (92) 96 02/13/18 20:00 84 02/13/18 20:00 35 02/13/18 19:38 99.6 83 12 100/51 95 02/13/18 18:52 127 135/71 02/13/18 18:45 98.4 114 12 121/70 94 02/13/18 18:31 99.6 120 12 100/52 97 02/13/18 18:25 92 94/57 02/13/18 18:00 114 Intake & Output 02/14/18 02/14/18 06:59 18:59 Intake Total 2530 ml Output Total 800 ml Balance 1730 ml Intake IV Total 1750 ml Tube Feeding 320 ml Packed Cells 400 ml Tube Irrigant 60 ml Output Urine Total 650 ml Chest Tube Drainage Total 150 ml # Bowel Movements 0 Physical Exam CONSTITUTIONAL/GENERAL: This is an adequately nourished patient, intubated, sedated in no apparent distress. TUBES/LINES/DRAINS: Right radial arterial line, left hand PIV, right ACF PIV, ET tube, right chest tube, right subclavian triple-lumen, Crawford catheter NECK: Trachea midline. Supple without palpable thyroid enlargement or nodularity. CARDIOVASCULAR: Regular rate and rhythm without gallops, or rubs. 1/6 MORELIA. No JVD. Peripheral pulses symmetric. RESPIRATORY/CHEST: Mechanically ventilated, breath sounds coarse, diminished right greater than left. Chest tube intact to right chest wall without air leak. Some crepitus noted. GASTROINTESTINAL: Abdomen soft, nondistended. Bowel sounds present. GENITOURINARY: Without palpable bladder distension. Crawford catheter in place. MUSCULOSKELETAL: Extremities without clubbing, cyanosis. 1-2+ edema. No mottling or clubbing. NEUROLOGICAL: Intubated, sedated. PSYCHIATRIC: Sedated. . Diagnostic Tests Laboratory Laboratory Tests Test 02/12/18 02:34 02/12/18 03:10 02/12/18 03:31 02/13/18 03:29 White Blood Count 11.6 TH/MM3 (4.0-11.0) Red Blood Count 3.41 MIL/MM3 (4.00-5.30) Hemoglobin 10.0 GM/DL (11.6-15.3) Hematocrit 29.5 % (35.0-46.0) Mean Corpuscular Volume 86.6 FL (80.0-100.0) Mean Corpuscular Hemoglobin 29.4 PG (27.0-34.0) Mean Corpuscular Hemoglobin Concent 33.9 % (32.0-36.0) Red Cell Distribution Width 17.2 % (11.6-17.2) Platelet Count 69 TH/MM3 (150-450) Mean Platelet Volume 8.8 FL (7.0-11.0) Neutrophils (%) (Auto) 82.6 % (16.0-70.0) Lymphocytes (%) (Auto) 8.7 % (9.0-44.0) Monocytes (%) (Auto) 8.3 % (0.0-8.0) Eosinophils (%) (Auto) 0.1 % (0.0-4.0) Basophils (%) (Auto) 0.3 % (0.0-2.0) Neutrophils # (Auto) 9.6 TH/MM3 (1.8-7.7) Lymphocytes # (Auto) 1.0 TH/MM3 (1.0-4.8) Monocytes # (Auto) 1.0 TH/MM3 (0-0.9) Eosinophils # (Auto) 0.0 TH/MM3 (0-0.4) Basophils # (Auto) 0.0 TH/MM3 (0-0.2) CBC Comment AUTO DIFF Differential Comment AUTO DIFF CONFIRMED Platelet Estimate LOW (NORMAL) Platelet Morphology Comment NORMAL (NORMAL) Blood Urea Nitrogen 9 MG/DL (7-18) Creatinine 0.28 MG/DL (0.50-1.00) Random Glucose 126 MG/DL (74-106) Total Protein 4.4 GM/DL (6.4-8.2) Albumin 2.1 GM/DL (3.4-5.0) Calcium Level 7.8 MG/DL (8.5-10.1) Magnesium Level 1.9 MG/DL (1.5-2.5) Alkaline Phosphatase 54 U/L (45-117) Aspartate Amino Transf (AST/SGOT) 22 U/L (15-37) Alanine Aminotransferase (ALT/SGPT) 15 U/L (10-53) Total Bilirubin 1.5 MG/DL (0.2-1.0) Sodium Level 141 MEQ/L (136-145) Potassium Level 3.0 MEQ/L (3.5-5.1) Chloride Level 110 MEQ/L (98-107) Carbon Dioxide Level 23.9 MEQ/L (21.0-32.0) Anion Gap 7 MEQ/L (5-15) Estimat Glomerular Filtration Rate 228 ML/MIN (>89) Prothrombin Time 11.9 SEC (9.8-11.6) Prothromb Time International Ratio 1.2 RATIO Activated Partial Thromboplast Time 32.3 SEC (24.3-30.1) Blood Gas Puncture Site ART LINE ART LINE Blood Gas Patient Temperature 98.6 98.6 Blood Gas HCO3 21 mmol/L (22-26) 23 mmol/L (22-26) Blood Gas Base Excess -3.1 mmol/L (-2-2) -1.0 mmol/L (-2-2) Blood Gas Oxygen Saturation 96 % (90-100) 97 % (90-100) Arterial Blood pH 7.41 (7.380-7.420) 7.44 (7.380-7.420) Arterial Blood Partial Pressure CO2 34 mmHg (38-42) 33 mmHg (38-42) Arterial Blood Partial Pressure O2 106 mmHg (61-120) 139 mmHg (61-120) Arterial Blood Oxygen Content 12.6 Vol % (12.0-20.0) 10.2 Vol % (12.0-20.0) Arterial Blood Carboxyhemoglobin 1.6 % (0-4) 1.9 % (0-4) Arterial Blood Methemoglobin 0.9 % (0-2) 0.7 % (0-2) Blood Gas Hemoglobin 9.2 G/DL (12.0-16.0) 7.2 G/DL (12.0-16.0) Oxygen Delivery Device VENT VENTILATOR Blood Gas Ventilator Setting SEE COMMENTS PRVC/AC Blood Gas Inspired Oxygen 35 % 35 % Test 02/13/18 05:17 02/13/18 11:18 02/13/18 16:30 02/14/18 03:28 White Blood Count 6.4 TH/MM3 (4.0-11.0) 6.9 TH/MM3 (4.0-11.0) 6.3 TH/MM3 (4.0-11.0) Red Blood Count 2.92 MIL/MM3 (4.00-5.30) 2.87 MIL/MM3 (4.00-5.30) 3.00 MIL/MM3 (4.00-5.30) Hemoglobin 8.9 GM/DL (11.6-15.3) 8.7 GM/DL (11.6-15.3) 9.0 GM/DL (11.6-15.3) Hematocrit 25.8 % (35.0-46.0) 25.3 % (35.0-46.0) 26.5 % (35.0-46.0) Mean Corpuscular Volume 88.2 FL (80.0-100.0) 88.2 FL (80.0-100.0) 88.3 FL (80.0-100.0) Mean Corpuscular Hemoglobin 30.5 PG (27.0-34.0) 30.3 PG (27.0-34.0) 29.9 PG (27.0-34.0) Mean Corpuscular Hemoglobin Concent 34.6 % (32.0-36.0) 34.4 % (32.0-36.0) 33.9 % (32.0-36.0) Red Cell Distribution Width 17.0 % (11.6-17.2) 17.3 % (11.6-17.2) 16.7 % (11.6-17.2) Platelet Count 76 TH/MM3 (150-450) 137 TH/MM3 (150-450) 130 TH/MM3 (150-450) Mean Platelet Volume 8.2 FL (7.0-11.0) 7.6 FL (7.0-11.0) 7.9 FL (7.0-11.0) Neutrophils (%) (Auto) 77.2 % (16.0-70.0) 76.7 % (16.0-70.0) Lymphocytes (%) (Auto) 10.4 % (9.0-44.0) 9.9 % (9.0-44.0) Monocytes (%) (Auto) 12.1 % (0.0-8.0) 12.7 % (0.0-8.0) Eosinophils (%) (Auto) 0.0 % (0.0-4.0) 0.5 % (0.0-4.0) Basophils (%) (Auto) 0.3 % (0.0-2.0) 0.2 % (0.0-2.0) Neutrophils # (Auto) 4.9 TH/MM3 (1.8-7.7) 5.3 TH/MM3 (1.8-7.7) Lymphocytes # (Auto) 0.7 TH/MM3 (1.0-4.8) 0.7 TH/MM3 (1.0-4.8) Monocytes # (Auto) 0.8 TH/MM3 (0-0.9) 0.9 TH/MM3 (0-0.9) Eosinophils # (Auto) 0.0 TH/MM3 (0-0.4) 0.0 TH/MM3 (0-0.4) Basophils # (Auto) 0.0 TH/MM3 (0-0.2) 0.0 TH/MM3 (0-0.2) CBC Comment AUTO DIFF DIFF FINAL Differential Comment AUTO DIFF CONFIRMED Platelet Estimate LOW (NORMAL) Platelet Morphology Comment NORMAL (NORMAL) Blood Urea Nitrogen 7 MG/DL (7-18) 8 MG/DL (7-18) Creatinine 0.35 MG/DL (0.50-1.00) 0.29 MG/DL (0.50-1.00) Random Glucose 95 MG/DL (74-106) 95 MG/DL (74-106) Total Protein 4.4 GM/DL (6.4-8.2) Albumin 1.9 GM/DL (3.4-5.0) Calcium Level 8.2 MG/DL (8.5-10.1) 8.3 MG/DL (8.5-10.1) Magnesium Level 1.9 MG/DL (1.5-2.5) Alkaline Phosphatase 59 U/L (45-117) Aspartate Amino Transf (AST/SGOT) 20 U/L (15-37) Alanine Aminotransferase (ALT/SGPT) 12 U/L (10-53) Total Bilirubin 1.9 MG/DL (0.2-1.0) Sodium Level 143 MEQ/L (136-145) 143 MEQ/L (136-145) Potassium Level 3.4 MEQ/L (3.5-5.1) 3.6 MEQ/L (3.5-5.1) Chloride Level 112 MEQ/L (98-107) 112 MEQ/L (98-107) Carbon Dioxide Level 24.8 MEQ/L (21.0-32.0) 27.9 MEQ/L (21.0-32.0) Anion Gap 6 MEQ/L (5-15) 3 MEQ/L (5-15) Estimat Glomerular Filtration Rate 177 ML/MIN (>89) 219 ML/MIN (>89) 25-Hydroxy Vitamin D Total 27.3 ng/ML (30-100) Blood Gas Puncture Site ART LINE Blood Gas Patient Temperature 98.6 Blood Gas HCO3 24 mmol/L (22-26) Blood Gas Base Excess 0.4 mmol/L (-2-2) Blood Gas Oxygen Saturation 96 % (90-100) Arterial Blood pH 7.42 (7.380-7.420) Arterial Blood Partial Pressure CO2 38 mmHg (38-42) Arterial Blood Partial Pressure O2 119 mmHg (61-120) Arterial Blood Oxygen Content 12.5 Vol % (12.0-20.0) Arterial Blood Carboxyhemoglobin 2.3 % (0-4) Arterial Blood Methemoglobin 0.9 % (0-2) Blood Gas Hemoglobin 9.1 G/DL (12.0-16.0) Oxygen Delivery Device VENTILATOR Blood Gas Ventilator Setting [facility]/AC Blood Gas Inspired Oxygen 35 % Test 02/14/18 05:36 White Blood Count 7.8 TH/MM3 (4.0-11.0) Red Blood Count 3.13 MIL/MM3 (4.00-5.30) Hemoglobin 9.5 GM/DL (11.6-15.3) Hematocrit 27.6 % (35.0-46.0) Mean Corpuscular Volume 88.1 FL (80.0-100.0) Mean Corpuscular Hemoglobin 30.4 PG (27.0-34.0) Mean Corpuscular Hemoglobin Concent 34.5 % (32.0-36.0) Red Cell Distribution Width 16.7 % (11.6-17.2) Platelet Count 137 TH/MM3 (150-450) Mean Platelet Volume 8.1 FL (7.0-11.0) Neutrophils (%) (Auto) 75.2 % (16.0-70.0) Lymphocytes (%) (Auto) 7.1 % (9.0-44.0) Monocytes (%) (Auto) 16.4 % (0.0-8.0) Eosinophils (%) (Auto) 0.9 % (0.0-4.0) Basophils (%) (Auto) 0.4 % (0.0-2.0) Neutrophils # (Auto) 5.8 TH/MM3 (1.8-7.7) Lymphocytes # (Auto) 0.6 TH/MM3 (1.0-4.8) Monocytes # (Auto) 1.3 TH/MM3 (0-0.9) Eosinophils # (Auto) 0.1 TH/MM3 (0-0.4) Basophils # (Auto) 0.0 TH/MM3 (0-0.2) CBC Comment AUTO DIFF Differential Total Cells Counted 100 Neutrophils % (Manual) 63 % (16-70) Band Neutrophils % 18 % (0-6) Lymphocytes % 6 % (9-44) Monocytes % 9 % (0-8) Eosinophils % 4 % (0-4) Neutrophils # (Manual) 6.3 TH/MM3 (1.8-7.7) Differential Comment FINAL DIFF MANUAL Dohle Bodies PRESENT (NONE SEEN) Platelet Estimate NORMAL (NORMAL) Platelet Morphology Comment NORMAL (NORMAL) Polychromasia 2.0 % (0.0-1.9) Blood Urea Nitrogen 9 MG/DL (7-18) Creatinine 0.30 MG/DL (0.50-1.00) Random Glucose 147 MG/DL (74-106) Total Protein 4.3 GM/DL (6.4-8.2) Albumin 1.6 GM/DL (3.4-5.0) Calcium Level 8.2 MG/DL (8.5-10.1) Magnesium Level 2.0 MG/DL (1.5-2.5) Alkaline Phosphatase 66 U/L (45-117) Aspartate Amino Transf (AST/SGOT) 20 U/L (15-37) Alanine Aminotransferase (ALT/SGPT) 13 U/L (10-53) Total Bilirubin 1.9 MG/DL (0.2-1.0) Sodium Level 143 MEQ/L (136-145) Potassium Level 3.2 MEQ/L (3.5-5.1) Chloride Level 112 MEQ/L (98-107) Carbon Dioxide Level 26.1 MEQ/L (21.0-32.0) Anion Gap 5 MEQ/L (5-15) Estimat Glomerular Filtration Rate 211 ML/MIN (>89) Troponin I 0.20 NG/ML (0.02-0.05) Result Diagram: 02/14/18 0536 02/14/18 0536 Imaging Last 24 hours Impressions Chest X-Ray 02/14/18 0600 Signed Impressions: Service Date/Time: Wednesday, February 14, 2018 03:02 - CONCLUSION: Slight interval worsening in aeration Deondre Barcenas MD Procedures 02/10: Right subclavian triple-lumen catheter placement 02/11: Intubation 02/12: Implantation of a dual-chamber [employer] pacemaker 02/13: Bilateral hip reduction and intramedullary nailing . Assessment and Plan Disease Oriented Problem List: (1) Rib fractures (2) Proximal humerus fracture (3) Hemopneumothorax on right (4) T11 vertebral fracture (5) Intertrochanteric fracture of both femurs (6) Syncope (7) Sinus pause Symptom Scale: (1) Pain, generalized 0-10 Scale: Unable to quantify (Patient intubated, sedated.) (2) Dyspnea and respiratory abnormalities 0-10 Scale: Unable to quantify (Patient intubated, sedated.) Pertinent Non-Medical Issues Psychosocial:She was born in [place] where she raised 3 children. 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 She has been to her for over 60 years. Spiritual: She would appreciate special forces officer visits. Legal: No legal issues identified. Ethical issues impacting care: No ethical issues identified. . Important Contacts Spouse: Gregory Cruz Daughter: Rachel Ricardo . Prognosis Her prognosis is guarded. She has suffered a traumatic fall with subsequent rib fracture, hemopneumothorax, bilateral entero-trochanteric fractures, left humerus fracture and subsequent traumatic shock. She is currently intubated, sedated and requiring vasopressor support. She has required transfusion of 3 units of packed red blood cells and 2 units of platelets are on hold. She is pending repair of bilateral intertrochanteric fractures which will be held until her overall condition stabilizes. Complicating her hospital course was the finding of a 3.2 and subsequent 2.9 second pause which it is opined, may have been responsible for her initial fall. Given her recent chest trauma, severe osteoporosis with a number of compression fractures and previous kyphoplasty, CPR is likely to cause further damage to the thoracic cage with the potential of harm from that. Family is considering the option of no CPR and will render their decision tomorrow at the meeting. Given her fragile state she is likely to suffer further compromise, complications and decline. . Code Status: Alternative Code Plan PLAN: * CODE STATUS: Alternate code/intubation and ACLS drugs only. NO CHEST COMPRESSIONS, NO DEFIBRILLATION. * HEALTHCARE DECISION-MAKING: Patient unable to participating medical decision making secondary to critical illness. Currently intubated on mechanical ventilation. Family reports that advance directives have been completed naming patient's Gregory Cruz as healthcare surrogate decision maker. Family also reports that all 3 children are listed jointly as alternate healthcare surrogate. Patient's Gregory has fully accepted this role and is fully supported by their 3 children. * GOALS OF CARE: As per family goals of therapy remain aggressive short of no chest compressions or defibrillation. Immediate goal is to attempt medical extubation as tolerated by patient. Family reports that they had a very good conversation with Dr. Pascual earlier today. Family verbalized understanding that patient's clinical course will be long if she is to survive acute phase, likely difficult to medically extubate. Reviewed that patient remains at a very high risk for further complications, continued decline and . Overall prognosis remains very poor. Family receptive to palliative care follow-ups. * SYMPTOMS: * Pain: Multifactorial to include invasive lines, bedbound status, fractured ribs, bilateral hip fractures, fractured humerus, recently implanted pacemaker. She is currently on fentanyl for both sedation and pain management. Patient appears comfortable with current management. * Dyspnea: Multifactorial to include right hemopneumothorax, fractured ribs and chest tube. She is currently intubated and these conditions may impair her ability to extubate, due to the difficult balance of sedation and pain control. Palliative care will continue to follow the patient during hospital course as condition evolves, to assist patient/decision-maker with understanding of their medical conditions, weighing benefits/burdens of treatment options, for clarification of goals of treatment. Additionally will assist with any symptoms of palliative concern. . Time Spent Total Floor Time (mins): 27 (Total time to include review medical records, physical exam, goals of care conversation with patient's family, case discussion with bedside RN.) >50% Counseling/Coord of Care: Yes Attestation To help prompt me to consider important information that might be impacting today's encounter and assessment, information from prior notes written by myself or my colleagues may have been "brought forward" into today's note. My signature on this note, however, is an attestation that I personally performed the exam, history, and/or decision-making noted today, and, unless otherwise indicated, the interactions with patient, family, and staff as well as the review of records all occurred today. I also attest that the listed assessment and stated plan reflect my best clinical judgment today based on the combination of historical information, prior notes, and today's exam/ interactions. When time spent is documented, it refers only to time spent today by the signer, or if indicated, combined time spent today by collaborating physician/nurse practitioner. Amaya Kingsley Feb 14, 2018 17:09
[2018-02-15] VITALS (18 sets, daily range): BP systolic 83–130; BP diastolic 48–58; PULSE 72–134; RESP 14–20; TEMP 98.4–100.9; O2SAT 92–100
[2018-02-15] MEDS: NOREPINEPHRINE 4 MG/D5W 250 ML IV PRN ×2 (01:12→22:46)
[2018-02-15] MEDS: CHLORHEXIDINE GLUCONATE 2 % 1 PACK (2 CLOTHS) TOP SCH (03:09)
[2018-02-15] MEDS: SODIUM CHLOR 0.9% 1000 ML INJ 1,000 ML IV SCH ×3 (03:09→22:51)
[2018-02-15] MEDS: PANTOPRAZOLE SODIUM 40 MG VIAL IVP SCH (03:09)
[2018-02-15] MEDS: RESP: ALBUTEROL 2.5 MG/IPRATROPIUM 0.5 MG NEB (SCH) NEB ×4 (03:21→20:34)
--- NOTE | 2018-02-15 04:14 | RADRPT ---
EXAM DATE/TIME: 02/15/2018 03:21 [facility] COMPARISON: CHEST SINGLE AP, February 14, 2018, 3:02. INDICATIONS : Shortness of breath MEDICAL HISTORY : None. SURGICAL HISTORY : None. ENCOUNTER: Subsequent ACUITY: 1 week PAIN SCORE: Non-responsive. LOCATION: Bilateral chest FINDINGS: The cardiac silhouette is enlarged in transverse diameter. Support lines and tubes are in satisfactor y position. There is no evidence of pneumothorax. There are findings of congestive heart failure wit h interstitial and alveolar opacity bilaterally. CONCLUSION: 1. Cardiomegaly and findings of congestive heart failure. There has been no significant change when c ompared to the prior exam. Isaias Van MD on February 15, 2018 at 4:12 Board Certified Radiologist. This report was verified electronically.
[2018-02-15 05:21] LABS: AUTOMATED NEUTROPHIL # 7.2 TH/MM3 (1.8-7.7); BASOPHIL % 0.3 % (0.0-2.0); EOSINOPHIL # 0.1 TH/MM3 (0-0.4); EOSINOPHIL % 1.6 % (0.0-4.0); HEMOGLOBIN 8.4 GM/DL (11.6-15.3); LYMPH % 7.4 % (9.0-44.0); LYMPHOCYTE # 0.7 TH/MM3 (1.0-4.8); MEAN CELL VOLUME 88.5 FL (80.0-100.0); MEAN CORPUSCULAR HEMOGLOBIN 31.1 PG (27.0-34.0); MEAN CORPUSCULAR HGB CONC 35.1 % (32.0-36.0); MEAN PLATELET VOLUME 8.6 FL (7.0-11.0); MONOCYTE # 1.3 TH/MM3 (0-0.9); NEUT % 76.7 % (16.0-70.0); PLATELET COUNT 121 TH/MM3 (150-450); RED BLOOD COUNT 2.71 MIL/MM3 (4.00-5.30); RED CELL DISTRIBUTION WIDTH 16.7 % (11.6-17.2); WHITE BLOOD COUNT 9.3 TH/MM3 (4.0-11.0)
[2018-02-15 05:54] LABS: ALBUMIN 1.4 GM/DL (3.4-5.0); ALT (GPT) 11 U/L (10-53); AST (GOT) 17 U/L (15-37); BICARBONATE 27.6 MEQ/L (21.0-32.0); BLOOD UREA NITROGEN 10 MG/DL (7-18); CHLORIDE 113 MEQ/L (98-107); CREATININE 0.34 MG/DL (0.50-1.00); GLOMERULAR FILTRATION RATE 183 ML/MIN (>89); GLUCOSE,RANDOM 148 MG/DL (74-106); SODIUM (NA) 146 MEQ/L (136-145)
[2018-02-15 05:56] LABS: ALKALINE PHOSPHATASE 67 U/L (45-117); TOTAL BILIRUBIN ADULT 1.5 MG/DL (0.2-1.0); TOTAL PROTEIN 3.9 GM/DL (6.4-8.2)
[2018-02-15] MEDS: SODIUM CHLORIDE 0.9% FLUSH 10 ML FLUSH IV FLUSH SCH ×2 (08:15→20:20)
[2018-02-15] MEDS: DOCUSATE SODIUM 100 MG CAP PO SCH ×2 (08:15→20:19)
[2018-02-15] MEDS: CHLORHEXIDINE 0.12% (ORAL KIT) 15 ML CUP MT SCH ×2 (08:15→20:21)
[2018-02-15] MEDS: AMIODARONE 200 MG TAB PO SCH ×2 (08:16→20:20)
[2018-02-15] MEDS: LACTULOSE SYRUP 20 GM/30 ML CUP PO SCH (08:16)
[2018-02-15] MEDS: MAGNESIUM HYDROXIDE SUSP 30 ML CUP PO SCH ×2 (08:16→20:19)
[2018-02-15] MEDS: CHOLECALCIFEROL (VIT D3) 5000 UNIT CAP PO SCH (08:16)
[2018-02-15] MEDS: FUROSEMIDE 20 MG/2 ML VIAL IV PUSH SCH (10:08)
[2018-02-15] MEDS: ENOXAPARIN SODIUM 30 MG/0.3 ML SYRINGE SQ SCH (10:08)
--- NOTE | 2018-02-15 11:42 | HHI.NSPN ---
(Raven Ku) Note Status Status: Progress Note (Raven Ku) Interval History Interval History This is a 87 year old female who presents to the [facility] emergency department as a transfer from [facility] as a trauma alert. Apparently patient sustained a fall on the driveway at approximately 9 PM last night. She sustained right sided rib fractures with a hemopneumothorax status post chest tube placement and 1200 mL of blood out in the chest tube. The patient's hemoglobin dropped from 11 to7, was transfused 2 units of packed red blood cells. The patient was found to have bilateral intertrochanteric fractures, Left proximal humerus fracture, Acute T11 fracture, right-sided rib fractures, and hemopneumothorax as described above. She was accepted by Dr. Monae. Towards a.m. patient started becoming more hemodynamically unstable, Dr. Monae place a right subclavian central line and Levophed was started which rapidly was increased to 12 mcg/min. Due to increasing hemodynamic instability patient was intubated by Dr. Monae and placed on mechanical ventilation Trauma workup reveled a right hemopneumothorax, right-sided rib fractures, bilateral intertrochanteric fractures on the femur, acute T11 fracture, acute left humerus fracture. Neurosurgical consultation was requested 02/11. She has been slowly stabilized overnight with hemodynamic improvement and decreased need for vasopressors. She remains mildly sedated on propofol. She has been evaluated by cardiology for periods of bradycardia. Troponins elevated. Suspected that she had a myocardial infarction on the scene anemia and hemorrhagic shock 02/13: pt underwent pacemaker placement yesterday. currently intubated. ortho plans on b/l hip fixation today. 02/14: intubated, does not open eyes. 02/15: remains intubated (Raven Ku) Labs, Micro, & Vital Signs Results Date Time Temp Pulse Resp B/P (MAP) Pulse Ox O2 Delivery O2 Flow Rate FiO2 02/15/18 10:30 92 134/63 02/15/18 10:00 92 02/15/18 09:30 96 109/50 02/15/18 09:00 97 35 02/15/18 08:00 35 02/15/18 08:00 100.1 80 14 116/50 (72) 98 02/15/18 08:00 80 02/15/18 07:00 80 112/52 02/15/18 06:00 90 02/15/18 04:00 35 02/15/18 04:00 99.0 90 14 130/58 (82) 100 02/15/18 04:00 90 02/15/18 03:18 98 35 02/15/18 02:00 89 02/15/18 01:12 80 115/51 02/15/18 01:11 99 35 02/15/18 00:00 100.7 80 15 102/48 (66) 98 02/15/18 00:00 80 02/15/18 00:00 35 02/14/18 22:00 86 02/14/18 21:45 98 35 02/14/18 20:00 35 02/14/18 20:00 100.3 84 16 128/64 (85) 97 02/14/18 20:00 84 02/14/18 18:00 87 02/14/18 16:23 99 35 02/14/18 16:15 77 108/53 02/14/18 16:00 79 02/14/18 16:00 35 02/14/18 16:00 100.7 84 12 113/68 (83) 100 02/14/18 14:00 78 02/14/18 12:00 79 02/14/18 12:00 99.2 75 12 111/58 (75) 98 02/14/18 12:00 35 Constitutional Vital Signs Date Time Temp Pulse Resp B/P (MAP) Pulse Ox O2 Delivery O2 Flow Rate FiO2 02/15/18 10:30 92 134/63 02/15/18 10:00 92 02/15/18 09:30 96 109/50 02/15/18 09:00 97 35 02/15/18 08:00 35 02/15/18 08:00 100.1 80 14 116/50 (72) 98 02/15/18 08:00 80 02/15/18 07:00 80 112/52 02/15/18 06:00 90 02/15/18 04:00 35 02/15/18 04:00 99.0 90 14 130/58 (82) 100 02/15/18 04:00 90 02/15/18 03:18 98 35 02/15/18 02:00 89 02/15/18 01:12 80 115/51 02/15/18 01:11 99 35 02/15/18 00:00 100.7 80 15 102/48 (66) 98 02/15/18 00:00 80 02/15/18 00:00 35 02/14/18 22:00 86 02/14/18 21:45 98 35 02/14/18 20:00 35 02/14/18 20:00 100.3 84 16 128/64 (85) 97 02/14/18 20:00 84 02/14/18 18:00 87 02/14/18 16:23 99 35 02/14/18 16:15 77 108/53 02/14/18 16:00 79 02/14/18 16:00 35 02/14/18 16:00 100.7 84 12 113/68 (83) 100 02/14/18 14:00 78 02/14/18 12:00 79 02/14/18 12:00 99.2 75 12 111/58 (75) 98 02/14/18 12:00 35 (Raven Ku) Physical Exam General: elderly female in no acute distress, intubated and sedated. HEENT: normocephalic, nonicteric sclera Neuro: sedated, does not open eyes or follow commands. Cranial Nerves: Pupils 2 -3 mm equal. Eyes appear conjugated. Otherwise exam limited due to clinical condition. Minimal response to pain to lower extremities. Plantars equivocal b /l Cervical Spine: soft, supple Cerebellar: cannot assess Heart: regular rate rhythm Lungs: clear Skin warm and dry Abdomen: soft Skin warm and dry (Raven Ku) Elderly female in no acute distress, intubated and sedated. HEENT: normocephalic, nonicteric sclera Neuro: sedated, does not open eyes or follow commands. Cranial Nerves: Pupils 2 -3 mm equal. Eyes appear conjugated. Otherwise exam limited due to clinical condition. Minimal response to pain to lower extremities. Plantars equivocal b /l Cervical Spine: soft, supple Cerebellar: cannot assess Heart: regular rate rhythm Lungs: clear Skin warm and dry Abdomen: soft Skin warm and dry (Nasir Landers MD) Medications Current Medications Current Medications Medications (Trade) Dose Ordered Sig/Mackenzie Route PRN Reason Start Time Stop Time Status Last Admin Dose Admin Sodium Chloride (NS Flush) 2 ml UNSCH PRN IV FLUSH FLUSH AFTER USING IV ACCESS 02/10/18 04:15 Enalaprilat (Vasotec Inj) 1.25 mg Q8H PRN IV PUSH SBP>180, DBP>95 02/10/18 04:15 Ondansetron HCl (Zofran Inj) 4 mg Q6H PRN IV PUSH NAUSEA OR VOMITING 02/10/18 04:15 Pantoprazole Sodium (Protonix Inj) 40 mg Q24H IVP 02/10/18 05:00 02/15/18 03:09 Docusate Sodium (Colace) 100 mg BID PO 02/10/18 09:00 02/14/18 20:20 Miscellaneous Information 1 Q361D XX 02/10/18 04:15 02/10/18 04:15 Chlorhexidine Gluconate (Chlorhexidine 2% Cloth) 3 pack Taper DAILY@04 TOP 02/11/18 04:00 02/07/19 03:59 Chlorhexidine Gluconate (Chlorhexidine 2% Cloth) 3 pack UNSCH PRN TOP HYGIENIC CARE 02/10/18 04:15 Potassium Chloride 100 ml @ 50 mls/hr Q2H PRN IV For Potassium 2.8 - 3.2 mEq/L 02/10/18 06:30 02/14/18 11:40 Potassium Chloride 100 ml @ 50 mls/hr Q2H PRN IV For Potassium 2.8 - 3.2 mEq/L 02/10/18 06:30 02/14/18 09:30 Potassium Chloride 100 ml @ 25 mls/hr UNSCH PRN IV For Potassium 3.3 - 3.5 mEq/L 02/10/18 06:30 02/13/18 07:36 Potassium Chloride 100 ml @ 50 mls/hr Q2H PRN IV For Potassium 3.3 - 3.5 mEq/L 02/10/18 06:30 Magnesium Sulfate 4 gm/Sodium Chloride 100 ml @ 50 mls/hr UNSCH PRN IV For Magnesium 0.9 - 1.1 mg/dL 02/10/18 06:30 Magnesium Oxide (Mag-Ox) 800 mg UNSCH PRN PO For Magnesium 1.2 - 1.6 mg/dL 02/10/18 06:30 Magnesium Sulfate 2 gm/Sodium Chloride 100 ml @ 50 mls/hr UNSCH PRN IV For Magnesium 1.2 - 1.6 mg/dL 02/10/18 06:30 02/10/18 22:57 Potassium Phosphate (K-Phos) 2,000 mg Q4H PRN PO For Phosphorus < 2.5 mg/dL 02/10/18 06:30 Sodium Phosphate 30 mmol/Sodium Chloride 250 ml @ 42 mls/hr UNSCH PRN IV For Phosphorus < 2.5 mg/dL 02/10/18 06:30 Potassium Phosphate (K-Phos) 2,000 mg UNSCH PRN PO/TUBE SEE LABEL COMMENTS 02/10/18 06:30 Potassium Phosphate 30 mmol/ Sodium Chloride 260 ml @ 42 mls/hr UNSCH PRN IV SEE LABEL COMMENTS 02/10/18 06:30 02/10/18 22:56 Potassium Chloride (KCl Powder) 40 meq DAILY PRN PO For Potassium 3.3 - 3.5 mEq/L 02/10/18 06:30 Chlorhexidine Gluconate (Peridex 0.12% Liq) 15 ml BID@08,20 MT 02/10/18 08:00 02/15/18 08:15 Fentanyl Citrate 250 ml @ 5 mls/hr TITRATE PRN IV SEDATION 02/10/18 08:00 02/14/18 05:30 Potassium Chloride 100 ml @ 50 mls/hr Q2H PRN IV For Potassium 2.8 - 3.2 mEq/L 02/10/18 09:15 02/12/18 06:19 Potassium Chloride 100 ml @ 50 mls/hr Q2H PRN IV For Potassium 2.8 - 3.2 mEq/L 02/10/18 09:15 Potassium Bicarb/ Potassium Chloride (K-Lyte Cl Eff) 50 meq UNSCH PRN PO For Potassium 3.3 - 3.5 mEq/L 02/10/18 09:15 Potassium Chloride 100 ml @ 25 mls/hr UNSCH PRN IV For Potassium 3.3 - 3.5 mEq/L 02/10/18 09:15 Potassium Chloride 100 ml @ 50 mls/hr Q2H PRN IV For Potassium 3.3 - 3.5 mEq/L 02/10/18 09:15 Magnesium Sulfate 4 gm/Sodium Chloride 100 ml @ 50 mls/hr UNSCH PRN IV For Magnesium 0.9 - 1.1 mg/dL 02/10/18 09:15 Magnesium Oxide (Mag-Ox) 800 mg UNSCH PRN PO For Magnesium 1.2 - 1.6 mg/dL 02/10/18 09:15 Magnesium Sulfate 2 gm/Sodium Chloride 100 ml @ 50 mls/hr UNSCH PRN IV For Magnesium 1.2 - 1.6 mg/dL 02/10/18 09:15 Potassium Phosphate (K-Phos) 2,000 mg Q4H PRN PO For Phosphorus < 2.5 mg/dL 02/10/18 09:15 Sodium Phosphate 30 mmol/Sodium Chloride 250 ml @ 42 mls/hr UNSCH PRN IV For Phosphorus < 2.5 mg/dL 02/10/18 09:15 Potassium Phosphate (K-Phos) 2,000 mg UNSCH PRN PO/TUBE SEE LABEL COMMENTS 02/10/18 09:15 Potassium Phosphate 30 mmol/ Sodium Chloride 260 ml @ 42 mls/hr UNSCH PRN IV SEE LABEL COMMENTS 02/10/18 09:15 Norepinephrine Bitartrate 250 ml @ 7.5 mls/hr TITRATE PRN IV Maintain MAP > 65 mmHg 02/10/18 19:45 02/15/18 01:12 Phenylephrine HCl 40 mg/Dextrose 500 ml @ 30 mls/hr TITRATE PRN IV Blood Pressure Management 02/10/18 19:45 02/11/18 05:38 Sodium Chloride 1,000 ml @ 100 mls/hr Q10H IV 02/10/18 23:00 02/15/18 03:09 Midazolam HCl 100 ml @ 2 mls/hr TITRATE PRN IV SEDATION 02/11/18 09:30 02/12/18 22:18 Propofol 100 ml @ 2.391 mls/ hr TITRATE PRN IV SEDATION 02/11/18 09:45 Magnesium Hydroxide (Milk Of Magnesia Liq) 30 ml BID PO 02/11/18 21:00 02/15/18 08:16 Albuterol/ Ipratropium (Duoneb Neb) 1 ampule Q6HR NEB NEB 02/11/18 22:00 02/15/18 09:08 Albuterol/ Ipratropium (Duoneb Neb) 1 ampule Q2HR NEB PRN NEB wheezing 02/11/18 19:45 Amiodarone HCl 450 mg/Sodium Chloride 250 ml @ 33.33 mls/ hr TITRATE PRN IV Per Protocol 02/12/18 03:15 02/14/18 04:54 Bacitracin (Bacitracin Oint Packet) 0.9 gm UNSCH PRN TOP SEE LABEL COMMENTS 02/12/18 09:30 Sodium Chloride (NS Flush) 2 ml BID IV FLUSH 02/12/18 21:00 02/15/18 08:15 Sodium Chloride (NS Flush) 2 ml UNSCH PRN IV FLUSH FLUSH AFTER USING IV ACCESS 02/12/18 09:30 Enoxaparin Sodium (Lovenox Inj) 30 mg Q24H SQ 02/14/18 11:00 02/15/18 10:08 Acetaminophen/ Hydrocodone Bitart ([place] 7.5-325 Mg) 1 tab Q3H PRN PO pain 3<10 02/13/18 12:00 Cholecalciferol (Vitamin D3) 5,000 units DAILY PO 02/14/18 09:00 02/15/18 08:16 Lactulose (Lactulose Liq) 30 ml DAILY PO 02/14/18 09:00 02/15/18 08:16 Amiodarone HCl (Cordarone) 400 mg Q12HR PO 02/14/18 13:30 02/15/18 08:16 Furosemide (Lasix Inj) 20 mg DAILY IV PUSH 02/15/18 09:15 02/20/18 08:59 02/15/18 10:08 (Raven Ku) Current Medications Current Medications Sodium Chloride 1,000 ml @ 100 mls/hr Q10H IV Last administered on 02/10/18at 20 :15; Start 02/10/18 at 04:13; Stop 02/10/18 at 22:57; Status DC Sodium Chloride (NS Flush) 2 ml UNSCH PRN IV FLUSH FLUSH AFTER USING IV ACCESS ; Start 02/10/18 at 04:15 Hydromorphone HCl (Dilaudid Pf Inj) 0.5 mg Q1H PRN IV BREAKTHROUGH PAIN; Start 02/10/18 at 04:45; Stop 02/11/18 at 19:37; Status DC Acetaminophen/ Hydrocodone Bitart (Ald[place] 5-325 Mg) 1 tab Q4H PRN PO PAIN SCALE 1 TO 5; Start 02/10/18 at 04:15; Stop 02/11/18 at 19:37; Status DC Acetaminophen/ Hydrocodone Bitart ([place] 5-325 Mg) 2 tab Q4H PRN PO PAIN SCALE 6 TO 10 Last administered on 02/10/18at 04:52; Start 02/10/18 at 04:15; Stop 02/11/18 at 19:37; Status DC Enalaprilat (Vasotec Inj) 1.25 mg Q8H PRN IV PUSH SBP>180, DBP>95; Start at 04:15 Ondansetron HCl (Zofran Inj) 4 mg Q6H PRN IV PUSH NAUSEA OR VOMITING; Start 02/10/18 at 04:15 Pantoprazole Sodium (Protonix Inj) 40 mg Q24H IVP Last administered on at 03:09; Start 02/10/18 at 05:00 Docusate Sodium (Colace) 100 mg BID PO Last administered on 02/14/18at 20:20; Start 02/10/18 at 09:00 Miscellaneous Information 1 Q361D XX Last administered on 02/10/18at 04:15; Start 02/10/18 at 04:15 Chlorhexidine Gluconate (Chlorhexidine 2% Cloth) 3 pack Taper DAILY@04 TOP ; Start 02/11/18 at 04:00; Stop 02/07/19 at 03:59 Chlorhexidine Gluconate (Chlorhexidine 2% Cloth) 3 pack UNSCH PRN TOP HYGIENIC CARE; Start 02/10/18 at 04:15 Etomidate (Amidate Inj) 40 mg STK-MED ONCE .ROUTE Last administered on at 05:16; Start 02/10/18 at 05:16; Stop 02/10/18 at 05:17; Status DC Fentanyl Citrate (fentaNYL INJ) 100 mcg STK-MED ONCE .ROUTE ; Start 02/10/18 at 05:17; Stop 02/10/18 at 05:18; Status DC Midazolam HCl (Versed Inj) 5 mg STK-MED ONCE .ROUTE Last administered on at 05:17; Start 02/10/18 at 05:17; Stop 02/10/18 at 05:18; Status DC Rocuronium [place] (Zemuron Inj) 50 mg STK-MED ONCE .ROUTE Last administered on 02/10/18at 05:17; Start 02/10/18 at 05:17; Stop 02/10/18 at 05:18; Status DC Propofol 50 ml @ As Directed STK-MED ONCE .ROUTE Last administered on 02/10/18at 07:30; Start 02/10/18 at 05:25; Stop 02/10/18 at 05:26; Status DC Potassium Chloride 100 ml @ 50 mls/hr Q2H PRN IV For Potassium 2.8 - 3.2 mEq/ L Last administered on 02/14/18at 11:40; Start 02/10/18 at 06:30 Potassium Chloride 100 ml @ 50 mls/hr Q2H PRN IV For Potassium 2.8 - 3.2 mEq/ L Last administered on 02/14/18at 09:30; Start 02/10/18 at 06:30 Potassium Chloride 100 ml @ 25 mls/hr UNSCH PRN IV For Potassium 3.3 - 3.5 mEq /L Last administered on 02/13/18at 07:36; Start 02/10/18 at 06:30 Potassium Chloride 100 ml @ 50 mls/hr Q2H PRN IV For Potassium 3.3 - 3.5 mEq/L ; Start 02/10/18 at 06:30 Magnesium Sulfate 4 gm/Sodium Chloride 100 ml @ 50 mls/hr UNSCH PRN IV For Magnesium 0.9 - 1.1 mg/dL; Start 02/10/18 at 06:30 Magnesium Oxide (Mag-Ox) 800 mg UNSCH PRN PO For Magnesium 1.2 - 1.6 mg/dL; Start 02/10/18 at 06:30 Magnesium Sulfate 2 gm/Sodium Chloride 100 ml @ 50 mls/hr UNSCH PRN IV For Magnesium 1.2 - 1.6 mg/dL Last administered on 02/10/18at 22:57; Start 02/10/18 at 06:30 Potassium Phosphate (K-Phos) 2,000 mg Q4H PRN PO For Phosphorus < 2.5 mg/dL; Start 02/10/18 at 06:30 Sodium Phosphate 30 mmol/Sodium Chloride 250 ml @ 42 mls/hr UNSCH PRN IV For Phosphorus < 2.5 mg/dL; Start 02/10/18 at 06:30 Potassium Phosphate (K-Phos) 2,000 mg UNSCH PRN PO/TUBE SEE LABEL COMMENTS; Start 02/10/18 at 06:30 Potassium Phosphate 30 mmol/ Sodium Chloride 260 ml @ 42 mls/hr UNSCH PRN IV SEE LABEL COMMENTS Last administered on 02/10/18at 22:56; Start 02/10/18 at 06:30 Potassium Chloride (KCl Powder) 40 meq DAILY PRN PO For Potassium 3.3 - 3.5 mEq /L; Start 02/10/18 at 06:30 Chlorhexidine Gluconate (Peridex 0.12% Liq) 15 ml BID@08,20 MT Last administered on 02/15/18at 08:15; Start 02/10/18 at 08:00 Propofol 100 ml @ 2.172 mls/ hr TITRATE PRN IV SEDATION Last administered on at 03:56; Start 02/10/18 at 08:00; Stop 02/11/18 at 09:26; Status DC Fentanyl Citrate 250 ml @ 5 mls/hr TITRATE PRN IV SEDATION Last administered on 02/14/18at 05:30; Start 02/10/18 at 08:00 Sodium Bicarbonate (Sodium Bicarbonate 8.4% Inj) 100 meq STK-MED ONCE .ROUTE Last administered on 02/10/18at 07:05; Start 02/10/18 at 07:05; Stop 02/10/18 at 07: 06; Status DC Phenylephrine HCl (Neosynephrine Inj) 10 mg STK-MED ONCE .ROUTE Last administered on 02/10/18at 07:20; Start 02/10/18 at 07:18; Stop 02/10/18 at 07:19; Status DC Phenylephrine HCl (Neosynephrine Inj) 30 mg STK-MED ONCE .ROUTE Last administered on 02/10/18at 07:20; Start 02/10/18 at 07:20; Stop 02/10/18 at 07:21; Status DC Sodium Chloride 1,000 ml @ 999 mls/hr BOLUS ONCE IV Last administered on at 09:15; Start 02/10/18 at 09:15; Stop 02/10/18 at 10:15; Status DC Potassium Chloride 100 ml @ 50 mls/hr Q2H PRN IV For Potassium 2.8 - 3.2 mEq/ L Last administered on 02/12/18at 06:19; Start 02/10/18 at 09:15 Potassium Chloride 100 ml @ 50 mls/hr Q2H PRN IV For Potassium 2.8 - 3.2 mEq/L ; Start 02/10/18 at 09:15 Potassium Bicarb/ Potassium Chloride (K-Lyte Cl Eff) 50 meq UNSCH PRN PO For Potassium 3.3 - 3.5 mEq/L; Start 02/10/18 at 09:15 Potassium Chloride 100 ml @ 25 mls/hr UNSCH PRN IV For Potassium 3.3 - 3.5 mEq /L; Start 02/10/18 at 09:15 Potassium Chloride 100 ml @ 50 mls/hr Q2H PRN IV For Potassium 3.3 - 3.5 mEq/L ; Start 02/10/18 at 09:15 Magnesium Sulfate 4 gm/Sodium Chloride 100 ml @ 50 mls/hr UNSCH PRN IV For Magnesium 0.9 - 1.1 mg/dL; Start 02/10/18 at 09:15 Magnesium Oxide (Mag-Ox) 800 mg UNSCH PRN PO For Magnesium 1.2 - 1.6 mg/dL; Start 02/10/18 at 09:15 Magnesium Sulfate 2 gm/Sodium Chloride 100 ml @ 50 mls/hr UNSCH PRN IV For Magnesium 1.2 - 1.6 mg/dL; Start 02/10/18 at 09:15 Potassium Phosphate (K-Phos) 2,000 mg Q4H PRN PO For Phosphorus < 2.5 mg/dL; Start 02/10/18 at 09:15 Sodium Phosphate 30 mmol/Sodium Chloride 250 ml @ 42 mls/hr UNSCH PRN IV For Phosphorus < 2.5 mg/dL; Start 02/10/18 at 09:15 Potassium Phosphate (K-Phos) 2,000 mg UNSCH PRN PO/TUBE SEE LABEL COMMENTS; Start 02/10/18 at 09:15 Potassium Phosphate 30 mmol/ Sodium Chloride 260 ml @ 42 mls/hr UNSCH PRN IV SEE LABEL COMMENTS; Start 02/10/18 at 09:15 Morphine Sulfate (Morphine Inj) 2 mg Q3H PRN IV PUSH Pain Last administered on 02/10/18at 11:29; Start 02/10/18 at 09:15; Stop 02/11/18 at 19:37; Status DC Phenylephrine HCl (Neosynephrine Inj) 10 mg STK-MED ONCE .ROUTE Last administered on 02/10/18at 19:07; Start 02/10/18 at 19:05; Stop 02/10/18 at 19:06; Status DC Norepinephrine Bitartrate 250 ml @ 7.5 mls/hr TITRATE PRN IV Maintain MAP > 65 mmHg Last administered on 02/15/18at 01:12; Start 02/10/18 at 19:45 Phenylephrine HCl 40 mg/Dextrose 500 ml @ 30 mls/hr TITRATE PRN IV Blood Pressure Management Last administered on 02/11/18at 05:38; Start 02/10/18 at 19:45 Albumin Human 250 ml @ As Directed STK-MED ONCE IV Last administered on at 19:56; Start 02/10/18 at 19:55; Stop 02/10/18 at 19:56; Status DC Sodium Chloride 1,000 ml @ 100 mls/hr Q10H IV Last administered on 02/15/18at 03:09; Start 02/10/18 at 23:00 Albumin Human 500 ml @ 250 mls/hr NOW ONCE IV Last administered on 02/10/18at 23:00; Start 02/10/18 at 23:00; Stop 02/11/18 at 00:59; Status DC Sodium Chloride 500 ml @ 500 mls/hr Q1H ONCE IV Last administered on 02/10/18at 23:00; Start 02/10/18 at 23:00; Stop 02/10/18 at 23:59; Status DC Midazolam HCl 100 ml @ 2 mls/hr TITRATE PRN IV SEDATION Last administered on 09/21at 22:18; Start 02/11/18 at 09:30 Furosemide (Lasix Inj) 20 mg ONCE ONCE IV PUSH Last administered on 02/11/18at 09:30; Start 02/11/18 at 09:30; Stop 02/11/18 at 09:38; Status DC Propofol 100 ml @ 2.391 mls/ hr TITRATE PRN IV SEDATION; Start 02/11/18 at 09: 45 Cefazolin Sodium/ Dextrose 50 ml @ 100 mls/hr MIXER TENDER IV ; Start 02/11/18 at 11:00; Stop 02/11/18 at 11:00; Status DC Vancomycin HCl 1000 mg/Sodium Chloride 250 ml @ 250 mls/hr MIXER TENDER IV Last administered on 02/13/18at 11:07; Start 02/11/18 at 10:00; Stop 02/15/18 at 09:59 ; Status DC Povidone Iodine (Betadine 5% Antisepsis Kit) 1 applic MIXER TENDER EACH NARE ; Start 02/11/18 at 10:00; Stop 02/15/18 at 09:59; Status DC Mupirocin (Bactroban Nasal 2% Oint) 1 applic MIXER TENDER NASAL ; Start 02/11/18 at 10:00; Stop 02/15/18 at 09:59; Status DC Chlorhexidine Gluconate (Chlorhexidine 2% Cloth) 3 pack MIXER TENDER TOP ; Start 08/21 at 10:00; Stop 02/15/18 at 09:59; Status DC Cefazolin Sodium 2000 mg/Sodium Chloride 100 ml @ 100 mls/hr MIXER TENDER IV ; Start 02/11/18 at 11:00; Stop 02/14/18 at 10:59; Status DC Phenylephrine HCl (Neosynephrine Inj) 40 mg STK-MED ONCE .ROUTE ; Start at 19:20; Stop 02/11/18 at 19:21; Status DC Magnesium Hydroxide (Milk Of Magnesia Liq) 30 ml BID PO Last administered on at 08:16; Start 02/11/18 at 21:00 Albuterol/ Ipratropium (Duoneb Neb) 1 ampule Q6HR NEB NEB Last administered on 02/15/18at 09:08; Start 02/11/18 at 22:00 Albuterol/ Ipratropium (Duoneb Neb) 1 ampule Q2HR NEB PRN NEB wheezing; Start 02/11/18 at 19:45 Amiodarone HCl 150 mg/Dextrose 100 ml @ 600 mls/hr NOW ONCE IV Last administered on 02/12/18at 03:42; Start 02/12/18 at 03:15; Stop 02/12/18 at 03:24 ; Status DC Amiodarone HCl 450 mg/Sodium Chloride 250 ml @ 33.33 mls/ hr TITRATE PRN IV Per Protocol Last administered on 02/14/18at 04:54; Start 02/12/18 at 03:15 Vancomycin HCl (Vancomycin Inj) 500 mg STK-MED ONCE .ROUTE Last administered on 02/12/18at 07:55; Start 02/12/18 at 07:55; Stop 02/12/18 at 07:56; Status DC Vancomycin HCl (Vancomycin Inj) 1,000 mg STK-MED ONCE .ROUTE Last administered on 02/12/18at 08:14; Start 02/12/18 at 07:56; Stop 02/12/18 at 07:57; Status DC Lidocaine HCl (Xylocaine-Mpf 1% Inj) 30 ml STK-MED ONCE .ROUTE ; Start 02/12/18 at 07:56; Stop 02/12/18 at 07:57; Status DC Cefazolin Sodium (Ancef Inj) 2,000 mg STK-MED ONCE .ROUTE Last administered on 02/12/18at 08:03; Start 02/12/18 at 07:56; Stop 02/12/18 at 07:57; Status DC Lidocaine HCl (Xylocaine 2% Inj) 50 ml STK-MED ONCE .ROUTE Last administered on 02/12/18at 08:00; Start 02/12/18 at 08:00; Stop 02/12/18 at 08:01; Status DC Bacitracin (Bacitracin Oint Packet) 0.9 gm UNSCH PRN TOP SEE LABEL COMMENTS; Start 02/12/18 at 09:30 Sodium Chloride (NS Flush) 2 ml BID IV FLUSH Last administered on 02/15/18at 08: 15; Start 02/12/18 at 21:00 Sodium Chloride (NS Flush) 2 ml UNSCH PRN IV FLUSH FLUSH AFTER USING IV ACCESS ; Start 02/12/18 at 09:30 Iohexol (Omnipaque 350 Inj) 50 ml STK-MED ONCE IVCONTRAST Last administered on 02/10/18at 03:53; Start 02/10/18 at 03:53; Stop 02/12/18 at 13:49; Status DC Fentanyl Citrate (fentaNYL INJ) 250 mcg STK-MED ONCE .ROUTE ; Start 02/13/18 at 09:54; Stop 02/13/18 at 09:55; Status DC Cefazolin Sodium (Ancef Inj) 2,000 mg STK-MED ONCE .ROUTE Last administered on 02/13/18 10:45; Start 02/13/18 at 09:57; Stop 02/13/18 at 09:58; Status DC Gentamicin Sulfate (Gentamicin Inj) 240 mg STK-MED ONCE .ROUTE Last administered on 02/13/18 09:58; Start 02/13/18 at 09:58; Stop 02/13/18 at 09:59 ; Status DC Enoxaparin Sodium (Lovenox Inj) 30 mg Q24H SQ Last administered on 02/15/18at 10 :08; Start 02/14/18 at 11:00 Cefazolin Sodium 1000 mg/Sodium Chloride 100 ml @ 200 mls/hr Q8H IV Last administered on 02/14/18 10:34; Start 02/13/18 at 19:00; Stop 02/14/18 at 11:29 ; Status DC Acetaminophen/ Hydrocodone Bitart ([place] 7.5-325 Mg) 1 tab Q3H PRN PO pain 3< 10; Start 02/13/18 at 12:00 Cholecalciferol (Vitamin D3) 5,000 units DAILY PO Last administered on at 08:16; Start 02/14/18 at 09:00 Ergocalciferol (Drisdol) 50,000 units ONCE ONCE PO Last administered on 16:01; Start 02/13/18 at 12:00; Stop 02/13/18 at 12:10; Status DC Amiodarone HCl (Cordarone Inj) 150 mg STK-MED ONCE .ROUTE ; Start 02/13/18 at 18 :12; Stop 02/13/18 at 18:13; Status DC Amiodarone HCl 150 mg/Dextrose 100 ml @ 600 mls/hr NOW ONCE IV Last administered on 02/13/18 18:25; Start 02/13/18 at 19:00; Stop 02/13/18 at 19:09 ; Status DC Lactated Ringer's 500 ml @ 0 mls/hr BOLUS ONCE IV Last administered on at 18:45; Start 02/13/18 at 18:45; Stop 02/13/18 at 18:46; Status DC Lactulose (Lactulose Liq) 30 ml DAILY PO Last administered on 02/15/18at 08:16; Start 02/14/18 at 09:00 Amiodarone HCl (Cordarone) 400 mg Q12HR PO Last administered on 02/15/18at 08:16 ; Start 02/14/18 at 13:30 Furosemide (Lasix Inj) 20 mg DAILY IV PUSH Last administered on 02/15/18at 10:08 ; Start 02/15/18 at 09:15; Stop 02/20/18 at 08:59 (Nasir Landers MD) Medical Decision Making MDM Remarks 87 y/o female trauma alert, sustained a fall on the driveway acute T11 fracture right hemopneumothorax right-sided rib fractures bilateral intertrochanteric fractures on the femur acute left humerus fracture s/p pacemaker placement s/p fixation of b/l intertrochanteric fractures (Raven Ku) Plan Plan Remarks cont trauma management nonoperative treatment of thoracic fracture at this time (Raven Ku) Attending Statement Ms Cruz is status post placement of a pacemaker today by a welt edge rounder Continue neuro checks T11 fracture. Nonoperative treatment with bed rest for now. if her condition improves TLSO brace Bilateral hip fractures. Status post nail internal fixation Left shoulder fracture.Continue nonoperative treatment per orthopedics Multiple rib fractures. .Continue narcotic analgesics for pain control hemopneumothorax. Status post chest tube Pulmonary. .Continue mechanical ventilation for acute respiratory failure, aggressive pulmonary toilette, nasotracheal suction, and breathing treatments with nebulizers. PT and OT eval Renal. .Continue to monitor closely urine output, BUN and creatinine Endocrine. .Continue to Monitor serial Acu checks and SSI as needed in detail ID .Continue to monitor for signs of infection .Continue Protonix for stress ulcer prophylaxis Continue Farrukh hose and SCD's for DVT prophylaxis The exam, history, and the medical decision-making described in the above note were completed with the assistance of the mid-level provider. I reviewed and agree with the findings presented. I attest that I had a [id number] encounter with the patient on the same day, and personally performed and documented my assessment and findings in the medical record. (Nasir Landers MD) Raven Ku Feb 15, 2018 11:42 Nasir Landers MD Feb 15, 2018 13:39
--- NOTE | 2018-02-15 11:58 | HHI.CCPN ---
Subjective Brief History This is a 87 year old female who presents to the [facility] emergency department as a transfer from [facility] as a trauma alert. Apparently patient sustained a fall on the driveway at approximately 9 PM last night. Patient was transferred to [facility] and underwent workup and when it was finally noted that patient had severe injuries we were asked to accept the patient as trauma transfer. Patient arrives around 6 AM and according to Dr. Monae initially patient is hemodynamically stable but then continues to deteriorate including multifocal supraventricular arrhythmias. Patient undergoes repeat CT scan of the chest and abdomen and is transferred to ICU for further care. Final injuries are Right lower rib fractures with a hemopneumothorax / chest tube placement and 1200 mL of blood out in the chest tube. Bilateral intratrochanteric hip fractures Left proximal humerus fracture T11 fracture Multiple old fractures of the thoracic spine and several lumbar spine fractures with kyphoplasties Supraventricular cardiac arrhythmias ischemic cardiomyopathy Hypotensive shock Metabolic acidosis anion gap In the process patient dropped hemoglobin from 12 g/dL initially to 7 g/dL few hours later. She received several units of PRBCs and was resuscitated Required vasopressors including Levophed and Gonzalo-Synephrine 24 Hour Review/Hospital Course 02/10/2018 Patient was initially unstable but now has stabilized hemodynamically Remains intubated ventilated Medical contact center associate help greatly appreciated 02/11/2018 Patient with a devastating traumatic injuries post fall She has been slowly stabilizing overnight with hemodynamic improvement and decreasing vasopressors Remains mildly sedated on propofol however we will switch this to Versed in face of cardio depressant effect of propofol Evaluated by cardiology for periods of bradycardia It is my opinion that patient had a myocardial infarction process as a result of combination of the trauma hypoxia on the scene anemia and hemorrhagic shock Troponins elevated 02/12 Patient underwent pacemaker insertion today by cardiology-she spontaneously converted to sinus rhythm the cardiac lab She is got thrombocytopenia- believe is likely related to blood loss/SIRS She remains on low-dose Levophed-I believe she is euvolemic-obtain Flowtrack for more exact measurement She had an NC versus blunt cardiac injury She has multitrauma with this overall poor prognosis secondary to her age with low reserve 02/13 OR today-IM nailing x2 transfuse 1U PRBC,1U plt low dose levophed off amiodarone uo adequate partial DNR as per family remains SR 02/14/2018 Patient remains intubated and ventilated Successful bilateral intratrochanteric fracture nailing yesterday Patient sedated on fentanyl Versed but minimal amounts with very low Rishi Coma Scale Hemodynamically stable although requiring small dose Levophed Pacemaker maintaining paced rhythm but patient developed A. fib on top of it so amiodarone has been restarted Gradually switch antiarrhythmics to p.o. form Aamir - cardiac output remains around 4-5 L which is quite admirable and SVR around 1100 Bilateral breath signs remains ventilatory dependent in face of pulmonary contusion and a severe chest trauma not ready to come off the respirator Abdomen soft Renal function preserved Extensive discussions with family and it is clear that this patient will be here long-term and will be difficult to extubate Hopefully she will not require tracheostomy however patient at this point does not have either the lung function or the level of consciousness sufficient to extubate In the face of age and extensive injuries prognosis remains very poor and 30 day mortality is extremely high 02/15/2018 Patient has stabilized hemodynamically Remains on small dose fentanyl about 50 mcg and will decrease that gradually and give patient some p.o. analgesia Hemodynamically stable very tiny dose of Levophed Cardiac arrhythmias have resolved patient is on p.o. amiodarone with paced rhythm Bilateral breath sounds with reasonable PO2 FiO2 gradient Patient is somewhat fluid overloaded as noted below and some pulmonary edema is present CPAP trial tolerated for about 2 hours today and then patient became tachypneic We will try tomorrow and see how patient does Abdomen soft enteral feeds tolerated Renal function preserved with normal BUN/creatinine Patient is definitely fluid overloaded at this point and was slowly diuresing patient with gentle Lasix administration Objective Vital Signs Date Time Temp Pulse Resp B/P (MAP) Pulse Ox O2 Delivery O2 Flow Rate FiO2 02/15/18 10:30 92 134/63 02/15/18 09:00 97 35 02/15/18 08:00 100.1 14 02/12/18 10:00 Mechanical Ventilator Intake and Output 02/15/18 02/15/18 02/16/18 08:00 16:00 00:00 Intake Total 1916 ml Output Total 720 ml Balance 1196 ml Result Diagram: 02/15/18 0505 02/15/18 0505 Other Results Laboratory Tests Test 02/15/18 03:56 Blood Gas Puncture Site ART LINE Blood Gas Patient Temperature 98.6 Blood Gas HCO3 25 mmol/L (22-26) Blood Gas Base Excess 1.3 mmol/L (-2-2) Blood Gas Oxygen Saturation 96 % (90-100) Arterial Blood pH 7.44 (7.380-7.420) Arterial Blood Partial Pressure CO2 38 mmHg (38-42) Arterial Blood Partial Pressure O2 132 mmHg (61-120) Arterial Blood Oxygen Content 12.5 Vol % (12.0-20.0) Arterial Blood Carboxyhemoglobin 2.3 % (0-4) Arterial Blood Methemoglobin 0.9 % (0-2) Blood Gas Hemoglobin 9.0 G/DL (12.0-16.0) Oxygen Delivery Device VENTILATOR Blood Gas Ventilator Setting SEE COMMENTS Blood Gas Inspired Oxygen 35 % Imaging Last 24 hours Impressions Chest X-Ray 02/15/18 0600 Signed Impressions: Service Date/Time: Saturday, February 15, 2018 03:21 - CONCLUSION: 1. Cardiomegaly and findings of congestive heart failure. There has been no significant change when compared to the prior exam. Isaias Van MD Exam CHICKEN DRESSER Patient has stabilized hemodynamically Remains on small dose fentanyl about 50 mcg and will decrease that gradually and give patient some p.o. analgesia Hemodynamic/Cardiac Hemodynamically stable very tiny dose of Levophed Cardiac arrhythmias have resolved patient is on p.o. amiodarone with paced rhythm DC Flowtrack for patient's cardiac function is fairly fixed with cardiac output around 4.5 L and SVR around 1100 Pulmonary/Respiratory Bilateral breath sounds with reasonable PO2 FiO2 gradient Patient is somewhat fluid overloaded as noted below and some pulmonary edema is present CPAP trial tolerated for about 2 hours today and then patient became tachypneic We will try tomorrow and see how patient does Abdomen/GI Nutrition Abdomen soft enteral feeds tolerated Renal/I&O Renal function preserved with normal BUN/creatinine Patient is definitely fluid overloaded at this point and was slowly diuresing patient with gentle Lasix administration Assessment and Plan Plan Patient overall stable Hope to wean off Levophed after transfusion of RBC and platelet Patient has been cleared by cardiology to go to the OR for IM nailing- I had a long discussion with the family today regarding patient's overall poor prognosis secondary to low reserves on trauma patient , who are elderly I doubt that patient will be weanable postop Attestation Critical care 35 minutes Praveen Bennett MD Feb 15, 2018 11:58
[2018-02-15] MEDS ORDERED: SODIUM CHLORID 0.9% 500 ML INJ 500 ML IV SCH (19:15)
[2018-02-15] MEDS: fentaNYL DRIP 250 ML IV PRN (22:51)
[2018-02-16] VITALS (15 sets, daily range): BP systolic 100–147; BP diastolic 50–67; PULSE 80–103; RESP 16–20; TEMP 99.1–100.6; O2SAT 91–99
[2018-02-16] MEDS: CHLORHEXIDINE GLUCONATE 2 % 1 PACK (2 CLOTHS) TOP SCH (04:00)
[2018-02-16] MEDS: PANTOPRAZOLE SODIUM 40 MG VIAL IVP SCH (04:40)
--- NOTE | 2018-02-16 05:17 | RADRPT ---
EXAM DATE/TIME: 02/16/2018 04:24 [place] COMPARISON: CHEST SINGLE AP, February 15, 2018, 3:21. INDICATIONS : Shortness of breath. MEDICAL HISTORY : None. SURGICAL HISTORY : None. ENCOUNTER: Subsequent ACUITY: 1 day PAIN SCORE: Non-responsive. LOCATION: Bilateral chest FINDINGS: The cardiac silhouette is enlarged in transverse diameter. Support lines and tubes are in satisfactor y position. There is patchy alveolar disease bilaterally compatible with edema or pneumonia. Small bi lateral pleural effusions are identified. CONCLUSION: 1. Patchy alveolar disease characteristic of edema or pneumonia. There has been no significant marie e when compared to the prior exam. Isaias Van MD on February 16, 2018 at 5:15 Board Certified Radiologist. This report was verified electronically.
--- NOTE | 2018-02-16 05:27 | HHI.CCPN ---
Subjective Brief History This is a 87 year old female who presents to the [facility] emergency department as a transfer from [facility] as a trauma alert. Apparently patient sustained a fall on the driveway at approximately 9 PM last night. Patient was transferred to [facility] and underwent workup and when it was finally noted that patient had severe injuries we were asked to accept the patient as trauma transfer. Patient arrives around 6 AM and according to Dr. Monae initially patient is hemodynamically stable but then continues to deteriorate including multifocal supraventricular arrhythmias. Patient undergoes repeat CT scan of the chest and abdomen and is transferred to ICU for further care. Final injuries are Right lower rib fractures with a hemopneumothorax / chest tube placement and 1200 mL of blood out in the chest tube. Bilateral intratrochanteric hip fractures Left proximal humerus fracture T11 fracture Multiple old fractures of the thoracic spine and several lumbar spine fractures with kyphoplasties Supraventricular cardiac arrhythmias ischemic cardiomyopathy Hypotensive shock Metabolic acidosis anion gap In the process patient dropped hemoglobin from 12 g/dL initially to 7 g/dL few hours later. She received several units of PRBCs and was resuscitated Required vasopressors including Levophed and Gonzalo-Synephrine 24 Hour Review/Hospital Course 02/10/2018 Patient was initially unstable but now has stabilized hemodynamically Remains intubated ventilated Medical feather edger help greatly appreciated 02/11/2018 Patient with a devastating traumatic injuries post fall She has been slowly stabilizing overnight with hemodynamic improvement and decreasing vasopressors Remains mildly sedated on propofol however we will switch this to Versed in face of cardio depressant effect of propofol Evaluated by cardiology for periods of bradycardia It is my opinion that patient had a myocardial infarction process as a result of combination of the trauma hypoxia on the scene anemia and hemorrhagic shock Troponins elevated 02/12 Patient underwent pacemaker insertion today by cardiology-she spontaneously converted to sinus rhythm the cardiac lab She is got thrombocytopenia- believe is likely related to blood loss/SIRS She remains on low-dose Levophed-I believe she is euvolemic-obtain Flowtrack for more exact measurement She had an CO versus blunt cardiac injury She has multitrauma with this overall poor prognosis secondary to her age with low reserve 02/13 OR today-IM nailing x2 transfuse 1U PRBC,1U plt low dose levophed off amiodarone uo adequate partial DNR as per family remains SR 02/14/2018 Patient remains intubated and ventilated Successful bilateral intratrochanteric fracture nailing yesterday Patient sedated on fentanyl Versed but minimal amounts with very low Rishi Coma Scale Hemodynamically stable although requiring small dose Levophed Pacemaker maintaining paced rhythm but patient developed A. fib on top of it so amiodarone has been restarted Gradually switch antiarrhythmics to p.o. form Aamir - cardiac output remains around 4-5 L which is quite admirable and SVR around 1100 Bilateral breath signs remains ventilatory dependent in face of pulmonary contusion and a severe chest trauma not ready to come off the respirator Abdomen soft Renal function preserved Extensive discussions with family and it is clear that this patient will be here long-term and will be difficult to extubate Hopefully she will not require tracheostomy however patient at this point does not have either the lung function or the level of consciousness sufficient to extubate In the face of age and extensive injuries prognosis remains very poor and 30 day mortality is extremely high 02/15/2018 Patient has stabilized hemodynamically Remains on small dose fentanyl about 50 mcg and will decrease that gradually and give patient some p.o. analgesia Hemodynamically stable very tiny dose of Levophed Cardiac arrhythmias have resolved patient is on p.o. amiodarone with paced rhythm Bilateral breath sounds with reasonable PO2 FiO2 gradient Patient is somewhat fluid overloaded as noted below and some pulmonary edema is present CPAP trial tolerated for about 2 hours today and then patient became tachypneic We will try tomorrow and see how patient does Abdomen soft enteral feeds tolerated Renal function preserved with normal BUN/creatinine Patient is definitely fluid overloaded at this point and was slowly diuresing patient with gentle Lasix administration 02/16/2018 Patient remains sedated with very small dose of medication Does not open eyes does not follow commands moves all 4 extremities We will give sedation medication Hemodynamically stable Had a period of sustained sinus tachycardia which resolved spontaneously Tolerated CPAP intermittently and then is switched to AC ventilation 35% FiO2 with bilateral patchy infiltrates in the lungs but no pneumonia and This is more consistent with ARDS Abdomen soft diet tolerated We will start working patient towards extubation with daily CPAP periods daily sedation vacations and will see how it goes Objective Vital Signs Date Time Temp Pulse Resp B/P (MAP) Pulse Ox O2 Delivery O2 Flow Rate FiO2 02/16/18 04:00 96 02/16/18 04:00 35 02/16/18 04:00 100.6 18 147/67 (93) 93 4/11/18 10:00 Mechanical Ventilator Result Diagram: 02/15/18 0505 02/15/18 0505 Other Results Laboratory Tests Test 02/16/18 03:58 Blood Gas Puncture Site RT RADIAL Blood Gas Patient Temperature 98.6 Blood Gas HCO3 28 mmol/L (22-26) Blood Gas Base Excess 4.2 mmol/L (-2-2) Blood Gas Oxygen Saturation 93 % (90-100) Arterial Blood pH 7.45 (7.380-7.420) Arterial Blood Partial Pressure CO2 42 mmHg (38-42) Arterial Blood Partial Pressure O2 65 mmHg (61-120) Arterial Blood Oxygen Content 11.1 Vol % (12.0-20.0) Arterial Blood Carboxyhemoglobin 2.5 % (0-4) Arterial Blood Methemoglobin 0.5 % (0-2) Blood Gas Hemoglobin 8.4 G/DL (12.0-16.0) Oxygen Delivery Device VENTILATOR Blood Gas Ventilator Setting SEE COMMENTS Blood Gas Inspired Oxygen 35 % Imaging Last 24 hours Impressions Chest X-Ray 02/15/18 0600 Signed Impressions: Service Date/Time: Saturday, February 15, 2018 03:21 - CONCLUSION: 1. Cardiomegaly and findings of congestive heart failure. There has been no significant change when compared to the prior exam. Isaias Van MD Exam CLINIC OFFICE COORDINATOR Patient remains sedated with very small dose of medication Does not open eyes does not follow commands moves all 4 extremities We will give sedation medication Hemodynamic/Cardiac Hemodynamically stable Had a period of sustained sinus tachycardia which resolved spontaneously Pulmonary/Respiratory Tolerated CPAP intermittently and then is switched to AC ventilation 35% FiO2 with bilateral patchy infiltrates in the lungs but no pneumonia and This is more consistent with ARDS We will start working patient towards extubation with daily CPAP periods daily sedation vacations and will see how it goes Abdomen/GI Nutrition Abdomen soft diet tolerated Assessment and Plan Plan Patient overall stable Hope to wean off Levophed after transfusion of RBC and platelet Patient has been cleared by cardiology to go to the OR for IM nailing- I had a long discussion with the family today regarding patient's overall poor prognosis secondary to low reserves on trauma patient , who are elderly I doubt that patient will be weanable postop Attestation Patient with severe trauma systemic injuries will gradually wean toward extubation but in the face of poor lung function severe lung contusions and symptoms of ARDS this may take a while Critical care 32 min Praveen Bennett MD Feb 16, 2018 05:27
[2018-02-16 05:51] LABS: AUTOMATED NEUTROPHIL # 9.1 TH/MM3 (1.8-7.7); BASOPHIL % 0.3 % (0.0-2.0); EOSINOPHIL # 0.1 TH/MM3 (0-0.4); EOSINOPHIL % 0.7 % (0.0-4.0); HEMATOCRIT 23.5 % (35.0-46.0); LYMPH % 7.6 % (9.0-44.0); LYMPHOCYTE # 0.9 TH/MM3 (1.0-4.8); MEAN CELL VOLUME 89.5 FL (80.0-100.0); MEAN CORPUSCULAR HEMOGLOBIN 30.4 PG (27.0-34.0); MEAN PLATELET VOLUME 8.5 FL (7.0-11.0); MONO % 11.3 % (0.0-8.0); MONOCYTE # 1.3 TH/MM3 (0-0.9); NEUT % 80.1 % (16.0-70.0); PLATELET COUNT 98 TH/MM3 (150-450); RED BLOOD COUNT 2.62 MIL/MM3 (4.00-5.30); RED CELL DISTRIBUTION WIDTH 16.9 % (11.6-17.2); WHITE BLOOD COUNT 11.4 TH/MM3 (4.0-11.0)
[2018-02-16 06:14] LABS: ALBUMIN 1.2 GM/DL (3.4-5.0); ALT (GPT) 18 U/L (10-53); AST (GOT) 32 U/L (15-37); BICARBONATE 29.7 MEQ/L (21.0-32.0); BLOOD UREA NITROGEN 13 MG/DL (7-18); CALCIUM 7.9 MG/DL (8.5-10.1); CHLORIDE 109 MEQ/L (98-107); CREATININE 0.36 MG/DL (0.50-1.00); GLOMERULAR FILTRATION RATE 171 ML/MIN (>89); GLUCOSE,RANDOM 133 MG/DL (74-106); SODIUM (NA) 143 MEQ/L (136-145)
[2018-02-16 06:17] LABS: ALKALINE PHOSPHATASE 89 U/L (45-117); TOTAL BILIRUBIN ADULT 1.8 MG/DL (0.2-1.0)
[2018-02-16 08:32] LABS: BANDS 15 % (0-6); LYMPHOCYTES 2 % (9-44); METAMYELOCYTES 5 % (0-1); MONOCYTES 6 % (0-8); MYELOCYTES 1 % (0-0); NEUTROPHIL # MANUAL DIFF 10.3 TH/MM3 (1.8-7.7); POLYS (SEG NEUTROPHILS) 69 % (16-70)
[2018-02-16 08:34] LABS: DOHLE BODIES PRESENT (NONE SEEN); TOXIC GRANULATION 1+ (NORMAL)
[2018-02-16] MEDS: CHLORHEXIDINE 0.12% (ORAL KIT) 15 ML CUP MT SCH ×2 (08:34→20:57)
[2018-02-16] MEDS: MAGNESIUM HYDROXIDE SUSP 30 ML CUP PO SCH ×2 (08:35→20:58)
[2018-02-16] MEDS: LACTULOSE SYRUP 20 GM/30 ML CUP PO SCH (08:35)
[2018-02-16] MEDS: SODIUM CHLOR 0.9% 1000 ML INJ 1,000 ML IV SCH ×2 (08:35→18:07)
[2018-02-16] MEDS: FUROSEMIDE 20 MG/2 ML VIAL IV PUSH SCH (08:36)
[2018-02-16] MEDS: DOCUSATE SODIUM 100 MG CAP PO SCH ×2 (08:36→20:57)
[2018-02-16] MEDS: SODIUM CHLORIDE 0.9% FLUSH 10 ML FLUSH IV FLUSH SCH ×2 (08:36→20:57)
[2018-02-16] MEDS: CHOLECALCIFEROL (VIT D3) 5000 UNIT CAP PO SCH (08:36)
[2018-02-16] MEDS: AMIODARONE 200 MG TAB PO SCH ×2 (08:36→20:56)
[2018-02-16] MEDS: ENOXAPARIN SODIUM 30 MG/0.3 ML SYRINGE SQ SCH (10:38)
--- NOTE | 2018-02-16 10:41 | HHI.NSPN ---
(Raven Ku) Note Status Status: Progress Note (Raven Ku) Interval History Interval History This is a 87 year old female who presents to the [facility] emergency department as a transfer from [facility] as a trauma alert. Apparently patient sustained a fall on the driveway at approximately 9 PM last night. She sustained right sided rib fractures with a hemopneumothorax status post chest tube placement and 1200 mL of blood out in the chest tube. The patient's hemoglobin dropped from 11 to7, was transfused 2 units of packed red blood cells. The patient was found to have bilateral intertrochanteric fractures, Left proximal humerus fracture, Acute T11 fracture, right-sided rib fractures, and hemopneumothorax as described above. She was accepted by Dr. Monae. Towards a.m. patient started becoming more hemodynamically unstable, Dr. Moane place a right subclavian central line and Levophed was started which rapidly was increased to 12 mcg/min. Due to increasing hemodynamic instability patient was intubated by Dr. Monae and placed on mechanical ventilation Trauma workup reveled a right hemopneumothorax, right-sided rib fractures, bilateral intertrochanteric fractures on the femur, acute T11 fracture, acute left humerus fracture. Neurosurgical consultation was requested 02/11. She has been slowly stabilized overnight with hemodynamic improvement and decreased need for vasopressors. She remains mildly sedated on propofol. She has been evaluated by cardiology for periods of bradycardia. Troponins elevated. Suspected that she had a myocardial infarction on the scene anemia and hemorrhagic shock 02/13: pt underwent pacemaker placement yesterday. currently intubated. ortho plans on b/l hip fixation today. 02/14: intubated, does not open eyes. 02/15: remains intubated 02/16: intubated, and sedated on drips. grimaces and minimally withdraws in LE's (Raven Ku) Labs, Micro, & Vital Signs Results Date Time Temp Pulse Resp B/P (MAP) Pulse Ox O2 Delivery O2 Flow Rate FiO2 02/16/18 08:33 93 35 02/16/18 08:00 96 02/16/18 08:00 35 02/16/18 08:00 100.0 96 18 143/64 (90) 94 02/16/18 07:00 92 123/58 02/16/18 06:00 90 02/16/18 04:00 96 02/16/18 04:00 35 02/16/18 04:00 100.6 96 18 147/67 (93) 93 02/16/18 02:00 96 02/16/18 01:45 92 35 02/16/18 00:00 82 02/16/18 00:00 35 02/16/18 00:00 99.1 82 16 100/50 (67) 99 02/15/18 22:46 95/50 02/15/18 22:00 82 02/15/18 20:35 96 35 02/15/18 20:15 87/52 02/15/18 20:00 100.9 134 20 83/50 (61) 94 02/15/18 20:00 134 83/50 02/15/18 20:00 134 02/15/18 20:00 35 02/15/18 18:00 112 02/15/18 16:13 92 35 02/15/18 16:00 35 02/15/18 16:00 98.5 108 20 125/56 (79) 93 02/15/18 16:00 108 02/15/18 14:00 98 02/15/18 12:00 98.4 98 17 102/53 (69) 94 02/15/18 12:00 35 02/15/18 12:00 98 02/15/18 11:55 92 35 02/17/18 07:00 Intake Total 1000 ml Balance 1000 ml Constitutional Vital Signs Date Time Temp Pulse Resp B/P (MAP) Pulse Ox O2 Delivery O2 Flow Rate FiO2 02/16/18 08:33 93 35 02/16/18 08:00 96 02/16/18 08:00 35 02/16/18 08:00 100.0 96 18 143/64 (90) 94 02/16/18 07:00 92 123/58 02/16/18 06:00 90 02/16/18 04:00 96 02/16/18 04:00 35 02/16/18 04:00 100.6 96 18 147/67 (93) 93 02/16/18 02:00 96 02/16/18 01:45 92 35 02/16/18 00:00 82 02/16/18 00:00 35 02/16/18 00:00 99.1 82 16 100/50 (67) 99 02/15/18 22:46 95/50 02/15/18 22:00 82 02/15/18 20:35 96 35 02/15/18 20:15 87/52 02/15/18 20:00 100.9 134 20 83/50 (61) 94 02/15/18 20:00 134 83/50 02/15/18 20:00 134 02/15/18 20:00 35 02/15/18 18:00 112 02/15/18 16:13 92 35 02/15/18 16:00 35 02/15/18 16:00 98.5 108 20 125/56 (79) 93 02/15/18 16:00 108 02/15/18 14:00 98 02/15/18 12:00 98.4 98 17 102/53 (69) 94 02/15/18 12:00 35 02/15/18 12:00 98 02/15/18 11:55 92 35 02/17/18 07:00 Intake Total 1000 ml Balance 1000 ml (Raven Ku) Review of Systems ROS Limitations: Clinical Condition (Raven Ku) Physical Exam Elderly female in no acute distress, intubated and sedated. HEENT: normocephalic, nonicteric sclera Neuro: sedated, does not open eyes or follow commands. Grimaced to noxious stimuli. Cranial Nerves: Pupils 2-3 mm equal. Eyes appear conjugated. Otherwise exam limited due to clinical condition. Minimal response to pain to lower extremities. Plantars equivocal b/l Cervical Spine: soft, supple Cerebellar: cannot assess Heart: regular rate rhythm Lungs: clear Skin warm and dry Abdomen: soft Skin warm and dry (Raven Ku) no acute distress, intubated and sedated. HEENT: normocephalic, nonicteric sclera Neuro: sedated, does not open eyes or follow commands. Grimaced to noxious stimuli. Cranial Nerves: Pupils 2-3 mm equal. Eyes appear conjugated. Otherwise exam limited due to clinical condition. Minimal response to pain to lower extremities. Plantars equivocal b/l Cervical Spine: soft, supple Cerebellar: cannot assess Heart: regular rate rhythm Lungs: clear Skin warm and dry Abdomen: soft Skin warm and dry (Nasir Landers MD) Medications Current Medications Current Medications Medications (Trade) Dose Ordered Sig/Mackenzie Route PRN Reason Start Time Stop Time Status Last Admin Dose Admin Enalaprilat (Vasotec Inj) 1.25 mg Q8H PRN IV PUSH SBP>180, DBP>95 02/10/18 04:15 Ondansetron HCl (Zofran Inj) 4 mg Q6H PRN IV PUSH NAUSEA OR VOMITING 02/10/18 04:15 Pantoprazole Sodium (Protonix Inj) 40 mg Q24H IVP 02/10/18 05:00 02/16/18 04:40 Docusate Sodium (Colace) 100 mg BID PO 02/10/18 09:00 02/15/18 20:19 Miscellaneous Information 1 Q361D XX 02/10/18 04:15 02/10/18 04:15 Chlorhexidine Gluconate (Chlorhexidine 2% Cloth) Taper DAILY@04 TOP 02/11/18 04:00 02/07/19 03:59 Chlorhexidine Gluconate (Chlorhexidine 2% Cloth) 3 pack UNSCH PRN TOP HYGIENIC CARE 02/10/18 04:15 Potassium Chloride (KCl Powder) 40 meq DAILY PRN PO For Potassium 3.3 - 3.5 mEq/L 02/10/18 06:30 Chlorhexidine Gluconate (Peridex 0.12% Liq) 15 ml BID@08,20 MT 02/10/18 08:00 02/16/18 08:34 Fentanyl Citrate 250 ml @ 5 mls/hr TITRATE PRN IV SEDATION 02/10/18 08:00 02/15/18 22:51 Potassium Chloride 100 ml @ 50 mls/hr Q2H PRN IV For Potassium 2.8 - 3.2 mEq/L 02/10/18 09:15 02/12/18 06:19 Potassium Chloride 100 ml @ 50 mls/hr Q2H PRN IV For Potassium 2.8 - 3.2 mEq/L 02/10/18 09:15 Potassium Bicarb/ Potassium Chloride (K-Lyte Cl Eff) 50 meq UNSCH PRN PO For Potassium 3.3 - 3.5 mEq/L 02/10/18 09:15 Potassium Chloride 100 ml @ 25 mls/hr UNSCH PRN IV For Potassium 3.3 - 3.5 mEq/L 02/10/18 09:15 Potassium Chloride 100 ml @ 50 mls/hr Q2H PRN IV For Potassium 3.3 - 3.5 mEq/L 02/10/18 09:15 Magnesium Sulfate 4 gm/Sodium Chloride 100 ml @ 50 mls/hr UNSCH PRN IV For Magnesium 0.9 - 1.1 mg/dL 02/10/18 09:15 Magnesium Oxide (Mag-Ox) 800 mg UNSCH PRN PO For Magnesium 1.2 - 1.6 mg/dL 02/10/18 09:15 Magnesium Sulfate 2 gm/Sodium Chloride 100 ml @ 50 mls/hr UNSCH PRN IV For Magnesium 1.2 - 1.6 mg/dL 02/10/18 09:15 Potassium Phosphate (K-Phos) 2,000 mg Q4H PRN PO For Phosphorus < 2.5 mg/dL 02/10/18 09:15 Sodium Phosphate 30 mmol/Sodium Chloride 250 ml @ 42 mls/hr UNSCH PRN IV For Phosphorus < 2.5 mg/dL 02/10/18 09:15 Potassium Phosphate (K-Phos) 2,000 mg UNSCH PRN PO/TUBE SEE LABEL COMMENTS 02/10/18 09:15 Potassium Phosphate 30 mmol/ Sodium Chloride 260 ml @ 42 mls/hr UNSCH PRN IV SEE LABEL COMMENTS 02/10/18 09:15 Norepinephrine Bitartrate 250 ml @ 7.5 mls/hr TITRATE PRN IV Maintain MAP > 65 mmHg 02/10/18 19:45 02/15/18 22:46 Phenylephrine HCl 40 mg/Dextrose 500 ml @ 30 mls/hr TITRATE PRN IV Blood Pressure Management 02/10/18 19:45 02/11/18 05:38 Sodium Chloride 1,000 ml @ 100 mls/hr Q10H IV 02/10/18 23:00 02/16/18 08:35 Midazolam HCl 100 ml @ 2 mls/hr TITRATE PRN IV SEDATION 02/11/18 09:30 02/12/18 22:18 Propofol 100 ml @ 2.391 mls/ hr TITRATE PRN IV SEDATION 02/11/18 09:45 Magnesium Hydroxide (Milk Of Magnesia Liq) 30 ml BID PO 02/11/18 21:00 02/16/18 08:35 Albuterol/ Ipratropium (Duoneb Neb) 1 ampule Q2HR NEB PRN NEB wheezing 02/11/18 19:45 Bacitracin (Bacitracin Oint Packet) 0.9 gm UNSCH PRN TOP SEE LABEL COMMENTS 02/12/18 09:30 Sodium Chloride (NS Flush) 2 ml BID IV FLUSH 02/12/18 21:00 02/15/18 20:20 Sodium Chloride (NS Flush) 2 ml UNSCH PRN IV FLUSH FLUSH AFTER USING IV ACCESS 02/12/18 09:30 Enoxaparin Sodium (Lovenox Inj) 30 mg Q24H SQ 02/14/18 11:00 02/15/18 10:08 Acetaminophen/ Hydrocodone Bitart ([place] 7.5-325 Mg) 1 tab Q3H PRN PO pain 3<10 02/13/18 12:00 Cholecalciferol (Vitamin D3) 5,000 units DAILY PO 02/14/18 09:00 02/16/18 08:36 Lactulose (Lactulose Liq) 30 ml DAILY PO 02/14/18 09:00 02/16/18 08:35 Amiodarone HCl (Cordarone) 400 mg Q12HR PO 02/14/18 13:30 02/16/18 08:36 Furosemide (Lasix Inj) 20 mg DAILY IV PUSH 02/15/18 09:15 02/20/18 08:59 02/16/18 08:36 (Raven Ku) Current Medications Current Medications Sodium Chloride 1,000 ml @ 100 mls/hr Q10H IV Last administered on 02/10/18at 20 :15; Start 02/10/18 at 04:13; Stop 02/10/18 at 22:57; Status DC Sodium Chloride (NS Flush) 2 ml UNSCH PRN IV FLUSH FLUSH AFTER USING IV ACCESS ; Start 02/10/18 at 04:15; Stop 02/15/18 at 14:27; Status DC Hydromorphone HCl (Dilaudid Pf Inj) 0.5 mg Q1H PRN IV BREAKTHROUGH PAIN; Start 02/10/18 at 04:45; Stop 02/11/18 at 19:37; Status DC Acetaminophen/ Hydrocodone Bitart ([place] 5-325 Mg) 1 tab Q4H PRN PO PAIN SCALE 1 TO 5; Start 02/10/18 at 04:15; Stop 02/11/18 at 19:37; Status DC Acetaminophen/ Hydrocodone Bitart ([place] 5-325 Mg) 2 tab Q4H PRN PO PAIN SCALE 6 TO 10 Last administered on 02/10/18at 04:52; Start 02/10/18 at 04:15; Stop 02/11/18 at 19:37; Status DC Enalaprilat (Vasotec Inj) 1.25 mg Q8H PRN IV PUSH SBP>180, DBP>95; Start at 04:15 Ondansetron HCl (Zofran Inj) 4 mg Q6H PRN IV PUSH NAUSEA OR VOMITING; Start 02/10/18 at 04:15 Pantoprazole Sodium (Protonix Inj) 40 mg Q24H IVP Last administered on at 05:17; Start 02/10/18 at 05:00 Docusate Sodium (Colace) 100 mg BID PO Last administered on 02/15/18at 20:19; Start 02/10/18 at 09:00; Stop 02/16/18 at 22:59; Status DC Miscellaneous Information 1 Q361D XX Last administered on 02/10/18at 04:15; Start 02/10/18 at 04:15 Chlorhexidine Gluconate (Chlorhexidine 2% Cloth) Taper DAILY@04 TOP ; Start 08/21 at 04:00; Stop 02/07/19 at 03:59 Chlorhexidine Gluconate (Chlorhexidine 2% Cloth) 3 pack UNSCH PRN TOP HYGIENIC CARE; Start 02/10/18 at 04:15 Etomidate (Amidate Inj) 40 mg STK-MED ONCE .ROUTE Last administered on at 05:16; Start 02/10/18 at 05:16; Stop 02/10/18 at 05:17; Status DC Fentanyl Citrate (fentaNYL INJ) 100 mcg STK-MED ONCE .ROUTE ; Start 02/10/18 at 05:17; Stop 02/10/18 at 05:18; Status DC Midazolam HCl (Versed Inj) 5 mg STK-MED ONCE .ROUTE Last administered on at 05:17; Start 02/10/18 at 05:17; Stop 02/10/18 at 05:18; Status DC Rocuronium [place] (Zemuron Inj) 50 mg STK-MED ONCE .ROUTE Last administered on 02/10/18at 05:17; Start 02/10/18 at 05:17; Stop 02/10/18 at 05:18; Status DC Propofol 50 ml @ As Directed STK-MED ONCE .ROUTE Last administered on 02/10/18at 07:30; Start 02/10/18 at 05:25; Stop 02/10/18 at 05:26; Status DC Potassium Chloride 100 ml @ 50 mls/hr Q2H PRN IV For Potassium 2.8 - 3.2 mEq/ L Last administered on 02/14/18at 11:40; Start 02/10/18 at 06:30; Stop 02/15/18 at 14:30; Status DC Potassium Chloride 100 ml @ 50 mls/hr Q2H PRN IV For Potassium 2.8 - 3.2 mEq/ L Last administered on 02/14/18at 09:30; Start 02/10/18 at 06:30; Stop 02/15/18 at 14:30; Status DC Potassium Chloride 100 ml @ 25 mls/hr UNSCH PRN IV For Potassium 3.3 - 3.5 mEq /L Last administered on 02/13/18at 07:36; Start 02/10/18 at 06:30; Stop 02/15/18 at 14:30; Status DC Potassium Chloride 100 ml @ 50 mls/hr Q2H PRN IV For Potassium 3.3 - 3.5 mEq/L ; Start 02/10/18 at 06:30; Stop 02/15/18 at 14:30; Status DC Magnesium Sulfate 4 gm/Sodium Chloride 100 ml @ 50 mls/hr UNSCH PRN IV For Magnesium 0.9 - 1.1 mg/dL; Start 02/10/18 at 06:30; Stop 02/15/18 at 14:30; Status DC Magnesium Oxide (Mag-Ox) 800 mg UNSCH PRN PO For Magnesium 1.2 - 1.6 mg/dL; Start 02/10/18 at 06:30; Stop 02/15/18 at 14:30; Status DC Magnesium Sulfate 2 gm/Sodium Chloride 100 ml @ 50 mls/hr UNSCH PRN IV For Magnesium 1.2 - 1.6 mg/dL Last administered on 02/10/18at 22:57; Start 02/10/18 at 06:30; Stop 02/15/18 at 14:30; Status DC Potassium Phosphate (K-Phos) 2,000 mg Q4H PRN PO For Phosphorus < 2.5 mg/dL; Start 02/10/18 at 06:30; Stop 02/15/18 at 14:30; Status DC Sodium Phosphate 30 mmol/Sodium Chloride 250 ml @ 42 mls/hr UNSCH PRN IV For Phosphorus < 2.5 mg/dL; Start 02/10/18 at 06:30; Stop 02/15/18 at 14:30; Status DC Potassium Phosphate (K-Phos) 2,000 mg UNSCH PRN PO/TUBE SEE LABEL COMMENTS; Start 02/10/18 at 06:30; Stop 02/15/18 at 14:30; Status DC Potassium Phosphate 30 mmol/ Sodium Chloride 260 ml @ 42 mls/hr UNSCH PRN IV SEE LABEL COMMENTS Last administered on 02/10/18at 22:56; Start 02/10/18 at 06:30; Stop 02/15/18 at 14:30; Status DC Potassium Chloride (KCl Powder) 40 meq DAILY PRN PO For Potassium 3.3 - 3.5 mEq /L; Start 02/10/18 at 06:30 Chlorhexidine Gluconate (Peridex 0.12% Liq) 15 ml BID@08,20 MT Last administered on 02/18/18at 08:31; Start 02/10/18 at 08:00 Propofol 100 ml @ 2.172 mls/ hr TITRATE PRN IV SEDATION Last administered on at 03:56; Start 02/10/18 at 08:00; Stop 02/11/18 at 09:26; Status DC Fentanyl Citrate 250 ml @ 5 mls/hr TITRATE PRN IV SEDATION Last administered on 02/15/18at 22:51; Start 02/10/18 at 08:00 Sodium Bicarbonate (Sodium Bicarbonate 8.4% Inj) 100 meq STK-MED ONCE .ROUTE Last administered on 02/10/18at 07:05; Start 02/10/18 at 07:05; Stop 02/10/18 at 07: 06; Status DC Phenylephrine HCl (Neosynephrine Inj) 10 mg STK-MED ONCE .ROUTE Last administered on 02/10/18at 07:20; Start 02/10/18 at 07:18; Stop 02/10/18 at 07:19; Status DC Phenylephrine HCl (Neosynephrine Inj) 30 mg STK-MED ONCE .ROUTE Last administered on 02/10/18at 07:20; Start 02/10/18 at 07:20; Stop 02/10/18 at 07:21; Status DC Sodium Chloride 1,000 ml @ 999 mls/hr BOLUS ONCE IV Last administered on at 09:15; Start 02/10/18 at 09:15; Stop 02/10/18 at 10:15; Status DC Potassium Chloride 100 ml @ 50 mls/hr Q2H PRN IV For Potassium 2.8 - 3.2 mEq/ L Last administered on 02/12/18at 06:19; Start 02/10/18 at 09:15 Potassium Chloride 100 ml @ 50 mls/hr Q2H PRN IV For Potassium 2.8 - 3.2 mEq/L ; Start 02/10/18 at 09:15 Potassium Bicarb/ Potassium Chloride (K-Lyte Cl Eff) 50 meq UNSCH PRN PO For Potassium 3.3 - 3.5 mEq/L; Start 02/10/18 at 09:15 Potassium Chloride 100 ml @ 25 mls/hr UNSCH PRN IV For Potassium 3.3 - 3.5 mEq /L; Start 02/10/18 at 09:15 Potassium Chloride 100 ml @ 50 mls/hr Q2H PRN IV For Potassium 3.3 - 3.5 mEq/L ; Start 02/10/18 at 09:15 Magnesium Sulfate 4 gm/Sodium Chloride 100 ml @ 50 mls/hr UNSCH PRN IV For Magnesium 0.9 - 1.1 mg/dL; Start 02/10/18 at 09:15 Magnesium Oxide (Mag-Ox) 800 mg UNSCH PRN PO For Magnesium 1.2 - 1.6 mg/dL; Start 02/10/18 at 09:15 Magnesium Sulfate 2 gm/Sodium Chloride 100 ml @ 50 mls/hr UNSCH PRN IV For Magnesium 1.2 - 1.6 mg/dL; Start 02/10/18 at 09:15 Potassium Phosphate (K-Phos) 2,000 mg Q4H PRN PO For Phosphorus < 2.5 mg/dL; Start 02/10/18 at 09:15 Sodium Phosphate 30 mmol/Sodium Chloride 250 ml @ 42 mls/hr UNSCH PRN IV For Phosphorus < 2.5 mg/dL; Start 02/10/18 at 09:15 Potassium Phosphate (K-Phos) 2,000 mg UNSCH PRN PO/TUBE SEE LABEL COMMENTS; Start 02/10/18 at 09:15 Potassium Phosphate 30 mmol/ Sodium Chloride 260 ml @ 42 mls/hr UNSCH PRN IV SEE LABEL COMMENTS; Start 02/10/18 at 09:15 Morphine Sulfate (Morphine Inj) 2 mg Q3H PRN IV PUSH Pain Last administered on 02/10/18at 11:29; Start 02/10/18 at 09:15; Stop 02/11/18 at 19:37; Status DC Phenylephrine HCl (Neosynephrine Inj) 10 mg STK-MED ONCE .ROUTE Last administered on 02/10/18at 19:07; Start 02/10/18 at 19:05; Stop 02/10/18 at 19:06; Status DC Norepinephrine Bitartrate 250 ml @ 7.5 mls/hr TITRATE PRN IV Maintain MAP > 65 mmHg Last administered on 02/15/18at 22:46; Start 02/10/18 at 19:45; Stop 02/18 at 09:10; Status DC Phenylephrine HCl 40 mg/Dextrose 500 ml @ 30 mls/hr TITRATE PRN IV Blood Pressure Management Last administered on 02/11/18at 05:38; Start 02/10/18 at 19:45 ; Stop 02/18/18 at 09:10; Status DC Albumin Human 250 ml @ As Directed STK-MED ONCE IV Last administered on at 19:56; Start 02/10/18 at 19:55; Stop 02/10/18 at 19:56; Status DC Sodium Chloride 1,000 ml @ 10 mls/hr Q24H IV Last administered on 02/18/18at 00 :11; Start 02/10/18 at 23:00 Albumin Human 500 ml @ 250 mls/hr NOW ONCE IV Last administered on 02/10/18at 23:00; Start 02/10/18 at 23:00; Stop 02/11/18 at 00:59; Status DC Sodium Chloride 500 ml @ 500 mls/hr Q1H ONCE IV Last administered on 02/10/18at 23:00; Start 02/10/18 at 23:00; Stop 02/10/18 at 23:59; Status DC Midazolam HCl 100 ml @ 2 mls/hr TITRATE PRN IV SEDATION Last administered on 09/21at 22:18; Start 02/11/18 at 09:30; Stop 02/18/18 at 09:10; Status DC Furosemide (Lasix Inj) 20 mg ONCE ONCE IV PUSH Last administered on 02/11/18at 09:30; Start 02/11/18 at 09:30; Stop 02/11/18 at 09:38; Status DC Propofol 100 ml @ 2.391 mls/ hr TITRATE PRN IV SEDATION; Start 02/11/18 at 09: 45; Stop 02/18/18 at 09:10; Status DC Cefazolin Sodium/ Dextrose 50 ml @ 100 mls/hr [employer]CTION [employer]JECT [employer]NAGER IV ; Start 02/11/18 at 11:00; Stop 02/11/18 at 11:00; Status DC Vancomycin HCl 1000 mg/Sodium Chloride 250 ml @ 250 mls/hr [employer]STRU[employer] PROJECT MANAGER IV Last administered on 02/13/18at 11:07; Start 02/11/18 at 10:00; Stop 02/15/18 at 09:59 ; Status DC Povidone Iodine (Betadine 5% Antisepsis Kit) 1 applic CONSTRUCTION PROJECT MANAGER EACH NARE ; Start 02/11/18 at 10:00; Stop 02/15/18 at 09:59; Status DC Mupirocin (Bactroban Nasal 2% Oint) 1 applic [employer]STRUCTION PROJECT MANAGER NASAL ; Start 02/11/18 at 10:00; Stop 02/15/18 at 09:59; Status DC Chlorhexidine Gluconate (Chlorhexidine 2% Cloth) 3 pack [employer]STRUCTION PROJECT MANAGER TOP ; Start 08/21 at 10:00; Stop 02/15/18 at 09:59; Status DC Cefazolin Sodium 2000 mg/Sodium Chloride 100 ml @ 100 mls/hr CONSTRUCTION PROJECT MANAGER IV ; Start 02/11/18 at 11:00; Stop 02/14/18 at 10:59; Status DC Phenylephrine HCl (Neosynephrine Inj) 40 mg STK-MED ONCE .ROUTE ; Start at 19:20; Stop 02/11/18 at 19:21; Status DC Magnesium Hydroxide (Milk Of Magnnitish Liq) 30 ml BID PO Last administered on at 20:06; Start 02/11/18 at 21:00 Albuterol/ Ipratropium (Duoneb Neb) 1 ampule Q6HR NEB NEB Last administered on 02/15/18at 20:34; Start 02/11/18 at 22:00; Stop 02/15/18 at 21:59; Status DC Albuterol/ Ipratropium (Duoneb Neb) 1 ampule Q2HR NEB PRN NEB wheezing; Start 02/11/18 at 19:45 Amiodarone HCl 150 mg/Dextrose 100 ml @ 600 mls/hr NOW ONCE IV Last administered on 02/12/18at 03:42; Start 02/12/18 at 03:15; Stop 02/12/18 at 03:24 ; Status DC Amiodarone HCl 450 mg/Sodium Chloride 250 ml @ 33.33 mls/ hr TITRATE PRN IV Per Protocol Last administered on 02/14/18at 04:54; Start 02/12/18 at 03:15; Stop 02/15/18 at 14:43; Status DC Vancomycin HCl (Vancomycin Inj) 500 mg STK-MED ONCE .ROUTE Last administered on 02/12/18at 07:55; Start 02/12/18 at 07:55; Stop 02/12/18 at 07:56; Status DC Vancomycin HCl (Vancomycin Inj) 1,000 mg STK-MED ONCE .ROUTE Last administered on 02/12/18at 08:14; Start 02/12/18 at 07:56; Stop 02/12/18 at 07:57; Status DC Lidocaine HCl (Xylocaine-Mpf 1% Inj) 30 ml STK-MED ONCE .ROUTE ; Start 02/12/18 at 07:56; Stop 02/12/18 at 07:57; Status DC Cefazolin Sodium (Ancef Inj) 2,000 mg STK-MED ONCE .ROUTE Last administered on 02/12/18at 08:03; Start 02/12/18 at 07:56; Stop 02/12/18 at 07:57; Status DC Lidocaine HCl (Xylocaine 2% Inj) 50 ml STK-MED ONCE .ROUTE Last administered on 02/12/18at 08:00; Start 02/12/18 at 08:00; Stop 02/12/18 at 08:01; Status DC Bacitracin (Bacitracin Oint Packet) 0.9 gm UNSCH PRN TOP SEE LABEL COMMENTS; Start 02/12/18 at 09:30 Sodium Chloride (NS Flush) 2 ml BID IV FLUSH Last administered on 02/18/18at 08: 25; Start 02/12/18 at 21:00 Sodium Chloride (NS Flush) 2 ml UNSCH PRN IV FLUSH FLUSH AFTER USING IV ACCESS ; Start 02/12/18 at 09:30 Iohexol (Omnipaque 350 Inj) 50 ml STK-MED ONCE IVCONTRAST Last administered on 02/10/18at 03:53; Start 02/10/18 at 03:53; Stop 02/12/18 at 13:49; Status DC Fentanyl Citrate (fentaNYL INJ) 250 mcg STK-MED ONCE .ROUTE ; Start 02/13/18 at 09:54; Stop 02/13/18 at 09:55; Status DC Cefazolin Sodium (Ancef Inj) 2,000 mg STK-MED ONCE .ROUTE Last administered on 02/13/18at 10:45; Start 02/13/18 at 09:57; Stop 02/13/18 at 09:58; Status DC Gentamicin Sulfate (Gentamicin Inj) 240 mg STK-MED ONCE .ROUTE Last administered on 02/13/18at 09:58; Start 02/13/18 at 09:58; Stop 02/13/18 at 09:59 ; Status DC Enoxaparin Sodium (Lovenox Inj) 30 mg Q24H SQ Last administered on 02/17/18at 09 :45; Start 02/14/18 at 11:00 Cefazolin Sodium 1000 mg/Sodium Chloride 100 ml @ 200 mls/hr Q8H IV Last administered on 02/14/18at 10:34; Start 02/13/18 at 19:00; Stop 02/14/18 at 11:29 ; Status DC Acetaminophen/ Hydrocodone Bitart ([place] 7.5-325 Mg) 1 tab Q3H PRN PO pain 3< 10 Last administered on 02/18/18at 08:22; Start 02/13/18 at 12:00; Stop 02/18/18 at 09:09; Status DC Cholecalciferol (Vitamin D3) 5,000 units DAILY PO Last administered on at 08:19; Start 02/14/18 at 09:00 Ergocalciferol (Drisdol) 50,000 units ONCE ONCE PO Last administered on at 16:01; Start 02/13/18 at 12:00; Stop 02/13/18 at 12:10; Status DC Amiodarone HCl (Cordarone Inj) 150 mg STK-MED ONCE .ROUTE ; Start 02/13/18 at 18 :12; Stop 02/13/18 at 18:13; Status DC Amiodarone HCl 150 mg/Dextrose 100 ml @ 600 mls/hr NOW ONCE IV Last administered on 02/13/18at 18:25; Start 02/13/18 at 19:00; Stop 02/13/18 at 19:09 ; Status DC Lactated Ringer's 500 ml @ 0 mls/hr BOLUS ONCE IV Last administered on at 18:45; Start 02/13/18 at 18:45; Stop 02/13/18 at 18:46; Status DC Lactulose (Lactulose Liq) 30 ml DAILY PO Last administered on 02/16/18at 08:35; Start 02/14/18 at 09:00 Amiodarone HCl (Cordarone) 400 mg Q12HR PO Last administered on 02/18/18at 08:20 ; Start 02/14/18 at 13:30 Furosemide (Lasix Inj) 20 mg DAILY IV PUSH Last administered on 02/18/18at 08:23 ; Start 02/15/18 at 09:15; Stop 02/20/18 at 08:59 Sodium Chloride 500 ml @ 999 mls/hr Q31M IV Last administered on 02/15/18at 19: 00; Start 02/15/18 at 19:15; Stop 02/15/18 at 19:45; Status DC Midazolam HCl (Versed Inj) 10 mg STK-MED ONCE .ROUTE ; Start 02/16/18 at 14:54; Stop 02/16/18 at 14:55; Status DC Docusate Sodium (Colace Liq) 100 mg BID PO Last administered on 02/17/18at 20:06 ; Start 02/17/18 at 09:00 Metoprolol Tartrate (Lopressor Inj) 5 mg STK-MED ONCE .ROUTE ; Start 02/17/18 at 13:04; Stop 02/17/18 at 13:05; Status DC Diltiazem HCl (Cardizem) 60 mg Q6H PO Last administered on 02/18/18at 14:06; Start 02/17/18 at 14:00 Metoprolol Tartrate (Lopressor Inj) 5 mg NOW ONCE IV Last administered on 02/17at 13:30; Start 02/17/18 at 13:45; Stop 02/17/18 at 13:46; Status DC Oxycodone HCl (Roxicodone Intensol Liq) 5 mg Q4H PO Last administered on at 14:07; Start 02/18/18 at 10:00 Acetaminophen (Tylenol 650 Mg/ 20 ml Liq) 650 mg Q6H PRN PO Temp > 101.5; Start 02/18/18 at 09:30 (Nasir Landers MD) Medical Decision Making MDM Remarks 87 y/o female trauma alert, sustained a fall on the driveway acute T11 fracture right hemopneumothorax right-sided rib fractures bilateral intertrochanteric fractures on the femur acute left humerus fracture s/p pacemaker placement s/p fixation of b/l intertrochanteric fractures (Raven Ku) Plan Plan Remarks cont trauma management cont nonoperative treatment of thoracic fracture at this time cont neuro checks, vent and sedation weaning as tolerated per primary f/u exam (Raven Ku) Attending Statement Continue neuro checks T11 fracture. Nonoperative treatment with bed rest for now. if her condition improves TLSO brace Bilateral hip fractures. Status post nail internal fixation Left shoulder fracture.Continue nonoperative treatment per orthopedics Multiple rib fractures. .Continue narcotic analgesics for pain control hemopneumothorax. Status post chest tube Pulmonary. .Continue mechanical ventilation for acute respiratory failure, aggressive pulmonary toilette, nasotracheal suction, and breathing treatments with nebulizers. PT and OT eval Renal. .Continue to monitor closely urine output, BUN and creatinine Endocrine. .Continue to Monitor serial Acu checks and SSI as needed in detail ID .Continue to monitor for signs of infection .Continue Protonix for stress ulcer prophylaxis Continue Farrukh hose and SCD's for DVT prophylaxis The exam, history, and the medical decision-making described in the above note were completed with the assistance of the mid-level provider. I reviewed and agree with the findings presented. I attest that I had a [id number]-ga-[id number] encounter with the patient on the same day, and personally performed and documented my assessment and findings in the medical record. (Nasir Landers MD) Raven Ku Feb 16, 2018 10:41 Nasir Landers MD Feb 18, 2018 17:58
[2018-02-16] MEDS ORDERED: MIDAZOLAM HCL 5 MG/ML VIAL (1 ML) ONE (14:54)
--- NOTE | 2018-02-16 15:39 | EKG ---
Date Performed: 02/15/2018 Time Performed: 19:04:28 PTAGE: 87 years EKG: Atrial fibrillation with rapid ventricular rate. Nonspecific ST-T wave changes Compared to previous tracing, the patient now appears to be in atrial fibrillation. Abnormal ECG PREVIOUS TRACING : 02/12/2018 07.12 DOCTOR: Flory Mcnamara Interpretating Date/Time 02/16/2018 15:38:29
[2018-02-17] VITALS (17 sets, daily range): BP systolic 115–171; BP diastolic 57–82; PULSE 80–140; RESP 12–22; TEMP 99.5–100.6; O2SAT 91–97
[2018-02-17] MEDS: CHLORHEXIDINE GLUCONATE 2 % 1 PACK (2 CLOTHS) TOP SCH (04:00)
[2018-02-17] MEDS: SODIUM CHLOR 0.9% 1000 ML INJ 1,000 ML IV SCH ×2 (04:19→13:50)
[2018-02-17] MEDS: PANTOPRAZOLE SODIUM 40 MG VIAL IVP SCH (04:21)
[2018-02-17 05:07] LABS: AUTOMATED NEUTROPHIL # 13.6 TH/MM3 (1.8-7.7); BASOPHIL # 0.1 TH/MM3 (0-0.2); BASOPHIL % 0.3 % (0.0-2.0); EOSINOPHIL # 0.2 TH/MM3 (0-0.4); EOSINOPHIL % 0.9 % (0.0-4.0); HEMATOCRIT 25.7 % (35.0-46.0); HEMOGLOBIN 8.6 GM/DL (11.6-15.3); LYMPH % 7.5 % (9.0-44.0); LYMPHOCYTE # 1.3 TH/MM3 (1.0-4.8); MEAN CELL VOLUME 89.8 FL (80.0-100.0); MEAN CORPUSCULAR HEMOGLOBIN 30.1 PG (27.0-34.0); MEAN CORPUSCULAR HGB CONC 33.5 % (32.0-36.0); MEAN PLATELET VOLUME 8.8 FL (7.0-11.0); MONO % 10.8 % (0.0-8.0); MONOCYTE # 1.8 TH/MM3 (0-0.9); NEUT % 80.5 % (16.0-70.0); PLATELET COUNT 126 TH/MM3 (150-450); RED BLOOD COUNT 2.86 MIL/MM3 (4.00-5.30); RED CELL DISTRIBUTION WIDTH 16.5 % (11.6-17.2); WHITE BLOOD COUNT 16.9 TH/MM3 (4.0-11.0)
[2018-02-17 05:19] LABS: ALBUMIN 1.3 GM/DL (3.4-5.0); AST (GOT) 56 U/L (15-37); BICARBONATE 30.1 MEQ/L (21.0-32.0); BLOOD UREA NITROGEN 16 MG/DL (7-18); CALCIUM 8.4 MG/DL (8.5-10.1); CHLORIDE 108 MEQ/L (98-107); CREATININE 0.33 MG/DL (0.50-1.00); GLOMERULAR FILTRATION RATE 189 ML/MIN (>89); GLUCOSE,RANDOM 107 MG/DL (74-106); SODIUM (NA) 142 MEQ/L (136-145)
[2018-02-17 05:23] LABS: ALKALINE PHOSPHATASE 121 U/L (45-117); ALT (GPT) 28 U/L (10-53); TOTAL PROTEIN 4.5 GM/DL (6.4-8.2)
--- NOTE | 2018-02-17 05:47 | RADRPT ---
EXAM DATE/TIME: 02/17/2018 05:13 [facility] COMPARISON: CHEST SINGLE AP, February 16, 2018, 4:24. INDICATIONS : Short of breath. MEDICAL HISTORY : None. SURGICAL HISTORY : Pacemaker. ENCOUNTER: Subsequent ACUITY: 1 week PAIN SCORE: 0/10 LOCATION: Bilateral chest FINDINGS: Diffuse airspace opacities persist, not significantly changed. No large effusion demonstrated. No pne umothorax. Mild cardiomegaly is stable. Cardiac pacer again seen. Endotracheal tube tip is 3.5 cm above the rosmery. Nasogastric tube courses into the stomach. There is a right subclavian central venous catheter with tip in the superior vena cava. CONCLUSION: No significant change bilateral parenchymal opacities. Deondre Costello MD on February 17, 2018 at 5:44 Board Certified Radiologist. This report was verified electronically.
[2018-02-17 07:39] LABS: BANDS 6 % (0-6); LYMPHOCYTES 3 % (9-44); METAMYELOCYTES 6 % (0-1); MONOCYTES 5 % (0-8); MYELOCYTES 4 % (0-0); NEUTROPHIL # MANUAL DIFF 15.4 TH/MM3 (1.8-7.7); POLYS (SEG NEUTROPHILS) 74 % (16-70); PROMYELOCYTES 1 % (0-0)
[2018-02-17] MEDS: CHLORHEXIDINE 0.12% (ORAL KIT) 15 ML CUP MT SCH ×2 (08:00→20:06)
[2018-02-17] MEDS: LACTULOSE SYRUP 20 GM/30 ML CUP PO SCH (09:00)
[2018-02-17] MEDS: DOCUSATE SODIUM 100 MG/10 ML UDC PO SCH ×2 (09:44→20:06)
[2018-02-17] MEDS: MAGNESIUM HYDROXIDE SUSP 30 ML CUP PO SCH ×2 (09:44→20:06)
[2018-02-17] MEDS: AMIODARONE 200 MG TAB PO SCH ×2 (09:44→20:07)
[2018-02-17] MEDS: SODIUM CHLORIDE 0.9% FLUSH 10 ML FLUSH IV FLUSH SCH ×2 (09:45→20:09)
[2018-02-17] MEDS: FUROSEMIDE 20 MG/2 ML VIAL IV PUSH SCH (09:45)
[2018-02-17] MEDS: CHOLECALCIFEROL (VIT D3) 5000 UNIT CAP PO SCH (09:45)
[2018-02-17] MEDS: ENOXAPARIN SODIUM 30 MG/0.3 ML SYRINGE SQ SCH (09:45)
--- NOTE | 2018-02-17 09:55 | HHI.NSPN ---
(Raven Ku) Note Status Status: Progress Note (Raven Ku) Interval History Interval History This is a 87 year old female who presents to the [facility] emergency department as a transfer from [facility] as a trauma alert. Apparently patient sustained a fall on the driveway at approximately 9 PM last night. She sustained right sided rib fractures with a hemopneumothorax status post chest tube placement and 1200 mL of blood out in the chest tube. The patient's hemoglobin dropped from 11 to7, was transfused 2 units of packed red blood cells. The patient was found to have bilateral intertrochanteric fractures, Left proximal humerus fracture, Acute T11 fracture, right-sided rib fractures, and hemopneumothorax as described above. She was accepted by Dr. Monae. Towards a.m. patient started becoming more hemodynamically unstable, Dr. Monae place a right subclavian central line and Levophed was started which rapidly was increased to 12 mcg/min. Due to increasing hemodynamic instability patient was intubated by Dr. Monae and placed on mechanical ventilation Trauma workup reveled a right hemopneumothorax, right-sided rib fractures, bilateral intertrochanteric fractures on the femur, acute T11 fracture, acute left humerus fracture. Neurosurgical consultation was requested 02/11. She has been slowly stabilized overnight with hemodynamic improvement and decreased need for vasopressors. She remains mildly sedated on propofol. She has been evaluated by cardiology for periods of bradycardia. Troponins elevated. Suspected that she had a myocardial infarction on the scene anemia and hemorrhagic shock 02/13: pt underwent pacemaker placement yesterday. currently intubated. ortho plans on b/l hip fixation today. 02/14: intubated, does not open eyes. 02/15: remains intubated 02/16: intubated, and sedated on drips. grimaces and minimally withdraws in LE's 02/17: remains intubated, sedated, grimaces with slight intermittent head movement. minimal withdrawals in lower extremities. (Raven Ku) Labs, Micro, & Vital Signs Results Date Time Temp Pulse Resp B/P (MAP) Pulse Ox O2 Delivery O2 Flow Rate FiO2 02/17/18 07:54 95 45 02/17/18 06:30 45 02/17/18 06:00 95 02/17/18 04:00 116 02/17/18 04:00 99.5 116 22 142/76 (98) 91 02/17/18 04:00 35 02/17/18 02:00 88 02/17/18 01:24 94 35 02/17/18 00:00 87 02/17/18 00:00 35 02/17/18 00:00 100.4 90 22 147/64 (91) 93 02/16/18 22:00 92 02/16/18 20:55 94 35 02/16/18 20:00 100.2 86 16 122/55 (77) 94 02/16/18 20:00 35 02/16/18 20:00 86 02/16/18 18:00 88 02/16/18 16:00 100.4 92 17 104/52 (69) 94 02/16/18 16:00 92 02/16/18 16:00 35 02/16/18 14:00 80 02/16/18 12:00 100.5 103 20 140/65 (90) 91 02/16/18 12:00 35 02/16/18 12:00 103 02/16/18 10:40 40 02/16/18 10:00 94 Constitutional Vital Signs Date Time Temp Pulse Resp B/P (MAP) Pulse Ox O2 Delivery O2 Flow Rate FiO2 02/17/18 07:54 95 45 02/17/18 06:30 45 02/17/18 06:00 95 02/17/18 04:00 116 02/17/18 04:00 99.5 116 22 142/76 (98) 91 02/17/18 04:00 35 02/17/18 02:00 88 02/17/18 01:24 94 35 02/17/18 00:00 87 02/17/18 00:00 35 02/17/18 00:00 100.4 90 22 147/64 (91) 93 02/16/18 22:00 92 02/16/18 20:55 94 35 02/16/18 20:00 100.2 86 16 122/55 (77) 94 02/16/18 20:00 35 02/16/18 20:00 86 02/16/18 18:00 88 02/16/18 16:00 100.4 92 17 104/52 (69) 94 02/16/18 16:00 92 02/16/18 16:00 35 02/16/18 14:00 80 02/16/18 12:00 100.5 103 20 140/65 (90) 91 02/16/18 12:00 35 02/16/18 12:00 103 02/16/18 10:40 40 02/16/18 10:00 94 (Raven Ku) Physical Exam Elderly female in no acute distress, intubated and sedated. HEENT: normocephalic, nonicteric sclera Neuro: sedated, does not open eyes or follow commands. Grimaced to noxious stimuli. Cranial Nerves: Pupils 2-3 mm equal. Eyes appear conjugated. Otherwise exam limited due to clinical condition. Minimal response to pain to lower extremities. Plantars equivocal b/l Cervical Spine: soft, supple Cerebellar: cannot assess Heart: regular rate rhythm Lungs: clear Skin warm and dry Abdomen: soft Skin warm and dry (Raven Ku) Elderly female in no acute distress, intubated and sedated. HEENT: normocephalic, nonicteric sclera Neuro: sedated, does not open eyes or follow commands. Grimaced to noxious stimuli. Cranial Nerves: Pupils 2-3 mm equal. Eyes appear conjugated. Otherwise exam limited due to clinical condition. Minimal response to pain to lower extremities. Plantars equivocal b/l Cervical Spine: soft, supple Cerebellar: cannot assess Heart: regular rate rhythm Lungs: clear Skin warm and dry Abdomen: soft Skin warm and dry (Nasir Landers MD) Medications Current Medications Current Medications Medications (Trade) Dose Ordered Sig/Mackenzie Route PRN Reason Start Time Stop Time Status Last Admin Dose Admin Enalaprilat (Vasotec Inj) 1.25 mg Q8H PRN IV PUSH SBP>180, DBP>95 02/10/18 04:15 Ondansetron HCl (Zofran Inj) 4 mg Q6H PRN IV PUSH NAUSEA OR VOMITING 02/10/18 04:15 Pantoprazole Sodium (Protonix Inj) 40 mg Q24H IVP 02/10/18 05:00 02/17/18 04:21 Miscellaneous Information 1 Q361D XX 02/10/18 04:15 02/10/18 04:15 Chlorhexidine Gluconate (Chlorhexidine 2% Cloth) Taper DAILY@04 TOP 02/11/18 04:00 02/07/19 03:59 Chlorhexidine Gluconate (Chlorhexidine 2% Cloth) 3 pack UNSCH PRN TOP HYGIENIC CARE 02/10/18 04:15 Potassium Chloride (KCl Powder) 40 meq DAILY PRN PO For Potassium 3.3 - 3.5 mEq/L 02/10/18 06:30 Chlorhexidine Gluconate (Peridex 0.12% Liq) 15 ml BID@08,20 MT 02/10/18 08:00 02/17/18 08:00 Fentanyl Citrate 250 ml @ 5 mls/hr TITRATE PRN IV SEDATION 02/10/18 08:00 02/15/18 22:51 Potassium Chloride 100 ml @ 50 mls/hr Q2H PRN IV For Potassium 2.8 - 3.2 mEq/L 02/10/18 09:15 02/12/18 06:19 Potassium Chloride 100 ml @ 50 mls/hr Q2H PRN IV For Potassium 2.8 - 3.2 mEq/L 02/10/18 09:15 Potassium Bicarb/ Potassium Chloride (K-Lyte Cl Eff) 50 meq UNSCH PRN PO For Potassium 3.3 - 3.5 mEq/L 02/10/18 09:15 Potassium Chloride 100 ml @ 25 mls/hr UNSCH PRN IV For Potassium 3.3 - 3.5 mEq/L 02/10/18 09:15 Potassium Chloride 100 ml @ 50 mls/hr Q2H PRN IV For Potassium 3.3 - 3.5 mEq/L 02/10/18 09:15 Magnesium Sulfate 4 gm/Sodium Chloride 100 ml @ 50 mls/hr UNSCH PRN IV For Magnesium 0.9 - 1.1 mg/dL 02/10/18 09:15 Magnesium Oxide (Mag-Ox) 800 mg UNSCH PRN PO For Magnesium 1.2 - 1.6 mg/dL 02/10/18 09:15 Magnesium Sulfate 2 gm/Sodium Chloride 100 ml @ 50 mls/hr UNSCH PRN IV For Magnesium 1.2 - 1.6 mg/dL 02/10/18 09:15 Potassium Phosphate (K-Phos) 2,000 mg Q4H PRN PO For Phosphorus < 2.5 mg/dL 02/10/18 09:15 Sodium Phosphate 30 mmol/Sodium Chloride 250 ml @ 42 mls/hr UNSCH PRN IV For Phosphorus < 2.5 mg/dL 02/10/18 09:15 Potassium Phosphate (K-Phos) 2,000 mg UNSCH PRN PO/TUBE SEE LABEL COMMENTS 02/10/18 09:15 Potassium Phosphate 30 mmol/ Sodium Chloride 260 ml @ 42 mls/hr UNSCH PRN IV SEE LABEL COMMENTS 02/10/18 09:15 Norepinephrine Bitartrate 250 ml @ 7.5 mls/hr TITRATE PRN IV Maintain MAP > 65 mmHg 02/10/18 19:45 02/15/18 22:46 Phenylephrine HCl 40 mg/Dextrose 500 ml @ 30 mls/hr TITRATE PRN IV Blood Pressure Management 02/10/18 19:45 02/11/18 05:38 Sodium Chloride 1,000 ml @ 100 mls/hr Q10H IV 02/10/18 23:00 02/17/18 04:19 Midazolam HCl 100 ml @ 2 mls/hr TITRATE PRN IV SEDATION 02/11/18 09:30 02/12/18 22:18 Propofol 100 ml @ 2.391 mls/ hr TITRATE PRN IV SEDATION 02/11/18 09:45 Magnesium Hydroxide (Milk Of Quinten Byers) 30 ml BID PO 02/11/18 21:00 02/17/18 09:44 Albuterol/ Ipratropium (Duoneb Neb) 1 ampule Q2HR NEB PRN NEB wheezing 02/11/18 19:45 Bacitracin (Bacitracin Oint Packet) 0.9 gm UNSCH PRN TOP SEE LABEL COMMENTS 02/12/18 09:30 Sodium Chloride (NS Flush) 2 ml BID IV FLUSH 02/12/18 21:00 02/17/18 09:45 Sodium Chloride (NS Flush) 2 ml UNSCH PRN IV FLUSH FLUSH AFTER USING IV ACCESS 02/12/18 09:30 Enoxaparin Sodium (Lovenox Inj) 30 mg Q24H SQ 02/14/18 11:00 02/17/18 09:45 Acetaminophen/ Hydrocodone Bitart ([place] 7.5-325 Mg) 1 tab Q3H PRN PO pain 3<10 02/13/18 12:00 Cholecalciferol (Vitamin D3) 5,000 units DAILY PO 02/14/18 09:00 02/17/18 09:45 Lactulose (Lactulose Liq) 30 ml DAILY PO 02/14/18 09:00 02/16/18 08:35 Amiodarone HCl (Cordarone) 400 mg Q12HR PO 02/14/18 13:30 02/17/18 09:44 Furosemide (Lasix Inj) 20 mg DAILY IV PUSH 02/15/18 09:15 02/20/18 08:59 02/17/18 09:45 Docusate Sodium (Colace Liq) 100 mg BID PO 02/17/18 09:00 02/17/18 09:44 (Raven Ku) Current Medications Current Medications Sodium Chloride 1,000 ml @ 100 mls/hr Q10H IV Last administered on 02/10/18at 20 :15; Start 02/10/18 at 04:13; Stop 02/10/18 at 22:57; Status DC Sodium Chloride (NS Flush) 2 ml UNSCH PRN IV FLUSH FLUSH AFTER USING IV ACCESS ; Start 02/10/18 at 04:15; Stop 02/15/18 at 14:27; Status DC Hydromorphone HCl (Dilaudid Pf Inj) 0.5 mg Q1H PRN IV BREAKTHROUGH PAIN; Start 02/10/18 at 04:45; Stop 02/11/18 at 19:37; Status DC Acetaminophen/ Hydrocodone Bitart ([place] 5-325 Mg) 1 tab Q4H PRN PO PAIN SCALE 1 TO 5; Start 02/10/18 at 04:15; Stop 02/11/18 at 19:37; Status DC Acetaminophen/ Hydrocodone Bitart ([place] 5-325 Mg) 2 tab Q4H PRN PO PAIN SCALE 6 TO 10 Last administered on 02/10/18at 04:52; Start 02/10/18 at 04:15; Stop 02/11/18 at 19:37; Status DC Enalaprilat (Vasotec Inj) 1.25 mg Q8H PRN IV PUSH SBP>180, DBP>95; Start at 04:15 Ondansetron HCl (Zofran Inj) 4 mg Q6H PRN IV PUSH NAUSEA OR VOMITING; Start 02/10/18 at 04:15 Pantoprazole Sodium (Protonix Inj) 40 mg Q24H IVP Last administered on at 05:17; Start 02/10/18 at 05:00 Docusate Sodium (Colace) 100 mg BID PO Last administered on 02/15/18at 20:19; Start 02/10/18 at 09:00; Stop 02/16/18 at 22:59; Status DC Miscellaneous Information 1 Q361D XX Last administered on 02/10/18at 04:15; Start 02/10/18 at 04:15 Chlorhexidine Gluconate (Chlorhexidine 2% Cloth) Taper DAILY@04 TOP ; Start 08/21 at 04:00; Stop 02/07/19 at 03:59 Chlorhexidine Gluconate (Chlorhexidine 2% Cloth) 3 pack UNSCH PRN TOP HYGIENIC CARE; Start 02/10/18 at 04:15 Etomidate (Amidate Inj) 40 mg STK-MED ONCE .ROUTE Last administered on at 05:16; Start 02/10/18 at 05:16; Stop 02/10/18 at 05:17; Status DC Fentanyl Citrate (fentaNYL INJ) 100 mcg STK-MED ONCE .ROUTE ; Start 02/10/18 at 05:17; Stop 02/10/18 at 05:18; Status DC Midazolam HCl (Versed Inj) 5 mg STK-MED ONCE .ROUTE Last administered on at 05:17; Start 02/10/18 at 05:17; Stop 02/10/18 at 05:18; Status DC Rocuronium Picacho (Zemuron Inj) 50 mg STK-MED ONCE .ROUTE Last administered on 02/10/18at 05:17; Start 02/10/18 at 05:17; Stop 02/10/18 at 05:18; Status DC Propofol 50 ml @ As Directed STK-MED ONCE .ROUTE Last administered on 02/10/18at 07:30; Start 02/10/18 at 05:25; Stop 02/10/18 at 05:26; Status DC Potassium Chloride 100 ml @ 50 mls/hr Q2H PRN IV For Potassium 2.8 - 3.2 mEq/ L Last administered on 02/14/18at 11:40; Start 02/10/18 at 06:30; Stop 02/15/18 at 14:30; Status DC Potassium Chloride 100 ml @ 50 mls/hr Q2H PRN IV For Potassium 2.8 - 3.2 mEq/ L Last administered on 02/14/18at 09:30; Start 02/10/18 at 06:30; Stop 02/15/18 at 14:30; Status DC Potassium Chloride 100 ml @ 25 mls/hr UNSCH PRN IV For Potassium 3.3 - 3.5 mEq /L Last administered on 02/13/18at 07:36; Start 02/10/18 at 06:30; Stop 02/15/18 at 14:30; Status DC Potassium Chloride 100 ml @ 50 mls/hr Q2H PRN IV For Potassium 3.3 - 3.5 mEq/L ; Start 02/10/18 at 06:30; Stop 02/15/18 at 14:30; Status DC Magnesium Sulfate 4 gm/Sodium Chloride 100 ml @ 50 mls/hr UNSCH PRN IV For Magnesium 0.9 - 1.1 mg/dL; Start 02/10/18 at 06:30; Stop 02/15/18 at 14:30; Status DC Magnesium Oxide (Mag-Ox) 800 mg UNSCH PRN PO For Magnesium 1.2 - 1.6 mg/dL; Start 02/10/18 at 06:30; Stop 02/15/18 at 14:30; Status DC Magnesium Sulfate 2 gm/Sodium Chloride 100 ml @ 50 mls/hr UNSCH PRN IV For Magnesium 1.2 - 1.6 mg/dL Last administered on 02/10/18at 22:57; Start 02/10/18 at 06:30; Stop 02/15/18 at 14:30; Status DC Potassium Phosphate (K-Phos) 2,000 mg Q4H PRN PO For Phosphorus < 2.5 mg/dL; Start 02/10/18 at 06:30; Stop 02/15/18 at 14:30; Status DC Sodium Phosphate 30 mmol/Sodium Chloride 250 ml @ 42 mls/hr UNSCH PRN IV For Phosphorus < 2.5 mg/dL; Start 02/10/18 at 06:30; Stop 02/15/18 at 14:30; Status DC Potassium Phosphate (K-Phos) 2,000 mg UNSCH PRN PO/TUBE SEE LABEL COMMENTS; Start 02/10/18 at 06:30; Stop 02/15/18 at 14:30; Status DC Potassium Phosphate 30 mmol/ Sodium Chloride 260 ml @ 42 mls/hr UNSCH PRN IV SEE LABEL COMMENTS Last administered on 02/10/18at 22:56; Start 02/10/18 at 06:30; Stop 02/15/18 at 14:30; Status DC Potassium Chloride (KCl Powder) 40 meq DAILY PRN PO For Potassium 3.3 - 3.5 mEq /L; Start 02/10/18 at 06:30 Chlorhexidine Gluconate (Peridex 0.12% Liq) 15 ml BID@08,20 MT Last administered on 02/18/18at 08:31; Start 02/10/18 at 08:00 Propofol 100 ml @ 2.172 mls/ hr TITRATE PRN IV SEDATION Last administered on at 03:56; Start 02/10/18 at 08:00; Stop 02/11/18 at 09:26; Status DC Fentanyl Citrate 250 ml @ 5 mls/hr TITRATE PRN IV SEDATION Last administered on 02/15/18at 22:51; Start 02/10/18 at 08:00 Sodium Bicarbonate (Sodium Bicarbonate 8.4% Inj) 100 meq STK-MED ONCE .ROUTE Last administered on 02/10/18 07:05; Start 02/10/18 at 07:05; Stop 02/10/18 at 07: 06; Status DC Phenylephrine HCl (Neosynephrine Inj) 10 mg STK-MED ONCE .ROUTE Last administered on 02/10/18 07:20; Start 02/10/18 at 07:18; Stop 02/10/18 at 07:19; Status DC Phenylephrine HCl (Neosynephrine Inj) 30 mg STK-MED ONCE .ROUTE Last administered on 02/10/18 07:20; Start 02/10/18 at 07:20; Stop 02/10/18 at 07:21; Status DC Sodium Chloride 1,000 ml @ 999 mls/hr BOLUS ONCE IV Last administered on 09:15; Start 02/10/18 at 09:15; Stop 02/10/18 at 10:15; Status DC Potassium Chloride 100 ml @ 50 mls/hr Q2H PRN IV For Potassium 2.8 - 3.2 mEq/ L Last administered on 02/12/18at 06:19; Start 02/10/18 at 09:15 Potassium Chloride 100 ml @ 50 mls/hr Q2H PRN IV For Potassium 2.8 - 3.2 mEq/L ; Start 02/10/18 at 09:15 Potassium Bicarb/ Potassium Chloride (K-Lyte Cl Eff) 50 meq UNSCH PRN PO For Potassium 3.3 - 3.5 mEq/L; Start 02/10/18 at 09:15 Potassium Chloride 100 ml @ 25 mls/hr UNSCH PRN IV For Potassium 3.3 - 3.5 mEq /L; Start 02/10/18 at 09:15 Potassium Chloride 100 ml @ 50 mls/hr Q2H PRN IV For Potassium 3.3 - 3.5 mEq/L ; Start 02/10/18 at 09:15 Magnesium Sulfate 4 gm/Sodium Chloride 100 ml @ 50 mls/hr UNSCH PRN IV For Magnesium 0.9 - 1.1 mg/dL; Start 02/10/18 at 09:15 Magnesium Oxide (Mag-Ox) 800 mg UNSCH PRN PO For Magnesium 1.2 - 1.6 mg/dL; Start 02/10/18 at 09:15 Magnesium Sulfate 2 gm/Sodium Chloride 100 ml @ 50 mls/hr UNSCH PRN IV For Magnesium 1.2 - 1.6 mg/dL; Start 02/10/18 at 09:15 Potassium Phosphate (K-Phos) 2,000 mg Q4H PRN PO For Phosphorus < 2.5 mg/dL; Start 02/10/18 at 09:15 Sodium Phosphate 30 mmol/Sodium Chloride 250 ml @ 42 mls/hr UNSCH PRN IV For Phosphorus < 2.5 mg/dL; Start 02/10/18 at 09:15 Potassium Phosphate (K-Phos) 2,000 mg UNSCH PRN PO/TUBE SEE LABEL COMMENTS; Start 02/10/18 at 09:15 Potassium Phosphate 30 mmol/ Sodium Chloride 260 ml @ 42 mls/hr UNSCH PRN IV SEE LABEL COMMENTS; Start 02/10/18 at 09:15 Morphine Sulfate (Morphine Inj) 2 mg Q3H PRN IV PUSH Pain Last administered on 02/10/18at 11:29; Start 02/10/18 at 09:15; Stop 02/11/18 at 19:37; Status DC Phenylephrine HCl (Neosynephrine Inj) 10 mg STK-MED ONCE .ROUTE Last administered on 02/10/18 19:07; Start 02/10/18 at 19:05; Stop 02/10/18 at 19:06; Status DC Norepinephrine Bitartrate 250 ml @ 7.5 mls/hr TITRATE PRN IV Maintain MAP > 65 mmHg Last administered on 02/15/18at 22:46; Start 02/10/18 at 19:45; Stop 02/18 at 09:10; Status DC Phenylephrine HCl 40 mg/Dextrose 500 ml @ 30 mls/hr TITRATE PRN IV Blood Pressure Management Last administered on 02/11/18 05:38; Start 02/10/18 at 19:45 ; Stop 02/18/18 at 09:10; Status DC Albumin Human 250 ml @ As Directed STK-MED ONCE IV Last administered on at 19:56; Start 02/10/18 at 19:55; Stop 02/10/18 at 19:56; Status DC Sodium Chloride 1,000 ml @ 10 mls/hr Q24H IV Last administered on 02/18/18at 00 :11; Start 02/10/18 at 23:00 Albumin Human 500 ml @ 250 mls/hr NOW ONCE IV Last administered on 02/10/18 23:00; Start 02/10/18 at 23:00; Stop 02/11/18 at 00:59; Status DC Sodium Chloride 500 ml @ 500 mls/hr Q1H ONCE IV Last administered on 02/10/18 23:00; Start 02/10/18 at 23:00; Stop 02/10/18 at 23:59; Status DC Midazolam HCl 100 ml @ 2 mls/hr TITRATE PRN IV SEDATION Last administered on 22:18; Start 02/11/18 at 09:30; Stop 02/18/18 at 09:10; Status DC Furosemide (Lasix Inj) 20 mg ONCE ONCE IV PUSH Last administered on 02/11/18 09:30; Start 02/11/18 at 09:30; Stop 02/11/18 at 09:38; Status DC Propofol 100 ml @ 2.391 mls/ hr TITRATE PRN IV SEDATION; Start 02/11/18 at 09: 45; Stop 02/18/18 at 09:10; Status DC Cefazolin Sodium/ Dextrose 50 ml @ 100 mls/hr JAILKEEPER IV ; Start 02/11/18 at 11:00; Stop 02/11/18 at 11:00; Status DC Vancomycin HCl 1000 mg/Sodium Chloride 250 ml @ 250 mls/hr JAILKEEPER IV Last administered on 02/13/18at 11:07; Start 02/11/18 at 10:00; Stop 02/15/18 at 09:59 ; Status DC Povidone Iodine (Betadine 5% Antisepsis Kit) 1 applic JAILKEEPER EACH NARE ; Start 02/11/18 at 10:00; Stop 02/15/18 at 09:59; Status DC Mupirocin (Bactroban Nasal 2% Oint) 1 applic JAILKEEPER NASAL ; Start 02/11/18 at 10:00; Stop 02/15/18 at 09:59; Status DC Chlorhexidine Gluconate (Chlorhexidine 2% Cloth) 3 pack JAILKEEPER TOP ; Start 08/21 at 10:00; Stop 02/15/18 at 09:59; Status DC Cefazolin Sodium 2000 mg/Sodium Chloride 100 ml @ 100 mls/hr JAILKEEPER IV ; Start 02/11/18 at 11:00; Stop 02/14/18 at 10:59; Status DC Phenylephrine HCl (Neosynephrine Inj) 40 mg STK-MED ONCE .ROUTE ; Start at 19:20; Stop 02/11/18 at 19:21; Status DC Magnesium Hydroxide (Milk Of Magnesia Liq) 30 ml BID PO Last administered on at 20:06; Start 02/11/18 at 21:00 Albuterol/ Ipratropium (Duoneb Neb) 1 ampule Q6HR NEB NEB Last administered on 02/15/18at 20:34; Start 02/11/18 at 22:00; Stop 02/15/18 at 21:59; Status DC Albuterol/ Ipratropium (Duoneb Neb) 1 ampule Q2HR NEB PRN NEB wheezing; Start 02/11/18 at 19:45 Amiodarone HCl 150 mg/Dextrose 100 ml @ 600 mls/hr NOW ONCE IV Last administered on 02/12/18at 03:42; Start 02/12/18 at 03:15; Stop 02/12/18 at 03:24 ; Status DC Amiodarone HCl 450 mg/Sodium Chloride 250 ml @ 33.33 mls/ hr TITRATE PRN IV Per Protocol Last administered on 02/14/18at 04:54; Start 02/12/18 at 03:15; Stop 02/15/18 at 14:43; Status DC Vancomycin HCl (Vancomycin Inj) 500 mg STK-MED ONCE .ROUTE Last administered on 02/12/18at 07:55; Start 02/12/18 at 07:55; Stop 02/12/18 at 07:56; Status DC Vancomycin HCl (Vancomycin Inj) 1,000 mg STK-MED ONCE .ROUTE Last administered on 02/12/18at 08:14; Start 02/12/18 at 07:56; Stop 02/12/18 at 07:57; Status DC Lidocaine HCl (Xylocaine-Mpf 1% Inj) 30 ml STK-MED ONCE .ROUTE ; Start 02/12/18 at 07:56; Stop 02/12/18 at 07:57; Status DC Cefazolin Sodium (Ancef Inj) 2,000 mg STK-MED ONCE .ROUTE Last administered on 02/12/18at 08:03; Start 02/12/18 at 07:56; Stop 02/12/18 at 07:57; Status DC Lidocaine HCl (Xylocaine 2% Inj) 50 ml STK-MED ONCE .ROUTE Last administered on 02/12/18at 08:00; Start 02/12/18 at 08:00; Stop 02/12/18 at 08:01; Status DC Bacitracin (Bacitracin Oint Packet) 0.9 gm UNSCH PRN TOP SEE LABEL COMMENTS; Start 02/12/18 at 09:30 Sodium Chloride (NS Flush) 2 ml BID IV FLUSH Last administered on 02/18/18at 08: 25; Start 02/12/18 at 21:00 Sodium Chloride (NS Flush) 2 ml UNSCH PRN IV FLUSH FLUSH AFTER USING IV ACCESS ; Start 02/12/18 at 09:30 Iohexol (Omnipaque 350 Inj) 50 ml STK-MED ONCE IVCONTRAST Last administered on 02/10/18 03:53; Start 02/10/18 at 03:53; Stop 02/12/18 at 13:49; Status DC Fentanyl Citrate (fentaNYL INJ) 250 mcg STK-MED ONCE .ROUTE ; Start 02/13/18 at 09:54; Stop 02/13/18 at 09:55; Status DC Cefazolin Sodium (Ancef Inj) 2,000 mg STK-MED ONCE .ROUTE Last administered on 02/13/18at 10:45; Start 02/13/18 at 09:57; Stop 02/13/18 at 09:58; Status DC Gentamicin Sulfate (Gentamicin Inj) 240 mg STK-MED ONCE .ROUTE Last administered on 02/13/18 09:58; Start 02/13/18 at 09:58; Stop 02/13/18 at 09:59 ; Status DC Enoxaparin Sodium (Lovenox Inj) 30 mg Q24H SQ Last administered on 02/17/18at 09 :45; Start 02/14/18 at 11:00 Cefazolin Sodium 1000 mg/Sodium Chloride 100 ml @ 200 mls/hr Q8H IV Last administered on 02/14/18at 10:34; Start 02/13/18 at 19:00; Stop 02/14/18 at 11:29 ; Status DC Acetaminophen/ Hydrocodone Bitart ([place] 7.5-325 Mg) 1 tab Q3H PRN PO pain 3< 10 Last administered on 02/18/18at 08:22; Start 02/13/18 at 12:00; Stop 02/18/18 at 09:09; Status DC Cholecalciferol (Vitamin D3) 5,000 units DAILY PO Last administered on at 08:19; Start 02/14/18 at 09:00 Ergocalciferol (Drisdol) 50,000 units ONCE ONCE PO Last administered on at 16:01; Start 02/13/18 at 12:00; Stop 02/13/18 at 12:10; Status DC Amiodarone HCl (Cordarone Inj) 150 mg STK-MED ONCE .ROUTE ; Start 02/13/18 at 18 :12; Stop 02/13/18 at 18:13; Status DC Amiodarone HCl 150 mg/Dextrose 100 ml @ 600 mls/hr NOW ONCE IV Last administered on 02/13/18 18:25; Start 02/13/18 at 19:00; Stop 02/13/18 at 19:09 ; Status DC Lactated Ringer's 500 ml @ 0 mls/hr BOLUS ONCE IV Last administered on at 18:45; Start 02/13/18 at 18:45; Stop 02/13/18 at 18:46; Status DC Lactulose (Lactulose Liq) 30 ml DAILY PO Last administered on 02/16/18at 08:35; Start 02/14/18 at 09:00 Amiodarone HCl (Cordarone) 400 mg Q12HR PO Last administered on 02/18/18at 08:20 ; Start 02/14/18 at 13:30 Furosemide (Lasix Inj) 20 mg DAILY IV PUSH Last administered on 02/18/18at 08:23 ; Start 02/15/18 at 09:15; Stop 02/20/18 at 08:59 Sodium Chloride 500 ml @ 999 mls/hr Q31M IV Last administered on 02/15/18at 19: 00; Start 02/15/18 at 19:15; Stop 02/15/18 at 19:45; Status DC Midazolam HCl (Versed Inj) 10 mg STK-MED ONCE .ROUTE ; Start 02/16/18 at 14:54; Stop 02/16/18 at 14:55; Status DC Docusate Sodium (Colace Liq) 100 mg BID PO Last administered on 02/17/18at 20:06 ; Start 02/17/18 at 09:00 Metoprolol Tartrate (Lopressor Inj) 5 mg STK-MED ONCE .ROUTE ; Start 02/17/18 at 13:04; Stop 02/17/18 at 13:05; Status DC Diltiazem HCl (Cardizem) 60 mg Q6H PO Last administered on 02/18/18at 14:06; Start 02/17/18 at 14:00 Metoprolol Tartrate (Lopressor Inj) 5 mg NOW ONCE IV Last administered on 02/17at 13:30; Start 02/17/18 at 13:45; Stop 02/17/18 at 13:46; Status DC Oxycodone HCl (Roxicodone Intensol Liq) 5 mg Q4H PO Last administered on at 14:07; Start 02/18/18 at 10:00 Acetaminophen (Tylenol 650 Mg/ 20 ml Liq) 650 mg Q6H PRN PO Temp > 101.5; Start 02/18/18 at 09:30 (Nasir Landers MD) Medical Decision Making MDM Remarks 87 y/o female trauma alert, sustained a fall on the driveway acute T11 fracture right hemopneumothorax right-sided rib fractures bilateral intertrochanteric fractures on the femur acute left humerus fracture s/p pacemaker placement s/p fixation of b/l intertrochanteric fractures (Raven Ku) Plan Plan Remarks cont trauma management cont nonoperative treatment of thoracic fracture at this time cont neuro checks and follow up neuro exam vent and sedation weaning as tolerated per primary (Raven Ku) Attending Statement Continue neuro checks T11 fracture. Nonoperative treatment with bed rest for now. if her condition improves TLSO brace Bilateral hip fractures. Status post nail internal fixation Left shoulder fracture.Continue nonoperative treatment per orthopedics Multiple rib fractures. .Continue narcotic analgesics for pain control hemopneumothorax. Status post chest tube Pulmonary. .Continue mechanical ventilation for acute respiratory failure, aggressive pulmonary toilette, nasotracheal suction, and breathing treatments with nebulizers. PT and OT eval Renal. .Continue to monitor closely urine output, BUN and creatinine Endocrine. .Continue to Monitor serial Acu checks and SSI as needed in detail ID .Continue to monitor for signs of infection .Continue Protonix for stress ulcer prophylaxis Continue Farrukh hose and SCD's for DVT prophylaxis The exam, history, and the medical decision-making described in the above note were completed with the assistance of the mid-level provider. I reviewed and agree with the findings presented. I attest that I had a [id number] encounter with the patient on the same day, and personally performed and documented my assessment and findings in the medical record. (Nasir Landers MD) Raven Ku Feb 17, 2018 09:55 Nasir Landers MD Feb 18, 2018 18:04
--- NOTE | 2018-02-17 12:51 | HHI.CCPN ---
Subjective Brief History This is a 87 year old female who presents to the [facility] emergency department as a transfer from [facility] as a trauma alert. Apparently patient sustained a fall on the driveway at approximately 9 PM last night. Patient was transferred to [facility] and underwent workup and when it was finally noted that patient had severe injuries we were asked to accept the patient as trauma transfer. Patient arrives around 6 AM and according to Dr. Monae initially patient is hemodynamically stable but then continues to deteriorate including multifocal supraventricular arrhythmias. Patient undergoes repeat CT scan of the chest and abdomen and is transferred to ICU for further care. Final injuries are Right lower rib fractures with a hemopneumothorax / chest tube placement and 1200 mL of blood out in the chest tube. Bilateral intratrochanteric hip fractures Left proximal humerus fracture T11 fracture Multiple old fractures of the thoracic spine and several lumbar spine fractures with kyphoplasties Supraventricular cardiac arrhythmias ischemic cardiomyopathy Hypotensive shock Metabolic acidosis anion gap In the process patient dropped hemoglobin from 12 g/dL initially to 7 g/dL few hours later. 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 02/11/2018 Patient with a devastating traumatic injuries post fall She has been slowly stabilizing overnight with hemodynamic improvement and decreasing vasopressors Remains mildly sedated on propofol however we will switch this to Versed in face of cardio depressant effect of propofol Evaluated by cardiology for periods of bradycardia It is my opinion that patient had a myocardial infarction process as a result of combination of the trauma hypoxia on the scene anemia and hemorrhagic shock Troponins elevated 02/12 Patient underwent pacemaker insertion today by cardiology-she spontaneously converted to sinus rhythm the cardiac lab She is got thrombocytopenia- believe is likely related to blood loss/SIRS She remains on low-dose Levophed-I believe she is euvolemic-obtain Flowtrack for more exact measurement She had an AL versus blunt cardiac injury She has multitrauma with this overall poor prognosis secondary to her age with low reserve 02/13 OR today-IM nailing x2 transfuse 1U PRBC,1U plt low dose levophed off amiodarone uo adequate partial DNR as per family remains SR 02/14/2018 Patient remains intubated and ventilated Successful bilateral intratrochanteric fracture nailing yesterday Patient sedated on fentanyl Versed but minimal amounts with very low Rishi Coma Scale Hemodynamically stable although requiring small dose Levophed Pacemaker maintaining paced rhythm but patient developed A. fib on top of it so amiodarone has been restarted Gradually switch antiarrhythmics to p.o. form Aamir - cardiac output remains around 4-5 L which is quite admirable and SVR around 1100 Bilateral breath signs remains ventilatory dependent in face of pulmonary contusion and a severe chest trauma not ready to come off the respirator Abdomen soft Renal function preserved Extensive discussions with family and it is clear that this patient will be here long-term and will be difficult to extubate Hopefully she will not require tracheostomy however patient at this point does not have either the lung function or the level of consciousness sufficient to extubate In the face of age and extensive injuries prognosis remains very poor and 30 day mortality is extremely high 02/15/2018 Patient has stabilized hemodynamically Remains on small dose fentanyl about 50 mcg and will decrease that gradually and give patient some p.o. analgesia Hemodynamically stable very tiny dose of Levophed Cardiac arrhythmias have resolved patient is on p.o. amiodarone with paced rhythm Bilateral breath sounds with reasonable PO2 FiO2 gradient Patient is somewhat fluid overloaded as noted below and some pulmonary edema is present CPAP trial tolerated for about 2 hours today and then patient became tachypneic We will try tomorrow and see how patient does Abdomen soft enteral feeds tolerated Renal function preserved with normal BUN/creatinine Patient is definitely fluid overloaded at this point and was slowly diuresing patient with gentle Lasix administration 02/16/2018 Patient remains sedated with very small dose of medication Does not open eyes does not follow commands moves all 4 extremities We will give sedation medication Hemodynamically stable Had a period of sustained sinus tachycardia which resolved spontaneously Tolerated CPAP intermittently and then is switched to AC ventilation 35% FiO2 with bilateral patchy infiltrates in the lungs but no pneumonia and This is more consistent with ARDS Abdomen soft diet tolerated We will start working patient towards extubation with daily CPAP periods daily sedation vacations and will see how it goes 02/17 slow to open eyes and follow commands P/F ration 170 CXR patchy infiltrates b/l low dose levophed tolerating tube feeds Objective Vital Signs Date Time Temp Pulse Resp B/P (MAP) Pulse Ox O2 Delivery O2 Flow Rate FiO2 02/17/18 12:00 100.6 140 20 129/69 (89) 95 02/17/18 12:00 35 Intake and Output 02/17/18 02/17/18 02/18/18 08:00 16:00 00:00 Intake Total 602 ml Output Total 675 ml Balance -73 ml Result Diagram: 02/17/18 0438 02/17/18 0438 Other Results Laboratory Tests Test 02/17/18 06:00 Blood Gas Puncture Site LT RADIAL Blood Gas Patient Temperature 98.6 Blood Gas HCO3 29 mmol/L (22-26) Blood Gas Base Excess 4.7 mmol/L (-2-2) Blood Gas Oxygen Saturation 91 % (90-100) Arterial Blood pH 7.45 (7.380-7.420) Arterial Blood Partial Pressure CO2 42 mmHg (38-42) Arterial Blood Partial Pressure O2 60 mmHg (61-120) Arterial Blood Oxygen Content 11.1 Vol % (12.0-20.0) Arterial Blood Carboxyhemoglobin 2.8 % (0-4) Arterial Blood Methemoglobin 0.7 % (0-2) Blood Gas Hemoglobin 8.6 G/DL (12.0-16.0) Oxygen Delivery Device VENTILATOR Blood Gas Ventilator Setting PRVC/AC Blood Gas Inspired Oxygen 35 % Imaging Last 24 hours Impressions Chest X-Ray 02/17/18 0600 Signed Impressions: Service Date/Time: Saturday, February 17, 2018 05:13 - CONCLUSION: No significant change bilateral parenchymal opacities. 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
[2018-02-17] MEDS ORDERED: METOPROLOL TARTRATE 5 MG/5 ML VIAL ONE (13:04)
[2018-02-17] MEDS: DILTIAZEM HCL 60 MG TAB PO SCH ×2 (13:35→20:06)
[2018-02-17] MEDS ORDERED: METOPROLOL TARTRATE 5 MG/5 ML VIAL IV ONE (13:45)
--- NOTE | 2018-02-17 17:02 | HHI.HCPN ---
Reason for visit a. To assist with evaluation and management of symptoms including: Dyspnea, pain b. To assist medical decision maker(s) with: better understanding of current medical conditions; weighing benefits/burdens of medical treatment options; making medical treatment decisions. Subjective/Interval History Patient seen to follow-up on goals of care and symptom management. Patient seen and surgical ICU. She remains endotracheally intubated on mechanical ventilation. She is currently on a sedation vacation. She is breathing slightly over the ventilator. She is now opening her eyes and responding to commands slowly. Her family is at bedside. They are aware of her guarded prognosis, likely extended hospital course and possible failure to wean. They continue to discuss options as her hospital course unfolds. She continues to have a low-grade fever with T-MAX 100.6, blood pressure 129/69. She is now off vasopressors. She is on 35% FiO2 via ventilator saturating at 95%. WBC remained elevated at 16.9, hemoglobin 8.6, hematocrit 25.1, platelets 126, sodium 142, potassium 4.0, BUN 16, creatinine 0.33, calcium 8.4, total bilirubin 2.0, AST 56, ALT 28, alkaline phosphatase 121, total protein 4.5, albumin 1.3. Chest x-ray shows no significant change in bilateral parenchymal opacities. . Family/friend interactions Patient's and daughter p.m. were at bedside. Discussed upcoming decisions and clinical course thus far. Family continues to be supportive but realistic about her potential decline. . Advance Directives Living Will: Copy in medical record Health Care Surrogate: Copy in medical record Durable Power of Dry Ice Machine Operator: Never completed Advance Directive Specifics Health Care Surrogate(s): My discussion with her daughter, patient's is the primary healthcare surrogate followed by her 3 children serving as joint alternate surrogates. . Documented care wishes: Living will completed, not available at this time. Objective Vital Signs Date Time Temp Pulse Resp B/P (MAP) Pulse Ox O2 Delivery O2 Flow Rate FiO2 02/17/18 14:00 86 02/17/18 12:00 100.6 140 20 129/69 (89) 95 02/17/18 12:00 140 02/17/18 12:00 35 02/17/18 10:00 87 02/17/18 10:00 35 02/17/18 08:00 100.0 105 19 171/72 (105) 93 Arterial Line 02/17/18 08:00 105 02/17/18 08:00 35 02/17/18 07:54 95 45 02/17/18 06:30 45 02/17/18 06:00 95 02/17/18 04:00 116 02/17/18 04:00 99.5 116 22 142/76 (98) 91 02/17/18 04:00 35 02/17/18 02:00 88 02/17/18 01:24 94 35 02/17/18 00:00 87 02/17/18 00:00 35 02/17/18 00:00 100.4 90 22 147/64 (91) 93 02/16/18 22:00 92 02/16/18 20:55 94 35 02/16/18 20:00 100.2 86 16 122/55 (77) 94 02/16/18 20:00 35 02/16/18 20:00 86 02/16/18 18:00 88 Intake & Output 02/17/18 02/17/18 07:00 19:00 Intake Total 602 ml Output Total 675 ml 875 ml Balance -73 ml -875 ml Tube Feeding 602 ml Output Urine Total 625 ml 875 ml Chest Tube Drainage Total 50 ml # Bowel Movements 0 Physical Exam CONSTITUTIONAL/GENERAL: This is an adequately nourished patient, intubated, on sedation vacation, in no apparent distress. TUBES/LINES/DRAINS: ET tube, right chest tube, right subclavian triple-lumen, Crawford catheter NECK: Trachea midline. Supple without palpable thyroid enlargement or nodularity. CARDIOVASCULAR: Irregular rhythm, controlled rate no gallop or rub, 1/6 MORELIA. No JVD. Peripheral pulses symmetric. RESPIRATORY/CHEST: Mechanically ventilated, breath sounds clear. Chest tube intact to right chest wall without air leak. Some crepitus noted. GASTROINTESTINAL: Abdomen soft, nondistended. Bowel sounds present. GENITOURINARY: Without palpable bladder distension. Crawford catheter in place. MUSCULOSKELETAL: Extremities without clubbing, cyanosis. 1-2+ edema. No mottling or clubbing. NEUROLOGICAL: Intubated PSYCHIATRIC: Lethargic . Diagnostic Tests Laboratory Laboratory Tests Test 02/15/18 03:56 02/15/18 05:05 02/16/18 03:58 02/16/18 05:30 Blood Gas Puncture Site ART LINE RT RADIAL Blood Gas Patient Temperature 98.6 98.6 Blood Gas HCO3 25 mmol/L (22-26) 28 mmol/L (22-26) Blood Gas Base Excess 1.3 mmol/L (-2-2) 4.2 mmol/L (-2-2) Blood Gas Oxygen Saturation 96 % (90-100) 93 % (90-100) Arterial Blood pH 7.44 (7.380-7.420) 7.45 (7.380-7.420) Arterial Blood Partial Pressure CO2 38 mmHg (38-42) 42 mmHg (38-42) Arterial Blood Partial Pressure O2 132 mmHg (61-120) 65 mmHg (61-120) Arterial Blood Oxygen Content 12.5 Vol % (12.0-20.0) 11.1 Vol % (12.0-20.0) Arterial Blood Carboxyhemoglobin 2.3 % (0-4) 2.5 % (0-4) Arterial Blood Methemoglobin 0.9 % (0-2) 0.5 % (0-2) Blood Gas Hemoglobin 9.0 G/DL (12.0-16.0) 8.4 G/DL (12.0-16.0) Oxygen Delivery Device VENTILATOR VENTILATOR Blood Gas Ventilator Setting SEE COMMENTS SEE COMMENTS Blood Gas Inspired Oxygen 35 % 35 % White Blood Count 9.3 TH/MM3 (4.0-11.0) 11.4 TH/MM3 (4.0-11.0) Red Blood Count 2.71 MIL/MM3 (4.00-5.30) 2.62 MIL/MM3 (4.00-5.30) Hemoglobin 8.4 GM/DL (11.6-15.3) 8.0 GM/DL (11.6-15.3) Hematocrit 24.0 % (35.0-46.0) 23.5 % (35.0-46.0) Mean Corpuscular Volume 88.5 FL (80.0-100.0) 89.5 FL (80.0-100.0) Mean Corpuscular Hemoglobin 31.1 PG (27.0-34.0) 30.4 PG (27.0-34.0) Mean Corpuscular Hemoglobin Concent 35.1 % (32.0-36.0) 34.0 % (32.0-36.0) Red Cell Distribution Width 16.7 % (11.6-17.2) 16.9 % (11.6-17.2) Platelet Count 121 TH/MM3 (150-450) 98 TH/MM3 (150-450) Mean Platelet Volume 8.6 FL (7.0-11.0) 8.5 FL (7.0-11.0) Neutrophils (%) (Auto) 76.7 % (16.0-70.0) 80.1 % (16.0-70.0) Lymphocytes (%) (Auto) 7.4 % (9.0-44.0) 7.6 % (9.0-44.0) Monocytes (%) (Auto) 14.0 % (0.0-8.0) 11.3 % (0.0-8.0) Eosinophils (%) (Auto) 1.6 % (0.0-4.0) 0.7 % (0.0-4.0) Basophils (%) (Auto) 0.3 % (0.0-2.0) 0.3 % (0.0-2.0) Neutrophils # (Auto) 7.2 TH/MM3 (1.8-7.7) 9.1 TH/MM3 (1.8-7.7) Lymphocytes # (Auto) 0.7 TH/MM3 (1.0-4.8) 0.9 TH/MM3 (1.0-4.8) Monocytes # (Auto) 1.3 TH/MM3 (0-0.9) 1.3 TH/MM3 (0-0.9) Eosinophils # (Auto) 0.1 TH/MM3 (0-0.4) 0.1 TH/MM3 (0-0.4) Basophils # (Auto) 0.0 TH/MM3 (0-0.2) 0.0 TH/MM3 (0-0.2) CBC Comment DIFF FINAL AUTO DIFF Differential Comment FINAL DIFF MANUAL Blood Urea Nitrogen 10 MG/DL (7-18) 13 MG/DL (7-18) Creatinine 0.34 MG/DL (0.50-1.00) 0.36 MG/DL (0.50-1.00) Random Glucose 148 MG/DL (74-106) 133 MG/DL (74-106) Total Protein 3.9 GM/DL (6.4-8.2) 4.0 GM/DL (6.4-8.2) Albumin 1.4 GM/DL (3.4-5.0) 1.2 GM/DL (3.4-5.0) Calcium Level 8.0 MG/DL (8.5-10.1) 7.9 MG/DL (8.5-10.1) Alkaline Phosphatase 67 U/L (45-117) 89 U/L (45-117) Aspartate Amino Transf (AST/SGOT) 17 U/L (15-37) 32 U/L (15-37) Alanine Aminotransferase (ALT/SGPT) 11 U/L (10-53) 18 U/L (10-53) Total Bilirubin 1.5 MG/DL (0.2-1.0) 1.8 MG/DL (0.2-1.0) Sodium Level 146 MEQ/L (136-145) 143 MEQ/L (136-145) Potassium Level 3.8 MEQ/L (3.5-5.1) 3.8 MEQ/L (3.5-5.1) Chloride Level 113 MEQ/L (98-107) 109 MEQ/L (98-107) Carbon Dioxide Level 27.6 MEQ/L (21.0-32.0) 29.7 MEQ/L (21.0-32.0) Anion Gap 5 MEQ/L (5-15) 4 MEQ/L (5-15) Estimat Glomerular Filtration Rate 183 ML/MIN (>89) 171 ML/MIN (>89) Differential Total Cells Counted 100 Neutrophils % (Manual) 69 % (16-70) Band Neutrophils % 15 % (0-6) Lymphocytes % 2 % (9-44) Monocytes % 6 % (0-8) Eosinophils % 2 % (0-4) Neutrophils # (Manual) 10.3 TH/MM3 (1.8-7.7) Metamyelocytes 5 % (0-1) Myelocytes 1 % (0-0) Toxic Granulation 1+ (NORMAL) Dohle Bodies PRESENT (NONE SEEN) Platelet Estimate LOW (NORMAL) Platelet Morphology Comment NORMAL (NORMAL) Test 02/17/18 04:38 02/17/18 06:00 White Blood Count 16.9 TH/MM3 (4.0-11.0) Red Blood Count 2.86 MIL/MM3 (4.00-5.30) Hemoglobin 8.6 GM/DL (11.6-15.3) Hematocrit 25.7 % (35.0-46.0) Mean Corpuscular Volume 89.8 FL (80.0-100.0) Mean Corpuscular Hemoglobin 30.1 PG (27.0-34.0) Mean Corpuscular Hemoglobin Concent 33.5 % (32.0-36.0) Red Cell Distribution Width 16.5 % (11.6-17.2) Platelet Count 126 TH/MM3 (150-450) Mean Platelet Volume 8.8 FL (7.0-11.0) Neutrophils (%) (Auto) 80.5 % (16.0-70.0) Lymphocytes (%) (Auto) 7.5 % (9.0-44.0) Monocytes (%) (Auto) 10.8 % (0.0-8.0) Eosinophils (%) (Auto) 0.9 % (0.0-4.0) Basophils (%) (Auto) 0.3 % (0.0-2.0) Neutrophils # (Auto) 13.6 TH/MM3 (1.8-7.7) Lymphocytes # (Auto) 1.3 TH/MM3 (1.0-4.8) Monocytes # (Auto) 1.8 TH/MM3 (0-0.9) Eosinophils # (Auto) 0.2 TH/MM3 (0-0.4) Basophils # (Auto) 0.1 TH/MM3 (0-0.2) CBC Comment AUTO DIFF Differential Total Cells Counted 100 Neutrophils % (Manual) 74 % (16-70) Band Neutrophils % 6 % (0-6) Lymphocytes % 3 % (9-44) Monocytes % 5 % (0-8) Eosinophils % 1 % (0-4) Neutrophils # (Manual) 15.4 TH/MM3 (1.8-7.7) Metamyelocytes 6 % (0-1) Myelocytes 4 % (0-0) Promyelocytes 1 % (0-0) Differential Comment FINAL DIFF MANUAL Platelet Estimate LOW (NORMAL) Platelet Morphology Comment NORMAL (NORMAL) Basophilic Stippling FAINT (NORMAL) Red Cell Morphology Comment NORMAL (NORMAL) Blood Urea Nitrogen 16 MG/DL (7-18) Creatinine 0.33 MG/DL (0.50-1.00) Random Glucose 107 MG/DL (74-106) Total Protein 4.5 GM/DL (6.4-8.2) Albumin 1.3 GM/DL (3.4-5.0) Calcium Level 8.4 MG/DL (8.5-10.1) Alkaline Phosphatase 121 U/L (45-117) Aspartate Amino Transf (AST/SGOT) 56 U/L (15-37) Alanine Aminotransferase (ALT/SGPT) 28 U/L (10-53) Total Bilirubin 2.0 MG/DL (0.2-1.0) Sodium Level 142 MEQ/L (136-145) Potassium Level 4.0 MEQ/L (3.5-5.1) Chloride Level 108 MEQ/L (98-107) Carbon Dioxide Level 30.1 MEQ/L (21.0-32.0) Anion Gap 4 MEQ/L (5-15) Estimat Glomerular Filtration Rate 189 ML/MIN (>89) Blood Gas Puncture Site LT RADIAL Blood Gas Patient Temperature 98.6 Blood Gas HCO3 29 mmol/L (22-26) Blood Gas Base Excess 4.7 mmol/L (-2-2) Blood Gas Oxygen Saturation 91 % (90-100) Arterial Blood pH 7.45 (7.380-7.420) Arterial Blood Partial Pressure CO2 42 mmHg (38-42) Arterial Blood Partial Pressure O2 60 mmHg (61-120) Arterial Blood Oxygen Content 11.1 Vol % (12.0-20.0) Arterial Blood Carboxyhemoglobin 2.8 % (0-4) Arterial Blood Methemoglobin 0.7 % (0-2) Blood Gas Hemoglobin 8.6 G/DL (12.0-16.0) Oxygen Delivery Device VENTILATOR Blood Gas Ventilator Setting PRVC/AC Blood Gas Inspired Oxygen 35 % . Result Diagram: 02/17/18 0438 02/17/18 0438 Microbiology Microbiology Date/Time Source Procedure Growth Status 02/10/18 10:45 Sputum Endotracheal Gram Stain - Final Complete 02/10/18 10:45 Sputum Culture - Final Klebsiella Pneumoniae Complete Imaging Last Impressions Chest X-Ray 02/17/18 0600 Signed Impressions: Service Date/Time: Saturday, February 17, 2018 05:13 - CONCLUSION: No significant change bilateral parenchymal opacities. Deondre Costello MD Hip X-Ray 02/13/18 0000 Signed Impressions: Service Date/Time: February 11:16 - CONCLUSION: Status post ORIF of right femur fracture with hardware in good position Bib Cooper MD Thoracic Spine CT 02/10/18348 Signed Impressions: Service Date/Time: Saturday, February 10, 2018 03:53 - CONCLUSION: 1. Acute fracture of T11 vertebral body. No retropulsion of posterior fragments or canal stenosis. 2. Old compression deformities at T8, T12 and L1 vertebral bodies. 1. Yrn Khan MD Pelvis X-Ray 02/10/18348 Signed Impressions: Service Date/Time: Saturday, February 10, 2018 03:36 - CONCLUSION: 1. Displaced intertrochanteric fracture left proximal femur. 2. Appears to be intertrochanteric fracture of the right proximal femur as well. Yrn Khan MD Lumbar Spine CT 02/10/18348 Signed Impressions: Service Date/Time: Saturday, February 10, 2018 03:53 - CONCLUSION: 1. Multiple old compression deformities. 2. Disc bulge causes mild canal stenosis at L4-5. 3. Compression fracture at T11 Yrn Khan MD Chest CT 02/10/18348 Signed Impressions: Service Date/Time: Saturday, February 10, 2018 03:53 - CONCLUSION: 1. Small bilateral pleural effusions. 2. Right-sided chest tube is seen with the side hole external to the chest. Tiny right-sided pneumothorax. 3. Minimal rib fracture right lower lateral rib. 4. Fracture of thoracic vertebral bodies including what appears to be T6 and T10, likely old. Yrn Khan MD Abdomen/Pelvis CT 02/10/18348 Signed Impressions: Service Date/Time: Saturday, February 10, 2018 03:53 - CONCLUSION: 1. Intertrochanteric fractures of each proximal femur. 2. Mild loss of height of several thoracic vertebral bodies including L2-L4. L3 and L4 vertebral bodies contain kyphoplasty cement. Yrn Khan MD Procedures 02/10: Right subclavian triple-lumen catheter placement 02/11: Intubation 02/12: Implantation of a dual-chamber [employer] pacemaker 02/13: Bilateral hip reduction and intramedullary nailing . Assessment and Plan Disease Oriented Problem List: (1) Rib fractures (2) Proximal humerus fracture (3) Hemopneumothorax on right (4) T11 vertebral fracture (5) Intertrochanteric fracture of both femurs (6) Syncope (7) Sinus pause Symptom Scale: (1) Pain, generalized 0-10 Scale: Unable to quantify (Patient intubated, sedated.) (2) Dyspnea and respiratory abnormalities 0-10 Scale: Unable to quantify (Patient intubated, sedated.) Pertinent Non-Medical Issues Psychosocial:She was born in [place] where she raised 3 children. 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 She has been to her for over 60 years. Spiritual: She would appreciate nitrocellulose maker visits. Legal: No legal issues identified. Ethical issues impacting care: No ethical issues identified. . Important Contacts Spouse: Gregory Cruz Daughter: Rachel Ricardo . Prognosis Her prognosis is guarded. She has suffered a traumatic fall with subsequent rib fracture, hemopneumothorax, bilateral entero-trochanteric fractures, left humerus fracture and subsequent traumatic shock. She is currently intubated, sedated and requiring vasopressor support. She has required transfusion of 3 units of packed red blood cells and 2 units of platelets are on hold. She is pending repair of bilateral intertrochanteric fractures which will be held until her overall condition stabilizes. Complicating her hospital course was the finding of a 3.2 and subsequent 2.9 second pause which it is opined, may have been responsible for her initial fall. Given her recent chest trauma, severe osteoporosis with a number of compression fractures and previous kyphoplasty, CPR is likely to cause further damage to the thoracic cage with the potential of harm from that. Family is considering the option of no CPR and will render their decision tomorrow at the meeting. Given her fragile state she is likely to suffer further compromise, complications and decline. . Code Status: Alternative Code Plan PLAN: * CODE STATUS: Alternate code/intubation and ACLS drugs only. NO CHEST COMPRESSIONS, NO DEFIBRILLATION. * HEALTHCARE DECISION-MAKING: Patient unable to participating medical decision making secondary to critical illness. Currently intubated on mechanical ventilation. Family reports that advance directives have been completed naming patient's Gregory Cruz as healthcare surrogate decision maker. Family also reports that all 3 children are listed jointly as alternate healthcare surrogate. Patient's Gregory has fully accepted this role and is fully supported by their 3 children. * GOALS OF CARE: As per family goals of therapy remain aggressive short of no chest compressions or defibrillation. Immediate goal is to attempt medical extubation as tolerated by patient. Family reports that they had a very good conversation with Dr. Pascual earlier today. Family verbalized understanding that patient's clinical course will be long if she is to survive acute phase, likely difficult to medically extubate. Reviewed that patient remains at a very high risk for further complications, continued decline and . Overall prognosis remains very poor. Family receptive to palliative care follow-ups. * SYMPTOMS: * Pain: Multifactorial to include invasive lines, bedbound status, fractured ribs, bilateral hip fractures, fractured humerus, recently implanted pacemaker. She is currently on sedation vacation but otherwise receives low dose fentanyl for pain management. Patient appears comfortable with current management. * Dyspnea: Multifactorial to include right hemopneumothorax, fractured ribs and chest tube. She is currently intubated and these conditions may impair her ability to extubate, due to the difficult balance of sedation and pain control. Palliative care will continue to follow the patient during hospital course as condition evolves, to assist patient/decision-maker with understanding of their medical conditions, weighing benefits/burdens of treatment options, for clarification of goals of treatment. Additionally will assist with any symptoms of palliative concern. . Attestation To help prompt me to consider important information that might be impacting today's encounter and assessment, information from prior notes written by myself or my colleagues may have been "brought forward" into today's note. My signature on this note, however, is an attestation that I personally performed the exam, history, and/or decision-making noted today, and, unless otherwise indicated, the interactions with patient, family, and staff as well as the review of records all occurred today. I also attest that the listed assessment and stated plan reflect my best clinical judgment today based on the combination of historical information, prior notes, and today's exam/ interactions. When time spent is documented, it refers only to time spent today by the signer, or if indicated, combined time spent today by collaborating physician/nurse practitioner. . Aliya Ac Feb 17, 2018 5:02 pm
[2018-02-18] VITALS (16 sets, daily range): BP systolic 121–150; BP diastolic 60–76; PULSE 73–96; RESP 11–24; TEMP 99–100.9; O2SAT 95–97
[2018-02-18] MEDS: SODIUM CHLOR 0.9% 1000 ML INJ 1,000 ML IV SCH (00:11)
[2018-02-18] MEDS: DILTIAZEM HCL 60 MG TAB PO SCH ×4 (01:44→21:09)
[2018-02-18] MEDS: CHLORHEXIDINE GLUCONATE 2 % 1 PACK (2 CLOTHS) TOP SCH (03:35)
--- NOTE | 2018-02-18 04:24 | RADRPT ---
EXAM DATE/TIME: 02/18/2018 03:05 [facility] COMPARISON: CHEST SINGLE AP, February 17, 2018, 5:13. INDICATIONS : Short of breath. MEDICAL HISTORY : None. SURGICAL HISTORY : Pacemaker. ENCOUNTER: Subsequent ACUITY: 1 week PAIN SCORE: Non-responsive. LOCATION: Bilateral chest FINDINGS: Basilar predominant consolidation persists on both sides, not significantly changed. No large effusio n seen. No pneumothorax. Mild cardiomegaly is unchanged. Endotracheal tube tip is approximately 3 cm above the rosmery. Nasogastric tube courses into the stoma ch. There is a right subclavian central venous catheter with tip in the superior vena cava. Cardiac pacer again noted. CONCLUSION: No significant change. Deondre Costello MD on February 18, 2018 at 4:22 Board Certified Radiologist. This report was verified electronically.
[2018-02-18 05:15] LABS: AUTOMATED NEUTROPHIL # 11.8 TH/MM3 (1.8-7.7); BASOPHIL % 0.2 % (0.0-2.0); EOSINOPHIL # 0.1 TH/MM3 (0-0.4); EOSINOPHIL % 0.8 % (0.0-4.0); HEMATOCRIT 24.3 % (35.0-46.0); HEMOGLOBIN 8.1 GM/DL (11.6-15.3); LYMPH % 6.5 % (9.0-44.0); LYMPHOCYTE # 0.9 TH/MM3 (1.0-4.8); MEAN CELL VOLUME 90.2 FL (80.0-100.0); MEAN CORPUSCULAR HEMOGLOBIN 30.2 PG (27.0-34.0); MEAN CORPUSCULAR HGB CONC 33.5 % (32.0-36.0); MEAN PLATELET VOLUME 9.3 FL (7.0-11.0); MONO % 9.1 % (0.0-8.0); MONOCYTE # 1.3 TH/MM3 (0-0.9); NEUT % 83.4 % (16.0-70.0); PLATELET COUNT 140 TH/MM3 (150-450); RED BLOOD COUNT 2.69 MIL/MM3 (4.00-5.30); RED CELL DISTRIBUTION WIDTH 17.4 % (11.6-17.2); WHITE BLOOD COUNT 14.1 TH/MM3 (4.0-11.0)
[2018-02-18] MEDS: PANTOPRAZOLE SODIUM 40 MG VIAL IVP SCH (05:17)
[2018-02-18 05:31] LABS: ALBUMIN 1.2 GM/DL (3.4-5.0); AST (GOT) 59 U/L (15-37); BLOOD UREA NITROGEN 16 MG/DL (7-18); CHLORIDE 110 MEQ/L (98-107); CREATININE 0.27 MG/DL (0.50-1.00); GLOMERULAR FILTRATION RATE 238 ML/MIN (>89); GLUCOSE,RANDOM 111 MG/DL (74-106); SODIUM (NA) 144 MEQ/L (136-145)
[2018-02-18 05:34] LABS: ALKALINE PHOSPHATASE 135 U/L (45-117); ALT (GPT) 31 U/L (10-53); TOTAL BILIRUBIN ADULT 1.6 MG/DL (0.2-1.0); TOTAL PROTEIN 4.3 GM/DL (6.4-8.2)
[2018-02-18 06:56] LABS: BANDS 11 % (0-6); LYMPHOCYTES 1 % (9-44); METAMYELOCYTES 6 % (0-1); MONOCYTES 11 % (0-8); MYELOCYTES 5 % (0-0); NEUTROPHIL # MANUAL DIFF 12.4 TH/MM3 (1.8-7.7); POLYS (SEG NEUTROPHILS) 66 % (16-70)
[2018-02-18] MEDS: CHOLECALCIFEROL (VIT D3) 5000 UNIT CAP PO SCH (08:19)
[2018-02-18] MEDS: AMIODARONE 200 MG TAB PO SCH ×2 (08:20→21:08)
[2018-02-18] MEDS: FUROSEMIDE 20 MG/2 ML VIAL IV PUSH SCH (08:23)
[2018-02-18] MEDS: SODIUM CHLORIDE 0.9% FLUSH 10 ML FLUSH IV FLUSH SCH ×2 (08:25→21:09)
[2018-02-18] MEDS: CHLORHEXIDINE 0.12% (ORAL KIT) 15 ML CUP MT SCH ×2 (08:31→21:08)
[2018-02-18] MEDS: DOCUSATE SODIUM 100 MG/10 ML UDC PO SCH ×2 (08:31→21:08)
[2018-02-18] MEDS: MAGNESIUM HYDROXIDE SUSP 30 ML CUP PO SCH ×2 (08:31→21:08)
[2018-02-18] MEDS: LACTULOSE SYRUP 20 GM/30 ML CUP PO SCH (08:31)
--- NOTE | 2018-02-18 08:44 | PD.CARD.PN ---
Subjective Subjective Remarks Sedated on vent Objective Medications Current Medications Medications (Trade) Dose Ordered Sig/Mackenzie Route Start Time Stop Time Status Last Admin (Vasotec Inj) 1.25 mg Q8H PRN IV PUSH 02/10/18 04:15 (Zofran Inj) 4 mg Q6H PRN IV PUSH 02/10/18 04:15 (Protonix Inj) 40 mg Q24H IVP 02/10/18 05:00 02/18/18 05:17 Miscellaneous Information 1 Q361D XX 02/10/18 04:15 02/10/18 04:15 (Chlorhexidine 2% Cloth) Taper DAILY@04 TOP 02/11/18 04:00 02/07/19 03:59 (Chlorhexidine 2% Cloth) 3 pack UNSCH PRN TOP 02/10/18 04:15 (KCl Powder) 40 meq DAILY PRN PO 02/10/18 06:30 (Peridex 0.12% Liq) 15 ml BID@08,20 MT 02/10/18 08:00 02/18/18 08:31 Fentanyl Citrate 250 ml @ 5 mls/hr TITRATE PRN IV 02/10/18 08:00 02/15/18 22:51 Potassium Chloride 100 ml @ 50 mls/hr Q2H PRN IV 02/10/18 09:15 02/12/18 06:19 Potassium Chloride 100 ml @ 50 mls/hr Q2H PRN IV 02/10/18 09:15 (K-Lyte Cl Eff) 50 meq UNSCH PRN PO 02/10/18 09:15 Potassium Chloride 100 ml @ 25 mls/hr UNSCH PRN IV 02/10/18 09:15 Potassium Chloride 100 ml @ 50 mls/hr Q2H PRN IV 02/10/18 09:15 Magnesium Sulfate 4 gm/Sodium Chloride 100 ml @ 50 mls/hr UNSCH PRN IV 02/10/18 09:15 (Mag-Ox) 800 mg UNSCH PRN PO 02/10/18 09:15 Magnesium Sulfate 2 gm/Sodium Chloride 100 ml @ 50 mls/hr UNSCH PRN IV 02/10/18 09:15 (K-Phos) 2,000 mg Q4H PRN PO 02/10/18 09:15 Sodium Phosphate 30 mmol/Sodium Chloride 250 ml @ 42 mls/hr UNSCH PRN IV 02/10/18 09:15 (K-Phos) 2,000 mg UNSCH PRN PO/TUBE 02/10/18 09:15 Potassium Phosphate 30 mmol/ Sodium Chloride 260 ml @ 42 mls/hr UNSCH PRN IV 02/10/18 09:15 Norepinephrine Bitartrate 250 ml @ 7.5 mls/hr TITRATE PRN IV 02/10/18 19:45 02/15/18 22:46 Phenylephrine HCl 40 mg/Dextrose 500 ml @ 30 mls/hr TITRATE PRN IV 02/10/18 19:45 02/11/18 05:38 Sodium Chloride 1,000 ml @ 100 mls/hr Q10H IV 02/10/18 23:00 02/18/18 00:11 Midazolam HCl 100 ml @ 2 mls/hr TITRATE PRN IV 02/11/18 09:30 02/12/18 22:18 Propofol 100 ml @ 2.391 mls/ hr TITRATE PRN IV 02/11/18 09:45 (Milk Of Magnesia Liq) 30 ml BID PO 02/11/18 21:00 02/17/18 20:06 (Duoneb Neb) 1 ampule Q2HR NEB PRN NEB 02/11/18 19:45 (Bacitracin Oint Packet) 0.9 gm UNSCH PRN TOP 02/12/18 09:30 (NS Flush) 2 ml BID IV FLUSH 02/12/18 21:00 02/18/18 08:25 (NS Flush) 2 ml UNSCH PRN IV FLUSH 02/12/18 09:30 (Lovenox Inj) 30 mg Q24H SQ 02/14/18 11:00 02/17/18 09:45 ([place] 7.5-325 Mg) 1 tab Q3H PRN PO 02/13/18 12:00 02/18/18 08:22 (Vitamin D3) 5,000 units DAILY PO 02/14/18 09:00 02/18/18 08:19 (Lactulose Liq) 30 ml DAILY PO 02/14/18 09:00 02/16/18 08:35 (Cordarone) 400 mg Q12HR PO 02/14/18 13:30 02/18/18 08:20 (Lasix Inj) 20 mg DAILY IV PUSH 02/15/18 09:15 02/20/18 08:59 02/18/18 08:23 (Colace Liq) 100 mg BID PO 02/17/18 09:00 02/17/18 20:06 (Cardizem) 60 mg Q6H PO 02/17/18 14:00 02/18/18 08:19 Vital Signs / I&O Vital Signs Date Time Temp Pulse Resp B/P (MAP) Pulse Ox O2 Delivery O2 Flow Rate FiO2 02/18/18 07:44 97 45 02/18/18 06:00 93 02/18/18 04:17 95 45 02/18/18 04:00 96 02/18/18 04:00 35 02/18/18 04:00 100.9 96 22 150/68 (95) 97 02/18/18 02:00 87 02/18/18 00:00 35 02/18/18 00:00 89 02/18/18 00:00 100.3 89 11 127/60 (82) 96 02/17/18 23:57 97 45 02/17/18 22:00 82 02/17/18 20:28 94 45 02/17/18 20:00 103 02/17/18 20:00 35 02/17/18 20:00 100.1 103 12 135/82 (99) 96 02/17/18 18:00 87 02/17/18 16:00 80 02/17/18 16:00 100.4 80 15 115/57 (76) 96 02/17/18 16:00 35 02/17/18 15:25 97 45 02/17/18 14:00 86 02/17/18 12:00 100.6 140 20 129/69 (89) 95 02/17/18 12:00 140 02/17/18 12:00 35 02/17/18 10:00 87 02/17/18 10:00 35 I/O 02/17/18 02/17/18 02/17/18 02/18/18 02/18/18 02/18/18 07:00 15:00 23:00 07:00 15:00 23:00 Intake Total 602 ml 634 ml 550 ml Output Total 675 ml 875 ml 1550 ml 720 ml Balance -73 ml -875 ml -916 ml -170 ml Tube Feeding 602 ml 534 ml 550 ml Other 100 ml Output Urine Total 625 ml 875 ml 1500 ml 700 ml Chest Tube Drainage Total 50 ml 50 ml 20 ml # Bowel Movements 0 0 Physical Exam sedated Chest: no wheezes/rales CV S1S2 RRR with 1-2/6 MORELIA Abd soft Diffuse 1+ edema Tele: AF with CVR CXR fluffy infiltrates (?ARDS) Laboratory Laboratory Tests Test 02/18/18 04:30 02/18/18 06:21 White Blood Count 14.1 TH/MM3 Red Blood Count 2.69 MIL/MM3 Hemoglobin 8.1 GM/DL Hematocrit 24.3 % Mean Corpuscular Volume 90.2 FL Mean Corpuscular Hemoglobin 30.2 PG Mean Corpuscular Hemoglobin Concent 33.5 % Red Cell Distribution Width 17.4 % Platelet Count 140 TH/MM3 Mean Platelet Volume 9.3 FL Neutrophils (%) (Auto) 83.4 % Lymphocytes (%) (Auto) 6.5 % Monocytes (%) (Auto) 9.1 % Eosinophils (%) (Auto) 0.8 % Basophils (%) (Auto) 0.2 % Neutrophils # (Auto) 11.8 TH/MM3 Lymphocytes # (Auto) 0.9 TH/MM3 Monocytes # (Auto) 1.3 TH/MM3 Eosinophils # (Auto) 0.1 TH/MM3 Basophils # (Auto) 0.0 TH/MM3 CBC Comment AUTO DIFF Differential Total Cells Counted 100 Neutrophils % (Manual) 66 % Band Neutrophils % 11 % Lymphocytes % 1 % Monocytes % 11 % Neutrophils # (Manual) 12.4 TH/MM3 Metamyelocytes 6 % Myelocytes 5 % Differential Comment FINAL DIFF MANUAL Platelet Estimate LOW Platelet Morphology Comment NORMAL Blood Urea Nitrogen 16 MG/DL Creatinine 0.27 MG/DL Random Glucose 111 MG/DL Total Protein 4.3 GM/DL Albumin 1.2 GM/DL Calcium Level 8.0 MG/DL Alkaline Phosphatase 135 U/L Aspartate Amino Transf (AST/SGOT) 59 U/L Alanine Aminotransferase (ALT/SGPT) 31 U/L Total Bilirubin 1.6 MG/DL Sodium Level 144 MEQ/L Potassium Level 3.8 MEQ/L Chloride Level 110 MEQ/L Carbon Dioxide Level 29.0 MEQ/L Anion Gap 5 MEQ/L Estimat Glomerular Filtration Rate 238 ML/MIN Blood Gas Puncture Site ART LINE Blood Gas Patient Temperature 98.6 Blood Gas HCO3 29 mmol/L Blood Gas Base Excess 5.4 mmol/L Blood Gas Oxygen Saturation 95 % Arterial Blood pH 7.47 Arterial Blood Partial Pressure CO2 40 mmHg Arterial Blood Partial Pressure O2 82 mmHg Arterial Blood Oxygen Content 11.2 Vol % Arterial Blood Carboxyhemoglobin 2.5 % Arterial Blood Methemoglobin 1.0 % Blood Gas Hemoglobin 8.3 G/DL Oxygen Delivery Device VENTILATOR Blood Gas Ventilator Setting SEE COMMENT Blood Gas Inspired Oxygen 45 % Imaging Last 24 hours Impressions Chest X-Ray 02/18/18 0600 Signed Impressions: Service Date/Time: Sunday, February 18, 2018 03:05 - CONCLUSION: No significant change. Deondre Costello MD Assessment and Plan Problem List: (1) Trauma ICD Codes: T14.90XA - Injury, unspecified, initial encounter (2) Syncope ICD Codes: R55 - Syncope and collapse (3) Sinus pause ICD Codes: I45.5 - Other specified heart block (4) Pacemaker ICD Codes: Z95.0 - Presence of cardiac pacemaker (5) Elevated troponin ICD Codes: R74.8 - Abnormal levels of other serum enzymes (6) Paroxysmal atrial fibrillation ICD Codes: I48.0 - Paroxysmal atrial fibrillation (7) Hypoalbuminemia ICD Codes: E88.09 - Other disorders of plasma-protein metabolism, not elsewhere classified Assessment and Plan HR bett er with Diltiazem added Fletcher Rodriguez MD Feb 18, 2018 08:44
--- NOTE | 2018-02-18 08:56 | HHI.NSPN ---
Note Status Status: Progress Note Interval History Interval History This is a 87 year old female who presents to the [facility] emergency department as a transfer from [facility] as a trauma alert. Apparently patient sustained a fall on the driveway at approximately 9 PM last night. She sustained right sided rib fractures with a hemopneumothorax status post chest tube placement and 1200 mL of blood out in the chest tube. The patient's hemoglobin dropped from 11 to7, was transfused 2 units of packed red blood cells. The patient was found to have bilateral intertrochanteric fractures, Left proximal humerus fracture, Acute T11 fracture, right-sided rib fractures, and hemopneumothorax as described above. She was accepted by Dr. Monae. Towards a.m. patient started becoming more hemodynamically unstable, Dr. Monae place a right subclavian central line and Levophed was started which rapidly was increased to 12 mcg/min. Due to increasing hemodynamic instability patient was intubated by Dr. Monae and placed on mechanical ventilation Trauma workup reveled a right hemopneumothorax, right-sided rib fractures, bilateral intertrochanteric fractures on the femur, acute T11 fracture, acute left humerus fracture. Neurosurgical consultation was requested 02/11. She has been slowly stabilized overnight with hemodynamic improvement and decreased need for vasopressors. She remains mildly sedated on propofol. She has been evaluated by cardiology for periods of bradycardia. Troponins elevated. Suspected that she had a myocardial infarction on the scene anemia and hemorrhagic shock 02/13: pt underwent pacemaker placement yesterday. currently intubated. ortho plans on b/l hip fixation today. 02/14: intubated, does not open eyes. 02/15: remains intubated 02/16: intubated, and sedated on drips. grimaces and minimally withdraws in LE's 02/17: remains intubated, sedated, grimaces with slight intermittent head movement. minimal withdrawals in lower extremities. 02/18: intubated, sedated. appears to be moving more her extremities to stimuli. Labs, Micro, & Vital Signs Results Date Time Temp Pulse Resp B/P (MAP) Pulse Ox O2 Delivery O2 Flow Rate FiO2 02/18/18 07:44 97 45 02/18/18 06:00 93 02/18/18 04:17 95 45 02/18/18 04:00 96 02/18/18 04:00 35 02/18/18 04:00 100.9 96 22 150/68 (95) 97 02/18/18 02:00 87 02/18/18 00:00 35 02/18/18 00:00 89 02/18/18 00:00 100.3 89 11 127/60 (82) 96 02/17/18 23:57 97 45 02/17/18 22:00 82 02/17/18 20:28 94 45 02/17/18 20:00 103 02/17/18 20:00 35 02/17/18 20:00 100.1 103 12 135/82 (99) 96 02/17/18 18:00 87 02/17/18 16:00 80 02/17/18 16:00 100.4 80 15 115/57 (76) 96 02/17/18 16:00 35 02/17/18 15:25 97 45 02/17/18 14:00 86 02/17/18 12:00 100.6 140 20 129/69 (89) 95 02/17/18 12:00 140 02/17/18 12:00 35 02/17/18 10:00 87 02/17/18 10:00 35 Constitutional Vital Signs Date Time Temp Pulse Resp B/P (MAP) Pulse Ox O2 Delivery O2 Flow Rate FiO2 02/18/18 07:44 97 45 02/18/18 06:00 93 02/18/18 04:17 95 45 02/18/18 04:00 96 02/18/18 04:00 35 02/18/18 04:00 100.9 96 22 150/68 (95) 97 02/18/18 02:00 87 02/18/18 00:00 35 02/18/18 00:00 89 02/18/18 00:00 100.3 89 11 127/60 (82) 96 02/17/18 23:57 97 45 02/17/18 22:00 82 02/17/18 20:28 94 45 02/17/18 20:00 103 02/17/18 20:00 35 4/16/18 20:00 100.1 103 12 135/82 (99) 96 02/17/18 18:00 87 02/17/18 16:00 80 02/17/18 16:00 100.4 80 15 115/57 (76) 96 02/17/18 16:00 35 02/17/18 15:25 97 45 02/17/18 14:00 86 02/17/18 12:00 100.6 140 20 129/69 (89) 95 02/17/18 12:00 140 02/17/18 12:00 35 02/17/18 10:00 87 02/17/18 10:00 35 Physical Exam Elderly female in no acute distress, intubated and sedated. HEENT: normocephalic, nonicteric sclera Neuro: sedated, does not open eyes or follow commands. Grimaced to noxious stimuli. Cranial Nerves: Pupils 2-3 mm equal. Eyes appear conjugated. Otherwise exam limited due to clinical condition. Minimal response to pain to lower extremities. Plantars equivocal b/l Cervical Spine: soft, supple Cerebellar: cannot assess Heart: regular rate rhythm Lungs: clear Skin warm and dry Abdomen: soft Skin warm and dry Medications Current Medications Current Medications Medications (Trade) Dose Ordered Sig/Mackenzie Route PRN Reason Start Time Stop Time Status Last Admin Dose Admin Enalaprilat (Vasotec Inj) 1.25 mg Q8H PRN IV PUSH SBP>180, DBP>95 02/10/18 04:15 Ondansetron HCl (Zofran Inj) 4 mg Q6H PRN IV PUSH NAUSEA OR VOMITING 02/10/18 04:15 Pantoprazole Sodium (Protonix Inj) 40 mg Q24H IVP 02/10/18 05:00 02/18/18 05:17 Miscellaneous Information 1 Q361D XX 02/10/18 04:15 02/10/18 04:15 Chlorhexidine Gluconate (Chlorhexidine 2% Cloth) Taper DAILY@04 TOP 02/11/18 04:00 02/07/19 03:59 Chlorhexidine Gluconate (Chlorhexidine 2% Cloth) 3 pack UNSCH PRN TOP HYGIENIC CARE 02/10/18 04:15 Potassium Chloride (KCl Powder) 40 meq DAILY PRN PO For Potassium 3.3 - 3.5 mEq/L 02/10/18 06:30 Chlorhexidine Gluconate (Peridex 0.12% Liq) 15 ml BID@08,20 MT 02/10/18 08:00 02/18/18 08:31 Fentanyl Citrate 250 ml @ 5 mls/hr TITRATE PRN IV SEDATION 02/10/18 08:00 02/15/18 22:51 Potassium Chloride 100 ml @ 50 mls/hr Q2H PRN IV For Potassium 2.8 - 3.2 mEq/L 02/10/18 09:15 02/12/18 06:19 Potassium Chloride 100 ml @ 50 mls/hr Q2H PRN IV For Potassium 2.8 - 3.2 mEq/L 02/10/18 09:15 Potassium Bicarb/ Potassium Chloride (K-Lyte Cl Eff) 50 meq UNSCH PRN PO For Potassium 3.3 - 3.5 mEq/L 02/10/18 09:15 Potassium Chloride 100 ml @ 25 mls/hr UNSCH PRN IV For Potassium 3.3 - 3.5 mEq/L 02/10/18 09:15 Potassium Chloride 100 ml @ 50 mls/hr Q2H PRN IV For Potassium 3.3 - 3.5 mEq/L 02/10/18 09:15 Magnesium Sulfate 4 gm/Sodium Chloride 100 ml @ 50 mls/hr UNSCH PRN IV For Magnesium 0.9 - 1.1 mg/dL 02/10/18 09:15 Magnesium Oxide (Mag-Ox) 800 mg UNSCH PRN PO For Magnesium 1.2 - 1.6 mg/dL 02/10/18 09:15 Magnesium Sulfate 2 gm/Sodium Chloride 100 ml @ 50 mls/hr UNSCH PRN IV For Magnesium 1.2 - 1.6 mg/dL 02/10/18 09:15 Potassium Phosphate (K-Phos) 2,000 mg Q4H PRN PO For Phosphorus < 2.5 mg/dL 02/10/18 09:15 Sodium Phosphate 30 mmol/Sodium Chloride 250 ml @ 42 mls/hr UNSCH PRN IV For Phosphorus < 2.5 mg/dL 02/10/18 09:15 Potassium Phosphate (K-Phos) 2,000 mg UNSCH PRN PO/TUBE SEE LABEL COMMENTS 02/10/18 09:15 Potassium Phosphate 30 mmol/ Sodium Chloride 260 ml @ 42 mls/hr UNSCH PRN IV SEE LABEL COMMENTS 02/10/18 09:15 Norepinephrine Bitartrate 250 ml @ 7.5 mls/hr TITRATE PRN IV Maintain MAP > 65 mmHg 02/10/18 19:45 02/15/18 22:46 Phenylephrine HCl 40 mg/Dextrose 500 ml @ 30 mls/hr TITRATE PRN IV Blood Pressure Management 02/10/18 19:45 02/11/18 05:38 Sodium Chloride 1,000 ml @ 100 mls/hr Q10H IV 02/10/18 23:00 02/18/18 00:11 Midazolam HCl 100 ml @ 2 mls/hr TITRATE PRN IV SEDATION 02/11/18 09:30 02/12/18 22:18 Propofol 100 ml @ 2.391 mls/ hr TITRATE PRN IV SEDATION 02/11/18 09:45 Magnesium Hydroxide (Milk Of Magnesia Liq) 30 ml BID PO 02/11/18 21:00 02/17/18 20:06 Albuterol/ Ipratropium (Duoneb Neb) 1 ampule Q2HR NEB PRN NEB wheezing 02/11/18 19:45 Bacitracin (Bacitracin Oint Packet) 0.9 gm UNSCH PRN TOP SEE LABEL COMMENTS 02/12/18 09:30 Sodium Chloride (NS Flush) 2 ml BID IV FLUSH 02/12/18 21:00 02/18/18 08:25 Sodium Chloride (NS Flush) 2 ml UNSCH PRN IV FLUSH FLUSH AFTER USING IV ACCESS 02/12/18 09:30 Enoxaparin Sodium (Lovenox Inj) 30 mg Q24H SQ 02/14/18 11:00 02/17/18 09:45 Acetaminophen/ Hydrocodone Bitart ([place] 7.5-325 Mg) 1 tab Q3H PRN PO pain 3<10 02/13/18 12:00 02/18/18 08:22 Cholecalciferol (Vitamin D3) 5,000 units DAILY PO 02/14/18 09:00 02/18/18 08:19 Lactulose (Lactulose Liq) 30 ml DAILY PO 02/14/18 09:00 02/16/18 08:35 Amiodarone HCl (Cordarone) 400 mg Q12HR PO 02/14/18 13:30 02/18/18 08:20 Furosemide (Lasix Inj) 20 mg DAILY IV PUSH 02/15/18 09:15 02/20/18 08:59 02/18/18 08:23 Docusate Sodium (Colace Liq) 100 mg BID PO 02/17/18 09:00 02/17/18 20:06 Diltiazem HCl (Cardizem) 60 mg Q6H PO 02/17/18 14:00 02/18/18 08:19 Medical Decision Making MDM Remarks 87 y/o female trauma alert, sustained a fall on the driveway acute T11 fracture right hemopneumothorax right-sided rib fractures bilateral intertrochanteric fractures on the femur acute left humerus fracture s/p pacemaker placement s/p fixation of b/l intertrochanteric fractures Plan Plan Remarks cont trauma management cont nonoperative treatment of thoracic fracture at this time cont neuro checks and follow up neuro exam vent and sedation weaning as tolerated per primary Raven Ku Feb 18, 2018 08:56
[2018-02-18] MEDS: oxyCODONE HCL ORAL CONC 5 MG/0.25 ML SYRINGE PO SCH ×4 (10:00→22:00)
[2018-02-18] MEDS: ENOXAPARIN SODIUM 30 MG/0.3 ML SYRINGE SQ SCH (11:00)
--- NOTE | 2018-02-18 13:20 | HHI.HCPN ---
Reason for visit a. To assist with evaluation and management of symptoms including: Dyspnea, pain b. To assist medical decision maker(s) with: better understanding of current medical conditions; weighing benefits/burdens of medical treatment options; making medical treatment decisions. Subjective/Interval History Patient seen today to evaluate progress in ventilator weaning and pain management. She is mechanically ventilated on PRVC/AC, 500/12/45/8. She intermittently breathes over the ventilator. She is requiring a higher delivery of oxygen percentage to maintain saturations. It is suspected that she has ARDS, substantiated by the chest x-ray which shows basilar predominant consolidation persistent on both sides, not significantly changed from prior exam with no large effusion or pneumothorax seen. She continues to have an intact chest tube to right lung with minimal serosanguineous drainage. Laboratory studies show WBC 14.1, hemoglobin 8.1, hematocrit 24.3, platelets 140 , sodium 144, potassium 3.8, BUN 16, creatinine 0.27, calcium 8.0, total bilirubin 1.6, AST 59, ALT 31, alkaline phosphatase 135, total protein 4.3, albumin 1.2. Arterial blood gas shows pH 7.47, PCO2 40, PaO2 82, oxygen saturation 95% HCO3 29, base excess +5.4 on 45% FiO2. Spontaneous breathing trial was attempted 02/16 and the patient was able to sustain breathing for approximately 5 minutes before becoming tachypneic and tachycardic. No spontaneous breathing trial was attempted yesterday due to a decline in the patient's respiratory status. Spontaneous respirations are noted to be shallow. Right sided crepitus is improving. She is receiving low-dose fentanyl 50 MCG/HR for pain management.She has daily sedation vacations. She is minimally arousable, unable to participate in conversation or nod to questions. She grimaces to any touch or movement. She has multiple sources of potential pain to include chest tube, ET tube, invasive lines, bilateral femur fractures status post pinning, right humeral fracture, status post permanent pacemaker implantation, fractured rib . Family/friend interactions 12: 15-family requested palliative care conference to assist in establishing goals of care. They state they were informed by Dr. Ny today that her lungs were quite bruised and that they could expect a very long, extended ventilator course in addition to likely being bedbound for the remainder of her life due to the significant fractures she has sustained. Family is attempting to determine whether to go forward with tracheostomy and PEG placement versus withdrawal of ventilator support. Best case scenario was presented to assume that if the patient were amenable off the ventilator that her quality of life would remain bedbound due to her significant injuries. Family stated that this was an unacceptable quality of life patient. Her does state that they had held this conversation in the past and that neither of them wished to live in such confined state. This raised the question of continuing aggressive treatment in the face of an unacceptable outcome. Family states they understand that she would not accept the burden of the aggressive care with such a bleed quality of life facing her. They asked about the possibility of withdrawal of ventilator support and anticipatory guidance was given. They were offered the option of withdrawal hospice care center in [place], close to their home versus vent withdrawal at the hospital, if that were the choice they made. The family wishes to consider this option overnight before making that decision and they were encouraged to take the time that they required to process this very difficult decision. Plan to revisit the discuss in 1-2 days. All questions answered to the best of my ability. Contact information was confirmed with family. . Advance Directives Living Will: Copy in medical record Health Care Surrogate: Copy in medical record Durable Power of Plan Checker: Never completed Advance Directive Specifics Health Care Surrogate(s): My discussion with her daughter, patient's is the primary healthcare surrogate followed by her 3 children serving as joint alternate surrogates. . Documented care wishes: Living will completed, not available at this time. Objective Vital Signs Date Time Temp Pulse Resp B/P (MAP) Pulse Ox O2 Delivery O2 Flow Rate FiO2 02/18/18 12:00 86 02/18/18 12:00 45 02/18/18 11:53 96 45 02/18/18 10:00 88 02/18/18 08:00 73 02/18/18 08:00 100.4 94 22 121/64 (83) 96 02/18/18 08:00 45 02/18/18 07:44 97 45 02/18/18 06:00 93 02/18/18 04:17 95 45 02/18/18 04:00 96 02/18/18 04:00 35 02/18/18 04:00 100.9 96 22 150/68 (95) 97 02/18/18 02:00 87 02/18/18 00:00 35 02/18/18 00:00 89 02/18/18 00:00 100.3 89 11 127/60 (82) 96 02/17/18 23:57 97 45 02/17/18 22:00 82 02/17/18 20:28 94 45 02/17/18 20:00 103 02/17/18 20:00 35 02/17/18 20:00 100.1 103 12 135/82 (99) 96 02/17/18 18:00 87 02/17/18 16:00 80 02/17/18 16:00 100.4 80 15 115/57 (76) 96 02/17/18 16:00 35 02/17/18 15:25 97 45 02/17/18 14:00 86 Intake & Output 02/18/18 02/18/18 07:00 19:00 Intake Total 550 ml Output Total 720 ml Balance -170 ml Tube Feeding 550 ml Output Urine Total 700 ml Chest Tube Drainage Total 20 ml Physical Exam CONSTITUTIONAL/GENERAL: This is an adequately nourished patient, intubated, on low-dose fentanyl, in no apparent distress. TUBES/LINES/DRAINS: ET tube, right chest tube, right subclavian triple-lumen, Crawford catheter NECK: Trachea midline. Supple without palpable thyroid enlargement or nodularity. CARDIOVASCULAR: Irregular rhythm, controlled rate no gallop or rub, 1/6 MORELIA. No JVD. Peripheral pulses symmetric. RESPIRATORY/CHEST: Mechanically ventilated, breath sounds coarse, diminished. Chest tube intact to right chest wall without air leak, minimal serosanguineous output. Decreasing crepitus noted. GASTROINTESTINAL: Abdomen soft, nondistended. Bowel sounds present. GENITOURINARY: Without palpable bladder distension. Crawford catheter in place draining clear yellow urine. MUSCULOSKELETAL: Extremities without clubbing, cyanosis. 2 + edema to upper extremities. No mottling or clubbing. Bilateral boots on. Grimaces with touch or movement. NEUROLOGICAL: Intubated PSYCHIATRIC: Lethargic . Diagnostic Tests Laboratory Laboratory Tests Test 02/16/18 03:58 02/16/18 05:30 02/17/18 04:38 02/17/18 06:00 Blood Gas Puncture Site RT RADIAL LT RADIAL Blood Gas Patient Temperature 98.6 98.6 Blood Gas HCO3 28 mmol/L (22-26) 29 mmol/L (22-26) Blood Gas Base Excess 4.2 mmol/L (-2-2) 4.7 mmol/L (-2-2) Blood Gas Oxygen Saturation 93 % (90-100) 91 % (90-100) Arterial Blood pH 7.45 (7.380-7.420) 7.45 (7.380-7.420) Arterial Blood Partial Pressure CO2 42 mmHg (38-42) 42 mmHg (38-42) Arterial Blood Partial Pressure O2 65 mmHg (61-120) 60 mmHg (61-120) Arterial Blood Oxygen Content 11.1 Vol % (12.0-20.0) 11.1 Vol % (12.0-20.0) Arterial Blood Carboxyhemoglobin 2.5 % (0-4) 2.8 % (0-4) Arterial Blood Methemoglobin 0.5 % (0-2) 0.7 % (0-2) Blood Gas Hemoglobin 8.4 G/DL (12.0-16.0) 8.6 G/DL (12.0-16.0) Oxygen Delivery Device VENTILATOR VENTILATOR Blood Gas [facility] Setting [facility] Inspired Oxygen 35 % 35 % White Blood Count 11.4 TH/MM3 (4.0-11.0) 16.9 TH/MM3 (4.0-11.0) Red Blood Count 2.62 MIL/MM3 (4.00-5.30) 2.86 MIL/MM3 (4.00-5.30) Hemoglobin 8.0 GM/DL (11.6-15.3) 8.6 GM/DL (11.6-15.3) Hematocrit 23.5 % (35.0-46.0) 25.7 % (35.0-46.0) Mean Corpuscular Volume 89.5 FL (80.0-100.0) 89.8 FL (80.0-100.0) Mean Corpuscular Hemoglobin 30.4 PG (27.0-34.0) 30.1 PG (27.0-34.0) Mean Corpuscular Hemoglobin Concent 34.0 % (32.0-36.0) 33.5 % (32.0-36.0) Red Cell Distribution Width 16.9 % (11.6-17.2) 16.5 % (11.6-17.2) Platelet Count 98 TH/MM3 (150-450) 126 TH/MM3 (150-450) Mean Platelet Volume 8.5 FL (7.0-11.0) 8.8 FL (7.0-11.0) Neutrophils (%) (Auto) 80.1 % (16.0-70.0) 80.5 % (16.0-70.0) Lymphocytes (%) (Auto) 7.6 % (9.0-44.0) 7.5 % (9.0-44.0) Monocytes (%) (Auto) 11.3 % (0.0-8.0) 10.8 % (0.0-8.0) Eosinophils (%) (Auto) 0.7 % (0.0-4.0) 0.9 % (0.0-4.0) Basophils (%) (Auto) 0.3 % (0.0-2.0) 0.3 % (0.0-2.0) Neutrophils # (Auto) 9.1 TH/MM3 (1.8-7.7) 13.6 TH/MM3 (1.8-7.7) Lymphocytes # (Auto) 0.9 TH/MM3 (1.0-4.8) 1.3 TH/MM3 (1.0-4.8) Monocytes # (Auto) 1.3 TH/MM3 (0-0.9) 1.8 TH/MM3 (0-0.9) Eosinophils # (Auto) 0.1 TH/MM3 (0-0.4) 0.2 TH/MM3 (0-0.4) Basophils # (Auto) 0.0 TH/MM3 (0-0.2) 0.1 TH/MM3 (0-0.2) CBC Comment AUTO DIFF AUTO DIFF Differential Total Cells Counted 100 100 Neutrophils % (Manual) 69 % (16-70) 74 % (16-70) Band Neutrophils % 15 % (0-6) 6 % (0-6) Lymphocytes % 2 % (9-44) 3 % (9-44) Monocytes % 6 % (0-8) 5 % (0-8) Eosinophils % 2 % (0-4) 1 % (0-4) Neutrophils # (Manual) 10.3 TH/MM3 (1.8-7.7) 15.4 TH/MM3 (1.8-7.7) Metamyelocytes 5 % (0-1) 6 % (0-1) Myelocytes 1 % (0-0) 4 % (0-0) Differential Comment FINAL DIFF MANUAL FINAL DIFF MANUAL Toxic Granulation 1+ (NORMAL) Dohle Bodies PRESENT (NONE SEEN) Platelet Estimate LOW (NORMAL) LOW (NORMAL) Platelet Morphology Comment NORMAL (NORMAL) NORMAL (NORMAL) Blood Urea Nitrogen 13 MG/DL (7-18) 16 MG/DL (7-18) Creatinine 0.36 MG/DL (0.50-1.00) 0.33 MG/DL (0.50-1.00) Random Glucose 133 MG/DL (74-106) 107 MG/DL (74-106) Total Protein 4.0 GM/DL (6.4-8.2) 4.5 GM/DL (6.4-8.2) Albumin 1.2 GM/DL (3.4-5.0) 1.3 GM/DL (3.4-5.0) Calcium Level 7.9 MG/DL (8.5-10.1) 8.4 MG/DL (8.5-10.1) Alkaline Phosphatase 89 U/L (45-117) 121 U/L (45-117) Aspartate Amino Transf (AST/SGOT) 32 U/L (15-37) 56 U/L (15-37) Alanine Aminotransferase (ALT/SGPT) 18 U/L (10-53) 28 U/L (10-53) Total Bilirubin 1.8 MG/DL (0.2-1.0) 2.0 MG/DL (0.2-1.0) Sodium Level 143 MEQ/L (136-145) 142 MEQ/L (136-145) Potassium Level 3.8 MEQ/L (3.5-5.1) 4.0 MEQ/L (3.5-5.1) Chloride Level 109 MEQ/L (98-107) 108 MEQ/L (98-107) Carbon Dioxide Level 29.7 MEQ/L (21.0-32.0) 30.1 MEQ/L (21.0-32.0) Anion Gap 4 MEQ/L (5-15) 4 MEQ/L (5-15) Estimat Glomerular Filtration Rate 171 ML/MIN (>89) 189 ML/MIN (>89) Promyelocytes 1 % (0-0) Basophilic Stippling FAINT (NORMAL) Red Cell Morphology Comment NORMAL (NORMAL) Test 02/18/18 04:30 02/18/18 06:21 White Blood Count 14.1 TH/MM3 (4.0-11.0) Red Blood Count 2.69 MIL/MM3 (4.00-5.30) Hemoglobin 8.1 GM/DL (11.6-15.3) Hematocrit 24.3 % (35.0-46.0) Mean Corpuscular Volume 90.2 FL (80.0-100.0) Mean Corpuscular Hemoglobin 30.2 PG (27.0-34.0) Mean Corpuscular Hemoglobin Concent 33.5 % (32.0-36.0) Red Cell Distribution Width 17.4 % (11.6-17.2) Platelet Count 140 TH/MM3 (150-450) Mean Platelet Volume 9.3 FL (7.0-11.0) Neutrophils (%) (Auto) 83.4 % (16.0-70.0) Lymphocytes (%) (Auto) 6.5 % (9.0-44.0) Monocytes (%) (Auto) 9.1 % (0.0-8.0) Eosinophils (%) (Auto) 0.8 % (0.0-4.0) Basophils (%) (Auto) 0.2 % (0.0-2.0) Neutrophils # (Auto) 11.8 TH/MM3 (1.8-7.7) Lymphocytes # (Auto) 0.9 TH/MM3 (1.0-4.8) Monocytes # (Auto) 1.3 TH/MM3 (0-0.9) Eosinophils # (Auto) 0.1 TH/MM3 (0-0.4) Basophils # (Auto) 0.0 TH/MM3 (0-0.2) CBC Comment AUTO DIFF Differential Total Cells Counted 100 Neutrophils % (Manual) 66 % (16-70) Band Neutrophils % 11 % (0-6) Lymphocytes % 1 % (9-44) Monocytes % 11 % (0-8) Neutrophils # (Manual) 12.4 TH/MM3 (1.8-7.7) Metamyelocytes 6 % (0-1) Myelocytes 5 % (0-0) Differential Comment FINAL DIFF MANUAL Platelet Estimate LOW (NORMAL) Platelet Morphology Comment NORMAL (NORMAL) Blood Urea Nitrogen 16 MG/DL (7-18) Creatinine 0.27 MG/DL (0.50-1.00) Random Glucose 111 MG/DL (74-106) Total Protein 4.3 GM/DL (6.4-8.2) Albumin 1.2 GM/DL (3.4-5.0) Calcium Level 8.0 MG/DL (8.5-10.1) Alkaline Phosphatase 135 U/L (45-117) Aspartate Amino Transf (AST/SGOT) 59 U/L (15-37) Alanine Aminotransferase (ALT/SGPT) 31 U/L (10-53) Total Bilirubin 1.6 MG/DL (0.2-1.0) Sodium Level 144 MEQ/L (136-145) Potassium Level 3.8 MEQ/L (3.5-5.1) Chloride Level 110 MEQ/L (98-107) Carbon Dioxide Level 29.0 MEQ/L (21.0-32.0) Anion Gap 5 MEQ/L (5-15) Estimat Glomerular Filtration Rate 238 ML/MIN (>89) Blood Gas Puncture Site ART LINE Blood Gas Patient Temperature 98.6 Blood Gas HCO3 29 mmol/L (22-26) Blood Gas Base Excess 5.4 mmol/L (-2-2) Blood Gas Oxygen Saturation 95 % (90-100) Arterial Blood pH 7.47 (7.380-7.420) Arterial Blood Partial Pressure CO2 40 mmHg (38-42) Arterial Blood Partial Pressure O2 82 mmHg (61-120) Arterial Blood Oxygen Content 11.2 Vol % (12.0-20.0) Arterial Blood Carboxyhemoglobin 2.5 % (0-4) Arterial Blood Methemoglobin 1.0 % (0-2) Blood Gas Hemoglobin 8.3 G/DL (12.0-16.0) Oxygen Delivery Device VENTILATOR Blood Gas Ventilator Setting SEE COMMENT Blood Gas Inspired Oxygen 45 % Result Diagram: 02/18/18 0430 02/18/18 0430 Microbiology Microbiology Date/Time Source Procedure Growth Status 02/10/18 10:45 Sputum Endotracheal Gram Stain - Final Complete 02/10/18 10:45 Sputum Culture - Final Klebsiella Pneumoniae Complete Imaging Last Impressions Chest X-Ray 02/18/18 0600 Signed Impressions: Service Date/Time: Sunday, February 18, 2018 03:05 - CONCLUSION: No significant change. Deondre Costello MD Hip X-Ray 02/13/18 0000 Signed Impressions: Service Date/Time: February 11:16 - CONCLUSION: Status post ORIF of right femur fracture with hardware in good position Bib Cooper MD Thoracic Spine CT 02/10/18348 Signed Impressions: Service Date/Time: Saturday, February 10, 2018 03:53 - CONCLUSION: 1. Acute fracture of T11 vertebral body. No retropulsion of posterior fragments or canal stenosis. 2. Old compression deformities at T8, T12 and L1 vertebral bodies. 1. Yrn Khan MD Pelvis X-Ray 02/10/18348 Signed Impressions: Service Date/Time: Saturday, February 10, 2018 03:36 - CONCLUSION: 1. Displaced intertrochanteric fracture left proximal femur. 2. Appears to be intertrochanteric fracture of the right proximal femur as well. Yrn Khan MD Lumbar Spine CT 02/10/18348 Signed Impressions: Service Date/Time: Saturday, February 10, 2018 03:53 - CONCLUSION: 1. Multiple old compression deformities. 2. Disc bulge causes mild canal stenosis at L4-5. 3. Compression fracture at T11 Yrn Khan MD Chest CT 02/10/18348 Signed Impressions: Service Date/Time: Saturday, February 10, 2018 03:53 - CONCLUSION: 1. Small bilateral pleural effusions. 2. Right-sided chest tube is seen with the side hole external to the chest. Tiny right-sided pneumothorax. 3. Minimal rib fracture right lower lateral rib. 4. Fracture of thoracic vertebral bodies including what appears to be T6 and T10, likely old. Yrn Khan MD Abdomen/Pelvis CT 02/10/18348 Signed Impressions: Service Date/Time: Saturday, February 10, 2018 03:53 - CONCLUSION: 1. Intertrochanteric fractures of each proximal femur. 2. Mild loss of height of several thoracic vertebral bodies including L2-L4. L3 and L4 vertebral bodies contain kyphoplasty cement. Yrn Khan MD Procedures 02/10: Right subclavian triple-lumen catheter placement 02/11: Intubation 02/12: Implantation of a dual-chamber [employer] pacemaker 02/13: Bilateral hip reduction and intramedullary nailing . Assessment and Plan Disease Oriented Problem List: (1) Rib fractures (2) Proximal humerus fracture (3) Hemopneumothorax on right (4) T11 vertebral fracture (5) Intertrochanteric fracture of both femurs (6) Syncope (7) Sinus pause Symptom Scale: (1) Pain, generalized 0-10 Scale: Unable to quantify (Patient intubated, not responding to questions) (2) Dyspnea and respiratory abnormalities 0-10 Scale: Unable to quantify (Patient intubated, not responding to questions) Pertinent Non-Medical Issues Psychosocial:She was born in [place] where she raised 3 children. 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 She has been to her for over 60 years. 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 Legal: No legal issues identified. Ethical issues impacting care: No ethical issues identified. . Important Contacts Spouse: Gregory Cruz Daughter: Rcahel Ricardo . Prognosis Her prognosis is guarded. She has suffered a traumatic fall with subsequent rib fracture, hemopneumothorax, bilateral entero-trochanteric fractures, left humerus fracture and subsequent traumatic shock. She is currently intubated, sedated and requiring vasopressor support. She has required transfusion of 3 units of packed red blood cells and 2 units of platelets are on hold. She is pending repair of bilateral intertrochanteric fractures which will be held until her overall condition stabilizes. Complicating her hospital course was the finding of a 3.2 and subsequent 2.9 second pause which it is opined, may have been responsible for her initial fall. Given her recent chest trauma, severe osteoporosis with a number of compression fractures and previous kyphoplasty, CPR is likely to cause further damage to the thoracic cage with the potential of harm from that. Family is considering the option of no CPR and will render their decision tomorrow at the meeting. Given her fragile state she is likely to suffer further compromise, complications and decline. . Code Status: Alternative Code Plan PLAN: * CODE STATUS: Alternate code/intubation and ACLS drugs only. NO CHEST COMPRESSIONS, NO DEFIBRILLATION. * HEALTHCARE DECISION-MAKING: Patient unable to participating medical decision making secondary to critical illness. Currently intubated on mechanical ventilation. Family reports that advance directives have been completed naming patient's Gregory Cruz as healthcare surrogate decision maker. Family also reports that all 3 children are listed jointly as alternate healthcare surrogate. Patient's Gregory has fully accepted this role and is fully supported by their 3 children. * GOALS OF CARE: As per family goals of therapy remain aggressive short of no chest compressions or defibrillation. Immediate goal is to attempt medical extubation as tolerated by patient. Family reports that they had a very good conversation with Dr. Pascual earlier today. Family verbalized understanding that patient's clinical course will be long if she is to survive acute phase, likely difficult to medically extubate. Reviewed that patient remains at a very high risk for further complications, continued decline and . Overall prognosis remains very poor. Family requesting palliative care follow-ups. * SYMPTOMS: * Pain: Multifactorial to include invasive lines, chest tube, bedbound status, fractured ribs, bilateral femur fractures, fractured humerus, recently implanted pacemaker. She is receiving low dose fentanyl for pain management. Patient grimacing to touch or movement. Will be a very difficult balance of sedation versus pain management, likely to complicate her weaning process from the ventilator. * Dyspnea: Multifactorial to include right hemopneumothorax, fractured ribs, chest tube and possible ARDS. Family has been advised of the worsening condition of the lungs and are now considering the possibility of withdrawal from life support, as patient would not want to live in a bedbound, dependent state which is what has been prognosticated by the medical team. Palliative care will continue to follow the patient during hospital course as condition evolves, to assist patient/decision-maker with understanding of their medical conditions, weighing benefits/burdens of treatment options, for clarification of goals of treatment. Additionally will assist with any symptoms of palliative concern. . Attestation To help prompt me to consider important information that might be impacting today's encounter and assessment, information from prior notes written by myself or my colleagues may have been "brought forward" into today's note. My signature on this note, however, is an attestation that I personally performed the exam, history, and/or decision-making noted today, and, unless otherwise indicated, the interactions with patient, family, and staff as well as the review of records all occurred today. I also attest that the listed assessment and stated plan reflect my best clinical judgment today based on the combination of historical information, prior notes, and today's exam/ interactions. When time spent is documented, it refers only to time spent today by the signer, or if indicated, combined time spent today by collaborating physician/nurse practitioner. . Aliya Ac Feb 18, 2018 1:20 pm
--- NOTE | 2018-02-18 13:44 | HHI.CCPN ---
Subjective Brief History This is a 87 year old female who presents to the [facility] emergency department as a transfer from [facility] as a trauma alert. Apparently patient sustained a fall on the driveway at approximately 9 PM last night. Patient was transferred to [facility] and underwent workup and when it was finally noted that patient had severe injuries we were asked to accept the patient as trauma transfer. Patient arrives around 6 AM and according to Dr. Monae initially patient is hemodynamically stable but then continues to deteriorate including multifocal supraventricular arrhythmias. Patient undergoes repeat CT scan of the chest and abdomen and is transferred to ICU for further care. Final injuries are Right lower rib fractures with a hemopneumothorax / chest tube placement and 1200 mL of blood out in the chest tube. Bilateral intratrochanteric hip fractures Left proximal humerus fracture T11 fracture Multiple old fractures of the thoracic spine and several lumbar spine fractures with kyphoplasties Supraventricular cardiac arrhythmias ischemic cardiomyopathy Hypotensive shock Metabolic acidosis anion gap In the process patient dropped hemoglobin from 12 g/dL initially to 7 g/dL few hours later. 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 02/11/2018 Patient with a devastating traumatic injuries post fall She has been slowly stabilizing overnight with hemodynamic improvement and decreasing vasopressors Remains mildly sedated on propofol however we will switch this to Versed in face of cardio depressant effect of propofol Evaluated by cardiology for periods of bradycardia It is my opinion that patient had a myocardial infarction process as a result of combination of the trauma hypoxia on the scene anemia and hemorrhagic shock Troponins elevated 02/12 Patient underwent pacemaker insertion today by cardiology-she spontaneously converted to sinus rhythm the cardiac lab She is got thrombocytopenia- believe is likely related to blood loss/SIRS She remains on low-dose Levophed-I believe she is euvolemic-obtain Flowtrack for more exact measurement She had an [place] versus blunt cardiac injury She has multitrauma with this overall poor prognosis secondary to her age with low reserve 02/13 OR today-IM nailing x2 transfuse 1U PRBC,1U plt low dose levophed off amiodarone uo adequate partial DNR as per family remains SR 02/14/2018 Patient remains intubated and ventilated Successful bilateral intratrochanteric fracture nailing yesterday Patient sedated on fentanyl Versed but minimal amounts with very low Rishi Coma Scale Hemodynamically stable although requiring small dose Levophed Pacemaker maintaining paced rhythm but patient developed A. fib on top of it so amiodarone has been restarted Gradually switch antiarrhythmics to p.o. form Aamir - cardiac output remains around 4-5 L which is quite admirable and SVR around 1100 Bilateral breath signs remains ventilatory dependent in face of pulmonary contusion and a severe chest trauma not ready to come off the respirator Abdomen soft Renal function preserved Extensive discussions with family and it is clear that this patient will be here long-term and will be difficult to extubate Hopefully she will not require tracheostomy however patient at this point does not have either the lung function or the level of consciousness sufficient to extubate In the face of age and extensive injuries prognosis remains very poor and 30 day mortality is extremely high 02/15/2018 Patient has stabilized hemodynamically Remains on small dose fentanyl about 50 mcg and will decrease that gradually and give patient some p.o. analgesia Hemodynamically stable very tiny dose of Levophed Cardiac arrhythmias have resolved patient is on p.o. amiodarone with paced rhythm Bilateral breath sounds with reasonable PO2 FiO2 gradient Patient is somewhat fluid overloaded as noted below and some pulmonary edema is present CPAP trial tolerated for about 2 hours today and then patient became tachypneic We will try tomorrow and see how patient does Abdomen soft enteral feeds tolerated Renal function preserved with normal BUN/creatinine Patient is definitely fluid overloaded at this point and was slowly diuresing patient with gentle Lasix administration 02/16/2018 Patient remains sedated with very small dose of medication Does not open eyes does not follow commands moves all 4 extremities We will give sedation medication Hemodynamically stable Had a period of sustained sinus tachycardia which resolved spontaneously Tolerated CPAP intermittently and then is switched to AC ventilation 35% FiO2 with bilateral patchy infiltrates in the lungs but no pneumonia and This is more consistent with ARDS Abdomen soft diet tolerated We will start working patient towards extubation with daily CPAP periods daily sedation vacations and will see how it goes 02/17 slow to open eyes and follow commands P/F ration 170 CXR patchy infiltrates b/l low dose levophed tolerating tube feeds 02/18 PF ratio remains the same around 170 No output from chest tube so that will proceed with removal today Continues to be slow with open eyes and following commands-is likely to do hypoactive delirium Tolerating tube feeds Patient prognosis remains poor secondary to her age, multitrauma, I had today a long discussion with the family-indicating the limited chances for meaningful recovery Palliative care will also have a meeting with family Objective Vital Signs Date Time Temp Pulse Resp B/P (MAP) Pulse Ox O2 Delivery O2 Flow Rate FiO2 02/18/18 12:00 86 02/18/18 12:00 45 02/18/18 11:53 96 02/18/18 08:00 100.4 22 121/64 (83) Intake and Output 02/18/18 02/18/18 02/19/18 08:00 16:00 00:00 Intake Total 550 ml Output Total 720 ml Balance -170 ml Result Diagram: 02/18/18 0430 02/18/18 0430 Other Results Laboratory Tests Test 02/18/18 06:21 Blood Gas Puncture Site ART LINE Blood Gas Patient Temperature 98.6 Blood Gas HCO3 29 mmol/L (22-26) Blood Gas Base Excess 5.4 mmol/L (-2-2) Blood Gas Oxygen Saturation 95 % (90-100) Arterial Blood pH 7.47 (7.380-7.420) Arterial Blood Partial Pressure CO2 40 mmHg (38-42) Arterial Blood Partial Pressure O2 82 mmHg (61-120) Arterial Blood Oxygen Content 11.2 Vol % (12.0-20.0) Arterial Blood Carboxyhemoglobin 2.5 % (0-4) Arterial Blood Methemoglobin 1.0 % (0-2) Blood Gas Hemoglobin 8.3 G/DL (12.0-16.0) Oxygen Delivery Device VENTILATOR Blood Gas Ventilator Setting SEE COMMENT Blood Gas Inspired Oxygen 45 % Imaging Last 24 hours Impressions Chest X-Ray 02/18/18 0600 Signed Impressions: Service Date/Time: Sunday, February 18, 2018 03:05 - CONCLUSION: No significant change. 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
[2018-02-19] VITALS (19 sets, daily range): BP systolic 114–151; BP diastolic 53–67; PULSE 62–96; RESP 12–30; TEMP 99.4–101.5; O2SAT 94–99
[2018-02-19] MEDS: DILTIAZEM HCL 60 MG TAB PO SCH ×4 (02:00→20:43)
[2018-02-19] MEDS: CHLORHEXIDINE GLUCONATE 2 % 1 PACK (2 CLOTHS) TOP SCH (04:00)
[2018-02-19] MEDS: PANTOPRAZOLE SODIUM 40 MG VIAL IVP SCH (05:00)
[2018-02-19 05:13] LABS: AUTOMATED NEUTROPHIL # 11.9 TH/MM3 (1.8-7.7); BASOPHIL % 0.3 % (0.0-2.0); EOSINOPHIL # 0.2 TH/MM3 (0-0.4); EOSINOPHIL % 1.1 % (0.0-4.0); HEMATOCRIT 24.3 % (35.0-46.0); HEMOGLOBIN 8.1 GM/DL (11.6-15.3); LYMPH % 5.6 % (9.0-44.0); LYMPHOCYTE # 0.8 TH/MM3 (1.0-4.8); MEAN CORPUSCULAR HEMOGLOBIN 29.9 PG (27.0-34.0); MEAN CORPUSCULAR HGB CONC 33.2 % (32.0-36.0); MEAN PLATELET VOLUME 9.1 FL (7.0-11.0); MONO % 7.5 % (0.0-8.0); NEUT % 85.5 % (16.0-70.0); PLATELET COUNT 162 TH/MM3 (150-450); RED CELL DISTRIBUTION WIDTH 16.6 % (11.6-17.2); WHITE BLOOD COUNT 13.9 TH/MM3 (4.0-11.0)
[2018-02-19 05:24] LABS: ALBUMIN 1.4 GM/DL (3.4-5.0); ALT (GPT) 41 U/L (10-53); AST (GOT) 69 U/L (15-37); BLOOD UREA NITROGEN 17 MG/DL (7-18); CALCIUM 8.9 MG/DL (8.5-10.1); CHLORIDE 105 MEQ/L (98-107); CREATININE 0.35 MG/DL (0.50-1.00); GLOMERULAR FILTRATION RATE 177 ML/MIN (>89); GLUCOSE,RANDOM 105 MG/DL (74-106); SODIUM (NA) 140 MEQ/L (136-145)
[2018-02-19 05:30] LABS: ALKALINE PHOSPHATASE 153 U/L (45-117); TOTAL BILIRUBIN ADULT 1.5 MG/DL (0.2-1.0); TOTAL PROTEIN 4.9 GM/DL (6.4-8.2)
--- NOTE | 2018-02-19 05:37 | RADRPT ---
EXAM DATE/TIME: 02/19/2018 03:53 [place] COMPARISON: CHEST SINGLE AP, February 18, 2018, 3:05. INDICATIONS : Post trauma. MEDICAL HISTORY : None. SURGICAL HISTORY : Pacemaker. ENCOUNTER: Subsequent ACUITY: 1 week PAIN SCORE: Non-responsive. LOCATION: Bilateral chest FINDINGS: Diffuse but mid and lower lung predominant air space opacities persist in both lungs. A small pleural effusion is likely, especially on the left. No pneumothorax. Mild cardiomegaly is stable. Endotracheal tube tip is approximately 3 cm above the rosmery. Nasogastric tube courses into the stoma ch. There is a right subclavian central venous catheter with tip in the superior vena cava. CONCLUSION: No significant change. Widespread bilateral airspace opacities persists. Deondre Costello MD on February 19, 2018 at 5:35 Board Certified Radiologist. This report was verified electronically.
[2018-02-19 07:14] LABS: BANDS 19 % (0-6); BASOPHILS 1 % (0-2); LYMPHOCYTES 2 % (9-44); METAMYELOCYTES 5 % (0-1); MONOCYTES 7 % (0-8); MYELOCYTES 2 % (0-0); NEUTROPHIL # MANUAL DIFF 12.5 TH/MM3 (1.8-7.7); POLYS (SEG NEUTROPHILS) 64 % (16-70); TOXIC GRANULATION 2+ (NORMAL); TOXIC VACUOLATION PRESENT (NONE SEEN)
[2018-02-19] MEDS: ACETAMINOPHEN 650 MG/20.3 ML UDC PO PRN (07:58)
[2018-02-19] MEDS: AMIODARONE 200 MG TAB PO SCH ×2 (08:00→20:43)
[2018-02-19] MEDS: CHOLECALCIFEROL (VIT D3) 5000 UNIT CAP PO SCH (08:00)
[2018-02-19] MEDS: FUROSEMIDE 20 MG/2 ML VIAL IV PUSH SCH (08:01)
[2018-02-19] MEDS: LACTULOSE SYRUP 20 GM/30 ML CUP PO SCH (08:01)
[2018-02-19] MEDS: MAGNESIUM HYDROXIDE SUSP 30 ML CUP PO SCH ×2 (08:01→20:43)
[2018-02-19] MEDS: DOCUSATE SODIUM 100 MG/10 ML UDC PO SCH ×2 (08:01→20:43)
[2018-02-19] MEDS: CHLORHEXIDINE 0.12% (ORAL KIT) 15 ML CUP MT SCH ×2 (08:02→20:43)
[2018-02-19] MEDS: SODIUM CHLORIDE 0.9% FLUSH 10 ML FLUSH IV FLUSH SCH ×2 (08:02→20:43)
[2018-02-19] MEDS ORDERED: MORPHINE SULFATE 2 MG/ML SYRINGE IV PUSH PRN (09:30)
[2018-02-19] MEDS: oxyCODONE HCL ORAL CONC 5 MG/0.25 ML SYRINGE PO SCH ×4 (10:00→22:00)
[2018-02-19] MEDS: ENOXAPARIN SODIUM 30 MG/0.3 ML SYRINGE SQ SCH (10:01)
[2018-02-19 10:53] LABS: BILIRUBIN, URINE NEG (NEG); BLOOD, URINE NEG (NEG); GLUCOSE,URINE NEG (NEG); HYALINE CAST, URINE 16 /lpf (RARE); KETONE, URINE NEG (NEG); MUCUS URINE FEW /lpf (OCC); NITRITE,URINE NEG (NEG); URINE COLOR LIGHT-YELLOW (YELLW/STRAW); URINE LEUKOCYTE ESTERASE NEG (NEG)
--- NOTE | 2018-02-19 11:38 | PD.CARD.PN ---
Subjective Subjective Remarks Sedated on vent Objective Medications Current Medications Medications (Trade) Dose Ordered Sig/Mackenzie Route Start Time Stop Time Status Last Admin (Vasotec Inj) 1.25 mg Q8H PRN IV PUSH 02/10/18 04:15 (Zofran Inj) 4 mg Q6H PRN IV PUSH 02/10/18 04:15 (Protonix Inj) 40 mg Q24H IVP 02/10/18 05:00 02/18/18 05:17 Miscellaneous Information 1 Q361D XX 02/10/18 04:15 02/10/18 04:15 (Chlorhexidine 2% Cloth) Taper DAILY@04 TOP 02/11/18 04:00 02/07/19 03:59 (Chlorhexidine 2% Cloth) 3 pack UNSCH PRN TOP 02/10/18 04:15 (KCl Powder) 40 meq DAILY PRN PO 02/10/18 06:30 (Peridex 0.12% Liq) 15 ml BID@08,20 MT 02/10/18 08:00 02/19/18 08:02 Potassium Chloride 100 ml @ 50 mls/hr Q2H PRN IV 02/10/18 09:15 02/12/18 06:19 Potassium Chloride 100 ml @ 50 mls/hr Q2H PRN IV 02/10/18 09:15 (K-Lyte Cl Eff) 50 meq UNSCH PRN PO 02/10/18 09:15 Potassium Chloride 100 ml @ 25 mls/hr UNSCH PRN IV 02/10/18 09:15 Potassium Chloride 100 ml @ 50 mls/hr Q2H PRN IV 02/10/18 09:15 Magnesium Sulfate 4 gm/Sodium Chloride 100 ml @ 50 mls/hr UNSCH PRN IV 02/10/18 09:15 (Mag-Ox) 800 mg UNSCH PRN PO 02/10/18 09:15 Magnesium Sulfate 2 gm/Sodium Chloride 100 ml @ 50 mls/hr UNSCH PRN IV 02/10/18 09:15 (K-Phos) 2,000 mg Q4H PRN PO 02/10/18 09:15 Sodium Phosphate 30 mmol/Sodium Chloride 250 ml @ 42 mls/hr UNSCH PRN IV 02/10/18 09:15 (K-Phos) 2,000 mg UNSCH PRN PO/TUBE 02/10/18 09:15 Potassium Phosphate 30 mmol/ Sodium Chloride 260 ml @ 42 mls/hr UNSCH PRN IV 02/10/18 09:15 (Milk Of Magnesia Liq) 30 ml BID PO 02/11/18 21:00 02/18/18 21:08 (Duoneb Neb) 1 ampule Q2HR NEB PRN NEB 02/11/18 19:45 (Bacitracin Oint Packet) 0.9 gm UNSCH PRN TOP 02/12/18 09:30 (NS Flush) 2 ml BID IV FLUSH 02/12/18 21:00 02/19/18 08:02 (NS Flush) 2 ml UNSCH PRN IV FLUSH 02/12/18 09:30 (Lovenox Inj) 30 mg Q24H SQ 02/14/18 11:00 02/19/18 10:01 (Vitamin D3) 5,000 units DAILY PO 02/14/18 09:00 02/19/18 08:00 (Lactulose Liq) 30 ml DAILY PO 02/14/18 09:00 02/16/18 08:35 (Cordarone) 400 mg Q12HR PO 02/14/18 13:30 02/19/18 08:00 (Lasix Inj) 20 mg DAILY IV PUSH 02/15/18 09:15 02/20/18 08:59 02/19/18 08:01 (Colace Liq) 100 mg BID PO 02/17/18 09:00 02/18/18 21:08 (Cardizem) 60 mg Q6H PO 02/17/18 14:00 02/19/18 08:00 (Roxicodone Intensol Liq) 5 mg Q4H PO 02/18/18 10:00 02/19/18 10:00 (Tylenol 650 Mg/ 20 ml Liq) 650 mg Q6H PRN PO 02/18/18 09:30 02/19/18 07:58 (Morphine Inj) 2 mg Q3H PRN IV PUSH 02/19/18 09:30 Vital Signs / I&O Vital Signs Date Time Temp Pulse Resp B/P (MAP) Pulse Ox O2 Delivery O2 Flow Rate FiO2 02/19/18 11:00 28 02/19/18 10:00 77 02/19/18 08:00 101.5 71 30 114/53 (73) 97 4/18/18 08:00 74 18 08:00 45 18 07:39 45 18 07:39 96 45 02/19/18 06:00 89 02/19/18 04:35 97 45 02/19/18 04:00 100.3 70 12 127/58 (81) 96 02/19/18 04:00 70 02/19/18 04:00 45 02/19/18 02:00 82 02/19/18 00:45 97 45 02/19/18 00:00 96 02/19/18 00:00 99.4 96 20 145/67 (93) 97 02/19/18 00:00 45 02/18/18 22:00 82 02/18/18 21:26 95 45 02/18/18 20:00 99.2 88 17 149/65 (93) 96 02/18/18 20:00 88 02/18/18 20:00 45 02/18/18 18:00 81 02/18/18 16:00 87 18 16:00 45 02/18/18 16:00 99.0 87 17 133/62 (85) 96 02/18/18 16:00 96 45 02/18/18 14:00 79 02/18/18 12:00 100.0 90 24 127/76 (93) 95 02/18/18 12:00 86 02/18/18 12:00 45 02/18/18 11:53 96 45 I/O 02/18/18 02/18/18 02/18/18 02/19/18 02/19/18 02/19/18 07:00 15:00 23:00 07:00 15:00 23:00 Intake Total 550 ml 542 ml 638 ml Output Total 720 ml 1600 ml 850 ml Balance -170 ml -1058 ml -212 ml Tube Feeding 550 ml 542 ml 578 ml Other 60 ml Output Urine Total 700 ml 1600 ml 850 ml Chest Tube Drainage Total 20 ml # Bowel Movements 0 0 Physical Exam sedated Chest: slight rhonchi CV S1S2 RRR with 1-2/6 MORELIA Abd soft Diffuse 1+ edema Tele: Atrially paced/ out of AF Laboratory Laboratory Tests Test 02/19/18 04:38 02/19/18 04:45 02/19/18 10:15 Blood Gas Puncture Site RT RADIAL Blood Gas Patient Temperature 98.6 Blood Gas HCO3 29 mmol/L Blood Gas Base Excess 5.2 mmol/L Blood Gas Oxygen Saturation 95 % Arterial Blood pH 7.46 Arterial Blood Partial Pressure CO2 41 mmHg Arterial Blood Partial Pressure O2 88 mmHg Arterial Blood Oxygen Content 11.1 Vol % Arterial Blood Carboxyhemoglobin 2.4 % Arterial Blood Methemoglobin 0.8 % Blood Gas Hemoglobin 8.2 G/DL Oxygen Delivery Device VENTILATOR Blood Gas Ventilator Setting Blood Gas Inspired Oxygen 45 % White Blood Count 13.9 TH/MM3 Red Blood Count 2.70 MIL/MM3 Hemoglobin 8.1 GM/DL Hematocrit 24.3 % Mean Corpuscular Volume 90.0 FL Mean Corpuscular Hemoglobin 29.9 PG Mean Corpuscular Hemoglobin Concent 33.2 % Red Cell Distribution Width 16.6 % Platelet Count 162 TH/MM3 Mean Platelet Volume 9.1 FL Neutrophils (%) (Auto) 85.5 % Lymphocytes (%) (Auto) 5.6 % Monocytes (%) (Auto) 7.5 % Eosinophils (%) (Auto) 1.1 % Basophils (%) (Auto) 0.3 % Neutrophils # (Auto) 11.9 TH/MM3 Lymphocytes # (Auto) 0.8 TH/MM3 Monocytes # (Auto) 1.0 TH/MM3 Eosinophils # (Auto) 0.2 TH/MM3 Basophils # (Auto) 0.0 TH/MM3 CBC Comment AUTO DIFF Differential Total Cells Counted 100 Neutrophils % (Manual) 64 % Band Neutrophils % 19 % Lymphocytes % 2 % Monocytes % 7 % Basophils % 1 % Neutrophils # (Manual) 12.5 TH/MM3 Metamyelocytes 5 % Myelocytes 2 % Differential Comment FINAL DIFF MANUAL Toxic Granulation 2+ Toxic Vacuolation PRESENT Platelet Estimate NORMAL Platelet Morphology Comment NORMAL Blood Urea Nitrogen 17 MG/DL Creatinine 0.35 MG/DL Random Glucose 105 MG/DL Total Protein 4.9 GM/DL Albumin 1.4 GM/DL Calcium Level 8.9 MG/DL Alkaline Phosphatase 153 U/L Aspartate Amino Transf (AST/SGOT) 69 U/L Alanine Aminotransferase (ALT/SGPT) 41 U/L Total Bilirubin 1.5 MG/DL Sodium Level 140 MEQ/L Potassium Level 4.3 MEQ/L Chloride Level 105 MEQ/L Carbon Dioxide Level 31.0 MEQ/L Anion Gap 4 MEQ/L Estimat Glomerular Filtration Rate 177 ML/MIN Urine Color LIGHT-YELLOW Urine Turbidity CLEAR Urine pH 5.0 Urine Specific [place] 1.010 Urine Protein NEG mg/dL Urine Glucose (UA) NEG mg/dL Urine Ketones NEG mg/dL Urine Occult Blood NEG Urine Nitrite NEG Urine Bilirubin NEG Urine Urobilinogen LESS THAN 2.0 MG/DL Urine Leukocyte Esterase NEG Urine RBC LESS THAN 1 /hpf Urine Hyaline Casts 16 /lpf Urine Mucus FEW /lpf Microscopic Urinalysis Comment CATH-CULT NOT IND Imaging Last 24 hours Impressions Chest X-Ray 02/19/18 0600 Signed Impressions: Service Date/Time: Monday, February 19, 2018 03:53 - CONCLUSION: No significant change. Widespread bilateral airspace opacities persists. Deondre Costello MD Assessment and Plan Problem List: (1) Trauma ICD Codes: T14.90XA - Injury, unspecified, initial encounter (2) Syncope ICD Codes: R55 - Syncope and collapse (3) Sinus pause ICD Codes: I45.5 - Other specified heart block (4) Pacemaker ICD Codes: Z95.0 - Presence of cardiac pacemaker (5) Elevated troponin ICD Codes: R74.8 - Abnormal levels of other serum enzymes (6) Paroxysmal atrial fibrillation ICD Codes: I48.0 - Paroxysmal atrial fibrillation (7) Hypoalbuminemia ICD Codes: E88.09 - Other disorders of plasma-protein metabolism, not elsewhere classified (8) ARDS (adult respiratory distress syndrome) ICD Codes: J80 - Acute respiratory distress syndrome (9) Ventilator dependence ICD Codes: Z99.11 - Dependence on respirator [ventilator] status Assessment and Plan Out of afib. Cont. Amio/diltiazem. Fletcher Rodriguez MD Feb 19, 2018 11:38
--- NOTE | 2018-02-19 13:36 | HHI.CCPN ---
Subjective Brief History This is a 87 year old female who presents to the [facility] emergency department as a transfer from [facility] as a trauma alert. Apparently patient sustained a fall on the driveway at approximately 9 PM last night. Patient was transferred to [facility] and underwent workup and when it was finally noted that patient had severe injuries we were asked to accept the patient as trauma transfer. Patient arrives around 6 AM and according to Dr. Monae initially patient is hemodynamically stable but then continues to deteriorate including multifocal supraventricular arrhythmias. Patient undergoes repeat CT scan of the chest and abdomen and is transferred to ICU for further care. Final injuries are Right lower rib fractures with a hemopneumothorax / chest tube placement and 1200 mL of blood out in the chest tube. Bilateral intratrochanteric hip fractures Left proximal humerus fracture T11 fracture Multiple old fractures of the thoracic spine and several lumbar spine fractures with kyphoplasties Supraventricular cardiac arrhythmias ischemic cardiomyopathy Hypotensive shock Metabolic acidosis anion gap In the process patient dropped hemoglobin from 12 g/dL initially to 7 g/dL few hours later. 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 02/11/2018 Patient with a devastating traumatic injuries post fall She has been slowly stabilizing overnight with hemodynamic improvement and decreasing vasopressors Remains mildly sedated on propofol however we will switch this to Versed in face of cardio depressant effect of propofol Evaluated by cardiology for periods of bradycardia It is my opinion that patient had a myocardial infarction process as a result of combination of the trauma hypoxia on the scene anemia and hemorrhagic shock Troponins elevated 02/12 Patient underwent pacemaker insertion today by cardiology-she spontaneously converted to sinus rhythm the cardiac lab She is got thrombocytopenia- believe is likely related to blood loss/SIRS She remains on low-dose Levophed-I believe she is euvolemic-obtain Flowtrack for more exact measurement She had an [place] versus blunt cardiac injury She has multitrauma with this overall poor prognosis secondary to her age with low reserve 02/13 OR today-IM nailing x2 transfuse 1U PRBC,1U plt low dose levophed off amiodarone uo adequate partial DNR as per family remains SR 02/14/2018 Patient remains intubated and ventilated Successful bilateral intratrochanteric fracture nailing yesterday Patient sedated on fentanyl Versed but minimal amounts with very low Rishi Coma Scale Hemodynamically stable although requiring small dose Levophed Pacemaker maintaining paced rhythm but patient developed A. fib on top of it so amiodarone has been restarted Gradually switch antiarrhythmics to p.o. form Aamir - cardiac output remains around 4-5 L which is quite admirable and SVR around 1100 Bilateral breath signs remains ventilatory dependent in face of pulmonary contusion and a severe chest trauma not ready to come off the respirator Abdomen soft Renal function preserved Extensive discussions with family and it is clear that this patient will be here long-term and will be difficult to extubate Hopefully she will not require tracheostomy however patient at this point does not have either the lung function or the level of consciousness sufficient to extubate In the face of age and extensive injuries prognosis remains very poor and 30 day mortality is extremely high 02/15/2018 Patient has stabilized hemodynamically Remains on small dose fentanyl about 50 mcg and will decrease that gradually and give patient some p.o. analgesia Hemodynamically stable very tiny dose of Levophed Cardiac arrhythmias have resolved patient is on p.o. amiodarone with paced rhythm Bilateral breath sounds with reasonable PO2 FiO2 gradient Patient is somewhat fluid overloaded as noted below and some pulmonary edema is present CPAP trial tolerated for about 2 hours today and then patient became tachypneic We will try tomorrow and see how patient does Abdomen soft enteral feeds tolerated Renal function preserved with normal BUN/creatinine Patient is definitely fluid overloaded at this point and was slowly diuresing patient with gentle Lasix administration 02/16/2018 Patient remains sedated with very small dose of medication Does not open eyes does not follow commands moves all 4 extremities We will give sedation medication Hemodynamically stable Had a period of sustained sinus tachycardia which resolved spontaneously Tolerated CPAP intermittently and then is switched to AC ventilation 35% FiO2 with bilateral patchy infiltrates in the lungs but no pneumonia and This is more consistent with ARDS Abdomen soft diet tolerated We will start working patient towards extubation with daily CPAP periods daily sedation vacations and will see how it goes 02/17 slow to open eyes and follow commands P/F ration 170 CXR patchy infiltrates b/l low dose levophed tolerating tube feeds 02/18 PF ratio remains the same around 170 No output from chest tube so that will proceed with removal today Continues to be slow with open eyes and following commands-is likely to do hypoactive delirium Tolerating tube feeds Patient prognosis remains poor secondary to her age, multitrauma, I had today a long discussion with the family-indicating the limited chances for meaningful recovery Palliative care will also have a meeting with family 02/19 Chest tube removed yesterday Patient more awake today and tolerating CPAP Hypoactive delirium Patient febrile- We will obtain scanlon cultures Hold off empiric antibiotics for now Objective Vital Signs Date Time Temp Pulse Resp B/P (MAP) Pulse Ox O2 Delivery O2 Flow Rate FiO2 02/19/18 11:49 96 45 02/19/18 11:00 28 02/19/18 10:00 77 02/19/18 08:00 101.5 114/53 (73) Intake and Output 02/19/18 02/19/18 02/20/18 08:00 16:00 00:00 Intake Total 638 ml Output Total 850 ml Balance -212 ml Result Diagram: 02/19/18 0445 02/19/18 0445 Other Results Laboratory Tests Test 02/19/18 04:38 Blood Gas Puncture Site RT RADIAL Blood Gas Patient Temperature 98.6 Blood Gas HCO3 29 mmol/L (22-26) Blood Gas Base Excess 5.2 mmol/L (-2-2) Blood Gas Oxygen Saturation 95 % (90-100) Arterial Blood pH 7.46 (7.380-7.420) Arterial Blood Partial Pressure CO2 41 mmHg (38-42) Arterial Blood Partial Pressure O2 88 mmHg (61-120) Arterial Blood Oxygen Content 11.1 Vol % (12.0-20.0) Arterial Blood Carboxyhemoglobin 2.4 % (0-4) Arterial Blood Methemoglobin 0.8 % (0-2) Blood Gas Hemoglobin 8.2 G/DL (12.0-16.0) Oxygen Delivery Device VENTILATOR Blood Gas Ventilator Setting Blood Gas Inspired Oxygen 45 % Imaging Last 24 hours Impressions Chest X-Ray 02/19/18 0600 Signed Impressions: Service Date/Time: Monday, February 19, 2018 03:53 - CONCLUSION: No significant change. Widespread bilateral airspace opacities persists. 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
--- NOTE | 2018-02-19 15:31 | HHI.NSPN ---
(Raven Ku) Note Status Status: Progress Note (Raven Ku) Interval History Interval History This is a 87 year old female who presents to the [facility] emergency department as a transfer from [facility] as a trauma alert. Apparently patient sustained a fall on the driveway at approximately 9 PM last night. She sustained right sided rib fractures with a hemopneumothorax status post chest tube placement and 1200 mL of blood out in the chest tube. The patient's hemoglobin dropped from 11 to7, was transfused 2 units of packed red blood cells. The patient was found to have bilateral intertrochanteric fractures, Left proximal humerus fracture, Acute T11 fracture, right-sided rib fractures, and hemopneumothorax as described above. She was accepted by Dr. Monae. Towards a.m. patient started becoming more hemodynamically unstable, Dr. Monae place a right subclavian central line and Levophed was started which rapidly was increased to 12 mcg/min. Due to increasing hemodynamic instability patient was intubated by Dr. Monae and placed on mechanical ventilation Trauma workup reveled a right hemopneumothorax, right-sided rib fractures, bilateral intertrochanteric fractures on the femur, acute T11 fracture, acute left humerus fracture. Neurosurgical consultation was requested 02/11. She has been slowly stabilized overnight with hemodynamic improvement and decreased need for vasopressors. She remains mildly sedated on propofol. She has been evaluated by cardiology for periods of bradycardia. Troponins elevated. Suspected that she had a myocardial infarction on the scene anemia and hemorrhagic shock 02/13: pt underwent pacemaker placement yesterday. currently intubated. ortho plans on b/l hip fixation today. 02/14: intubated, does not open eyes. 02/15: remains intubated 02/16: intubated, and sedated on drips. grimaces and minimally withdraws in LE's 02/17: remains intubated, sedated, grimaces with slight intermittent head movement. minimal withdrawals in lower extremities. 02/18: intubated, sedated. appears to be moving more her extremities to stimuli. 4/18: today appears to open eyes more, moving extremities spontaneously (Raven Ku) Labs, Micro, & Vital Signs Results Date Time Temp Pulse Resp B/P (MAP) Pulse Ox O2 Delivery O2 Flow Rate FiO2 02/19/18 14:00 74 02/19/18 12:00 80 02/19/18 12:00 45 02/19/18 11:49 96 45 02/19/18 11:00 28 02/19/18 10:00 77 02/19/18 08:00 101.5 71 30 114/53 (73) 97 02/19/18 08:00 74 02/19/18 08:00 45 02/19/18 07:39 45 02/19/18 07:39 96 45 02/19/18 06:00 89 02/19/18 04:35 97 45 02/19/18 04:00 100.3 70 12 127/58 (81) 96 02/19/18 04:00 70 02/19/18 04:00 45 02/19/18 02:00 82 02/19/18 00:45 97 45 02/19/18 00:00 96 02/19/18 00:00 99.4 96 20 145/67 (93) 97 02/19/18 00:00 45 02/18/18 22:00 82 02/18/18 21:26 95 45 02/18/18 20:00 99.2 88 17 149/65 (93) 96 02/18/18 20:00 88 02/18/18 20:00 45 02/18/18 18:00 81 02/18/18 16:00 87 02/18/18 16:00 45 02/18/18 16:00 99.0 87 17 133/62 (85) 96 02/18/18 16:00 96 45 Constitutional Vital Signs Date Time Temp Pulse Resp B/P (MAP) Pulse Ox O2 Delivery O2 Flow Rate FiO2 02/19/18 14:00 74 02/19/18 12:00 80 02/19/18 12:00 45 02/19/18 11:49 96 45 02/19/18 11:00 28 02/19/18 10:00 77 02/19/18 08:00 101.5 71 30 114/53 (73) 97 02/19/18 08:00 74 02/19/18 08:00 45 02/19/18 07:39 45 02/19/18 07:39 96 45 02/19/18 06:00 89 02/19/18 04:35 97 45 02/19/18 04:00 100.3 70 12 127/58 (81) 96 02/19/18 04:00 70 02/19/18 04:00 45 02/19/18 02:00 82 02/19/18 00:45 97 45 02/19/18 00:00 96 02/19/18 00:00 99.4 96 20 145/67 (93) 97 02/19/18 00:00 45 02/18/18 22:00 82 02/18/18 21:26 95 45 02/18/18 20:00 99.2 88 17 149/65 (93) 96 02/18/18 20:00 88 02/18/18 20:00 45 02/18/18 18:00 81 02/18/18 16:00 87 02/18/18 16:00 45 02/18/18 16:00 99.0 87 17 133/62 (85) 96 02/18/18 16:00 96 45 (Raven Ku) Review of Systems ROS Limitations: Intubated (Raven Ku) Physical Exam Elderly female in no acute distress, intubated and sedated. HEENT: normocephalic, nonicteric sclera Neuro: mild eye opening but does not follow commands. Grimaced to noxious stimuli. Cranial Nerves: Pupils 2-3 mm equal. Eyes appear conjugated. Otherwise exam limited due to clinical condition. Minimal response to pain to lower extremities. Plantars equivocal b/l Cervical Spine: soft, supple Cerebellar: cannot assess Heart: regular rate rhythm Lungs: clear Skin warm and dry Abdomen: soft Skin warm and dry (Raven Ku) Elderly female in no acute distress, intubated and sedated. HEENT: normocephalic, nonicteric sclera Neuro: mild eye opening but does not follow commands. Grimaced to noxious stimuli. Cranial Nerves: Pupils 2-3 mm equal. Eyes appear conjugated. Otherwise exam limited due to clinical condition. Minimal response to pain to lower extremities. Plantars equivocal b/l Cervical Spine: soft, supple Cerebellar: cannot assess Heart: regular rate rhythm Lungs: clear Skin warm and dry Abdomen: soft Skin warm and dry (Nasir Landers MD) Medications Current Medications Current Medications Medications (Trade) Dose Ordered Sig/Mackenzie Route PRN Reason Start Time Stop Time Status Last Admin Dose Admin Enalaprilat (Vasotec Inj) 1.25 mg Q8H PRN IV PUSH SBP>180, DBP>95 02/10/18 04:15 Ondansetron HCl (Zofran Inj) 4 mg Q6H PRN IV PUSH NAUSEA OR VOMITING 02/10/18 04:15 Pantoprazole Sodium (Protonix Inj) 40 mg Q24H IVP 02/10/18 05:00 02/18/18 05:17 Miscellaneous Information 1 Q361D XX 02/10/18 04:15 02/10/18 04:15 Chlorhexidine Gluconate (Chlorhexidine 2% Cloth) Taper DAILY@04 TOP 02/11/18 04:00 02/07/19 03:59 Chlorhexidine Gluconate (Chlorhexidine 2% Cloth) 3 pack UNSCH PRN TOP HYGIENIC CARE 02/10/18 04:15 Potassium Chloride (KCl Powder) 40 meq DAILY PRN PO For Potassium 3.3 - 3.5 mEq/L 02/10/18 06:30 Chlorhexidine Gluconate (Peridex 0.12% Liq) 15 ml BID@08,20 MT 02/10/18 08:00 02/19/18 08:02 Potassium Chloride 100 ml @ 50 mls/hr Q2H PRN IV For Potassium 2.8 - 3.2 mEq/L 02/10/18 09:15 02/12/18 06:19 Potassium Chloride 100 ml @ 50 mls/hr Q2H PRN IV For Potassium 2.8 - 3.2 mEq/L 02/10/18 09:15 Potassium Bicarb/ Potassium Chloride (K-Lyte Cl Eff) 50 meq UNSCH PRN PO For Potassium 3.3 - 3.5 mEq/L 02/10/18 09:15 Potassium Chloride 100 ml @ 25 mls/hr UNSCH PRN IV For Potassium 3.3 - 3.5 mEq/L 02/10/18 09:15 Potassium Chloride 100 ml @ 50 mls/hr Q2H PRN IV For Potassium 3.3 - 3.5 mEq/L 02/10/18 09:15 Magnesium Sulfate 4 gm/Sodium Chloride 100 ml @ 50 mls/hr UNSCH PRN IV For Magnesium 0.9 - 1.1 mg/dL 02/10/18 09:15 Magnesium Oxide (Mag-Ox) 800 mg UNSCH PRN PO For Magnesium 1.2 - 1.6 mg/dL 02/10/18 09:15 Magnesium Sulfate 2 gm/Sodium Chloride 100 ml @ 50 mls/hr UNSCH PRN IV For Magnesium 1.2 - 1.6 mg/dL 02/10/18 09:15 Potassium Phosphate (K-Phos) 2,000 mg Q4H PRN PO For Phosphorus < 2.5 mg/dL 02/10/18 09:15 Sodium Phosphate 30 mmol/Sodium Chloride 250 ml @ 42 mls/hr UNSCH PRN IV For Phosphorus < 2.5 mg/dL 02/10/18 09:15 Potassium Phosphate (K-Phos) 2,000 mg UNSCH PRN PO/TUBE SEE LABEL COMMENTS 02/10/18 09:15 Potassium Phosphate 30 mmol/ Sodium Chloride 260 ml @ 42 mls/hr UNSCH PRN IV SEE LABEL COMMENTS 02/10/18 09:15 Magnesium Hydroxide (Milk Of Magnesia Liq) 30 ml BID PO 02/11/18 21:00 02/18/18 21:08 Albuterol/ Ipratropium (Duoneb Neb) 1 ampule Q2HR NEB PRN NEB wheezing 02/11/18 19:45 Bacitracin (Bacitracin Oint Packet) 0.9 gm UNSCH PRN TOP SEE LABEL COMMENTS 02/12/18 09:30 Sodium Chloride (NS Flush) 2 ml BID IV FLUSH 02/12/18 21:00 02/19/18 08:02 Sodium Chloride (NS Flush) 2 ml UNSCH PRN IV FLUSH FLUSH AFTER USING IV ACCESS 02/12/18 09:30 Enoxaparin Sodium (Lovenox Inj) 30 mg Q24H SQ 02/14/18 11:00 02/19/18 10:01 Cholecalciferol (Vitamin D3) 5,000 units DAILY PO 02/14/18 09:00 02/19/18 08:00 Lactulose (Lactulose Liq) 30 ml DAILY PO 02/14/18 09:00 02/16/18 08:35 Amiodarone HCl (Cordarone) 400 mg Q12HR PO 02/14/18 13:30 02/19/18 08:00 Furosemide (Lasix Inj) 20 mg DAILY IV PUSH 02/15/18 09:15 02/20/18 08:59 02/19/18 08:01 Docusate Sodium (Colace Liq) 100 mg BID PO 02/17/18 09:00 02/18/18 21:08 Diltiazem HCl (Cardizem) 60 mg Q6H PO 02/17/18 14:00 02/19/18 14:03 Oxycodone HCl (Roxicodone Intensol Liq) 5 mg Q4H PO 02/18/18 10:00 02/19/18 14:04 Acetaminophen (Tylenol 650 Mg/ 20 ml Liq) 650 mg Q6H PRN PO Temp > 101.5 02/18/18 09:30 02/19/18 07:58 Morphine Sulfate (Morphine Inj) 2 mg Q3H PRN IV PUSH Pain > 3 02/19/18 09:30 (Raven Ku) Current Medications Current Medications Sodium Chloride 1,000 ml @ 100 mls/hr Q10H IV Last administered on 02/10/18at 20 :15; Start 02/10/18 at 04:13; Stop 02/10/18 at 22:57; Status DC Sodium Chloride (NS Flush) 2 ml UNSCH PRN IV FLUSH FLUSH AFTER USING IV ACCESS ; Start 02/10/18 at 04:15; Stop 02/15/18 at 14:27; Status DC Hydromorphone HCl (Dilaudid Pf Inj) 0.5 mg Q1H PRN IV BREAKTHROUGH PAIN; Start 02/10/18 at 04:45; Stop 02/11/18 at 19:37; Status DC Acetaminophen/ Hydrocodone Bitart (Brisbin 5-325 Mg) 1 tab Q4H PRN PO PAIN SCALE 1 TO 5; Start 02/10/18 at 04:15; Stop 02/11/18 at 19:37; Status DC Acetaminophen/ Hydrocodone Bitart (Brisbin 5-325 Mg) 2 tab Q4H PRN PO PAIN SCALE 6 TO 10 Last administered on 02/10/18at 04:52; Start 02/10/18 at 04:15; Stop 02/11/18 at 19:37; Status DC Enalaprilat (Vasotec Inj) 1.25 mg Q8H PRN IV PUSH SBP>180, DBP>95; Start at 04:15; Stop 02/20/18 at 17:04; Status DC Ondansetron HCl (Zofran Inj) 4 mg Q6H PRN IV PUSH NAUSEA OR VOMITING; Start 02/10/18 at 04:15; Stop 02/20/18 at 17:04; Status DC Pantoprazole Sodium (Protonix Inj) 40 mg Q24H IVP Last administered on at 05:00; Start 02/10/18 at 05:00; Stop 02/20/18 at 17:04; Status DC Docusate Sodium (Colace) 100 mg BID PO Last administered on 02/15/18at 20:19; Start 02/10/18 at 09:00; Stop 02/16/18 at 22:59; Status DC Miscellaneous Information 1 Q361D XX Last administered on 02/10/18at 04:15; Start 02/10/18 at 04:15; Stop 02/20/18 at 17:04; Status DC Chlorhexidine Gluconate (Chlorhexidine 2% Cloth) Taper DAILY@04 TOP ; Start 08/21 at 04:00; Stop 02/20/18 at 17:05; Status DC Chlorhexidine Gluconate (Chlorhexidine 2% Cloth) 3 pack UNSCH PRN TOP HYGIENIC CARE; Start 02/10/18 at 04:15; Stop 02/20/18 at 17:05; Status DC Etomidate (Amidate Inj) 40 mg STK-MED ONCE .ROUTE Last administered on at 05:16; Start 02/10/18 at 05:16; Stop 02/10/18 at 05:17; Status DC Fentanyl Citrate (fentaNYL INJ) 100 mcg STK-MED ONCE .ROUTE ; Start 02/10/18 at 05:17; Stop 02/10/18 at 05:18; Status DC Midazolam HCl (Versed Inj) 5 mg STK-MED ONCE .ROUTE Last administered on at 05:17; Start 02/10/18 at 05:17; Stop 02/10/18 at 05:18; Status DC Rocuronium Benton (Zemuron Inj) 50 mg STK-MED ONCE .ROUTE Last administered on 02/10/18at 05:17; Start 02/10/18 at 05:17; Stop 02/10/18 at 05:18; Status DC Propofol 50 ml @ As Directed STK-MED ONCE .ROUTE Last administered on 02/10/18at 07:30; Start 02/10/18 at 05:25; Stop 02/10/18 at 05:26; Status DC Potassium Chloride 100 ml @ 50 mls/hr Q2H PRN IV For Potassium 2.8 - 3.2 mEq/ L Last administered on 02/14/18at 11:40; Start 02/10/18 at 06:30; Stop 02/15/18 at 14:30; Status DC Potassium Chloride 100 ml @ 50 mls/hr Q2H PRN IV For Potassium 2.8 - 3.2 mEq/ L Last administered on 02/14/18at 09:30; Start 02/10/18 at 06:30; Stop 02/15/18 at 14:30; Status DC Potassium Chloride 100 ml @ 25 mls/hr UNSCH PRN IV For Potassium 3.3 - 3.5 mEq /L Last administered on 02/13/18at 07:36; Start 02/10/18 at 06:30; Stop 02/15/18 at 14:30; Status DC Potassium Chloride 100 ml @ 50 mls/hr Q2H PRN IV For Potassium 3.3 - 3.5 mEq/L ; Start 02/10/18 at 06:30; Stop 02/15/18 at 14:30; Status DC Magnesium Sulfate 4 gm/Sodium Chloride 100 ml @ 50 mls/hr UNSCH PRN IV For Magnesium 0.9 - 1.1 mg/dL; Start 02/10/18 at 06:30; Stop 02/15/18 at 14:30; Status DC Magnesium Oxide (Mag-Ox) 800 mg UNSCH PRN PO For Magnesium 1.2 - 1.6 mg/dL; Start 02/10/18 at 06:30; Stop 02/15/18 at 14:30; Status DC Magnesium Sulfate 2 gm/Sodium Chloride 100 ml @ 50 mls/hr UNSCH PRN IV For Magnesium 1.2 - 1.6 mg/dL Last administered on 02/10/18at 22:57; Start 02/10/18 at 06:30; Stop 02/15/18 at 14:30; Status DC Potassium Phosphate (K-Phos) 2,000 mg Q4H PRN PO For Phosphorus < 2.5 mg/dL; Start 02/10/18 at 06:30; Stop 02/15/18 at 14:30; Status DC Sodium Phosphate 30 mmol/Sodium Chloride 250 ml @ 42 mls/hr UNSCH PRN IV For Phosphorus < 2.5 mg/dL; Start 02/10/18 at 06:30; Stop 02/15/18 at 14:30; Status DC Potassium Phosphate (K-Phos) 2,000 mg UNSCH PRN PO/TUBE SEE LABEL COMMENTS; Start 02/10/18 at 06:30; Stop 02/15/18 at 14:30; Status DC Potassium Phosphate 30 mmol/ Sodium Chloride 260 ml @ 42 mls/hr UNSCH PRN IV SEE LABEL COMMENTS Last administered on 02/10/18at 22:56; Start 02/10/18 at 06:30; Stop 02/15/18 at 14:30; Status DC Potassium Chloride (KCl Powder) 40 meq DAILY PRN PO For Potassium 3.3 - 3.5 mEq /L; Start 02/10/18 at 06:30; Stop 02/20/18 at 17:05; Status DC Chlorhexidine Gluconate (Peridex 0.12% Liq) 15 ml BID@08,20 MT Last administered on 02/20/18at 08:57; Start 02/10/18 at 08:00; Stop 02/20/18 at 17:05 ; Status DC Propofol 100 ml @ 2.172 mls/ hr TITRATE PRN IV SEDATION Last administered on at 03:56; Start 02/10/18 at 08:00; Stop 02/11/18 at 09:26; Status DC Fentanyl Citrate 250 ml @ 5 mls/hr TITRATE PRN IV SEDATION Last administered on 02/15/18at 22:51; Start 02/10/18 at 08:00; Stop 02/19/18 at 09:22; Status DC Sodium Bicarbonate (Sodium Bicarbonate 8.4% Inj) 100 meq STK-MED ONCE .ROUTE Last administered on 02/10/18at 07:05; Start 02/10/18 at 07:05; Stop 02/10/18 at 07: 06; Status DC Phenylephrine HCl (Neosynephrine Inj) 10 mg STK-MED ONCE .ROUTE Last administered on 02/10/18at 07:20; Start 02/10/18 at 07:18; Stop 02/10/18 at 07:19; Status DC Phenylephrine HCl (Neosynephrine Inj) 30 mg STK-MED ONCE .ROUTE Last administered on 02/10/18at 07:20; Start 02/10/18 at 07:20; Stop 02/10/18 at 07:21; Status DC Sodium Chloride 1,000 ml @ 999 mls/hr BOLUS ONCE IV Last administered on at 09:15; Start 02/10/18 at 09:15; Stop 02/10/18 at 10:15; Status DC Potassium Chloride 100 ml @ 50 mls/hr Q2H PRN IV For Potassium 2.8 - 3.2 mEq/ L Last administered on 02/12/18at 06:19; Start 02/10/18 at 09:15; Stop 02/20/18 at 17:05; Status DC Potassium Chloride 100 ml @ 50 mls/hr Q2H PRN IV For Potassium 2.8 - 3.2 mEq/L ; Start 02/10/18 at 09:15; Stop 02/20/18 at 17:05; Status DC Potassium Bicarb/ Potassium Chloride (K-Lyte Cl Eff) 50 meq UNSCH PRN PO For Potassium 3.3 - 3.5 mEq/L; Start 02/10/18 at 09:15; Stop 02/20/18 at 17:05; Status DC Potassium Chloride 100 ml @ 25 mls/hr UNSCH PRN IV For Potassium 3.3 - 3.5 mEq /L; Start 02/10/18 at 09:15; Stop 02/20/18 at 17:05; Status DC Potassium Chloride 100 ml @ 50 mls/hr Q2H PRN IV For Potassium 3.3 - 3.5 mEq/L ; Start 02/10/18 at 09:15; Stop 02/20/18 at 17:05; Status DC Magnesium Sulfate 4 gm/Sodium Chloride 100 ml @ 50 mls/hr UNSCH PRN IV For Magnesium 0.9 - 1.1 mg/dL; Start 02/10/18 at 09:15; Stop 02/20/18 at 17:05; Status DC Magnesium Oxide (Mag-Ox) 800 mg UNSCH PRN PO For Magnesium 1.2 - 1.6 mg/dL; Start 02/10/18 at 09:15; Stop 02/20/18 at 17:05; Status DC Magnesium Sulfate 2 gm/Sodium Chloride 100 ml @ 50 mls/hr UNSCH PRN IV For Magnesium 1.2 - 1.6 mg/dL; Start 02/10/18 at 09:15; Stop 02/20/18 at 17:05; Status DC Potassium Phosphate (K-Phos) 2,000 mg Q4H PRN PO For Phosphorus < 2.5 mg/dL; Start 02/10/18 at 09:15; Stop 02/20/18 at 17:05; Status DC Sodium Phosphate 30 mmol/Sodium Chloride 250 ml @ 42 mls/hr UNSCH PRN IV For Phosphorus < 2.5 mg/dL; Start 02/10/18 at 09:15; Stop 02/20/18 at 17:05; Status DC Potassium Phosphate (K-Phos) 2,000 mg UNSCH PRN PO/TUBE SEE LABEL COMMENTS; Start 02/10/18 at 09:15; Stop 02/20/18 at 17:05; Status DC Potassium Phosphate 30 mmol/ Sodium Chloride 260 ml @ 42 mls/hr UNSCH PRN IV SEE LABEL COMMENTS; Start 02/10/18 at 09:15; Stop 02/20/18 at 17:05; Status DC Morphine Sulfate (Morphine Inj) 2 mg Q3H PRN IV PUSH Pain Last administered on 02/10/18at 11:29; Start 02/10/18 at 09:15; Stop 02/11/18 at 19:37; Status DC Phenylephrine HCl (Neosynephrine Inj) 10 mg STK-MED ONCE .ROUTE Last administered on 02/10/18at 19:07; Start 02/10/18 at 19:05; Stop 02/10/18 at 19:06; Status DC Norepinephrine Bitartrate 250 ml @ 7.5 mls/hr TITRATE PRN IV Maintain MAP > 65 mmHg Last administered on 02/15/18at 22:46; Start 02/10/18 at 19:45; Stop 02/18 at 09:10; Status DC Phenylephrine HCl 40 mg/Dextrose 500 ml @ 30 mls/hr TITRATE PRN IV Blood Pressure Management Last administered on 02/11/18at 05:38; Start 02/10/18 at 19:45 ; Stop 02/18/18 at 09:10; Status DC Albumin Human 250 ml @ As Directed STK-MED ONCE IV Last administered on at 19:56; Start 02/10/18 at 19:55; Stop 02/10/18 at 19:56; Status DC Sodium Chloride 1,000 ml @ 10 mls/hr Q24H IV Last administered on 02/18/18at 00 :11; Start 02/10/18 at 23:00; Stop 02/19/18 at 09:23; Status DC Albumin Human 500 ml @ 250 mls/hr NOW ONCE IV Last administered on 02/10/18at 23:00; Start 02/10/18 at 23:00; Stop 02/11/18 at 00:59; Status DC Sodium Chloride 500 ml @ 500 mls/hr Q1H ONCE IV Last administered on 02/10/18at 23:00; Start 02/10/18 at 23:00; Stop 02/10/18 at 23:59; Status DC Midazolam HCl 100 ml @ 2 mls/hr TITRATE PRN IV SEDATION Last administered on 09/21at 22:18; Start 02/11/18 at 09:30; Stop 02/18/18 at 09:10; Status DC Furosemide (Lasix Inj) 20 mg ONCE ONCE IV PUSH Last administered on 02/11/18at 09:30; Start 02/11/18 at 09:30; Stop 02/11/18 at 09:38; Status DC Propofol 100 ml @ 2.391 mls/ hr TITRATE PRN IV SEDATION; Start 02/11/18 at 09: 45; Stop 02/18/18 at 09:10; Status DC Cefazolin Sodium/ Dextrose 50 ml @ 100 mls/hr ION EXCHANGE OPERATOR IV ; Start 02/11/18 at 11:00; Stop 02/11/18 at 11:00; Status DC Vancomycin HCl 1000 mg/Sodium Chloride 250 ml @ 250 mls/hr ION EXCHANGE OPERATOR IV Last administered on 02/13/18at 11:07; Start 02/11/18 at 10:00; Stop 02/15/18 at 09:59 ; Status DC Povidone Iodine (Betadine 5% Antisepsis Kit) 1 applic ION EXCHANGE OPERATOR EACH NARE ; Start 02/11/18 at 10:00; Stop 02/15/18 at 09:59; Status DC Mupirocin (Bactroban Nasal 2% Oint) 1 applic ION EXCHANGE OPERATOR NASAL ; Start 02/11/18 at 10:00; Stop 02/15/18 at 09:59; Status DC Chlorhexidine Gluconate (Chlorhexidine 2% Cloth) 3 pack ION EXCHANGE OPERATOR TOP ; Start 08/21 at 10:00; Stop 02/15/18 at 09:59; Status DC Cefazolin Sodium 2000 mg/Sodium Chloride 100 ml @ 100 mls/hr ION EXCHANGE OPERATOR IV ; Start 02/11/18 at 11:00; Stop 02/14/18 at 10:59; Status DC Phenylephrine HCl (Neosynephrine Inj) 40 mg STK-MED ONCE .ROUTE ; Start at 19:20; Stop 02/11/18 at 19:21; Status DC Magnesium Hydroxide (Milk Of Magnnitish Liq) 30 ml BID PO Last administered on at 08:55; Start 02/11/18 at 21:00; Stop 02/20/18 at 17:05; Status DC Albuterol/ Ipratropium (Duoneb Neb) 1 ampule Q6HR NEB NEB Last administered on 02/15/18at 20:34; Start 02/11/18 at 22:00; Stop 02/15/18 at 21:59; Status DC Albuterol/ Ipratropium (Duoneb Neb) 1 ampule Q2HR NEB PRN NEB wheezing; Start 02/11/18 at 19:45; Stop 02/20/18 at 17:05; Status DC Amiodarone HCl 150 mg/Dextrose 100 ml @ 600 mls/hr NOW ONCE IV Last administered on 02/12/18at 03:42; Start 02/12/18 at 03:15; Stop 02/12/18 at 03:24 ; Status DC Amiodarone HCl 450 mg/Sodium Chloride 250 ml @ 33.33 mls/ hr TITRATE PRN IV Per Protocol Last administered on 02/14/18at 04:54; Start 02/12/18 at 03:15; Stop 02/15/18 at 14:43; Status DC Vancomycin HCl (Vancomycin Inj) 500 mg STK-MED ONCE .ROUTE Last administered on 02/12/18at 07:55; Start 02/12/18 at 07:55; Stop 02/12/18 at 07:56; Status DC Vancomycin HCl (Vancomycin Inj) 1,000 mg STK-MED ONCE .ROUTE Last administered on 02/12/18at 08:14; Start 02/12/18 at 07:56; Stop 02/12/18 at 07:57; Status DC Lidocaine HCl (Xylocaine-Mpf 1% Inj) 30 ml STK-MED ONCE .ROUTE ; Start 02/12/18 at 07:56; Stop 02/12/18 at 07:57; Status DC Cefazolin Sodium (Ancef Inj) 2,000 mg STK-MED ONCE .ROUTE Last administered on 02/12/18at 08:03; Start 02/12/18 at 07:56; Stop 02/12/18 at 07:57; Status DC Lidocaine HCl (Xylocaine 2% Inj) 50 ml STK-MED ONCE .ROUTE Last administered on 02/12/18at 08:00; Start 02/12/18 at 08:00; Stop 02/12/18 at 08:01; Status DC Bacitracin (Bacitracin Oint Packet) 0.9 gm UNSCH PRN TOP SEE LABEL COMMENTS; Start 02/12/18 at 09:30; Stop 02/20/18 at 17:05; Status DC Sodium Chloride (NS Flush) 2 ml BID IV FLUSH Last administered on 02/20/18at 08: 56; Start 02/12/18 at 21:00; Stop 02/20/18 at 17:05; Status DC Sodium Chloride (NS Flush) 2 ml UNSCH PRN IV FLUSH FLUSH AFTER USING IV ACCESS ; Start 02/12/18 at 09:30; Stop 02/20/18 at 17:05; Status DC Iohexol (Omnipaque 350 Inj) 50 ml STK-MED ONCE IVCONTRAST Last administered on 02/10/18at 03:53; Start 02/10/18 at 03:53; Stop 02/12/18 at 13:49; Status DC Fentanyl Citrate (fentaNYL INJ) 250 mcg STK-MED ONCE .ROUTE ; Start 02/13/18 at 09:54; Stop 02/13/18 at 09:55; Status DC Cefazolin Sodium (Ancef Inj) 2,000 mg STK-MED ONCE .ROUTE Last administered on 02/13/18 10:45; Start 02/13/18 at 09:57; Stop 02/13/18 at 09:58; Status DC Gentamicin Sulfate (Gentamicin Inj) 240 mg STK-MED ONCE .ROUTE Last administered on 02/13/18 09:58; Start 02/13/18 at 09:58; Stop 02/13/18 at 09:59 ; Status DC Enoxaparin Sodium (Lovenox Inj) 30 mg Q24H SQ Last administered on 02/20/18at 11 :37; Start 02/14/18 at 11:00; Stop 02/20/18 at 17:05; Status DC Cefazolin Sodium 1000 mg/Sodium Chloride 100 ml @ 200 mls/hr Q8H IV Last administered on 02/14/18 10:34; Start 02/13/18 at 19:00; Stop 02/14/18 at 11:29 ; Status DC Acetaminophen/ Hydrocodone Bitart (Brisbin 7.5-325 Mg) 1 tab Q3H PRN PO pain 3< 10 Last administered on 02/18/18at 08:22; Start 02/13/18 at 12:00; Stop 02/18/18 at 09:09; Status DC Cholecalciferol (Vitamin D3) 5,000 units DAILY PO Last administered on at 08:55; Start 02/14/18 at 09:00; Stop 02/20/18 at 17:05; Status DC Ergocalciferol (Drisdol) 50,000 units ONCE ONCE PO Last administered on 16:01; Start 02/13/18 at 12:00; Stop 02/13/18 at 12:10; Status DC Amiodarone HCl (Cordarone Inj) 150 mg STK-MED ONCE .ROUTE ; Start 02/13/18 at 18 :12; Stop 02/13/18 at 18:13; Status DC Amiodarone HCl 150 mg/Dextrose 100 ml @ 600 mls/hr NOW ONCE IV Last administered on 02/13/18at 18:25; Start 02/13/18 at 19:00; Stop 02/13/18 at 19:09 ; Status DC Lactated Ringer's 500 ml @ 0 mls/hr BOLUS ONCE IV Last administered on 4/12/ 18at 18:45; Start 02/13/18 at 18:45; Stop 02/13/18 at 18:46; Status DC Lactulose (Lactulose Liq) 30 ml DAILY PO Last administered on 02/20/18at 08:55; Start 02/14/18 at 09:00; Stop 02/20/18 at 17:05; Status DC Amiodarone HCl (Cordarone) 400 mg Q12HR PO Last administered on 02/20/18at 08:55 ; Start 02/14/18 at 13:30; Stop 02/20/18 at 17:05; Status DC Furosemide (Lasix Inj) 20 mg DAILY IV PUSH Last administered on 02/19/18at 08:01 ; Start 02/15/18 at 09:15; Stop 02/20/18 at 08:59; Status DC Sodium Chloride 500 ml @ 999 mls/hr Q31M IV Last administered on 02/15/18at 19: 00; Start 02/15/18 at 19:15; Stop 02/15/18 at 19:45; Status DC Midazolam HCl (Versed Inj) 10 mg STK-MED ONCE .ROUTE ; Start 02/16/18 at 14:54; Stop 02/16/18 at 14:55; Status DC Docusate Sodium (Colace Liq) 100 mg BID PO Last administered on 02/20/18at 08:56 ; Start 02/17/18 at 09:00; Stop 02/20/18 at 17:05; Status DC Metoprolol Tartrate (Lopressor Inj) 5 mg STK-MED ONCE .ROUTE ; Start 02/17/18 at 13:04; Stop 02/17/18 at 13:05; Status DC Diltiazem HCl (Cardizem) 60 mg Q6H PO Last administered on 02/20/18at 14:00; Start 02/17/18 at 14:00; Stop 02/20/18 at 17:05; Status DC Metoprolol Tartrate (Lopressor Inj) 5 mg NOW ONCE IV Last administered on 02/17at 13:30; Start 02/17/18 at 13:45; Stop 02/17/18 at 13:46; Status DC Oxycodone HCl (Roxicodone Intensol Liq) 5 mg Q4H PO Last administered on at 14:54; Start 02/18/18 at 10:00; Stop 02/20/18 at 17:05; Status DC Acetaminophen (Tylenol 650 Mg/ 20 ml Liq) 650 mg Q6H PRN PO Temp > 101.5 Last administered on 02/20/18at 00:18; Start 02/18/18 at 09:30; Stop 02/20/18 at 17:05 ; Status DC Morphine Sulfate (Morphine Inj) 2 mg Q3H PRN IV PUSH Pain > 3; Start 02/19/18 at 09:30; Stop 02/20/18 at 17:05; Status DC Calcium Chloride (Calcium Chloride Inj) 1 gm STK-MED ONCE IV ; Start 02/10/18 at 05:00; Stop 02/19/18 at 16:58; Status DC Epinephrine HCl (EPINEPHrine (1:10,000) INJ) 1 mg STK-MED ONCE IV ; Start at 05:00; Stop 02/19/18 at 16:58; Status DC Dopamine HCl/ Dextrose 500 ml @ As Directed STK-MED ONCE IV ; Start 02/10/18 at 05:00; Stop 02/19/18 at 16:58; Status DC Acetazolamide Sodium (Diamox Inj) 250 mg Q6HR IV PUSH Last administered on 02/20at 11:38; Start 02/20/18 at 12:00; Stop 02/20/18 at 17:05; Status DC Ceftriaxone Sodium 1000 mg/ Sodium Chloride 100 ml @ 200 mls/hr Q24H IV Last administered on 02/20/18at 11:39; Start 02/20/18 at 10:00; Stop 02/20/18 at 17:05 ; Status DC Morphine Sulfate (Morphine Inj) 10 mg ONCE ONCE IV Last administered on at 15:15; Start 02/20/18 at 15:15; Stop 02/20/18 at 15:16; Status DC Lorazepam (Ativan Inj) 4 mg ONCE ONCE IV Last administered on 02/20/18at 15:15 ; Start 02/20/18 at 15:15; Stop 02/20/18 at 15:16; Status DC (Nasir Landers MD) Medical Decision Making MDM Remarks 87 y/o female trauma alert, sustained a fall on the driveway acute T11 fracture right hemopneumothorax right-sided rib fractures bilateral intertrochanteric fractures on the femur acute left humerus fracture s/p pacemaker placement s/p fixation of b/l intertrochanteric fractures (Raven Ku) Plan Plan Remarks cont trauma management cont nonoperative treatment of thoracic fracture at this time cont neuro checks and follow up neuro exam vent and sedation weaning as tolerated per primary (Raven Ku) Attending Statement Continue neuro checks . She remains critical T11 fracture. Nonoperative treatment with bed rest for now. if her condition improves TLSO brace Bilateral hip fractures. Status post nail internal fixation Left shoulder fracture.Continue nonoperative treatment per orthopedics Multiple rib fractures. .Continue narcotic analgesics for pain control hemopneumothorax. Status post chest tube Pulmonary. .Continue mechanical ventilation for acute respiratory failure, aggressive pulmonary toilette, nasotracheal suction, and breathing treatments with nebulizers. PT and OT eval Renal. .Continue to monitor closely urine output, BUN and creatinine Endocrine. .Continue to Monitor serial Acu checks and SSI as needed in detail ID .Continue to monitor for signs of infection .Continue Protonix for stress ulcer prophylaxis Continue Farrukh hose and SCD's for DVT prophylaxis The exam, history, and the medical decision-making described in the above note were completed with the assistance of the mid-level provider. I reviewed and agree with the findings presented. I attest that I had a [id number] encounter with the patient on the same day, and personally performed and documented my assessment and findings in the medical record. (Nasir Landers MD) Raven Ku Feb 19, 2018 15:31 Nasir Landers MD Feb 21, 2018 21:15
[2018-02-20] VITALS (13 sets, daily range): BP systolic 114–153; BP diastolic 64–97; PULSE 73–98; RESP 18–27; TEMP 100.1–101.5; O2SAT 95–98
[2018-02-20] MEDS: ACETAMINOPHEN 650 MG/20.3 ML UDC PO PRN (00:18)
[2018-02-20] MEDS: oxyCODONE HCL ORAL CONC 5 MG/0.25 ML SYRINGE PO SCH ×4 (01:59→14:54)
[2018-02-20] MEDS: DILTIAZEM HCL 60 MG TAB PO SCH ×3 (01:59→14:00)
[2018-02-20] MEDS: CHLORHEXIDINE GLUCONATE 2 % 1 PACK (2 CLOTHS) TOP SCH (03:16)
[2018-02-20 04:21] LABS: BASOPHIL # 0.1 TH/MM3 (0-0.2); BASOPHIL % 0.5 % (0.0-2.0); EOSINOPHIL # 0.1 TH/MM3 (0-0.4); EOSINOPHIL % 0.4 % (0.0-4.0); HEMATOCRIT 23.1 % (35.0-46.0); HEMOGLOBIN 7.7 GM/DL (11.6-15.3); LYMPH % 3.7 % (9.0-44.0); LYMPHOCYTE # 0.6 TH/MM3 (1.0-4.8); MEAN CELL VOLUME 90.4 FL (80.0-100.0); MEAN CORPUSCULAR HEMOGLOBIN 30.1 PG (27.0-34.0); MEAN CORPUSCULAR HGB CONC 33.3 % (32.0-36.0); MONO % 4.3 % (0.0-8.0); MONOCYTE # 0.7 TH/MM3 (0-0.9); NEUT % 91.1 % (16.0-70.0); PLATELET COUNT 199 TH/MM3 (150-450); RED BLOOD COUNT 2.55 MIL/MM3 (4.00-5.30); RED CELL DISTRIBUTION WIDTH 17.2 % (11.6-17.2); WHITE BLOOD COUNT 15.4 TH/MM3 (4.0-11.0)
[2018-02-20 04:48] LABS: ALBUMIN 1.4 GM/DL (3.4-5.0); ALT (GPT) 45 U/L (10-53); AST (GOT) 73 U/L (15-37); BICARBONATE 31.2 MEQ/L (21.0-32.0); BLOOD UREA NITROGEN 19 MG/DL (7-18); CALCIUM 8.7 MG/DL (8.5-10.1); CHLORIDE 105 MEQ/L (98-107); CREATININE 0.37 MG/DL (0.50-1.00); GLOMERULAR FILTRATION RATE 166 ML/MIN (>89); GLUCOSE,RANDOM 126 MG/DL (74-106); SODIUM (NA) 140 MEQ/L (136-145)
[2018-02-20 04:50] LABS: ALKALINE PHOSPHATASE 156 U/L (45-117); TOTAL BILIRUBIN ADULT 1.2 MG/DL (0.2-1.0); TOTAL PROTEIN 4.8 GM/DL (6.4-8.2)
[2018-02-20] MEDS: PANTOPRAZOLE SODIUM 40 MG VIAL IVP SCH (05:00)
--- NOTE | 2018-02-20 05:22 | RADRPT ---
EXAM DATE/TIME: 02/20/2018 03:50 [facility] COMPARISON: CHEST SINGLE AP, February 19, 2018, 3:53. INDICATIONS : Shortness of breath MEDICAL HISTORY : None. SURGICAL HISTORY : Pacemaker. ENCOUNTER: Subsequent ACUITY: 1 week PAIN SCORE: Non-responsive. LOCATION: Bilateral chest FINDINGS: Bilateral parenchymal opacities persist. Small left pleural effusion. No pneumothorax. Endotracheal tube tip approximately 1.7 cm above the rosmery. Nasogastric tube courses into the stomac h. There is a right subclavian central venous catheter tip in the superior vena cava again noted. CONCLUSION: Endotracheal tube tip close to the rosmery. No significant change patchy diffuse airspace opacities of both lungs. Deondre Costello MD on February 20, 2018 at 5:18 Board Certified Radiologist. This report was verified electronically.
[2018-02-20] MEDS: MAGNESIUM HYDROXIDE SUSP 30 ML CUP PO SCH (08:55)
[2018-02-20] MEDS: CHOLECALCIFEROL (VIT D3) 5000 UNIT CAP PO SCH (08:55)
[2018-02-20] MEDS: LACTULOSE SYRUP 20 GM/30 ML CUP PO SCH (08:55)
[2018-02-20] MEDS: AMIODARONE 200 MG TAB PO SCH (08:55)
[2018-02-20] MEDS: SODIUM CHLORIDE 0.9% FLUSH 10 ML FLUSH IV FLUSH SCH (08:56)
[2018-02-20] MEDS: DOCUSATE SODIUM 100 MG/10 ML UDC PO SCH (08:56)
[2018-02-20] MEDS: CHLORHEXIDINE 0.12% (ORAL KIT) 15 ML CUP MT SCH (08:57)
[2018-02-20] MEDS ORDERED: cefTRIAXone INJ 1,000 MG in SODIUM CHLORIDE 0.9% INJ 100 ML IV SCH (10:00)
[2018-02-20] MEDS: ENOXAPARIN SODIUM 30 MG/0.3 ML SYRINGE SQ SCH (11:37)
--- NOTE | 2018-02-20 12:29 | HHI.HCPN ---
Reason for visit a. To assist with evaluation and management of symptoms including: Dyspnea, pain b. To assist medical decision maker(s) with: better understanding of current medical conditions; weighing benefits/burdens of medical treatment options; making medical treatment decisions. Subjective/Interval History Patient seen today to evaluate dyspnea and pain. She remains on a ventilator, lethargic with hypoactive delirium. Her chest x-ray shows ARDS pattern. Chest x-ray shows patchy diffuse airspace opacities of both lungs. Sputum culture shows Klebsiella pneumoniae. She has been febrile to T-MAX 101.5. Repeat sputum culture is pending. Right chest tube has been removed. Arterial blood gas pH 7.46, PCO2 43, PO2 of 90, HCO3 31, base excess +6.7, saturation 95% on and later settings 12/500/IT 1.0/8 PEEP/45%. Spontaneous breathing trial today that lasted 6 minutes and was terminated due to tachycardia, tachypnea and patient agitation. She is receiving Diamox 250 mg every 6 hours and DuoNeb as needed. She is receiving Rocephin for antibiotic coverage. She does have some spontaneous breathing above the ventilator setting. She is seen to grimace with discomfort with minimal touch, repositioning and even at rest. She is receiving Roxicodone 5 mg every 4 hours. Assessment by the nonverbal pain scale indicates frequent grimace, tears, frown, splinting, tenseness, tachypnea and tachycardia. One dose was not given at 2200 last evening as patient was resting quietly. At this evaluation she is seen to look uncomfortable, grimacing, winces to touch. She was medicated 90 minutes prior to my visit with 5 mg of oxycodone. . Family/friend interactions Spoke with family at length to include patient's , son Silverio, daughter Rachel , Rachel's , son Adryan (via telephone). I also spoke with Adryan's Naila via telephone post conference. We discussed patient's goals and scenarios for potential outcomes. Due to the patient's severe osteoporosis, weakness, multiple fractures, family was advised by physicians that she will never be able to bear weight again, leaving her discharge options as bedbound in a care home facility. Complicating that is her respiratory failure and need for ventilator support. While family is willing to do tracheostomy and PEG tube placement for patient comfort, they are all firm in their belief that she would not want to live in a penitentiary, nor would they want her to. The states that they had discussed this many times over the last 5 years and his was adamant that she not be allowed to exist without the ability to function as she had been functioning. He states that a life of being bedbound in a penitentiary is absolutely against her wishes and he cannot support that. Based on that discussion the family inquired about hospice and hospice services were explained to include the ability to extubate at the care center when family is at bedside and allow a peaceful, natural . The family is agreeable to this plan and is requesting the [facility] as this is very near to the 's home. Hospice consultation was placed and I was informed that the [facility] is at maximum capacity but that a bed is expected to open by tomorrow. I did discuss this with the family and they are agreeable to set transfer for tomorrow, Wednesday 02/21, with plans for extubation on Saturday, 02/22 when Naila and Adryan have arrived from [place] and grandchildren are able to be at bedside. This was discussed with the hospice territory representative, Debbie, who had arrived for consent review and signature. This was also discussed with Leslie Mcclellan hospice admission nurse. Advance Directives Living Will: Copy in medical record Health Care Surrogate: Copy in medical record Durable Power of Offal [employer] Poultry: Never completed Advance Directive Specifics Health Care Surrogate(s): My discussion with her daughter, patient's is the primary healthcare surrogate followed by her 3 children serving as joint alternate surrogates. . Documented care wishes: Living will completed, not available at this time. Objective Vital Signs Date Time Temp Pulse Resp B/P (MAP) Pulse Ox O2 Delivery O2 Flow Rate FiO2 02/20/18 11:17 96 45 02/20/18 07:47 97 45 02/20/18 07:40 45 02/20/18 06:00 81 02/20/18 04:00 45 02/20/18 04:00 82 02/20/18 04:00 100.1 82 18 118/64 (82) 97 02/20/18 03:34 98 45 02/20/18 02:00 92 02/20/18 00:00 73 02/20/18 00:00 101.5 73 25 114/64 (81) 98 02/20/18 00:00 45 02/19/18 23:32 94 45 02/19/18 22:00 62 02/19/18 20:00 87 02/19/18 20:00 45 02/19/18 20:00 100.9 87 21 139/64 (89) 99 02/19/18 19:30 98 45 02/19/18 18:00 84 02/19/18 16:00 45 02/19/18 16:00 100.0 85 18 151/65 (93) 96 02/19/18 16:00 94 02/19/18 15:51 97 45 02/19/18 15:04 18 02/19/18 14:00 74 02/19/18 12:00 100.6 96 24 147/65 (92) 96 02/19/18 12:00 80 02/19/18 12:00 45 02/19/18 11:49 96 45 Intake & Output 02/20/18 02/20/18 07:00 19:00 Intake Total 611 ml Output Total 625 ml Balance -14 ml Tube Feeding 491 ml Tube Irrigant 120 ml Output Urine Total 625 ml # Bowel Movements 0 Physical Exam CONSTITUTIONAL/GENERAL: This is an adequately nourished patient, intubated, grimacing to touch, otherwise in no apparent distress. TUBES/LINES/DRAINS: ET tube, right subclavian triple-lumen, Crawford catheter NECK: Trachea midline. Supple without palpable thyroid enlargement or nodularity. CARDIOVASCULAR: Irregular rhythm, controlled rate no gallop or rub, 1/6 MORELIA. No JVD. Peripheral pulses symmetric. RESPIRATORY/CHEST: Mechanically ventilated, breath sounds coarse, diminished. Rare wheeze. GASTROINTESTINAL: Abdomen soft, nondistended. Bowel sounds present. GENITOURINARY: Without palpable bladder distension. Crawford catheter in place draining clear yellow urine. MUSCULOSKELETAL: Extremities without clubbing, cyanosis. 2 + edema to upper extremities. No mottling or clubbing. Bilateral boots on. Grimaces with touch or movement. NEUROLOGICAL: Intubated PSYCHIATRIC: Lethargic . Diagnostic Tests Laboratory Laboratory Tests Test 02/18/18 04:30 02/18/18 06:21 02/19/18 04:38 02/19/18 04:45 White Blood Count 14.1 TH/MM3 (4.0-11.0) 13.9 TH/MM3 (4.0-11.0) Red Blood Count 2.69 MIL/MM3 (4.00-5.30) 2.70 MIL/MM3 (4.00-5.30) Hemoglobin 8.1 GM/DL (11.6-15.3) 8.1 GM/DL (11.6-15.3) Hematocrit 24.3 % (35.0-46.0) 24.3 % (35.0-46.0) Mean Corpuscular Volume 90.2 FL (80.0-100.0) 90.0 FL (80.0-100.0) Mean Corpuscular Hemoglobin 30.2 PG (27.0-34.0) 29.9 PG (27.0-34.0) Mean Corpuscular Hemoglobin Concent 33.5 % (32.0-36.0) 33.2 % (32.0-36.0) Red Cell Distribution Width 17.4 % (11.6-17.2) 16.6 % (11.6-17.2) Platelet Count 140 TH/MM3 (150-450) 162 TH/MM3 (150-450) Mean Platelet Volume 9.3 FL (7.0-11.0) 9.1 FL (7.0-11.0) Neutrophils (%) (Auto) 83.4 % (16.0-70.0) 85.5 % (16.0-70.0) Lymphocytes (%) (Auto) 6.5 % (9.0-44.0) 5.6 % (9.0-44.0) Monocytes (%) (Auto) 9.1 % (0.0-8.0) 7.5 % (0.0-8.0) Eosinophils (%) (Auto) 0.8 % (0.0-4.0) 1.1 % (0.0-4.0) Basophils (%) (Auto) 0.2 % (0.0-2.0) 0.3 % (0.0-2.0) Neutrophils # (Auto) 11.8 TH/MM3 (1.8-7.7) 11.9 TH/MM3 (1.8-7.7) Lymphocytes # (Auto) 0.9 TH/MM3 (1.0-4.8) 0.8 TH/MM3 (1.0-4.8) Monocytes # (Auto) 1.3 TH/MM3 (0-0.9) 1.0 TH/MM3 (0-0.9) Eosinophils # (Auto) 0.1 TH/MM3 (0-0.4) 0.2 TH/MM3 (0-0.4) Basophils # (Auto) 0.0 TH/MM3 (0-0.2) 0.0 TH/MM3 (0-0.2) CBC Comment AUTO DIFF AUTO DIFF Differential Total Cells Counted 100 100 Neutrophils % (Manual) 66 % (16-70) 64 % (16-70) Band Neutrophils % 11 % (0-6) 19 % (0-6) Lymphocytes % 1 % (9-44) 2 % (9-44) Monocytes % 11 % (0-8) 7 % (0-8) Neutrophils # (Manual) 12.4 TH/MM3 (1.8-7.7) 12.5 TH/MM3 (1.8-7.7) Metamyelocytes 6 % (0-1) 5 % (0-1) Myelocytes 5 % (0-0) 2 % (0-0) Differential Comment FINAL DIFF MANUAL FINAL DIFF MANUAL Platelet Estimate LOW (NORMAL) NORMAL (NORMAL) Platelet Morphology Comment NORMAL (NORMAL) NORMAL (NORMAL) Blood Urea Nitrogen 16 MG/DL (7-18) 17 MG/DL (7-18) Creatinine 0.27 MG/DL (0.50-1.00) 0.35 MG/DL (0.50-1.00) Random Glucose 111 MG/DL (74-106) 105 MG/DL (74-106) Total Protein 4.3 GM/DL (6.4-8.2) 4.9 GM/DL (6.4-8.2) Albumin 1.2 GM/DL (3.4-5.0) 1.4 GM/DL (3.4-5.0) Calcium Level 8.0 MG/DL (8.5-10.1) 8.9 MG/DL (8.5-10.1) Alkaline Phosphatase 135 U/L (45-117) 153 U/L (45-117) Aspartate Amino Transf (AST/SGOT) 59 U/L (15-37) 69 U/L (15-37) Alanine Aminotransferase (ALT/SGPT) 31 U/L (10-53) 41 U/L (10-53) Total Bilirubin 1.6 MG/DL (0.2-1.0) 1.5 MG/DL (0.2-1.0) Sodium Level 144 MEQ/L (136-145) 140 MEQ/L (136-145) Potassium Level 3.8 MEQ/L (3.5-5.1) 4.3 MEQ/L (3.5-5.1) Chloride Level 110 MEQ/L (98-107) 105 MEQ/L (98-107) Carbon Dioxide Level 29.0 MEQ/L (21.0-32.0) 31.0 MEQ/L (21.0-32.0) Anion Gap 5 MEQ/L (5-15) 4 MEQ/L (5-15) Estimat Glomerular Filtration Rate 238 ML/MIN (>89) 177 ML/MIN (>89) Blood Gas Puncture Site ART LINE RT RADIAL Blood Gas Patient Temperature 98.6 98.6 Blood Gas HCO3 29 mmol/L (22-26) 29 mmol/L (22-26) Blood Gas Base Excess 5.4 mmol/L (-2-2) 5.2 mmol/L (-2-2) Blood Gas Oxygen Saturation 95 % (90-100) 95 % (90-100) Arterial Blood pH 7.47 (7.380-7.420) 7.46 (7.380-7.420) Arterial Blood Partial Pressure CO2 40 mmHg (38-42) 41 mmHg (38-42) Arterial Blood Partial Pressure O2 82 mmHg (61-120) 88 mmHg (61-120) Arterial Blood Oxygen Content 11.2 Vol % (12.0-20.0) 11.1 Vol % (12.0-20.0) Arterial Blood Carboxyhemoglobin 2.5 % (0-4) 2.4 % (0-4) Arterial Blood Methemoglobin 1.0 % (0-2) 0.8 % (0-2) Blood Gas Hemoglobin 8.3 G/DL (12.0-16.0) 8.2 G/DL (12.0-16.0) Oxygen Delivery Device VENTILATOR VENTILATOR Blood Gas Ventilator Setting SEE COMMENT Blood Gas Inspired Oxygen 45 % 45 % Basophils % 1 % (0-2) Toxic Granulation 2+ (NORMAL) Toxic Vacuolation PRESENT (NONE SEEN) Test 02/19/18 10:15 02/20/18 04:00 02/20/18 04:45 Urine Color LIGHT-YELLOW (YELLW/STRAW) Urine Turbidity CLEAR (CLEAR) Urine pH 5.0 (5.0-8.5) Urine Specific [place] 1.010 (1.002-1.035) Urine Protein NEG mg/dL (NEG-TRACE) Urine Glucose (UA) NEG mg/dL (NEG) Urine Ketones NEG mg/dL (NEG) Urine Occult Blood NEG (NEG) Urine Nitrite NEG (NEG) Urine Bilirubin NEG (NEG) Urine Urobilinogen LESS THAN 2.0 MG/DL (LESS Urine Leukocyte Esterase NEG (NEG) Urine RBC LESS THAN 1 /hpf (0-3) Urine Hyaline Casts 16 /lpf (RARE) Urine Mucus FEW /lpf (OCC) Microscopic Urinalysis Comment CATH-CULT NOT IND White Blood Count 15.4 TH/MM3 (4.0-11.0) Red Blood Count 2.55 MIL/MM3 (4.00-5.30) Hemoglobin 7.7 GM/DL (11.6-15.3) Hematocrit 23.1 % (35.0-46.0) Mean Corpuscular Volume 90.4 FL (80.0-100.0) Mean Corpuscular Hemoglobin 30.1 PG (27.0-34.0) Mean Corpuscular Hemoglobin Concent 33.3 % (32.0-36.0) Red Cell Distribution Width 17.2 % (11.6-17.2) Platelet Count 199 TH/MM3 (150-450) Mean Platelet Volume 9.0 FL (7.0-11.0) Neutrophils (%) (Auto) 91.1 % (16.0-70.0) Lymphocytes (%) (Auto) 3.7 % (9.0-44.0) Monocytes (%) (Auto) 4.3 % (0.0-8.0) Eosinophils (%) (Auto) 0.4 % (0.0-4.0) Basophils (%) (Auto) 0.5 % (0.0-2.0) Neutrophils # (Auto) 14.0 TH/MM3 (1.8-7.7) Lymphocytes # (Auto) 0.6 TH/MM3 (1.0-4.8) Monocytes # (Auto) 0.7 TH/MM3 (0-0.9) Eosinophils # (Auto) 0.1 TH/MM3 (0-0.4) Basophils # (Auto) 0.1 TH/MM3 (0-0.2) CBC Comment AUTO DIFF Differential Comment AUTO DIFF CONFIRMED Blood Urea Nitrogen 19 MG/DL (7-18) Creatinine 0.37 MG/DL (0.50-1.00) Random Glucose 126 MG/DL (74-106) Total Protein 4.8 GM/DL (6.4-8.2) Albumin 1.4 GM/DL (3.4-5.0) Calcium Level 8.7 MG/DL (8.5-10.1) Alkaline Phosphatase 156 U/L (45-117) Aspartate Amino Transf (AST/SGOT) 73 U/L (15-37) Alanine Aminotransferase (ALT/SGPT) 45 U/L (10-53) Total Bilirubin 1.2 MG/DL (0.2-1.0) Sodium Level 140 MEQ/L (136-145) Potassium Level 4.1 MEQ/L (3.5-5.1) Chloride Level 105 MEQ/L (98-107) Carbon Dioxide Level 31.2 MEQ/L (21.0-32.0) Anion Gap 4 MEQ/L (5-15) Estimat Glomerular Filtration Rate 166 ML/MIN (>89) Blood Gas Puncture Site RT RADIAL Blood Gas Patient Temperature 98.6 Blood Gas HCO3 31 mmol/L (22-26) Blood Gas Base Excess 6.7 mmol/L (-2-2) Blood Gas Oxygen Saturation 95 % (90-100) Arterial Blood pH 7.46 (7.380-7.420) Arterial Blood Partial Pressure CO2 43 mmHg (38-42) Arterial Blood Partial Pressure O2 90 mmHg (61-120) Arterial Blood Oxygen Content 11.2 Vol % (12.0-20.0) Arterial Blood Carboxyhemoglobin 2.2 % (0-4) Arterial Blood Methemoglobin 0.8 % (0-2) Blood Gas Hemoglobin 8.2 G/DL (12.0-16.0) Oxygen Delivery Device VENTILATOR Blood Gas Ventilator Setting 12/500/IT1.0/8PEEP Blood Gas Inspired Oxygen 45 % Result Diagram: 02/20/18 0400 02/20/18 0400 Microbiology Microbiology Date/Time Source Procedure Growth Status 02/19/18 13:18 Blood Peripheral Aerobic Blood Culture - Preliminary NO GROWTH IN 1 DAY Resulted 02/19/18 13:18 Blood Peripheral Anaerobic Blood Culture - Preliminary NO GROWTH IN 1 DAY Resulted 02/19/18 10:15 Blood Line Aerobic Blood Culture - Preliminary NO GROWTH IN 1 DAY Resulted 02/19/18 10:15 Blood Line Anaerobic Blood Culture - Preliminary NO GROWTH IN 1 DAY Resulted 02/19/18 10:15 Sputum Endotracheal Gram Stain - Final Resulted 02/19/18 10:15 Sputum Endotracheal Sputum Culture Pending Resulted Imaging Last Impressions Chest X-Ray 02/20/18 0600 Signed Impressions: Service Date/Time: February 03:50 - CONCLUSION: Endotracheal tube tip close to the rosmery. No significant change patchy diffuse airspace opacities of both lungs. Deondre Costello MD Hip X-Ray 02/13/18 0000 Signed Impressions: Service Date/Time: February 11:16 - CONCLUSION: Status post ORIF of right femur fracture with hardware in good position Bib Cooper MD Thoracic Spine CT 02/10/18348 Signed Impressions: Service Date/Time: Saturday, February 10, 2018 03:53 - CONCLUSION: 1. Acute fracture of T11 vertebral body. No retropulsion of posterior fragments or canal stenosis. 2. Old compression deformities at T8, T12 and L1 vertebral bodies. 1. Yrn Khan MD Pelvis X-Ray 02/10/18348 Signed Impressions: Service Date/Time: Saturday, February 10, 2018 03:36 - CONCLUSION: 1. Displaced intertrochanteric fracture left proximal femur. 2. Appears to be intertrochanteric fracture of the right proximal femur as well. Yrn Khan MD Lumbar Spine CT 02/10/18348 Signed Impressions: Service Date/Time: Saturday, February 10, 2018 03:53 - CONCLUSION: 1. Multiple old compression deformities. 2. Disc bulge causes mild canal stenosis at L4-5. 3. Compression fracture at T11 Yrn Khan MD Chest CT 02/10/18348 Signed Impressions: Service Date/Time: Saturday, February 10, 2018 03:53 - CONCLUSION: 1. Small bilateral pleural effusions. 2. Right-sided chest tube is seen with the side hole external to the chest. Tiny right-sided pneumothorax. 3. Minimal rib fracture right lower lateral rib. 4. Fracture of thoracic vertebral bodies including what appears to be T6 and T10, likely old. Yrn Khan MD Abdomen/Pelvis CT 02/10/18 0349 Signed Impressions: Service Date/Time: Saturday, February 10, 2018 03:53 - CONCLUSION: 1. Intertrochanteric fractures of each proximal femur. 2. Mild loss of height of several thoracic vertebral bodies including L2-L4. L3 and L4 vertebral bodies contain kyphoplasty cement. Yrn Khan MD Procedures 02/10: Right subclavian triple-lumen catheter placement 02/11: Intubation 02/12: Implantation of a dual-chamber [employer] pacemaker 02/13: Bilateral hip reduction and intramedullary nailing . Assessment and Plan Disease Oriented Problem List: (1) Rib fractures (2) Proximal humerus fracture (3) Hemopneumothorax on right (4) T11 vertebral fracture (5) Intertrochanteric fracture of both femurs (6) Syncope (7) Sinus pause Symptom Scale: (1) Pain, generalized 0-10 Scale: Unable to quantify (Patient intubated, not responding to questions) (2) Dyspnea and respiratory abnormalities 0-10 Scale: Unable to quantify (Patient intubated, not responding to questions) Pertinent Non-Medical Issues Psychosocial:She was born in [place] where she raised 3 children. 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 She has been to her for 67 years. Spiritual: She would appreciate teacher vocal visits. Legal: No legal issues identified. Ethical issues impacting care: No ethical issues identified. . Important Contacts Spouse: Gregory Cruz Daughter: Rachel Ricardo . Prognosis Her prognosis is guarded. She has suffered a traumatic fall with subsequent rib fracture, hemopneumothorax, bilateral entero-trochanteric fractures, left humerus fracture and subsequent traumatic shock. She is currently intubated, sedated and requiring vasopressor support. She has required transfusion of 3 units of packed red blood cells and 2 units of platelets are on hold. She is pending repair of bilateral intertrochanteric fractures which will be held until her overall condition stabilizes. Complicating her hospital course was the finding of a 3.2 and subsequent 2.9 second pause which it is opined, may have been responsible for her initial fall. Given her recent chest trauma, severe osteoporosis with a number of compression fractures and previous kyphoplasty, CPR is likely to cause further damage to the thoracic cage with the potential of harm from that. Family is considering the option of no CPR and will render their decision tomorrow at the meeting. Given her fragile state she is likely to suffer further compromise, complications and decline. . Code Status: No Code Plan PLAN: * CODE STATUS: DNR * HEALTHCARE DECISION-MAKING: Patient unable to participating medical decision making secondary to critical illness. Currently intubated on mechanical ventilation. Family reports that advance directives have been completed naming patient's Gregory Cruz as healthcare surrogate decision maker. Family also reports that all 3 children are listed jointly as alternate healthcare surrogate. Patient's Gregory has fully accepted this role and is fully supported by their 3 children. * GOALS OF CARE: Goals of care have now transitioned to comfort. Family recognizes that she is not making the hoped for progress in weaning from the ventilator and has now suffered her first complication of pneumonia. They recognize that she remains uncomfortable in spite of regular administration of pain medicine and at this time would like to have her transferred to the hospice care center for withdrawal of ventilator support. One son and his are en route from [place] today and expect to arrive late Saturday or early Saturday. Her grand children who live locally will be able to attend extubation at the care center on Saturday and the states that Mrs. Cruz would like to have all of her family around her if possible and so are in agreement with transfer to the care center in [facility] on Saturday with extubation on Saturday for end-of-life care. * SYMPTOMS: * Pain: Multifactorial to include invasive lines, bedbound status, fractured ribs, bilateral femur fractures, fractured humerus, recently implanted pacemaker. She is receiving r every 4 hours. Oxycodone 5 mg she continues to grimace nearly continually and with any stimulation or movement. Given family' s goals of comfort care and transferred for her to hospice, would recommend increasing Roxicodone to 5 mg every 3 hours. * Dyspnea: Multifactorial to include right hemopneumothorax, fractured ribs, pneumonia and possible ARDS. She becomes tachypneic with any spontaneous breathing trials and developed agitation, whether from hypoxia or pain is uncertain. As family goals have shifted to comfort with ultimate goal of extubation and hospice and spontaneous breathing trials are not well tolerated by the patient, would hold spontaneous breathing trials pending transfer. Plan is for transfer to [facility] tomorrow for planned compassionate withdrawal on Saturday at the care center once family has arrived. Palliative care will continue to follow the patient during hospital course as condition evolves, to assist patient/decision-maker with understanding of their medical conditions, weighing benefits/burdens of treatment options, for clarification of goals of treatment. Additionally will assist with any symptoms of palliative concern. . Attestation To help prompt me to consider important information that might be impacting today's encounter and assessment, information from prior notes written by myself or my colleagues may have been "brought forward" into today's note. My signature on this note, however, is an attestation that I personally performed the exam, history, and/or decision-making noted today, and, unless otherwise indicated, the interactions with patient, family, and staff as well as the review of records all occurred today. I also attest that the listed assessment and stated plan reflect my best clinical judgment today based on the combination of historical information, prior notes, and today's exam/ interactions. When time spent is documented, it refers only to time spent today by the signer, or if indicated, combined time spent today by collaborating physician/nurse practitioner. . Aliya Ac Feb 20, 2018 12:28
[2018-02-20] MEDS ORDERED: LORazepam 2 MG/ML VIAL IV ONE (15:15)
[2018-02-20] MEDS ORDERED: MORPHINE SULFATE 4 MG/ML INJ IV ONE (15:15)
--- NOTE | 2018-02-20 15:52 | HHI.DS ---
Discharge Summary Admission Date Feb 10, 2018 at 03:51 Discharge Date: Feb 20, 2018 Admitting Diagnosis TRAUMA ALERT (1) Rib fractures ICD Codes: S22.39XA - Fracture of one rib, unspecified side, initial encounter for closed fracture Status: Acute (2) Proximal humerus fracture ICD Codes: S42.209A - Unspecified fracture of upper end of unspecified humerus , initial encounter for closed fracture Status: Acute (3) Hemopneumothorax on right ICD Codes: J94.2 - Hemothorax Status: Acute (4) T11 vertebral fracture ICD Codes: S22.089A - Unspecified fracture of T11-T12 vertebra, initial encounter for closed fracture Status: Acute (5) Intertrochanteric fracture of both femurs ICD Codes: S72.141A - Displaced intertrochanteric fracture of right femur, initial encounter for closed fracture; S72.142A - Displaced intertrochanteric fracture of left femur, initial encounter for closed fracture Status: Acute (6) Elevated troponin ICD Codes: R74.8 - Abnormal levels of other serum enzymes (7) Paroxysmal atrial fibrillation ICD Codes: I48.0 - Paroxysmal atrial fibrillation (8) Trauma ICD Codes: T14.90XA - Injury, unspecified, initial encounter (9) Fall, initial encounter ICD Codes: W19.XXXA - Unspecified fall, initial encounter Diagnosis: Principal Brief History S/P Fall CBC/BMP: 02/20/18 0400 02/20/18 0400 Significant Findings Laboratory Tests Test 02/18/18 04:30 02/18/18 06:21 02/19/18 04:38 02/19/18 04:45 White Blood Count 14.1 TH/MM3 (4.0-11.0) 13.9 TH/MM3 (4.0-11.0) Red Blood Count 2.69 MIL/MM3 (4.00-5.30) 2.70 MIL/MM3 (4.00-5.30) Hemoglobin 8.1 GM/DL (11.6-15.3) 8.1 GM/DL (11.6-15.3) Hematocrit 24.3 % (35.0-46.0) 24.3 % (35.0-46.0) Red Cell Distribution Width 17.4 % (11.6-17.2) Platelet Count 140 TH/MM3 (150-450) Neutrophils (%) (Auto) 83.4 % (16.0-70.0) 85.5 % (16.0-70.0) Lymphocytes (%) (Auto) 6.5 % (9.0-44.0) 5.6 % (9.0-44.0) Monocytes (%) (Auto) 9.1 % (0.0-8.0) Neutrophils # (Auto) 11.8 TH/MM3 (1.8-7.7) 11.9 TH/MM3 (1.8-7.7) Lymphocytes # (Auto) 0.9 TH/MM3 (1.0-4.8) 0.8 TH/MM3 (1.0-4.8) Monocytes # (Auto) 1.3 TH/MM3 (0-0.9) 1.0 TH/MM3 (0-0.9) Band Neutrophils % 11 % (0-6) 19 % (0-6) Lymphocytes % 1 % (9-44) 2 % (9-44) Monocytes % 11 % (0-8) Neutrophils # (Manual) 12.4 TH/MM3 (1.8-7.7) 12.5 TH/MM3 (1.8-7.7) Metamyelocytes 6 % (0-1) 5 % (0-1) Myelocytes 5 % (0-0) 2 % (0-0) Platelet Estimate LOW (NORMAL) Creatinine 0.27 MG/DL (0.50-1.00) 0.35 MG/DL (0.50-1.00) Random Glucose 111 MG/DL (74-106) Total Protein 4.3 GM/DL (6.4-8.2) 4.9 GM/DL (6.4-8.2) Albumin 1.2 GM/DL (3.4-5.0) 1.4 GM/DL (3.4-5.0) Calcium Level 8.0 MG/DL (8.5-10.1) Alkaline Phosphatase 135 U/L (45-117) 153 U/L (45-117) Aspartate Amino Transf (AST/SGOT) 59 U/L (15-37) 69 U/L (15-37) Total Bilirubin 1.6 MG/DL (0.2-1.0) 1.5 MG/DL (0.2-1.0) Chloride Level 110 MEQ/L (98-107) Blood Gas HCO3 29 mmol/L (22-26) 29 mmol/L (22-26) Blood Gas Base Excess 5.4 mmol/L (-2-2) 5.2 mmol/L (-2-2) Arterial Blood pH 7.47 (7.380-7.420) 7.46 (7.380-7.420) Arterial Blood Oxygen Content 11.2 Vol % (12.0-20.0) 11.1 Vol % (12.0-20.0) Blood Gas Hemoglobin 8.3 G/DL (12.0-16.0) 8.2 G/DL (12.0-16.0) Toxic Granulation 2+ (NORMAL) Toxic Vacuolation PRESENT (NONE SEEN) Anion Gap 4 MEQ/L (5-15) Test 02/19/18 10:15 02/20/18 04:00 02/20/18 04:45 Urine Mucus FEW /lpf (OCC) White Blood Count 15.4 TH/MM3 (4.0-11.0) Red Blood Count 2.55 MIL/MM3 (4.00-5.30) Hemoglobin 7.7 GM/DL (11.6-15.3) Hematocrit 23.1 % (35.0-46.0) Neutrophils (%) (Auto) 91.1 % (16.0-70.0) Lymphocytes (%) (Auto) 3.7 % (9.0-44.0) Neutrophils # (Auto) 14.0 TH/MM3 (1.8-7.7) Lymphocytes # (Auto) 0.6 TH/MM3 (1.0-4.8) Blood Urea Nitrogen 19 MG/DL (7-18) Creatinine 0.37 MG/DL (0.50-1.00) Random Glucose 126 MG/DL (74-106) Total Protein 4.8 GM/DL (6.4-8.2) Albumin 1.4 GM/DL (3.4-5.0) Alkaline Phosphatase 156 U/L (45-117) Aspartate Amino Transf (AST/SGOT) 73 U/L (15-37) Total Bilirubin 1.2 MG/DL (0.2-1.0) Anion Gap 4 MEQ/L (5-15) Blood Gas HCO3 31 mmol/L (22-26) Blood Gas Base Excess 6.7 mmol/L (-2-2) Arterial Blood pH 7.46 (7.380-7.420) Arterial Blood Partial Pressure CO2 43 mmHg (38-42) Arterial Blood Oxygen Content 11.2 Vol % (12.0-20.0) Blood Gas Hemoglobin 8.2 G/DL (12.0-16.0) Imaging Last Impressions Chest X-Ray 02/20/18 0600 Signed Impressions: Service Date/Time: February 03:50 - CONCLUSION: Endotracheal tube tip close to the rosmery. No significant change patchy diffuse airspace opacities of both lungs. Deondre Costello MD Hip X-Ray 02/13/18 0000 Signed Impressions: Service Date/Time: February 11:16 - CONCLUSION: Status post ORIF of right femur fracture with hardware in good position Bib Cooper MD Thoracic Spine CT 02/10/18348 Signed Impressions: Service Date/Time: Saturday, February 10, 2018 03:53 - CONCLUSION: 1. Acute fracture of T11 vertebral body. No retropulsion of posterior fragments or canal stenosis. 2. Old compression deformities at T8, T12 and L1 vertebral bodies. 1. Yrn Khan MD Pelvis X-Ray 02/10/18348 Signed Impressions: Service Date/Time: Saturday, February 10, 2018 03:36 - CONCLUSION: 1. Displaced intertrochanteric fracture left proximal femur. 2. Appears to be intertrochanteric fracture of the right proximal femur as well. Yrn Khan MD Lumbar Spine CT 02/10/18348 Signed Impressions: Service Date/Time: Saturday, February 10, 2018 03:53 - CONCLUSION: 1. Multiple old compression deformities. 2. Disc bulge causes mild canal stenosis at L4-5. 3. Compression fracture at T11 Yrn Khan MD Chest CT 02/10/18348 Signed Impressions: Service Date/Time: Saturday, February 10, 2018 03:53 - CONCLUSION: 1. Small bilateral pleural effusions. 2. Right-sided chest tube is seen with the side hole external to the chest. Tiny right-sided pneumothorax. 3. Minimal rib fracture right lower lateral rib. 4. Fracture of thoracic vertebral bodies including what appears to be T6 and T10, likely old. Yrn Khan MD Abdomen/Pelvis CT 02/10/18 0349 Signed Impressions: Service Date/Time: Saturday, February 10, 2018 03:53 - CONCLUSION: 1. Intertrochanteric fractures of each proximal femur. 2. Mild loss of height of several thoracic vertebral bodies including L2-L4. L3 and L4 vertebral bodies contain kyphoplasty cement. Yrn Khan MD PE at Discharge GENERAL: 87 year old elderly female lying in bed mechanically ventilated and sedated. SKIN: Warm and dry. HEAD: Normocephalic. EYES: Pupils equal and round. No scleral icterus. ENT: No nasal bleeding or discharge. Mucous membranes pink and moist. NECK: Trachea midline. No JVD. CARDIOVASCULAR: Regular rate and rhythm. RESPIRATORY: No accessory muscle use. Coarse lung sounds bilaterally. GASTROINTESTINAL: Abdomen soft, non-tender, nondistended. + BS. MUSCULOSKELETAL: Extremities without cyanosis, +2 generalized edema. MAEW, + perfused NEUROLOGICAL: Arouses to voice. Follows commands. Hospital Course HUSLIA: This is a 87 year old female who presents to the [facility] emergency department as a transfer from [facility] as a trauma alert. Apparently patient sustained a fall on the driveway at approximately 9 PM last night. Patient was transferred to [facility] and underwent workup and when it was finally noted that patient had severe injuries we were asked to accept the patient as trauma transfer. Patient arrives around 6 AM and according to Dr. Monae initially patient is hemodynamically stable but then continues to deteriorate including multifocal supraventricular arrhythmias. Patient undergoes repeat CT scan of the chest and abdomen and is transferred to ICU for further care. Final injuries are Right lower rib fractures with a hemopneumothorax / chest tube placement and 1200 mL of blood out in the chest tube. Bilateral intratrochanteric hip fractures Left proximal humerus fracture T11 fracture Multiple old fractures of the thoracic spine and several lumbar spine fractures with kyphoplasties Supraventricular cardiac arrhythmias ischemic cardiomyopathy Hypotensive shock Metabolic acidosis anion gap In the process patient dropped hemoglobin from 12 g/dL initially to 7 g/dL few hours later. She received several units of PRBCs and was resuscitated Required vasopressors including Levophed and Gonzalo-Synephrine 24 Hour Review/Hospital Course 02/10/2018 Patient was initially unstable but now has stabilized hemodynamically Remains intubated ventilated Medical center hole reamer help greatly appreciated 02/11/2018 Patient with a devastating traumatic injuries post fall She has been slowly stabilizing overnight with hemodynamic improvement and decreasing vasopressors Remains mildly sedated on propofol however we will switch this to Versed in face of cardio depressant effect of propofol Evaluated by cardiology for periods of bradycardia It is my opinion that patient had a myocardial infarction process as a result of combination of the trauma hypoxia on the scene anemia and hemorrhagic shock Troponins elevated 02/12 Patient underwent pacemaker insertion today by cardiology-she spontaneously converted to sinus rhythm the cardiac lab She is got thrombocytopenia- believe is likely related to blood loss/SIRS She remains on low-dose Levophed-I believe she is euvolemic-obtain Flowtrack for more exact measurement She had an DE versus blunt cardiac injury She has multitrauma with this overall poor prognosis secondary to her age with low reserve 02/13 OR today-IM nailing x2 transfuse 1U PRBC,1U plt low dose levophed off amiodarone uo adequate partial DNR as per family remains SR 02/14/2018 Patient remains intubated and ventilated Successful bilateral intratrochanteric fracture nailing yesterday Patient sedated on fentanyl Versed but minimal amounts with very low [place] Coma Scale Hemodynamically stable although requiring small dose Levophed Pacemaker maintaining paced rhythm but patient developed A. fib on top of it so amiodarone has been restarted Gradually switch antiarrhythmics to p.o. form Aamir - cardiac output remains around 4-5 L which is quite admirable and SVR around 1100 Bilateral breath signs remains ventilatory dependent in face of pulmonary contusion and a severe chest trauma not ready to come off the respirator Abdomen soft Renal function preserved Extensive discussions with family and it is clear that this patient will be here long-term and will be difficult to extubate Hopefully she will not require tracheostomy however patient at this point does not have either the lung function or the level of consciousness sufficient to extubate In the face of age and extensive injuries prognosis remains very poor and 30 day mortality is extremely high 02/15/2018 Patient has stabilized hemodynamically Remains on small dose fentanyl about 50 mcg and will decrease that gradually and give patient some p.o. analgesia Hemodynamically stable very tiny dose of Levophed Cardiac arrhythmias have resolved patient is on p.o. amiodarone with paced rhythm Bilateral breath sounds with reasonable PO2 FiO2 gradient Patient is somewhat fluid overloaded as noted below and some pulmonary edema is present CPAP trial tolerated for about 2 hours today and then patient became tachypneic We will try tomorrow and see how patient does Abdomen soft enteral feeds tolerated Renal function preserved with normal BUN/creatinine Patient is definitely fluid overloaded at this point and was slowly diuresing patient with gentle Lasix administration 02/16/2018 Patient remains sedated with very small dose of medication Does not open eyes does not follow commands moves all 4 extremities We will give sedation medication Hemodynamically stable Had a period of sustained sinus tachycardia which resolved spontaneously Tolerated CPAP intermittently and then is switched to AC ventilation 35% FiO2 with bilateral patchy infiltrates in the lungs but no pneumonia and This is more consistent with ARDS Abdomen soft diet tolerated We will start working patient towards extubation with daily CPAP periods daily sedation vacations and will see how it goes 02/17 slow to open eyes and follow commands P/F ration 170 CXR patchy infiltrates b/l low dose levophed tolerating tube feeds 02/18 PF ratio remains the same around 170 No output from chest tube so that will proceed with removal today Continues to be slow with open eyes and following commands-is likely to do hypoactive delirium Tolerating tube feeds Patient prognosis remains poor secondary to her age, multitrauma, I had today a long discussion with the family-indicating the limited chances for meaningful recovery Palliative care will also have a meeting with family 02/19 Chest tube removed yesterday Patient more awake today and tolerating CPAP Hypoactive delirium Patient febrile- We will obtain scanlon cultures Hold off empiric antibiotics for now 02/20/18 Family meeting today with Palliative care and patient's family requests transition to Hospice care Discharged to Hospice- Patient will be extubated at the Hospice care center and provided comfort care per the Hospice team Pt Condition on Discharge: Deteriorating Discharge Disposition: Hospice/Med Facility Discharge Instructions DIET: Follow Instructions for: On Tube Feeding Activities you can perform: See Additionl Instruction Other Activity Instructions: MARKIE WAYNE Shealean M ARNP Feb 20, 2018 15:52
== END 2018-02-20 17:04 | disposition hospice, inpatient (51) | DRG 956 ==
LOC: NEPI 03:33 → EDBD 03:51 → NEDA 03:51 → N03A 04:10
PROVIDERS: ADMIT Surgery; ATTEND Surgery
PROC: 5A1955Z Respiratory Ventilation, Greater than 96 Consecutive Hours (ICD-10-PCS; 2018-02-10)
PROC: 0BH17EZ Insertion of Endotracheal Airway into Trachea, Via Natural or Artificial Opening (ICD-10-PCS; 2018-02-10)
PROC: 30233N1 Transfusion of Nonautologous Red Blood Cells into Peripheral Vein, Percutaneous Approach (ICD-10-PCS; 2018-02-10)
PROC: 02HV33Z Insertion of Infusion Device into Superior Vena Cava, Percutaneous Approach (ICD-10-PCS; 2018-02-10)
PROC: 0JH606Z Insertion of Pacemaker, Dual Chamber into Chest Subcutaneous Tissue and Fascia, Open Approach (ICD-10-PCS; 2018-02-12)
PROC: 02H63JZ Insertion of Pacemaker Lead into Right Atrium, Percutaneous Approach (ICD-10-PCS; 2018-02-12)
PROC: 02HK3JZ Insertion of Pacemaker Lead into Right Ventricle, Percutaneous Approach (ICD-10-PCS; 2018-02-12)
PROC: 30233R1 Transfusion of Nonautologous Platelets into Peripheral Vein, Percutaneous Approach (ICD-10-PCS; 2018-02-12)
PROC: 0QS606Z Reposition Right Upper Femur with Intramedullary Internal Fixation Device, Open Approach (ICD-10-PCS; 2018-02-13)
PROC: 0QS706Z Reposition Left Upper Femur with Intramedullary Internal Fixation Device, Open Approach (ICD-10-PCS; principal; 2018-02-13 10:25)
DX: S72.142A Displaced intertrochanteric fracture of left femur, initial encounter for closed fracture (principal); S27.2XXA Traumatic hemopneumothorax, initial encounter; S72.141A Displaced intertrochanteric fracture of right femur, initial encounter for closed fracture; J96.01 Acute respiratory failure with hypoxia; I21.4 Non-ST elevation (NSTEMI) myocardial infarction; R57.8 Other shock; T79.4XXA Traumatic shock, initial encounter; S22.089A Unspecified fracture of T11-T12 vertebra, initial encounter for closed fracture; I47.2 Ventricular tachycardia; S22.41XA Multiple fractures of ribs, right side, initial encounter for closed fracture; J80 Acute respiratory distress syndrome; E87.2 Acidosis; S42.202A Unspecified fracture of upper end of left humerus, initial encounter for closed fracture; I48.0 Paroxysmal atrial fibrillation; R00.1 Bradycardia, unspecified; R55 Syncope and collapse; D69.6 Thrombocytopenia, unspecified; I49.5 Sick sinus syndrome; I10 Essential (primary) hypertension; E03.9 Hypothyroidism, unspecified; K21.9 Gastro-esophageal reflux disease without esophagitis; M81.0 Age-related osteoporosis without current pathological fracture; D64.9 Anemia, unspecified; E87.70 Fluid overload, unspecified; Z51.5 Encounter for palliative care; Z66 Do not resuscitate; E88.09 Other disorders of plasma-protein metabolism, not elsewhere classified; I25.5 Ischemic cardiomyopathy; W18.30XA Fall on same level, unspecified, initial encounter; Y92.008 Other place in unspecified non-institutional (private) residence as the place of occurrence of the external cause
CPT/HCPCS: 31500; 33208; 36430; 36556; 36600; 36620; 71045; 71260; 72129; 72132; 72170; 73502; 74177; 76000; 80048; 80053; 81001; 82306; 82550; 82552; 82805; 83605; 83735; 84100; 84484; 85007; 85025; 85027; 85384; 85610; 85730; 86850; 86900; 86901; 86920; 87040; 87070; 87077; 87186; 87205; 87641; 93005; 93306; 94002; 94003; 94640; 94664; 99152; 99153; 99285; 99291; C1713; C1779; C1785; C9113; G0390; J0171; J0282; J0690; J0696; J1120; J1265; J1580; J1650; J1940; J2060; J2250; J2270; J2370; J3010; J3370; J3475; J3480; J7030; J7040; J7050; J7060; J7120; P9016; P9035; P9045; Q9967